=== PATIENT | male | born 1980 | race Caucasian/White ===

== ENCOUNTER 2017-04-27 20:54 | Inpatient (IN) | payer MEDICAID ==
[2017-04-27 20:54] VITALS: BMI 32.3
[2017-04-27] MEDS ORDERED: Sodium Chloride 0.9% 1,000 ML IV ONE (21:39)
--- NOTE | 2017-04-27 21:42 | C.PDOC ---
History Of Present Illness 36 year old male with a Hx of diabetes who presents to the ER with a complaint of abdominal pain since last night, associated with nausea and vomiting. Patient states he feels "bloated" and notes the pain is worse at the epigastric region; denies diarrhea or other compliant. Time Seen by Provider: 04/27/17 21:18 Chief Complaint (Nursing): Abdominal Pain History Per: Patient History/Exam Limitations: no limitations Onset/Duration Of Symptoms: Days Current Symptoms Are (Timing): Still Present Location Of Pain/Discomfort: Epigastric Radiation Of Pain To:: None Quality Of Discomfort: Unable To Describe Associated Symptoms: Nausea, Vomiting. denies: Fever, Chills, Diarrhea Exacerbating Factors: None Alleviating Factors: None Recent travel outside of the [place]: No Past Medical History Reviewed: Historical Data, Nursing Documentation, Vital Signs Vital Signs: Last Vital Signs Temp 97.6 F 04/28/17 07:35 Pulse 75 04/28/17 07:40 Resp 22 04/28/17 07:35 BP 121/55 L 04/28/17 07:35 Pulse Ox 99 04/28/17 12:22 - Medical History PMH: Asthma, Atrial Fibrillation, Cardia Arrhythmia, Diabetes, Sleep Apnea (ON CPAP) Surgical History: No Surg Hx Family History: States: Unknown Family Hx - Social History Hx Tobacco Use: No Hx Alcohol Use: No Hx Substance Use: No - Immunization History Hx Tetanus Toxoid Vaccination: No Hx Influenza Vaccination: No Hx Pneumococcal Vaccination: No Review Of Systems Constitutional: Negative for: Fever, Chills Gastrointestinal: Positive for: Nausea, Vomiting, Abdominal Pain. Negative for : Diarrhea Physical Exam - Physical Exam Appears: Non-toxic Skin: Normal Color, Warm, Dry Head: Atraumatic, Normacephalic Oral Mucosa: Moist Chest: Symmetrical, No Tenderness Cardiovascular: Rhythm Regular, No Murmur Respiratory: Normal Breath Sounds, No Rales, No Rhonchi, No Wheezing Gastrointestinal/Abdominal: Soft, Tenderness (Mild nonfocal, worse at epigastric ) Neurological/Psych: Oriented x3, Normal Speech, Normal Cognition ED Course And Treatment - Laboratory Results Result Diagrams: 04/28/17 07:26 04/28/17 07:26 O2 Sat by Pulse Oximetry: 99 (Room air) Pulse Ox Interpretation: Normal Medical Decision Making Medical Decision Making: Plan: * Blood work * Urinalysis * Zofran * Protonix * IV fluids Disposition - Disposition Disposition: HOSPITALIZED Disposition Time: 23:41 Condition: FAIR - Clinical Impression Clinical Impression: Acute renal failure, Abdominal pain, Leukocytosis, Bandemia - Scribe Statement The provider has reviewed the documentation as recorded by the Tonnyibiqra Barr All medical record entries made by the Scribe were at my direction and personally dictated by me. I have reviewed the chart and agree that the record accurately reflects my personal performance of the history, physical exam, medical decision making, and the department course for this patient. I have also personally directed, reviewed, and agree with the discharge instructions and disposition. Decision To Admit - Pt Status Changed To: Hospital Disposition Of: Inpatient - Admit Certification Admit to Inpatient:: After my assessment, the patient will require hospitalization for at least two midnights. This is because of the severity of symptoms shown, intensity of services needed, and/or the medical risk in this patient being treated as an outpatient. - InPatient: Physician Admission Certification:: pt with new acute renal failure, leukocytosis, concern for sepssi, needs ivf, renal eval. - . Bed Request Type: Telemetry Admitting Physician: Marc Thomason Jr. Patient Diagnosis: Acute renal failure, Abdominal pain, Leukocytosis, Bandemia
[2017-04-27] MEDS ORDERED: Sodium Chloride 0.9% 1,000 ML ONE (21:52)
[2017-04-27 21:54] LABS: BASO # 0.1 K/uL (0.0-0.2); BASO % 0.3 % (0.0-2.0); EOS % 0.1 % (0.0-4.0); HEMATOCRIT 35.1 % (35.0-51.0); LYMPH # 1.6 K/uL (1.0-4.3); LYMPH % 7.2 % (20.0-40.0); MEAN CELL VOLUME 78.5 fL (80.0-94.0); MEAN CORPUSCULAR HEMOGLOBIN 26.5 pg (27.0-31.0); MEAN CORPUSCULAR HGB CONC 33.7 g/dL (33.0-37.0); MEAN PLATELET VOLUME 8.5 fL (7.2-11.7); MONO # 2.3 K/uL (0.0-0.8); MONO % 10.4 % (0.0-10.0); PLATELET COUNT 218 K/uL (130-400); RED CELL DISTRIBUTION WIDTH 14.1 % (11.5-14.5); WHITE BLOOD COUNT 22.2 K/uL (4.8-10.8)
[2017-04-27 22:01] LABS: INR 1.1
[2017-04-27 22:04] LABS: ALB/GLOB RATIO 1.2 (1.0-2.1); BILIRUBIN,TOTAL 0.2 mg/dL (0.2-1.3); CALCIUM 8.2 mg/dl (8.6-10.4); POTASSIUM 3.7 mmol/L (3.6-5.2); TOTAL PROTEIN 6.6 g/dL (6.3-8.3)
[2017-04-27 22:19] LABS: NEUTROPHIL 79 % (50-75); TOTAL CELLS COUNTED 100
[2017-04-27 22:20] LABS: LARGE PLATELETS PRESENT
--- NOTE | 2017-04-27 23:27 | CT ---
EXAM: CT Abdomen and Pelvis Without Intravenous Contrast EXAM DATE/TIME: 04/27/2017 10:06 PM CLINICAL HISTORY: 36 years old, male; Pain; Abdominal pain; Generalized; Additional info: Abd pain TECHNIQUE: Axial computed tomography images of the abdomen and pelvis without intravenous contrast. All CT scans at this facility use one or more dose reduction techniques, viz.: automated exposure control; ma/kV adjustment per patient size (including targeted exams where dose is matched to indication; i.e. head); or iterative reconstruction technique. Coronal and sagittal reformatted images were created and reviewed. COMPARISON: No relevant prior studies available. FINDINGS: There is bibasilar atelectasis. Questionable trace amount of sludge layering along the inferior gallbladder. No pericholecystic inflammation identified. The liver, spleen, and pancreas appear grossly normal on this non-contrast study. No perinephric stranding. No hydronephrosis. No obstructing calculi. The bowel appears grossly normal. A normal appendix is identified axial image 116 through 126 coronal image 50-56. IMPRESSION: No acute findings.
[2017-04-27] MEDS ORDERED: Piperacill/Tazo 3.375gm in Dex 3.375 GM/50 ML BAG IVPB STA (23:28)
[2017-04-28] MEDS ORDERED: Piperacillin/Tazobact 3.375 gm 100 ML IVPB ONE (00:11)
[2017-04-28] MEDS ORDERED: Dextrose 50% SYRINGE Inj (50 ml) ONE ×2 (00:21→02:20)
[2017-04-28] MEDS ORDERED: Dextrose 50% SYRINGE Inj (50 ml) IV STA ×2 (00:25→02:54)
[2017-04-28] MEDS ORDERED: Sodium Chloride 0.9% 250 ML IV SCH (00:30)
--- NOTE | 2017-04-28 01:19 | CP.PCM.HP ---
History of Present Illness - History of Present Illness History of Present Illness: HPI: Patient is a 36M with PMH DM, Sleep apnea, Asthma, AFib, HTN who presents to the ED for abdominal pain and vomiting. Patient says this started yesterday and gradually worsened. Patient says his abdominal pain is diffuse and 10/10 in intensity. Patient said he vomited all day yesterday but does not know how many times stating it was a lot. Patient says he checked his blood suger and the readings were repeatedly very low, in the 20s. Patient says at one point they dropped so low that he passed out and awakened when his family member called him on the phone. Patient says he tried drinking juices but kept vomiting so his blood sugar remained low. Patient says he did not take anything for his pain at home but says he feels better when he is resting and worse when moving around. Patient admits to associated feeling of fever with chills, weakness, 10 pound weight loss in 1 week, MONIQUE, dizziness, sore throat, body aches, joint pain , CP/SOB when he starts vomiting, Watery diarrhea, flank pain, pain in his scrotum, and cramping in his hands. Patient denies Cough, wheezing, dysuria, frequency, incontinence, hematuria, rash, or numbness/tingling in hands or feet. PMH: DM, Sleep apnea, Asthma, AFib, HTN Meds: Humalog 5U TID, Lantus 30 AM, Motrin 600 PRN for joint pain, "BP med as needed for HTN" (patient cannot recall name) PSH: cardiac cath 2 years ago (neg) Allergies: denies FamHx: Kidney dz (uncle) SocHx: denies smoking, alcohol use, drug use; unemployed on disability Present on Admission - Present on Admission Any Indicators Present on Admission: Yes History of Uncontrolled Diabetes: Yes Review of Systems - Review of Systems All systems: reviewed and no additional remarkable complaints except (as per HPI ) Past Patient History - Infectious Disease Hx of Infectious Diseases: None - Past Medical History & Family History Past Medical History?: Yes - Past Social History Smoking Status: Never Smoked - CARDIAC Hx Atrial Fibrillation: Yes Hx Cardia Arrhythmia: Yes - PULMONARY Hx Asthma: Yes Hx Sleep Apnea: Yes (ON CPAP) - ENDOCRINE/METABOLIC Hx Endocrine Disorders: Yes Hx Diabetes Mellitus Type 1: Yes - MUSCULOSKELETAL/RHEUMATOLOGICAL Hx Falls: No - PSYCHIATRIC Hx Substance Use: No - SURGICAL HISTORY Hx Surgeries: Yes Hx Cardiac Catheterization: Yes (2016) - ANESTHESIA Hx Anesthesia: Yes Hx Anesthesia Reactions: No Hx Malignant Hyperthermia: No Meds Allergies/Adverse Reactions: Allergies Allergy/AdvReac Type Severity Reaction Status Date / Time No Known Allergies Allergy Verified 04/27/17 21:17 Physical Exam - Constitutional Appears: Non-toxic, No Acute Distress - Head Exam Head Exam: ATRAUMATIC, NORMAL INSPECTION, NORMOCEPHALIC - Eye Exam Eye Exam: EOMI, Normal appearance - ENT Exam ENT Exam: Mucous Membranes Moist Additional comments: hyperemia of oropharynx without exudates - Neck Exam Neck exam: Positive for: Tenderness (paraspinal muscles ). Negative for: Lymphadenopathy - Respiratory Exam Respiratory Exam: Clear to Auscultation Bilateral, NORMAL BREATHING PATTERN. absent: Wheezes, Respiratory Distress - Cardiovascular Exam Cardiovascular Exam: REGULAR RHYTHM, +S1, +S2. absent: Bradycardia, Tachycardia - GI/Abdominal Exam GI & Abdominal Exam: Distended, Hyperactive Bowel Sounds, Soft, Tenderness. absent: Bruit, Guarding - Extremities Exam Extremities exam: Positive for: normal inspection, pedal pulses present. Negative for: pedal edema, tenderness - Back Exam Back exam: NORMAL INSPECTION, paraspinal tenderness. absent: rash noted - Neurological Exam Neurological exam: Alert, Oriented x3 - Psychiatric Exam Psychiatric exam: Normal Affect, Normal Mood - Skin Skin Exam: Dry, Intact, Normal Color, Warm Results - Vital Signs Recent Vital Signs: Last Vital Signs Temp 98.5 F 04/27/17 21:13 Pulse 82 04/28/17 00:25 Resp 22 04/28/17 00:25 BP 99/35 L 04/28/17 00:25 Pulse Ox 92 L 04/28/17 00:25 - Labs Result Diagrams: 04/27/17 21:50 04/27/17 21:50 Labs: Laboratory Results - last 24 hr 04/28/17 04/28/17 00:22 01:04 POC Glucose (mg/dL) 243 H 77 Assessment & Plan - Assessment and Plan (Free Text) Assessment: [facility] * BUN/Cr: 26/5.1 * Consult Nephrology (Dr. Limon) recs appreciated Abdominal pain/Vomiting * CT scan a/p: no abnormal findings * Liquid diet * NS 250 bolus * Zofran 4 mg PRN * leukocytosis 22.2 * currently afebrile with no antipyretics given * f/u BC * f/u UA, UC Hx DM * holding home Insulin 2/2 low BG Hx Afib * no home meds for this * controlled with ED ECG NSR Prophylaxis * Heparin 5000 Q12 * Protonix 40mg QD * SCDs
[2017-04-28] MEDS ORDERED: Sodium Chloride 0.9% 250 ML IV ONE ×2 (01:28→01:34)
[2017-04-28] MEDS ORDERED: Sodium Chloride 0.9% 1,000 ML IV SCH (07:00)
[2017-04-28 07:31] LABS: BASO % 0.1 % (0.0-2.0); HEMATOCRIT 36.9 % (35.0-51.0); LYMPH # 1.3 K/uL (1.0-4.3); LYMPH % 6.9 % (20.0-40.0); MEAN CELL VOLUME 78.9 fL (80.0-94.0); MEAN CORPUSCULAR HEMOGLOBIN 26.3 pg (27.0-31.0); MEAN CORPUSCULAR HGB CONC 33.3 g/dL (33.0-37.0); MEAN PLATELET VOLUME 8.8 fL (7.2-11.7); MONO % 10.7 % (0.0-10.0); PLATELET COUNT 213 K/uL (130-400); RED CELL DISTRIBUTION WIDTH 14.5 % (11.5-14.5); WHITE BLOOD COUNT 18.7 K/uL (4.8-10.8)
[2017-04-28 07:50] LABS: ALB/GLOB RATIO 1.1 (1.0-2.1); BILIRUBIN,TOTAL 0.2 mg/dL (0.2-1.3); CALCIUM 7.4 mg/dl (8.6-10.4); POTASSIUM 3.6 mmol/L (3.6-5.2); TOTAL PROTEIN 6.2 g/dL (6.3-8.3)
--- NOTE | 2017-04-28 07:53 | CP.PCM.PN ---
<RicardoDari morse - Last Filed: 04/28/17 18:23> Subjective - Date & Time of Evaluation Date of Evaluation: 04/28/17 Time of Evaluation: 09:00 - Subjective Subjective: PGY 2 Medicine note- Dr. Thomason's service Pt seen and examined this morning in no apparent immediate distress. Patient stated that he was coughing up blood tinged sputum. Per nurse, patient went to the bathroom and coughed up white colored sputum with some blood specks. Patient stated that he had never experienced this before. He stated that he had some trouble sleeping overnight as well. He states that he did no travel recently out of the country or within country lines on any long distance journeys. He denied sick contacts or being sick recently. Patient was able to urinate once in the morning, but had not urinated since then. Later on shortly after 15:00, remote mortgage underwriter received a page regarding patient being acutely short of breath despite being on venti mask. Patient's oxygen saturation dropped to 75 % as reported by the respiratory team. At that time, patient was noted to be clinically in respiratory distress. Patient was still bringing up blood tinged sputum at the time. Patient placed on BiPAP therapy and STAT CXR was obtained with findings of fluid congestion. EKG NSR. Other stat labs ordered as listed below in the assessment. Clinical findings were made known to the primary attending and then critical care evaluation was placed . Commissary Helper was also made aware of the present findings. Patient was asked to attempt to urinate but was unable to do so. STAT Lasix given. It was decided hat patient would be transferred to the ICU for continued critical care monitoring. Objective - Vital Signs/Intake and Output Vital Signs (last 24 hours): Temp Pulse Resp BP Pulse Ox 98.1 F 77 22 105/53 L 98 04/28/17 03:27 04/28/17 03:58 04/28/17 03:27 04/28/17 03:27 04/28/17 02:52 Intake and Output: 04/28/17 04/28/17 06:59 18:59 Intake Total 600 Balance 600 - Medications Medications: Current Medications Heparin Sodium (Porcine) (Heparin) 5,000 units SC Q12 CLAUDE Sodium Chloride (Sodium Chloride 0.9%) 1,000 mls @ 80 mls/hr IV .[id number] CLAUDE Ibuprofen (Motrin Tab) 600 mg PO TID PRN PRN Reason: Pain, moderate (4-7) Last Admin: 04/28/17 04:04 Dose: 600 mg Ondansetron HCl (Zofran Inj) 4 mg IVP Q6 PRN PRN Reason: Nausea/Vomiting Pantoprazole Sodium (Protonix Ec Tab) 40 mg PO DAILY [facility] Pneumococcal Polyvalent Vaccine (Pneumovax 23 Vaccine) 0.5 ml IM .ONCE ONE Stop: 04/30/17 14:01 - Labs Labs: 04/28/17 07:26 PT 12.8 SECONDS (9.7-12.2) H 04/27/17 21:50 INR 1.1 04/27/17 21:50 APTT 28 SECONDS (21-34) 04/27/17 21:50 - Constitutional Appears: In Acute Distress - Head Exam Head Exam: ATRAUMATIC, NORMAL INSPECTION, NORMOCEPHALIC - Eye Exam Eye Exam: EOMI, Normal appearance, PERRL Pupil Exam: NORMAL ACCOMODATION - ENT Exam ENT Exam: Mucous Membranes Moist - Neck Exam Neck Exam: Full ROM - Respiratory Exam Respiratory Exam: Rales. absent: NORMAL BREATHING PATTERN - Cardiovascular Exam Cardiovascular Exam: +S1, +S2 - GI/Abdominal Exam GI & Abdominal Exam: Soft, Normal Bowel Sounds - Extremities Exam Extremities Exam: Full ROM, Normal Capillary Refill, Pedal Edema - Back Exam Back Exam: Full ROM - Neurological Exam Neurological Exam: Alert, Awake, Normal Gait, Oriented x3 - Psychiatric Exam Psychiatric exam: Anxious - Skin Skin Exam: Dry, Warm Assessment and Plan - Assessment and Plan (Free Text) Assessment: Hypoxia secondary to fluid overload * CXR showed congestion * STAT Lasix given * Placed on BiPAP therapy with improvement * Later switched back to venti mask with improvement of saturation * EKG: NSR. * Transferred to ICU [facility] * BUN/Cr: 26/5.1- Worsening. * Nephro notified and made aware. F/U recommendations. Patient counseled on benefit of HD even if it's only a one time occurence. Patient is refusing dialysis at this time. * fluids stopped * Check UA, UC, Serologies for autoimmune etiologies of pulm-renal syndrome * This is significantly changed from August 2016 where Cr was 0.7-1.0 range. ( His actual baseline) * CT scan a/p: no findings of hydronephrosis, * Bladder scans as needed- patient may need suazo placed Hemoptyis * Unclear etiology * Will follow up CBC and monitor Hgb * Will investigate once patient is more stable. * D-Dimer elevated. Can pursue further imaging once patient is stable Abdominal pain * CT scan a/p: no findings of hydronephrosis, trace questionable sludge noted of inferior gallbladder * Liquid diet as tolerated * NS 250 bolus given- maintenance fluids stopped * Zofran 4 mg PRN * Leukocytosis 22.2, currently afebrile with no antipyretics given * f/u BC, f/u UA, UC Transaminitis * May be due to medication administration. Trending down. Meds to be reviewed. Hx DM * holding home Insulin 2/2 low BG * F/U A1c * Will add on coverage pending accuchecks Hx Afib * No known home meds for this- Will need to confirm with patient's pharmacy * EKG NSR Hx of HTN * No known home meds * Hypotensive at the moment so will not initiate antihypertensive agent therapy Hx of Asthma * Duonebs as needed * On venti mask. Will benefit with BiPAP therapy as needed Prophylaxis * Heparin 5000 Q12- Hold due to hemoptysis * Protonix 40mg IV Q12 due to hemoptysis * SCDs Discussed with primary attending, nephrology attending and critical care attending. Management per aforementioned individuals. <Marc Thomason Jr. - Last Filed: 04/30/17 11:10> Objective - Vital Signs/Intake and Output Vital Signs (last 24 hours): Temp Pulse Resp BP Pulse Ox 98.7 F 104 H 24 135/69 100 04/30/17 04:00 04/30/17 07:00 04/30/17 07:00 04/30/17 10:11 04/30/17 07:00 Intake and Output: 04/30/17 04/30/17 06:59 18:59 Intake Total 1968.2 465.4 Output Total 265 Balance 1703.2 465.4 - Medications Medications: Current Medications Albuterol/Ipratropium (Duoneb 3 Mg/0.5 Mg (3 Ml) Ud) 3 ml INH RQ6 PRN PRN Reason: Wheezing Last Admin: 04/30/17 08:04 Dose: 3 ml Calcium Acetate (Phoslo) 667 mg GT TIDCC [facility] Last Admin: 04/30/17 08:19 Dose: 667 mg Heparin Sodium (Porcine) (Heparin) 5,000 units SC Q12 [facility] Last Admin: 04/30/17 10:11 Dose: 5,000 units Ceftriaxone Sodium 1 gm/ (Sodium Chloride) 100 mls @ 100 mls/hr IVPB DAILY [facility] Last Admin: 04/30/17 10:12 Dose: 100 mls/hr Sodium Chloride (Sodium Chloride 0.9%) 1,000 mls @ 15 mls/hr IV .Q24H [facility] Last Admin: 04/29/17 19:35 Dose: Not Given Propofol (Diprivan) 1,000 mg in 100 mls @ 2.85 mls/hr IV .Q24H PRN; Protocol; 5 MCG/KG/MIN PRN Reason: TITRATE PER MD ORDER Last Admin: 04/30/17 10:21 Dose: 70 mcg/kg/min, 39.9 mls/hr Cisatracurium Besylate 100 mg/ (Dextrose) 250 mls @ 42.75 mls/hr IV .Q5H51M CLAUDE ; 3 MCG/KG/MIN PRN Reason: Protocol Last Admin: 04/30/17 08:15 Dose: 2 mcg/kg/min, 28.5 mls/hr Insulin Human Regular 100 unit (/ Sodium Chloride) 100 mls @ 2 mls/hr IV .Q24H CLAUDE PRN Reason: Protocol Last Titration: 04/30/17 10:00 Dose: 0 units/kg/min, 4 mls/hr Metoprolol Tartrate (Lopressor) 25 mg PO BID [facility] Last Admin: 04/30/17 10:11 Dose: 25 mg Pantoprazole Sodium (Protonix Inj) 40 mg IVP DAILY [facility] Last Admin: 04/30/17 10:12 Dose: 40 mg Sitagliptin Phosphate (Januvia) 25 mg PO DAILY [facility] Last Admin: 04/30/17 10:11 Dose: 25 mg - Labs Labs: 04/30/17 06:14 04/30/17 06:14 PT 13.0 SECONDS (9.7-12.2) H 04/28/17 15:20 INR 1.1 04/28/17 15:20 APTT 28 SECONDS (21-34) 04/28/17 15:20 Attending/Attestation - Attestation I have personally seen and examined this patient.: Yes I have fully participated in the care of the patient.: Yes I have reviewed all pertinent clinical information, including history, physical exam and plan: Yes Notes (Text): 04/30/17 11:10 Agree with resident note and findings
[2017-04-28 09:04] LABS: NEUTROPHIL 74 % (50-75); TOTAL CELLS COUNTED 100
[2017-04-28 09:06] LABS: LARGE PLATELETS PRESENT
[2017-04-28] MEDS ORDERED: Pantoprazole 40 mg EC Tab PO SCH (10:00)
[2017-04-28 10:26] LABS: MAGNESIUM 1.5 mg/dL (1.6-2.3)
--- NOTE | 2017-04-28 12:39 | RAD ---
HISTORY: abd pain COMPARISON: 09/06/2016 FINDINGS: LUNGS: No active pulmonary disease. PLEURA: No significant pleural effusion identified, no pneumothorax apparent. CARDIOVASCULAR: Normal. OSSEOUS STRUCTURES: No significant abnormalities. VISUALIZED UPPER ABDOMEN: Normal. OTHER FINDINGS: None. IMPRESSION: No active disease.
[2017-04-28] MEDS: Albuterol-Ipratrop 3 mg / 0.5 (3 ml) UD INH PRN (14:36)
[2017-04-28 15:23] LABS: BASO % 0.2 % (0.0-2.0); EOS % 0.1 % (0.0-4.0); HEMATOCRIT 34.9 % (35.0-51.0); LYMPH # 0.5 K/uL (1.0-4.3); LYMPH % 2.4 % (20.0-40.0); MEAN CELL VOLUME 78.8 fL (80.0-94.0); MEAN CORPUSCULAR HEMOGLOBIN 26.5 pg (27.0-31.0); MEAN CORPUSCULAR HGB CONC 33.6 g/dL (33.0-37.0); MEAN PLATELET VOLUME 8.5 fL (7.2-11.7); MONO # 1.5 K/uL (0.0-0.8); MONO % 6.6 % (0.0-10.0); PLATELET COUNT 200 K/uL (130-400); RED CELL DISTRIBUTION WIDTH 14.1 % (11.5-14.5); WHITE BLOOD COUNT 22.1 K/uL (4.8-10.8)
[2017-04-28 15:41] LABS: INR 1.1
--- NOTE | 2017-04-28 16:03 | CP.PCM.CON ---
History of Present Illness - History of Present Illness History of Present Illness: HPI: Patient is a 36M with PMH DM type 1,Sleep apnea, Asthma, AFib, HTN who presents to the ED for abdominal pain and vomiting. Patient says this started yesterday and gradually worsened. Patient says his abdominal pain is diffuse and 10/10 in intensity. Patient said he vomited all day yesterday but does not know how many times stating it was a lot. Patient says he checked his blood suger and the readings were repeatedly very low, in the 20s. Patient says at one point they dropped so low that he passed out and awakened when his family member called him on the phone. Patient says he tried drinking juices but kept vomiting so his blood sugar remained low. Patient says he did not take anything for his pain at home but says he feels better when he is resting and worse when moving around. Patient admits to associated feeling of fever with chills, weakness, 10 pound weight loss in 1 week, MONIQUE, dizziness, sore throat, body aches , joint pain, CP/SOB when he starts vomiting, Watery diarrhea, flank pain, pain in his scrotum, and cramping in his hands. Patient denies Cough, wheezing, dysuria, frequency, incontinence, hematuria, rash, or numbness/tingling in hands or feet Course notable for fluid challenge. CT scan of abdomen unremarkable. Renal consult for calli. Normal creatinine and no proteinuria in 09/04. Pt given ivf with worsening creatinine. Pt also desaturated on floor with blood tinged phlegm. Presently on nonrebreather, going to ICU. Has been taking Motrin. No BP meds. No contrast procedures. No family history of renal disease. Review of Systems - Review of Systems Systems not reviewed;Unavailable: Respiratory Distress Past Patient History - Infectious Disease Hx of Infectious Diseases: None - Past Medical History & Family History Past Medical History?: Yes - Past Social History Smoking Status: Never Smoked - CARDIAC Hx Atrial Fibrillation: Yes Hx Cardia Arrhythmia: Yes - PULMONARY Hx Asthma: Yes Hx Sleep Apnea: Yes (ON CPAP) - NEUROLOGICAL Hx Neurological Disorder: No - HEENT Hx HEENT Problems: No - RENAL Hx Chronic Kidney Disease: No - ENDOCRINE/METABOLIC Hx Endocrine Disorders: Yes Hx Diabetes Mellitus Type 1: Yes - HEMATOLOGICAL/ONCOLOGICAL Hx Blood Disorders: No - INTEGUMENTARY Hx Dermatological Problems: No - MUSCULOSKELETAL/RHEUMATOLOGICAL Hx Musculoskeletal Disorders: No Hx Falls: No - GASTROINTESTINAL Hx Gastrointestinal Disorders: No - GENITOURINARY/GYNECOLOGICAL Hx Genitourinary Disorders: No - PSYCHIATRIC Hx Substance Use: No - SURGICAL HISTORY Hx Surgeries: Yes Hx Cardiac Catheterization: Yes (2016) - ANESTHESIA Hx Anesthesia: Yes Hx Anesthesia Reactions: No Hx Malignant Hyperthermia: No Meds Allergies/Adverse Reactions: Allergies Allergy/AdvReac Type Severity Reaction Status Date / Time No Known Allergies Allergy Verified 04/27/17 21:17 - Medications Medications: Current Medications Albuterol/Ipratropium (Duoneb 3 Mg/0.5 Mg (3 Ml) Ud) 3 ml INH RQ6 PRN PRN Reason: Wheezing Last Admin: 04/28/17 14:36 Dose: 3 ml Heparin Sodium (Porcine) (Heparin) 5,000 units SC Q12 CLAUDE Ondansetron HCl (Zofran Inj) 4 mg IVP Q6 PRN PRN Reason: Nausea/Vomiting Pantoprazole Sodium (Protonix Inj) 40 mg IVP Q12H CLAUDE Pneumococcal Polyvalent Vaccine (Pneumovax 23 Vaccine) 0.5 ml IM .ONCE ONE Stop: 04/30/17 14:01 Physical Exam - Constitutional Appears: Agitated - Head Exam Head Exam: ATRAUMATIC - Eye Exam Eye Exam: EOMI - ENT Exam ENT Exam: Mucous Membranes Moist - Neck Exam Neck exam: Positive for: Full Rom. Negative for: Lymphadenopathy - Respiratory Exam Respiratory Exam: Rales, Respiratory Distress - Cardiovascular Exam Cardiovascular Exam: REGULAR RHYTHM. absent: Rubs - GI/Abdominal Exam GI & Abdominal Exam: Distended, Soft. absent: Guarding - Extremities Exam Extremities exam: Positive for: pedal edema - Neurological Exam Neurological exam: Alert - Psychiatric Exam Psychiatric exam: Agitated, Anxious Results - Vital Signs Recent Vital Signs: Last Vital Signs Temp 97.6 F 04/28/17 07:35 Pulse 83 04/28/17 15:31 Resp 22 04/28/17 07:35 BP 119/64 04/28/17 15:51 Pulse Ox 99 04/28/17 12:23 - Labs Result Diagrams: 04/28/17 15:20 04/28/17 07:26 Labs: Laboratory Results - last 24 hr 04/28/17 04/28/17 04/28/17 00:22 01:04 02:10 WBC RBC Hgb Hct MCV MCH MCHC RDW Plt Count MPV Neut % (Auto) Lymph % (Auto) Dale % (Auto) Eos % (Auto) Baso % (Auto) Neut # Lymph # Dale # Eos # Baso # Neutrophils % (Manual) Band Neutrophils % Lymphocytes % (Manual) Monocytes % (Manual) Toxic Granulation Platelet Estimate Large Platelets Poikilocytosis (manual Anisocytosis (manual) Microcytosis (manual) Philo Cells PT INR APTT D-Dimer, Quantitative Sodium Potassium Chloride Carbon Dioxide Anion Gap BUN Creatinine Est GFR ( Amer) Est GFR (Non-Af Amer) POC Glucose (mg/dL) 243 H 77 48 L Random Glucose Calcium Phosphorus Magnesium Total Bilirubin AST ALT Alkaline Phosphatase Total Creatine Kinase CK-MB (Mass) Troponin I, Quant Total Protein Albumin Globulin Albumin/Globulin Ratio 04/28/17 04/28/17 04/28/17 02:56 04:46 05:23 WBC RBC Hgb Hct MCV MCH MCHC RDW Plt Count MPV Neut % (Auto) Lymph % (Auto) Dale % (Auto) Eos % (Auto) Baso % (Auto) Neut # Lymph # Dale # Eos # Baso # Neutrophils % (Manual) Band Neutrophils % Lymphocytes % (Manual) Monocytes % (Manual) Toxic Granulation Platelet Estimate Large Platelets Poikilocytosis (manual Anisocytosis (manual) Microcytosis (manual) Bill Cells PT INR APTT D-Dimer, Quantitative Sodium Potassium Chloride Carbon Dioxide Anion Gap BUN Creatinine Est GFR ( Amer) Est GFR (Non-Af Amer) POC Glucose (mg/dL) 109 67 77 Random Glucose Calcium Phosphorus Magnesium Total Bilirubin AST ALT Alkaline Phosphatase Total Creatine Kinase CK-MB (Mass) Troponin I, Quant Total Protein Albumin Globulin Albumin/Globulin Ratio 04/28/17 04/28/17 04/28/17 07:05 07:26 07:26 WBC 18.7 H RBC 4.68 Hgb 12.3 Hct 36.9 MCV 78.9 L MCH 26.3 L MCHC 33.3 RDW 14.5 Plt Count 213 MPV 8.8 Neut % (Auto) 82.3 H Lymph % (Auto) 6.9 L Dale % (Auto) 10.7 H Eos % (Auto) 0.0 Baso % (Auto) 0.1 Neut # 15.4 H Lymph # 1.3 Dale # 2.0 H Eos # 0.0 Baso # 0.0 Neutrophils % (Manual) 74 Band Neutrophils % 5 H Lymphocytes % (Manual) 10 L Monocytes % (Manual) 11 H Toxic Granulation Present Platelet Estimate Normal Large Platelets Present Poikilocytosis (manual Slight Anisocytosis (manual) Slight Microcytosis (manual) Slight Philo Cells Slight PT INR APTT D-Dimer, Quantitative Sodium 130 L Potassium 3.6 Chloride 91 L Carbon Dioxide 17 L Anion Gap 26 H BUN 30 H Creatinine 6.3 H Est GFR ( Amer) 12 Est GFR (Non-Af Amer) 10 POC Glucose (mg/dL) 86 Random Glucose 82 Calcium 7.4 L Phosphorus 3.0 Magnesium 1.5 L Total Bilirubin 0.2 AST 101 H D ALT 109 H D Alkaline Phosphatase 82 Total Creatine Kinase CK-MB (Mass) Troponin I, Quant Total Protein 6.2 L Albumin 3.2 L Globulin 3.0 Albumin/Globulin Ratio 1.1 04/28/17 04/28/17 04/28/17 11:32 15:20 15:20 WBC RBC Hgb Hct MCV MCH MCHC RDW Plt Count MPV Neut % (Auto) Lymph % (Auto) Dale % (Auto) Eos % (Auto) Baso % (Auto) Neut # Lymph # Dale # Eos # Baso # Neutrophils % (Manual) Band Neutrophils % Lymphocytes % (Manual) Monocytes % (Manual) Toxic Granulation Platelet Estimate Large Platelets Poikilocytosis (manual Anisocytosis (manual) Microcytosis (manual) Bill Cells PT 13.0 H INR 1.1 APTT 28 D-Dimer, Quantitative 461 H Sodium Potassium Chloride Carbon Dioxide Anion Gap BUN Creatinine Est GFR ( Amer) Est GFR (Non-Af Amer) POC Glucose (mg/dL) 272 H Random Glucose Calcium Phosphorus Magnesium Total Bilirubin AST ALT Alkaline Phosphatase Total Creatine Kinase 309 H CK-MB (Mass) 4.61 H Troponin I, Quant 0.0560 Total Protein Albumin Globulin Albumin/Globulin Ratio 04/28/17 15:20 WBC 22.1 H RBC 4.43 Hgb 11.7 L Hct 34.9 L MCV 78.8 L MCH 26.5 L MCHC 33.6 RDW 14.1 Plt Count 200 MPV 8.5 Neut % (Auto) 90.7 H Lymph % (Auto) 2.4 L Dale % (Auto) 6.6 Eos % (Auto) 0.1 Baso % (Auto) 0.2 Neut # 20.1 H Lymph # 0.5 L Dale # 1.5 H Eos # 0.0 Baso # 0.0 Neutrophils % (Manual) Band Neutrophils % Lymphocytes % (Manual) Monocytes % (Manual) Toxic Granulation Platelet Estimate Large Platelets Poikilocytosis (manual Anisocytosis (manual) Microcytosis (manual) Philo Cells PT INR APTT D-Dimer, Quantitative Sodium Potassium Chloride Carbon Dioxide Anion Gap BUN Creatinine Est GFR ( Amer) Est GFR (Non-Af Amer) POC Glucose (mg/dL) Random Glucose Calcium Phosphorus Magnesium Total Bilirubin AST ALT Alkaline Phosphatase Total Creatine Kinase CK-MB (Mass) Troponin I, Quant Total Protein Albumin Globulin Albumin/Globulin Ratio Assessment & Plan - Assessment and Plan (Free Text) Assessment: calli, unclear u/o worsening respiratory status blood tinged phlegm for icu admit d/c ivf iv lasix potential HD if no improvement check protein in urine check serology for pulmonary renal syndromes close f/u
--- NOTE | 2017-04-28 16:32 | CP.CCUPN ---
CCU Subjective - Physician Review Events Since Last Encounter (Free Text): 04/28/17 16:44 Patient is a 36-year-old male with a history of diabetes, poorly controlled, and also likely has a high blood pressure. Patient was seen by PMD to 3 months ago, at the time his renal function was normal. In August 2016 he had a normal renal function. He came to the emergency room because of not feeling well for at least 3 weeks, got worse 3 days, and admitted to the medical floor with suspected acute renal failure, and the possibility hydration. But at the time patient received IV fluid, but his condition got worse this morning. Evidence suggesting that he may be having fluid overload state. Patient is currently having increasing shortness of breath, increasing tachypnea , cough with mucus which has some blood in the mucus noted. He is also having significant chest tightness with coughing. Occasional wheezing noted. He does not have any fever. He was also concerned about low blood sugar. He does not make much urine the last 24 hours but it was not documented Past medical history: Diabetes hypertension noncompliance Allergy: No known drug allergy Personal history and other history as noted in the chart On examination: Patient is somewhat distress at this time, the severe exertional dyspnea noted. He was using BiPAP, but started having some suffocating sensation. Currently on 100% FiO2. He is awake and responding. Able to move around. Concerned about dialysis, patient is currently refusing Alert awake oriented 3 pedal edema noted, rales bilaterally in the lungs noted Chest x-ray bilateral. Pulmonary edema pattern noted. Labs otherwise showing evidence of worsening renal failure. Patient is possibly oliguric Assessment and recommendation: 36-year-old male with history of diabetes, hypertension. Noncompliance. Now with acute renal failure. There is no evidence of any obstruction identified per the CAT scan. Acute renal failure, causes cannot be ruled out including nephrotic syndrome, renal failure from other causes, currently to the disease cannot be ruled out. Meanwhile we'll manage the patient in the intensive care unit. Lasix 100 milligrams. BiPAP oxygen. Will closely monitor the intensive care unit. Patient is currently not willing to have the dialysis, but if necessary patient may need to have the dialysis. Renal follow-up will follow the patient CCU Objective - Vital Signs / Intake & Output Vital Signs (Last 4 hours): Vital Signs Pulse BP 04/28/17 15:51 119/64 04/28/17 15:31 83 Intake and Output (Last 8hrs): Intake & Output 04/28/17 04/28/17 04/28/17 06:59 14:59 22:59 Intake Total 600 Balance 600 Intake: Oral 600 Other: # Voids Urine, Voided 0 # Bowel Movements 0 - Medications Active Medications: Active Medications Generic Name Dose Route Start Last Admin Trade Name Freq PRN Reason Stop Dose Admin Albuterol/Ipratropium 3 ml 04/28/17 08:00 04/28/17 14:36 Duoneb 3 Mg/0.5 Mg (3 Ml) Ud INH 3 ml RQ6 PRN Administration Wheezing Heparin Sodium (Porcine) 5,000 units 04/28/17 10:00 Heparin SC Q12 CLAUDE Ondansetron HCl 4 mg 04/28/17 00:30 Zofran Inj IVP Q6 PRN Nausea/Vomiting Pantoprazole Sodium 40 mg 04/28/17 15:15 04/28/17 16:11 Protonix Inj IVP 40 mg Q12H CLAUDE Administration Pneumococcal Polyvalent Vaccine 0.5 ml 04/30/17 14:00 Pneumovax 23 Vaccine IM 04/30/17 14:01 .ONCE ONE - Patient Studies Lab Studies: Lab Studies 04/28/17 04/28/17 04/28/17 Range/Units 16:04 15:20 15:20 WBC 22.1 H (4.8-10.8) K/uL RBC 4.43 (4.40-5.90) Mil/uL Hgb 11.7 L (12.0-18.0) g/dL Hct 34.9 L (35.0-51.0) % MCV 78.8 L (80.0-94.0) fL MCH 26.5 L (27.0-31.0) pg MCHC 33.6 (33.0-37.0) g/dL RDW 14.1 (11.5-14.5) % Plt Count 200 (130-400) K/uL MPV 8.5 (7.2-11.7) fL Neut % (Auto) 90.7 H (50.0-75.0) % Lymph % (Auto) 2.4 L (20.0-40.0) % Fannin % (Auto) 6.6 (0.0-10.0) % Eos % (Auto) 0.1 (0.0-4.0) % Baso % (Auto) 0.2 (0.0-2.0) % Neut # 20.1 H (1.8-7.0) K/uL Lymph # 0.5 L (1.0-4.3) K/uL Fannin # 1.5 H (0.0-0.8) K/uL Eos # 0.0 (0.0-0.7) K/uL Baso # 0.0 (0.0-0.2) K/uL Neutrophils % (Manual) (50-75) % Band Neutrophils % (0-2) % Lymphocytes % (Manual) (20-40) % Monocytes % (Manual) (0-10) % Toxic Granulation Platelet Estimate (NORMAL) Large Platelets Poikilocytosis (manual Anisocytosis (manual) Microcytosis (manual) Bill Cells PT 13.0 H (9.7-12.2) SECONDS INR 1.1 APTT 28 (21-34) SECONDS D-Dimer, Quantitative 461 H (0-243) ng/mlDDU Sodium (132-148) mmol/L Potassium (3.6-5.2) mmol/L Chloride (98-107) mmol/L Carbon Dioxide (22-30) mmol/L Anion Gap (10-20) BUN (9-20) mg/dL Creatinine (0.8-1.5) MG/DL Est GFR ( Amer) Est GFR (Non-Af Amer) POC Glucose (mg/dL) 349 H (65-110) mg/dL Random Glucose (75-110) mg/dL Calcium (8.6-10.4) mg/dl Phosphorus (2.5-4.5) mg/dL Magnesium (1.6-2.3) mg/dL Total Bilirubin (0.2-1.3) mg/dL AST (17-59) U/L ALT (21-72) U/L Alkaline Phosphatase (38-126) U/L Total Creatine Kinase (55-170) U/L CK-MB (Mass) (0.0-3.38) ng/mL Troponin I, Quant (0.00-0.120) ng/mL Total Protein (6.3-8.3) g/dL Albumin (3.5-5.0) g/dL Globulin (2.2-3.9) gm/dL Albumin/Globulin Ratio (1.0-2.1) 04/28/17 04/28/17 04/28/17 Range/Units 15:20 11:32 07:26 WBC (4.8-10.8) K/uL RBC (4.40-5.90) Mil/uL Hgb (12.0-18.0) g/dL Hct (35.0-51.0) % MCV (80.0-94.0) fL MCH (27.0-31.0) pg MCHC (33.0-37.0) g/dL RDW (11.5-14.5) % Plt Count (130-400) K/uL MPV (7.2-11.7) fL Neut % (Auto) (50.0-75.0) % Lymph % (Auto) (20.0-40.0) % Fannin % (Auto) (0.0-10.0) % Eos % (Auto) (0.0-4.0) % Baso % (Auto) (0.0-2.0) % Neut # (1.8-7.0) K/uL Lymph # (1.0-4.3) K/uL Fannin # (0.0-0.8) K/uL Eos # (0.0-0.7) K/uL Baso # (0.0-0.2) K/uL Neutrophils % (Manual) (50-75) % Band Neutrophils % (0-2) % Lymphocytes % (Manual) (20-40) % Monocytes % (Manual) (0-10) % Toxic Granulation Platelet Estimate (NORMAL) Large Platelets Poikilocytosis (manual Anisocytosis (manual) Microcytosis (manual) Bill Cells PT (9.7-12.2) SECONDS INR APTT (21-34) SECONDS D-Dimer, Quantitative (0-243) ng/mlDDU Sodium 130 L (132-148) mmol/L Potassium 3.6 (3.6-5.2) mmol/L Chloride 91 L (98-107) mmol/L Carbon Dioxide 17 L (22-30) mmol/L Anion Gap 26 H (10-20) BUN 30 H (9-20) mg/dL Creatinine 6.3 H (0.8-1.5) MG/DL Est GFR ( Amer) 12 Est GFR (Non-Af Amer) 10 POC Glucose (mg/dL) 272 H (65-110) mg/dL Random Glucose 82 (75-110) mg/dL Calcium 7.4 L (8.6-10.4) mg/dl Phosphorus 3.0 (2.5-4.5) mg/dL Magnesium 1.5 L (1.6-2.3) mg/dL Total Bilirubin 0.2 (0.2-1.3) mg/dL AST 101 H D (17-59) U/L ALT 109 H D (21-72) U/L Alkaline Phosphatase 82 (38-126) U/L Total Creatine Kinase 309 H (55-170) U/L CK-MB (Mass) 4.61 H (0.0-3.38) ng/mL Troponin I, Quant 0.0560 (0.00-0.120) ng/mL Total Protein 6.2 L (6.3-8.3) g/dL Albumin 3.2 L (3.5-5.0) g/dL Globulin 3.0 (2.2-3.9) gm/dL Albumin/Globulin Ratio 1.1 (1.0-2.1) 04/28/17 04/28/17 04/28/17 Range/Units 07:26 07:05 05:23 WBC 18.7 H (4.8-10.8) K/uL RBC 4.68 (4.40-5.90) Mil/uL Hgb 12.3 (12.0-18.0) g/dL Hct 36.9 (35.0-51.0) % MCV 78.9 L (80.0-94.0) fL MCH 26.3 L (27.0-31.0) pg MCHC 33.3 (33.0-37.0) g/dL RDW 14.5 (11.5-14.5) % Plt Count 213 (130-400) K/uL MPV 8.8 (7.2-11.7) fL Neut % (Auto) 82.3 H (50.0-75.0) % Lymph % (Auto) 6.9 L (20.0-40.0) % Fannin % (Auto) 10.7 H (0.0-10.0) % Eos % (Auto) 0.0 (0.0-4.0) % Baso % (Auto) 0.1 (0.0-2.0) % Neut # 15.4 H (1.8-7.0) K/uL Lymph # 1.3 (1.0-4.3) K/uL Fannin # 2.0 H (0.0-0.8) K/uL Eos # 0.0 (0.0-0.7) K/uL Baso # 0.0 (0.0-0.2) K/uL Neutrophils % (Manual) 74 (50-75) % Band Neutrophils % 5 H (0-2) % Lymphocytes % (Manual) 10 L (20-40) % Monocytes % (Manual) 11 H (0-10) % Toxic Granulation Present Platelet Estimate Normal (NORMAL) Large Platelets Present Poikilocytosis (manual Slight Anisocytosis (manual) Slight Microcytosis (manual) Slight Lysite Cells Slight PT (9.7-12.2) SECONDS INR APTT (21-34) SECONDS D-Dimer, Quantitative (0-243) ng/mlDDU Sodium (132-148) mmol/L Potassium (3.6-5.2) mmol/L Chloride (98-107) mmol/L Carbon Dioxide (22-30) mmol/L Anion Gap (10-20) BUN (9-20) mg/dL Creatinine (0.8-1.5) MG/DL Est GFR ( Amer) Est GFR (Non-Af Amer) POC Glucose (mg/dL) 86 77 (65-110) mg/dL Random Glucose (75-110) mg/dL Calcium (8.6-10.4) mg/dl Phosphorus (2.5-4.5) mg/dL Magnesium (1.6-2.3) mg/dL Total Bilirubin (0.2-1.3) mg/dL AST (17-59) U/L ALT (21-72) U/L Alkaline Phosphatase (38-126) U/L Total Creatine Kinase (55-170) U/L CK-MB (Mass) (0.0-3.38) ng/mL Troponin I, Quant (0.00-0.120) ng/mL Total Protein (6.3-8.3) g/dL Albumin (3.5-5.0) g/dL Globulin (2.2-3.9) gm/dL Albumin/Globulin Ratio (1.0-2.1) 04/28/17 04/28/17 04/28/17 Range/Units 04:46 02:56 02:10 WBC (4.8-10.8) K/uL RBC (4.40-5.90) Mil/uL Hgb (12.0-18.0) g/dL Hct (35.0-51.0) % MCV (80.0-94.0) fL MCH (27.0-31.0) pg MCHC (33.0-37.0) g/dL RDW (11.5-14.5) % Plt Count (130-400) K/uL MPV (7.2-11.7) fL Neut % (Auto) (50.0-75.0) % Lymph % (Auto) (20.0-40.0) % Fannin % (Auto) (0.0-10.0) % Eos % (Auto) (0.0-4.0) % Baso % (Auto) (0.0-2.0) % Neut # (1.8-7.0) K/uL Lymph # (1.0-4.3) K/uL Fannin # (0.0-0.8) K/uL Eos # (0.0-0.7) K/uL Baso # (0.0-0.2) K/uL Neutrophils % (Manual) (50-75) % Band Neutrophils % (0-2) % Lymphocytes % (Manual) (20-40) % Monocytes % (Manual) (0-10) % Toxic Granulation Platelet Estimate (NORMAL) Large Platelets Poikilocytosis (manual Anisocytosis (manual) Microcytosis (manual) Bill Cells PT (9.7-12.2) SECONDS INR APTT (21-34) SECONDS D-Dimer, Quantitative (0-243) ng/mlDDU Sodium (132-148) mmol/L Potassium (3.6-5.2) mmol/L Chloride (98-107) mmol/L Carbon Dioxide (22-30) mmol/L Anion Gap (10-20) BUN (9-20) mg/dL Creatinine (0.8-1.5) MG/DL Est GFR ( Amer) Est GFR (Non-Af Amer) POC Glucose (mg/dL) 67 109 48 L (65-110) mg/dL Random Glucose (75-110) mg/dL Calcium (8.6-10.4) mg/dl Phosphorus (2.5-4.5) mg/dL Magnesium (1.6-2.3) mg/dL Total Bilirubin (0.2-1.3) mg/dL AST (17-59) U/L ALT (21-72) U/L Alkaline Phosphatase (38-126) U/L Total Creatine Kinase (55-170) U/L CK-MB (Mass) (0.0-3.38) ng/mL Troponin I, Quant (0.00-0.120) ng/mL Total Protein (6.3-8.3) g/dL Albumin (3.5-5.0) g/dL Globulin (2.2-3.9) gm/dL Albumin/Globulin Ratio (1.0-2.1) 04/28/17 04/28/17 Range/Units 01:04 00:22 WBC (4.8-10.8) K/uL RBC (4.40-5.90) Mil/uL Hgb (12.0-18.0) g/dL Hct (35.0-51.0) % MCV (80.0-94.0) fL MCH (27.0-31.0) pg MCHC (33.0-37.0) g/dL RDW (11.5-14.5) % Plt Count (130-400) K/uL MPV (7.2-11.7) fL Neut % (Auto) (50.0-75.0) % Lymph % (Auto) (20.0-40.0) % Fannin % (Auto) (0.0-10.0) % Eos % (Auto) (0.0-4.0) % Baso % (Auto) (0.0-2.0) % Neut # (1.8-7.0) K/uL Lymph # (1.0-4.3) K/uL Fannin # (0.0-0.8) K/uL Eos # (0.0-0.7) K/uL Baso # (0.0-0.2) K/uL Neutrophils % (Manual) (50-75) % Band Neutrophils % (0-2) % Lymphocytes % (Manual) (20-40) % Monocytes % (Manual) (0-10) % Toxic Granulation Platelet Estimate (NORMAL) Large Platelets Poikilocytosis (manual Anisocytosis (manual) Microcytosis (manual) Lysite Cells PT (9.7-12.2) SECONDS INR APTT (21-34) SECONDS D-Dimer, Quantitative (0-243) ng/mlDDU Sodium (132-148) mmol/L Potassium (3.6-5.2) mmol/L Chloride (98-107) mmol/L Carbon Dioxide (22-30) mmol/L Anion Gap (10-20) BUN (9-20) mg/dL Creatinine (0.8-1.5) MG/DL Est GFR ( Amer) Est GFR (Non-Af Amer) POC Glucose (mg/dL) 77 243 H (65-110) mg/dL Random Glucose (75-110) mg/dL Calcium (8.6-10.4) mg/dl Phosphorus (2.5-4.5) mg/dL Magnesium (1.6-2.3) mg/dL Total Bilirubin (0.2-1.3) mg/dL AST (17-59) U/L ALT (21-72) U/L Alkaline Phosphatase (38-126) U/L Total Creatine Kinase (55-170) U/L CK-MB (Mass) (0.0-3.38) ng/mL Troponin I, Quant (0.00-0.120) ng/mL Total Protein (6.3-8.3) g/dL Albumin (3.5-5.0) g/dL Globulin (2.2-3.9) gm/dL Albumin/Globulin Ratio (1.0-2.1) Laboratory Results - last 24 hr 04/28/17 04/28/17 04/28/17 00:22 01:04 02:10 WBC RBC Hgb Hct MCV MCH MCHC RDW Plt Count MPV Neut % (Auto) Lymph % (Auto) Fannin % (Auto) Eos % (Auto) Baso % (Auto) Neut # Lymph # Fannin # Eos # Baso # Neutrophils % (Manual) Band Neutrophils % Lymphocytes % (Manual) Monocytes % (Manual) Toxic Granulation Platelet Estimate Large Platelets Poikilocytosis (manual Anisocytosis (manual) Microcytosis (manual) Lysite Cells PT INR APTT D-Dimer, Quantitative Sodium Potassium Chloride Carbon Dioxide Anion Gap BUN Creatinine Est GFR ( Amer) Est GFR (Non-Af Amer) POC Glucose (mg/dL) 243 H 77 48 L Random Glucose Calcium Phosphorus Magnesium Total Bilirubin AST ALT Alkaline Phosphatase Total Creatine Kinase CK-MB (Mass) Troponin I, Quant Total Protein Albumin Globulin Albumin/Globulin Ratio 04/28/17 04/28/17 04/28/17 02:56 04:46 05:23 WBC RBC Hgb Hct MCV MCH MCHC RDW Plt Count MPV Neut % (Auto) Lymph % (Auto) Fannin % (Auto) Eos % (Auto) Baso % (Auto) Neut # Lymph # Fannin # Eos # Baso # Neutrophils % (Manual) Band Neutrophils % Lymphocytes % (Manual) Monocytes % (Manual) Toxic Granulation Platelet Estimate Large Platelets Poikilocytosis (manual Anisocytosis (manual) Microcytosis (manual) Lysite Cells PT INR APTT D-Dimer, Quantitative Sodium Potassium Chloride Carbon Dioxide Anion Gap BUN Creatinine Est GFR ( Amer) Est GFR (Non-Af Amer) POC Glucose (mg/dL) 109 67 77 Random Glucose Calcium Phosphorus Magnesium Total Bilirubin AST ALT Alkaline Phosphatase Total Creatine Kinase CK-MB (Mass) Troponin I, Quant Total Protein Albumin Globulin Albumin/Globulin Ratio 04/28/17 04/28/17 04/28/17 07:05 07:26 07:26 WBC 18.7 H RBC 4.68 Hgb 12.3 Hct 36.9 MCV 78.9 L MCH 26.3 L MCHC 33.3 RDW 14.5 Plt Count 213 MPV 8.8 Neut % (Auto) 82.3 H Lymph % (Auto) 6.9 L Fannin % (Auto) 10.7 H Eos % (Auto) 0.0 Baso % (Auto) 0.1 Neut # 15.4 H Lymph # 1.3 Fannin # 2.0 H Eos # 0.0 Baso # 0.0 Neutrophils % (Manual) 74 Band Neutrophils % 5 H Lymphocytes % (Manual) 10 L Monocytes % (Manual) 11 H Toxic Granulation Present Platelet Estimate Normal Large Platelets Present Poikilocytosis (manual Slight Anisocytosis (manual) Slight Microcytosis (manual) Slight Lysite Cells Slight PT INR APTT D-Dimer, Quantitative Sodium 130 L Potassium 3.6 Chloride 91 L Carbon Dioxide 17 L Anion Gap 26 H BUN 30 H Creatinine 6.3 H Est GFR ( Amer) 12 Est GFR (Non-Af Amer) 10 POC Glucose (mg/dL) 86 Random Glucose 82 Calcium 7.4 L Phosphorus 3.0 Magnesium 1.5 L Total Bilirubin 0.2 AST 101 H D ALT 109 H D Alkaline Phosphatase 82 Total Creatine Kinase CK-MB (Mass) Troponin I, Quant Total Protein 6.2 L Albumin 3.2 L Globulin 3.0 Albumin/Globulin Ratio 1.1 04/28/17 04/28/17 04/28/17 11:32 15:20 15:20 WBC RBC Hgb Hct MCV MCH MCHC RDW Plt Count MPV Neut % (Auto) Lymph % (Auto) Fannin % (Auto) Eos % (Auto) Baso % (Auto) Neut # Lymph # Fannin # Eos # Baso # Neutrophils % (Manual) Band Neutrophils % Lymphocytes % (Manual) Monocytes % (Manual) Toxic Granulation Platelet Estimate Large Platelets Poikilocytosis (manual Anisocytosis (manual) Microcytosis (manual) Lysite Cells PT 13.0 H INR 1.1 APTT 28 D-Dimer, Quantitative 461 H Sodium Potassium Chloride Carbon Dioxide Anion Gap BUN Creatinine Est GFR ( Amer) Est GFR (Non-Af Amer) POC Glucose (mg/dL) 272 H Random Glucose Calcium Phosphorus Magnesium Total Bilirubin AST ALT Alkaline Phosphatase Total Creatine Kinase 309 H CK-MB (Mass) 4.61 H Troponin I, Quant 0.0560 Total Protein Albumin Globulin Albumin/Globulin Ratio 04/28/17 04/28/17 15:20 16:04 WBC 22.1 H RBC 4.43 Hgb 11.7 L Hct 34.9 L MCV 78.8 L MCH 26.5 L MCHC 33.6 RDW 14.1 Plt Count 200 MPV 8.5 Neut % (Auto) 90.7 H Lymph % (Auto) 2.4 L Fannin % (Auto) 6.6 Eos % (Auto) 0.1 Baso % (Auto) 0.2 Neut # 20.1 H Lymph # 0.5 L Fannin # 1.5 H Eos # 0.0 Baso # 0.0 Neutrophils % (Manual) Band Neutrophils % Lymphocytes % (Manual) Monocytes % (Manual) Toxic Granulation Platelet Estimate Large Platelets Poikilocytosis (manual Anisocytosis (manual) Microcytosis (manual) Lysite Cells PT INR APTT D-Dimer, Quantitative Sodium Potassium Chloride Carbon Dioxide Anion Gap BUN Creatinine Est GFR ( Amer) Est GFR (Non-Af Amer) POC Glucose (mg/dL) 349 H Random Glucose Calcium Phosphorus Magnesium Total Bilirubin AST ALT Alkaline Phosphatase Total Creatine Kinase CK-MB (Mass) Troponin I, Quant Total Protein Albumin Globulin Albumin/Globulin Ratio EKG/Cardiology Studies: Cardiology / EKG Studies 04/27/17 21:30 EKG [ELECTROCARDIOGRAM] Stat Comment: Mode Of Transportation: BED Reason For Exam: sob 04/28/17 14:50 EKG [ELECTROCARDIOGRAM] Stat Comment: Mode Of Transportation: Reason For Exam: chest pain Fingerstick Blood Sugar Results: 109 Critical Care Progress Note - Nutrition Nutrition: Nutrition Category Date Time Status Liquid Diet [DIET] Diets 04/28/17 Breakfast Active
[2017-04-28 17:05] LABS: POTASSIUM 4.9 mmol/L (3.6-5.2)
[2017-04-28 17:07] LABS: BILIRUBIN,TOTAL 0.4 mg/dL (0.2-1.3)
[2017-04-28 17:08] LABS: ALB/GLOB RATIO 1.1 (1.0-2.1); CALCIUM 6.9 mg/dl (8.6-10.4); PHOSPHOROUS 2.9 mg/dL (2.5-4.5); TOTAL PROTEIN 6.2 g/dL (6.3-8.3)
[2017-04-28 17:09] LABS: MAGNESIUM 1.4 mg/dL (1.6-2.3)
--- NOTE | 2017-04-28 17:13 | RAD ---
HISTORY: shortness of breath COMPARISON: April 27, 2017. FINDINGS: LUNGS: Worsening pulmonary edema. PLEURA: No significant pleural effusion identified, no pneumothorax apparent. CARDIOVASCULAR: No radiographic findings to suggest acute or significant cardiovascular disease. OSSEOUS STRUCTURES: No significant abnormalities. VISUALIZED UPPER ABDOMEN: Normal. OTHER FINDINGS: None. IMPRESSION: Acute upper presumed noncardiogenic pulmonary edema/ ARDS. Findings not apparent on prior study 04/27/2017 at 22:00.
--- NOTE | 2017-04-28 17:14 | RAD ---
HISTORY: Congestive heart failure. COMPARISON: April 28, 2017. 15:07. FINDINGS: LUNGS: Improving pulmonary edema. PLEURA: No significant pleural effusion identified, no pneumothorax apparent. CARDIOVASCULAR: Normal. OSSEOUS STRUCTURES: No significant abnormalities. VISUALIZED UPPER ABDOMEN: Normal. OTHER FINDINGS: None. IMPRESSION: Interval improvement without resolution of acute pulmonary edema/ ARDS.
[2017-04-28 17:58] LABS: RBC URINE 2 /hpf (0-3); TRANSITIONAL EPITHIAL 1 /hpf (0-3); URINE BILIRUBIN NEGATIVE (NEGATIVE); URINE COLOR Yellow (YELLOW); URINE GLUCOSE (UA) 3+ mg/dL (Normal); URINE KETONE NEGATIVE (NEGATIVE); URINE LEUKOCYTE ESTERASE NEG Leu/uL (Negative); URINE PROTEIN 2+ mg/dL (NEGATIVE); URINE UROBILINOGEN NORMAL mg/dL (0.2-1.0); WBC CLUMPS MOD /hpf; WBC URINE 34 /hpf (0-5)
[2017-04-28 18:01] LABS: URINE BACTERIA OCC (<OCC); URINE BLOOD NEGATIVE (NEGATIVE)
[2017-04-28 18:05] LABS: NEUTROPHIL 90 % (50-75); TOTAL CELLS COUNTED 100
--- NOTE | 2017-04-28 18:48 | US ---
EXAM: US Retroperitoneal Limited, Renal EXAM DATE/TIME: 04/28/2017 3:57 PM CLINICAL HISTORY: 36 years old, male; Signs and symptoms; Other: Arf; Additional info: Acute renal failure TECHNIQUE: Real-time ultrasound of the retroperitoneum (limited) with image documentation. COMPARISON: CT - ABD PELVIS W/O PO OR IV CONT 04/27/2017 10:29:25 PM FINDINGS: Right kidney: The right kidney measures approximately 12.5 x 5.2 x 6 cm. There is increased cortical echogenicity. Corticomedullary differentiation is maintained. There is no pelvocaliectasis. There is intrarenal flow on color imaging Left kidney: The left kidney measures at least 13.3 x 6.3 x 7 cm. Renal contours are somewhat lobular. There is increased cortical echogenicity. Corticomedullary differentiation is maintained. There is no pelvocaliectasis. There is intrarenal flow on color imaging. Bladder: Bladder is almost completely empty. Estimated volume is only 33 cc. Aorta: Aorta is normal in caliber IMPRESSION: Increased echogenicity consistent with medical renal disease, no dilatation; empty bladder
[2017-04-28 19:35] LABS: ABG ALLEN TEST POS; DRAW SITE RRADIAL
[2017-04-28] MEDS ORDERED: Propofol 10 mg/ml Inj (20 ML) ONE (20:04)
[2017-04-28 20:35] LABS: ABG ALLEN TEST POS; ABG MECHANICAL RATE 26; ARTERIAL BLOOD GAS MODE A/C; ARTERIAL BLOOD HGB O2 SAT 77.6 % (95.0-98.0); ATERIAL BLOOD GAS PEEP 5; CARBOXYHEMOGLOBIN 1.8 % (0.5-1.5); DRAW SITE RRADIAL; HHB 19.4 % (0.0-5.0); METHEMOGLOBIN 1.1 % (0.0-3.0)
--- NOTE | 2017-04-28 20:59 | PCM.ANES ---
Anesthesia Emergent Intubation - Diagnosis Working Diagnosis:: respiratory distress - Consult Reason for Consult:: emergent endotracheal intubation - Pre-Intubation Vital Signs Blood Pressure: 113/50 Heart Rate: 110 Respiratory Rate: 32 O2 Sat: 90 FIO2: 1 Oxygen Delivery Method: Face Mask Level Of Consciousness: Awake/Alert/Oriented x 3 Intubation Meds Given: Etomidate (10mg IV), Propofol (120mg + nimbex 6mg IV) - Airway Management Oropharyngeal Area Suctioned: Yes PreOxygenation: 1 (ambubag) Inhalation: No Possible Aspiration: No (pink forthy fluid reflux by from the ETT once tube pass vocal cords) - Method of Intubation Intubation Method: Oral ETT ETT Size: 8 Lipline@: 22cm Easy: Yes Atramatic: Yes - Intubation Devices Panora Scope Used: Yes (4) - Placement Confirmation Breath Sounds Present & Equal Bilaterally: Yes Gurgling Sounds Not Audible at Epigastrum: Yes Positive EtCO2: Yes Portable CXR: Yes - Post-Intubation Vital Signs Blood Pressure: 120/54 Heart Rate: 130 Respiratory Rate: 26 O2 Sat: 77 FIO2: 1
[2017-04-28] MEDS: Propofol 10 mg/ml 1,000 MG/100 ML VIAL IV PRN ×2 (21:00→21:19)
[2017-04-28] MEDS: Sodium Chloride 0.9% 1,000 ML IV SCH (21:21)
[2017-04-28] MEDS: Cisatracurium Besylate 100 MG in Dextrose 5% In Water 240 ML IV SCH (21:22)
--- NOTE | 2017-04-28 22:45 | CP.CCUPN ---
CCU Subjective - Physician Review Events Since Last Encounter (Free Text): 04/28/17 22:43 patient tachypneic ,hypoxic ABG with PaO2 of 48 on 100%NRBM Critical Care Time Spent (in minutes): 60 CCU Objective - Vital Signs / Intake & Output Vital Signs (Last 4 hours): Vital Signs Temp Pulse Resp BP Pulse Ox 04/28/17 22:23 98 F 04/28/17 22:20 106 H 26 H 91 L 04/28/17 22:12 107 H 26 H 151/64 H 90 L 04/28/17 22:10 109 H 26 H 90 L 04/28/17 22:00 108 H 11 L 86 L 04/28/17 21:50 111 H 26 H 82 L 04/28/17 21:42 111 H 26 H 110/45 L 81 L 04/28/17 21:40 114 H 26 H 80 L 04/28/17 21:30 113 H 26 H 77 L 04/28/17 21:20 116 H 26 H 79 L 04/28/17 21:12 115 H 26 H 142/58 L 78 L 04/28/17 21:10 112 H 26 H 80 L 04/28/17 21:00 110 H 32 H 113/50 L 90 L 04/28/17 21:00 98 H 26 H 80 L 04/28/17 20:50 101 H 28 H 77 L 04/28/17 20:41 105 H 25 H 127/58 L 76 L 04/28/17 20:40 106 H 23 78 L 04/28/17 20:38 106 H 25 H 120/64 77 L 04/28/17 20:36 108 H 25 H 115/66 76 L 04/28/17 20:35 110 H 25 H 119/53 L 76 L 04/28/17 20:32 119 H 27 H 137/69 76 L 04/28/17 20:30 119 H 28 H 137/70 75 L 04/28/17 20:28 117 H 29 H 150/69 74 L 04/28/17 20:27 119 H 30 H 149/69 74 L 04/28/17 20:24 108 H 26 H 143/65 75 L 04/28/17 20:22 110 H 26 H 163/75 H 69 L 04/28/17 20:20 110 H 26 H 155/91 H 68 L 04/28/17 20:18 110 H 19 145/84 75 L 04/28/17 20:17 113 H 20 143/78 75 L 04/28/17 20:14 109 H 18 131/64 82 L 04/28/17 20:13 105 H 25 H 120/54 L 81 L 04/28/17 20:10 99 H 29 H 107/39 L 93 L 04/28/17 20:08 100 H 19 112/40 L 93 L 04/28/17 20:01 98 H 45 H 113/50 L 93 L 04/28/17 20:00 99 H 49 H 93 L 04/28/17 19:50 99 H 39 H 90 L 04/28/17 19:40 97 H 46 H 92 L 04/28/17 19:30 97 H 44 H 91 L 04/28/17 19:20 97 H 41 H 91 L 04/28/17 19:15 96 H 40 H 126/54 L 91 L 04/28/17 19:10 95 H 44 H 91 L 04/28/17 19:01 98 H 42 H 89/62 L 87 L 04/28/17 19:00 101 H 36 H 91 L 04/28/17 18:50 97 H 43 H 92 L Intake and Output (Last 8hrs): Intake & Output 04/28/17 04/28/17 04/28/17 06:59 14:59 22:59 Intake Total 600 372.8 Output Total 555 Balance 600 -182.2 Intake: IV 144 Intake, IV Amount 228.8 Left 156 Left Antecubital 30 Left Proximal Port 42.8 Right Hand 0 Oral 600 0 Output: Urine 555 2-way Urethral 375 Urine, Voided 180 Stool 0 Other: # Voids Urine, Voided 0 1 # Bowel Movements 0 - Physical Exam Physical Exam Limitations: Negative for: Altered Mental Status Head: Negative for: Atraumatic, Normocephalic Pupils: Positive for: PERRL Extroacular Muscles: Positive for: EOMI Conjunctiva: Positive for: Normal Mouth: Positive for: Moist Mucous Membranes Nose (Internal): Positive for: Normal Inspection Neck: Positive for: Normal Range of Motion Respiratory/Chest: Positive for: Clear to Auscultation, Decreased Breath Sounds. Negative for: Rales, Rhonchi Cardiovascular: Positive for: Regular Rate and Rhythm Abdomen: Positive for: Normal Bowel Sounds. Negative for: Tenderness, Distention, Peritoneal Signs Upper Extremity: Positive for: Normal Inspection. Negative for: Cyanosis Lower Extremity: Positive for: Normal Inspection Neurological: Positive for: GCS=15 Skin: Positive for: Warm Psychiatric: Positive for: Alert, Oriented x 3 - Medications Active Medications: Active Medications Generic Name Dose Route Start Last Admin Trade Name Freq PRN Reason Stop Dose Admin Albuterol/Ipratropium 3 ml 04/28/17 08:00 04/28/17 14:36 Duoneb 3 Mg/0.5 Mg (3 Ml) Ud INH 3 ml RQ6 PRN Administration Wheezing Heparin Sodium (Porcine) 5,000 units 04/28/17 10:00 Heparin SC Q12 CLAUDE Ceftriaxone Sodium 1 gm/ 100 mls @ 100 mls/hr 04/29/17 10:00 Sodium Chloride IVPB DAILY CLAUDE Propofol 1,000 mg in 100 mls @ 2.585 mls/hr 04/28/17 19:59 04/28/17 22:25 Diprivan IV 50 mcg/kg/min .Q24H PRN 25.855 mls/hr TITRATE PER MD ORDER Titration Protocol 5 MCG/KG/MIN Cisatracurium Besylate 100 mg/ 250 mls @ 38.78 mls/hr 04/28/17 20:30 21:22 Dextrose IV 3 mcg/kg/min .Q6H27M CLAUDE 38.78 mls/hr Protocol Administration 3 MCG/KG/MIN Sodium Chloride 1,000 mls @ 15 mls/hr 04/28/17 20:00 04/28/17 21:21 Sodium Chloride 0.9% IV 15 mls/hr .Q24H CLAUDE Administration Ondansetron HCl 4 mg 04/28/17 00:30 Zofran Inj IVP Q6 PRN Nausea/Vomiting Pantoprazole Sodium 40 mg 04/28/17 15:15 04/28/17 16:11 Protonix Inj IVP 40 mg Q12H CLAUDE Administration Pneumococcal Polyvalent Vaccine 0.5 ml 04/30/17 14:00 Pneumovax 23 Vaccine IM 04/30/17 14:01 .ONCE ONE - Patient Studies Lab Studies: Lab Studies 04/28/17 04/28/17 04/28/17 Range/Units 22:09 20:30 19:30 WBC (4.8-10.8) K/uL RBC (4.40-5.90) Mil/uL Hgb (12.0-18.0) g/dL Hct (35.0-51.0) % MCV (80.0-94.0) fL MCH (27.0-31.0) pg MCHC (33.0-37.0) g/dL RDW (11.5-14.5) % Plt Count (130-400) K/uL MPV (7.2-11.7) fL Neut % (Auto) (50.0-75.0) % Lymph % (Auto) (20.0-40.0) % [place] % (Auto) (0.0-10.0) % Eos % (Auto) (0.0-4.0) % Baso % (Auto) (0.0-2.0) % Neut # (1.8-7.0) K/uL Lymph # (1.0-4.3) K/uL [place] # (0.0-0.8) K/uL Eos # (0.0-0.7) K/uL Baso # (0.0-0.2) K/uL Neutrophils % (Manual) (50-75) % Band Neutrophils % (0-2) % Lymphocytes % (Manual) (20-40) % Monocytes % (Manual) (0-10) % Toxic Granulation Platelet Estimate (NORMAL) Large Platelets Poikilocytosis (manual Anisocytosis (manual) Microcytosis (manual) [place] Cells PT (9.7-12.2) SECONDS INR APTT (21-34) SECONDS D-Dimer, Quantitative (0-243) ng/mlDDU Puncture Site Rradial Rradial pCO2 37 22 L (35-45) mm/Hg pO2 42 L* 48 L (80-100) mm/Hg HCO3 14.5 L 16.7 L (21-28) mmol/L ABG pH 7.20 L 7.38 (7.35-7.45) ABG Total CO2 15.6 L 13.7 L (22-28) mmol/L ABG O2 Saturation 80.0 L 91.2 L (95-98) % ABG Base Excess -12.7 L -10.0 L (-2.0-3.0) mmol/L ABG Hemoglobin 12.9 (11.7-17.4) g/dL ABG Carboxyhemoglobin 1.8 H (0.5-1.5) % POC ABG HHb (Measured) 19.4 H (0.0-5.0) % ABG Methemoglobin 1.1 (0.0-3.0) % Goran Test Pos Pos ABG Potassium 5.2 (3.6-5.2) mmol/L A-a O2 Difference 625.0 638.0 mm/Hg Respiratory Index 14.9 13.3 Hgb O2 Saturation 77.6 L (95.0-98.0) % Glucose 411 H* D (75-110) mg/dl Lactate 1.5 (0.7-2.1) mmol/L Vent Mode A/c Mechanical Rate 26 FiO2 100.0 100.0 % Tidal Volume 450 PEEP 5 Crit Value Called To Dr. wild orozco Crit Value Called By [facility] Margo [facility] Crit Value Read Back Y Y Blood Gas Notified Time 2034 1934 Sodium 119.0 L* (132-148) mmol/L Potassium (3.6-5.2) mmol/L Chloride 89.0 L (98-107) mmol/L Carbon Dioxide (22-30) mmol/L Anion Gap (10-20) BUN (9-20) mg/dL Creatinine (0.8-1.5) MG/DL Est GFR ( Amer) Est GFR (Non-Af Amer) POC Glucose (mg/dL) 424 H* (65-110) mg/dL Random Glucose (75-110) mg/dL Lactic Acid (0.7-2.1) mmol/L Calcium (8.6-10.4) mg/dl Phosphorus (2.5-4.5) mg/dL Magnesium (1.6-2.3) mg/dL Total Bilirubin (0.2-1.3) mg/dL AST (17-59) U/L ALT (21-72) U/L Alkaline Phosphatase (38-126) U/L Total Creatine Kinase (55-170) U/L CK-MB (Mass) (0.0-3.38) ng/mL Troponin I, Quant (0.00-0.120) ng/mL Total Protein (6.3-8.3) g/dL Albumin (3.5-5.0) g/dL Globulin (2.2-3.9) gm/dL Albumin/Globulin Ratio (1.0-2.1) Arterial Blood Potassium 5.2 (3.6-5.2) mmol/L Urine Color (YELLOW) Urine Clarity (Clear) Urine pH (5.0-8.0) Ur Specific [place] (1.003-1.030) Urine Protein (NEGATIVE) mg/dL Urine Glucose (UA) (Normal) mg/dL Urine Ketones (NEGATIVE) mg/dL Urine Blood (NEGATIVE) Urine Nitrate (NEGATIVE) Urine Bilirubin (NEGATIVE) Urine Urobilinogen (0.2-1.0) mg/dL Ur Leukocyte Esterase (Negative) Nas/uL Urine WBC (Auto) (0-5) /hpf Urine RBC (Auto) (0-3) /hpf Urine WBC Clumps (Auto) (NONE) /hpf Ur Squamous Epith Cells (0-5) /hpf Ur Transition Epith Cell (0-3) /hpf Urine Bacteria (<OCC) Urine Opiates Screen (NEGATIVE) Urine Methadone Screen (NEGATIVE) Ur Barbiturates Screen (NEGATIVE) Ur Phencyclidine Scrn (NEGATIVE) Ur Amphetamines Screen (NEGATIVE) U Benzodiazepines Scrn (NEGATIVE) U Oth Cocaine Metabols (NEGATIVE) U Cannabinoids Screen (NEGATIVE) 04/28/17 04/28/17 04/28/17 Range/Units 17:46 17:41 17:37 WBC (4.8-10.8) K/uL RBC (4.40-5.90) Mil/uL Hgb (12.0-18.0) g/dL Hct (35.0-51.0) % MCV (80.0-94.0) fL MCH (27.0-31.0) pg MCHC (33.0-37.0) g/dL RDW (11.5-14.5) % Plt Count (130-400) K/uL MPV (7.2-11.7) fL Neut % (Auto) (50.0-75.0) % Lymph % (Auto) (20.0-40.0) % [place] % (Auto) (0.0-10.0) % Eos % (Auto) (0.0-4.0) % Baso % (Auto) (0.0-2.0) % Neut # (1.8-7.0) K/uL Lymph # (1.0-4.3) K/uL [place] # (0.0-0.8) K/uL Eos # (0.0-0.7) K/uL Baso # (0.0-0.2) K/uL Neutrophils % (Manual) (50-75) % Band Neutrophils % (0-2) % Lymphocytes % (Manual) (20-40) % Monocytes % (Manual) (0-10) % Toxic Granulation Platelet Estimate (NORMAL) Large Platelets Poikilocytosis (manual Anisocytosis (manual) Microcytosis (manual) [place] Cells PT (9.7-12.2) SECONDS INR APTT (21-34) SECONDS D-Dimer, Quantitative (0-243) ng/mlDDU Puncture Site pCO2 (35-45) mm/Hg pO2 (80-100) mm/Hg HCO3 (21-28) mmol/L ABG pH (7.35-7.45) ABG Total CO2 (22-28) mmol/L ABG O2 Saturation (95-98) % ABG Base Excess (-2.0-3.0) mmol/L ABG Hemoglobin (11.7-17.4) g/dL ABG Carboxyhemoglobin (0.5-1.5) % POC ABG HHb (Measured) (0.0-5.0) % ABG Methemoglobin (0.0-3.0) % Goran Test ABG Potassium (3.6-5.2) mmol/L A-a O2 Difference mm/Hg Respiratory Index Hgb O2 Saturation (95.0-98.0) % Glucose (75-110) mg/dl Lactate (0.7-2.1) mmol/L Vent Mode Mechanical Rate FiO2 % Tidal Volume PEEP Crit Value Called To Crit Value Called By Crit Value Read Back Blood Gas Notified Time Sodium (132-148) mmol/L Potassium (3.6-5.2) mmol/L Chloride (98-107) mmol/L Carbon Dioxide (22-30) mmol/L Anion Gap (10-20) BUN (9-20) mg/dL Creatinine (0.8-1.5) MG/DL Est GFR ( Amer) Est GFR (Non-Af Amer) POC Glucose (mg/dL) 339 H (65-110) mg/dL Random Glucose (75-110) mg/dL Lactic Acid (0.7-2.1) mmol/L Calcium (8.6-10.4) mg/dl Phosphorus (2.5-4.5) mg/dL Magnesium (1.6-2.3) mg/dL Total Bilirubin (0.2-1.3) mg/dL AST (17-59) U/L ALT (21-72) U/L Alkaline Phosphatase (38-126) U/L Total Creatine Kinase (55-170) U/L CK-MB (Mass) (0.0-3.38) ng/mL Troponin I, Quant (0.00-0.120) ng/mL Total Protein (6.3-8.3) g/dL Albumin (3.5-5.0) g/dL Globulin (2.2-3.9) gm/dL Albumin/Globulin Ratio (1.0-2.1) Arterial Blood Potassium (3.6-5.2) mmol/L Urine Color Yellow (YELLOW) Urine Clarity Hazy (Clear) Urine pH 5.0 (5.0-8.0) Ur Specific [place] 1.011 (1.003-1.030) Urine Protein 2+ H (NEGATIVE) mg/dL Urine Glucose (UA) 3+ H (Normal) mg/dL Urine Ketones Negative (NEGATIVE) mg/dL Urine Blood Negative (NEGATIVE) Urine Nitrate Negative (NEGATIVE) Urine Bilirubin Negative (NEGATIVE) Urine Urobilinogen Normal (0.2-1.0) mg/dL Ur Leukocyte Esterase Neg (Negative) Nas/uL Urine WBC (Auto) 34 H (0-5) /hpf Urine RBC (Auto) 2 (0-3) /hpf Urine WBC Clumps (Auto) Mod H (NONE) /hpf Ur Squamous Epith Cells 1 (0-5) /hpf Ur Transition Epith Cell 1 (0-3) /hpf Urine Bacteria Occ H (<OCC) Urine Opiates Screen Negative (NEGATIVE) Urine Methadone Screen Negative (NEGATIVE) Ur Barbiturates Screen Negative (NEGATIVE) Ur Phencyclidine Scrn Negative (NEGATIVE) Ur Amphetamines Screen Negative (NEGATIVE) U Benzodiazepines Scrn Negative (NEGATIVE) U Oth Cocaine Metabols Negative (NEGATIVE) U Cannabinoids Screen Negative (NEGATIVE) 04/28/17 04/28/17 04/28/17 Range/Units 17:23 17:19 16:54 WBC (4.8-10.8) K/uL RBC (4.40-5.90) Mil/uL Hgb (12.0-18.0) g/dL Hct (35.0-51.0) % MCV (80.0-94.0) fL MCH (27.0-31.0) pg MCHC (33.0-37.0) g/dL RDW (11.5-14.5) % Plt Count (130-400) K/uL MPV (7.2-11.7) fL Neut % (Auto) (50.0-75.0) % Lymph % (Auto) (20.0-40.0) % [place] % (Auto) (0.0-10.0) % Eos % (Auto) (0.0-4.0) % Baso % (Auto) (0.0-2.0) % Neut # (1.8-7.0) K/uL Lymph # (1.0-4.3) K/uL [place] # (0.0-0.8) K/uL Eos # (0.0-0.7) K/uL Baso # (0.0-0.2) K/uL Neutrophils % (Manual) (50-75) % Band Neutrophils % (0-2) % Lymphocytes % (Manual) (20-40) % Monocytes % (Manual) (0-10) % Toxic Granulation Platelet Estimate (NORMAL) Large Platelets Poikilocytosis (manual Anisocytosis (manual) Microcytosis (manual) [place] Cells PT (9.7-12.2) SECONDS INR APTT (21-34) SECONDS D-Dimer, Quantitative (0-243) ng/mlDDU Puncture Site pCO2 (35-45) mm/Hg pO2 (80-100) mm/Hg HCO3 (21-28) mmol/L ABG pH (7.35-7.45) ABG Total CO2 (22-28) mmol/L ABG O2 Saturation (95-98) % ABG Base Excess (-2.0-3.0) mmol/L ABG Hemoglobin (11.7-17.4) g/dL ABG Carboxyhemoglobin (0.5-1.5) % POC ABG HHb (Measured) (0.0-5.0) % ABG Methemoglobin (0.0-3.0) % Goran Test ABG Potassium (3.6-5.2) mmol/L A-a O2 Difference mm/Hg Respiratory Index Hgb O2 Saturation (95.0-98.0) % Glucose (75-110) mg/dl Lactate (0.7-2.1) mmol/L Vent Mode Mechanical Rate FiO2 % Tidal Volume PEEP Crit Value Called To Crit Value Called By Crit Value Read Back Blood Gas Notified Time Sodium 122 L (132-148) mmol/L Potassium 4.9 (3.6-5.2) mmol/L Chloride 89 L (98-107) mmol/L Carbon Dioxide 15 L (22-30) mmol/L Anion Gap 23 H (10-20) BUN 41 H (9-20) mg/dL Creatinine 7.2 H (0.8-1.5) MG/DL Est GFR ( Amer) 10 Est GFR (Non-Af Amer) 9 POC Glucose (mg/dL) (65-110) mg/dL Random Glucose 297 H (75-110) mg/dL Lactic Acid 2.7 H (0.7-2.1) mmol/L Calcium 6.9 L (8.6-10.4) mg/dl Phosphorus 2.9 (2.5-4.5) mg/dL Magnesium 1.4 L (1.6-2.3) mg/dL Total Bilirubin 0.4 (0.2-1.3) mg/dL AST 58 (17-59) U/L ALT 92 H (21-72) U/L Alkaline Phosphatase 76 (38-126) U/L Total Creatine Kinase 322 H (55-170) U/L CK-MB (Mass) (0.0-3.38) ng/mL Troponin I, Quant (0.00-0.120) ng/mL Total Protein 6.2 L (6.3-8.3) g/dL Albumin 3.3 L (3.5-5.0) g/dL Globulin 2.9 (2.2-3.9) gm/dL Albumin/Globulin Ratio 1.1 (1.0-2.1) Arterial Blood Potassium (3.6-5.2) mmol/L Urine Color (YELLOW) Urine Clarity (Clear) Urine pH (5.0-8.0) Ur Specific [place] (1.003-1.030) Urine Protein (NEGATIVE) mg/dL Urine Glucose (UA) (Normal) mg/dL Urine Ketones (NEGATIVE) mg/dL Urine Blood (NEGATIVE) Urine Nitrate (NEGATIVE) Urine Bilirubin (NEGATIVE) Urine Urobilinogen (0.2-1.0) mg/dL Ur Leukocyte Esterase (Negative) Nas/uL Urine WBC (Auto) (0-5) /hpf Urine RBC (Auto) (0-3) /hpf Urine WBC Clumps (Auto) (NONE) /hpf Ur Squamous Epith Cells (0-5) /hpf Ur Transition Epith Cell (0-3) /hpf Urine Bacteria (<OCC) Urine Opiates Screen (NEGATIVE) Urine Methadone Screen (NEGATIVE) Ur Barbiturates Screen (NEGATIVE) Ur Phencyclidine Scrn (NEGATIVE) Ur Amphetamines Screen (NEGATIVE) U Benzodiazepines Scrn (NEGATIVE) U Oth Cocaine Metabols (NEGATIVE) U Cannabinoids Screen (NEGATIVE) 04/28/17 04/28/17 04/28/17 Range/Units 16:04 15:20 15:20 WBC 22.1 H (4.8-10.8) K/uL RBC 4.43 (4.40-5.90) Mil/uL Hgb 11.7 L (12.0-18.0) g/dL Hct 34.9 L (35.0-51.0) % MCV 78.8 L (80.0-94.0) fL MCH 26.5 L (27.0-31.0) pg MCHC 33.6 (33.0-37.0) g/dL RDW 14.1 (11.5-14.5) % Plt Count 200 (130-400) K/uL MPV 8.5 (7.2-11.7) fL Neut % (Auto) 90.7 H (50.0-75.0) % Lymph % (Auto) 2.4 L (20.0-40.0) % [place] % (Auto) 6.6 (0.0-10.0) % Eos % (Auto) 0.1 (0.0-4.0) % Baso % (Auto) 0.2 (0.0-2.0) % Neut # 20.1 H (1.8-7.0) K/uL Lymph # 0.5 L (1.0-4.3) K/uL [place] # 1.5 H (0.0-0.8) K/uL Eos # 0.0 (0.0-0.7) K/uL Baso # 0.0 (0.0-0.2) K/uL Neutrophils % (Manual) 90 H (50-75) % Band Neutrophils % 3 H (0-2) % Lymphocytes % (Manual) 3 L (20-40) % Monocytes % (Manual) 4 (0-10) % Toxic Granulation Platelet Estimate Normal (NORMAL) Large Platelets Poikilocytosis (manual Anisocytosis (manual) Microcytosis (manual) Slight [place] Cells PT 13.0 H (9.7-12.2) SECONDS INR 1.1 APTT 28 (21-34) SECONDS D-Dimer, Quantitative 461 H (0-243) ng/mlDDU Puncture Site pCO2 (35-45) mm/Hg pO2 (80-100) mm/Hg HCO3 (21-28) mmol/L ABG pH (7.35-7.45) ABG Total CO2 (22-28) mmol/L ABG O2 Saturation (95-98) % ABG Base Excess (-2.0-3.0) mmol/L ABG Hemoglobin (11.7-17.4) g/dL ABG Carboxyhemoglobin (0.5-1.5) % POC ABG HHb (Measured) (0.0-5.0) % ABG Methemoglobin (0.0-3.0) % Goran Test ABG Potassium (3.6-5.2) mmol/L A-a O2 Difference mm/Hg Respiratory Index Hgb O2 Saturation (95.0-98.0) % Glucose (75-110) mg/dl Lactate (0.7-2.1) mmol/L Vent Mode Mechanical Rate FiO2 % Tidal Volume PEEP Crit Value Called To Crit Value Called By Crit Value Read Back Blood Gas Notified Time Sodium (132-148) mmol/L Potassium (3.6-5.2) mmol/L Chloride (98-107) mmol/L Carbon Dioxide (22-30) mmol/L Anion Gap (10-20) BUN (9-20) mg/dL Creatinine (0.8-1.5) MG/DL Est GFR ( Amer) Est GFR (Non-Af Amer) POC Glucose (mg/dL) 349 H (65-110) mg/dL Random Glucose (75-110) mg/dL Lactic Acid (0.7-2.1) mmol/L Calcium (8.6-10.4) mg/dl Phosphorus (2.5-4.5) mg/dL Magnesium (1.6-2.3) mg/dL Total Bilirubin (0.2-1.3) mg/dL AST (17-59) U/L ALT (21-72) U/L Alkaline Phosphatase (38-126) U/L Total Creatine Kinase (55-170) U/L CK-MB (Mass) (0.0-3.38) ng/mL Troponin I, Quant (0.00-0.120) ng/mL Total Protein (6.3-8.3) g/dL Albumin (3.5-5.0) g/dL Globulin (2.2-3.9) gm/dL Albumin/Globulin Ratio (1.0-2.1) Arterial Blood Potassium (3.6-5.2) mmol/L Urine Color (YELLOW) Urine Clarity (Clear) Urine pH (5.0-8.0) Ur Specific [place] (1.003-1.030) Urine Protein (NEGATIVE) mg/dL Urine Glucose (UA) (Normal) mg/dL Urine Ketones (NEGATIVE) mg/dL Urine Blood (NEGATIVE) Urine Nitrate (NEGATIVE) Urine Bilirubin (NEGATIVE) Urine Urobilinogen (0.2-1.0) mg/dL Ur Leukocyte Esterase (Negative) Nas/uL Urine WBC (Auto) (0-5) /hpf Urine RBC (Auto) (0-3) /hpf Urine WBC Clumps (Auto) (NONE) /hpf Ur Squamous Epith Cells (0-5) /hpf Ur Transition Epith Cell (0-3) /hpf Urine Bacteria (<OCC) Urine Opiates Screen (NEGATIVE) Urine Methadone Screen (NEGATIVE) Ur Barbiturates Screen (NEGATIVE) Ur Phencyclidine Scrn (NEGATIVE) Ur Amphetamines Screen (NEGATIVE) U Benzodiazepines Scrn (NEGATIVE) U Oth Cocaine Metabols (NEGATIVE) U Cannabinoids Screen (NEGATIVE) 04/28/17 04/28/17 04/28/17 Range/Units 15:20 11:32 07:26 WBC (4.8-10.8) K/uL RBC (4.40-5.90) Mil/uL Hgb (12.0-18.0) g/dL Hct (35.0-51.0) % MCV (80.0-94.0) fL MCH (27.0-31.0) pg MCHC (33.0-37.0) g/dL RDW (11.5-14.5) % Plt Count (130-400) K/uL MPV (7.2-11.7) fL Neut % (Auto) (50.0-75.0) % Lymph % (Auto) (20.0-40.0) % [place] % (Auto) (0.0-10.0) % Eos % (Auto) (0.0-4.0) % Baso % (Auto) (0.0-2.0) % Neut # (1.8-7.0) K/uL Lymph # (1.0-4.3) K/uL [place] # (0.0-0.8) K/uL Eos # (0.0-0.7) K/uL Baso # (0.0-0.2) K/uL Neutrophils % (Manual) (50-75) % Band Neutrophils % (0-2) % Lymphocytes % (Manual) (20-40) % Monocytes % (Manual) (0-10) % Toxic Granulation Platelet Estimate (NORMAL) Large Platelets Poikilocytosis (manual Anisocytosis (manual) Microcytosis (manual) [place] Cells PT (9.7-12.2) SECONDS INR APTT (21-34) SECONDS D-Dimer, Quantitative (0-243) ng/mlDDU Puncture Site pCO2 (35-45) mm/Hg pO2 (80-100) mm/Hg HCO3 (21-28) mmol/L ABG pH (7.35-7.45) ABG Total CO2 (22-28) mmol/L ABG O2 Saturation (95-98) % ABG Base Excess (-2.0-3.0) mmol/L ABG Hemoglobin (11.7-17.4) g/dL ABG Carboxyhemoglobin (0.5-1.5) % POC ABG HHb (Measured) (0.0-5.0) % ABG Methemoglobin (0.0-3.0) % Goran Test ABG Potassium (3.6-5.2) mmol/L A-a O2 Difference mm/Hg Respiratory Index Hgb O2 Saturation (95.0-98.0) % Glucose (75-110) mg/dl Lactate (0.7-2.1) mmol/L Vent Mode Mechanical Rate FiO2 % Tidal Volume PEEP Crit Value Called To Crit Value Called By Crit Value Read Back Blood Gas Notified Time Sodium 130 L (132-148) mmol/L Potassium 3.6 (3.6-5.2) mmol/L Chloride 91 L (98-107) mmol/L Carbon Dioxide 17 L (22-30) mmol/L Anion Gap 26 H (10-20) BUN 30 H (9-20) mg/dL Creatinine 6.3 H (0.8-1.5) MG/DL Est GFR ( Amer) 12 Est GFR (Non-Af Amer) 10 POC Glucose (mg/dL) 272 H (65-110) mg/dL Random Glucose 82 (75-110) mg/dL Lactic Acid (0.7-2.1) mmol/L Calcium 7.4 L (8.6-10.4) mg/dl Phosphorus 3.0 (2.5-4.5) mg/dL Magnesium 1.5 L (1.6-2.3) mg/dL Total Bilirubin 0.2 (0.2-1.3) mg/dL AST 101 H D (17-59) U/L ALT 109 H D (21-72) U/L Alkaline Phosphatase 82 (38-126) U/L Total Creatine Kinase 309 H (55-170) U/L CK-MB (Mass) 4.61 H (0.0-3.38) ng/mL Troponin I, Quant 0.0560 (0.00-0.120) ng/mL Total Protein 6.2 L (6.3-8.3) g/dL Albumin 3.2 L (3.5-5.0) g/dL Globulin 3.0 (2.2-3.9) gm/dL Albumin/Globulin Ratio 1.1 (1.0-2.1) Arterial Blood Potassium (3.6-5.2) mmol/L Urine Color (YELLOW) Urine Clarity (Clear) Urine pH (5.0-8.0) Ur Specific [place] (1.003-1.030) Urine Protein (NEGATIVE) mg/dL Urine Glucose (UA) (Normal) mg/dL Urine Ketones (NEGATIVE) mg/dL Urine Blood (NEGATIVE) Urine Nitrate (NEGATIVE) Urine Bilirubin (NEGATIVE) Urine Urobilinogen (0.2-1.0) mg/dL Ur Leukocyte Esterase (Negative) Nas/uL Urine WBC (Auto) (0-5) /hpf Urine RBC (Auto) (0-3) /hpf Urine WBC Clumps (Auto) (NONE) /hpf Ur Squamous Epith Cells (0-5) /hpf Ur Transition Epith Cell (0-3) /hpf Urine Bacteria (<OCC) Urine Opiates Screen (NEGATIVE) Urine Methadone Screen (NEGATIVE) Ur Barbiturates Screen (NEGATIVE) Ur Phencyclidine Scrn (NEGATIVE) Ur Amphetamines Screen (NEGATIVE) U Benzodiazepines Scrn (NEGATIVE) U Oth Cocaine Metabols (NEGATIVE) U Cannabinoids Screen (NEGATIVE) 04/28/17 04/28/17 04/28/17 Range/Units 07:26 07:05 05:23 WBC 18.7 H (4.8-10.8) K/uL RBC 4.68 (4.40-5.90) Mil/uL Hgb 12.3 (12.0-18.0) g/dL Hct 36.9 (35.0-51.0) % MCV 78.9 L (80.0-94.0) fL MCH 26.3 L (27.0-31.0) pg MCHC 33.3 (33.0-37.0) g/dL RDW 14.5 (11.5-14.5) % Plt Count 213 (130-400) K/uL MPV 8.8 (7.2-11.7) fL Neut % (Auto) 82.3 H (50.0-75.0) % Lymph % (Auto) 6.9 L (20.0-40.0) % [place] % (Auto) 10.7 H (0.0-10.0) % Eos % (Auto) 0.0 (0.0-4.0) % Baso % (Auto) 0.1 (0.0-2.0) % Neut # 15.4 H (1.8-7.0) K/uL Lymph # 1.3 (1.0-4.3) K/uL [place] # 2.0 H (0.0-0.8) K/uL Eos # 0.0 (0.0-0.7) K/uL Baso # 0.0 (0.0-0.2) K/uL Neutrophils % (Manual) 74 (50-75) % Band Neutrophils % 5 H (0-2) % Lymphocytes % (Manual) 10 L (20-40) % Monocytes % (Manual) 11 H (0-10) % Toxic Granulation Present Platelet Estimate Normal (NORMAL) Large Platelets Present Poikilocytosis (manual Slight Anisocytosis (manual) Slight Microcytosis (manual) Slight [place] Cells Slight PT (9.7-12.2) SECONDS INR APTT (21-34) SECONDS D-Dimer, Quantitative (0-243) ng/mlDDU Puncture Site pCO2 (35-45) mm/Hg pO2 (80-100) mm/Hg HCO3 (21-28) mmol/L ABG pH (7.35-7.45) ABG Total CO2 (22-28) mmol/L ABG O2 Saturation (95-98) % ABG Base Excess (-2.0-3.0) mmol/L ABG Hemoglobin (11.7-17.4) g/dL ABG Carboxyhemoglobin (0.5-1.5) % POC ABG HHb (Measured) (0.0-5.0) % ABG Methemoglobin (0.0-3.0) % Goran Test ABG Potassium (3.6-5.2) mmol/L A-a O2 Difference mm/Hg Respiratory Index Hgb O2 Saturation (95.0-98.0) % Glucose (75-110) mg/dl Lactate (0.7-2.1) mmol/L Vent Mode Mechanical Rate FiO2 % Tidal Volume PEEP Crit Value Called To Crit Value Called By Crit Value Read Back Blood Gas Notified Time Sodium (132-148) mmol/L Potassium (3.6-5.2) mmol/L Chloride (98-107) mmol/L Carbon Dioxide (22-30) mmol/L Anion Gap (10-20) BUN (9-20) mg/dL Creatinine (0.8-1.5) MG/DL Est GFR ( Amer) Est GFR (Non-Af Amer) POC Glucose (mg/dL) 86 77 (65-110) mg/dL Random Glucose (75-110) mg/dL Lactic Acid (0.7-2.1) mmol/L Calcium (8.6-10.4) mg/dl Phosphorus (2.5-4.5) mg/dL Magnesium (1.6-2.3) mg/dL Total Bilirubin (0.2-1.3) mg/dL AST (17-59) U/L ALT (21-72) U/L Alkaline Phosphatase (38-126) U/L Total Creatine Kinase (55-170) U/L CK-MB (Mass) (0.0-3.38) ng/mL Troponin I, Quant (0.00-0.120) ng/mL Total Protein (6.3-8.3) g/dL Albumin (3.5-5.0) g/dL Globulin (2.2-3.9) gm/dL Albumin/Globulin Ratio (1.0-2.1) Arterial Blood Potassium (3.6-5.2) mmol/L Urine Color (YELLOW) Urine Clarity (Clear) Urine pH (5.0-8.0) Ur Specific [place] (1.003-1.030) Urine Protein (NEGATIVE) mg/dL Urine Glucose (UA) (Normal) mg/dL Urine Ketones (NEGATIVE) mg/dL Urine Blood (NEGATIVE) Urine Nitrate (NEGATIVE) Urine Bilirubin (NEGATIVE) Urine Urobilinogen (0.2-1.0) mg/dL Ur Leukocyte Esterase (Negative) Nas/uL Urine WBC (Auto) (0-5) /hpf Urine RBC (Auto) (0-3) /hpf Urine WBC Clumps (Auto) (NONE) /hpf Ur Squamous Epith Cells (0-5) /hpf Ur Transition Epith Cell (0-3) /hpf Urine Bacteria (<OCC) Urine Opiates Screen (NEGATIVE) Urine Methadone Screen (NEGATIVE) Ur Barbiturates Screen (NEGATIVE) Ur Phencyclidine Scrn (NEGATIVE) Ur Amphetamines Screen (NEGATIVE) U Benzodiazepines Scrn (NEGATIVE) U Oth Cocaine Metabols (NEGATIVE) U Cannabinoids Screen (NEGATIVE) 04/28/17 04/28/17 04/28/17 Range/Units 04:46 02:56 02:10 WBC (4.8-10.8) K/uL RBC (4.40-5.90) Mil/uL Hgb (12.0-18.0) g/dL Hct (35.0-51.0) % MCV (80.0-94.0) fL MCH (27.0-31.0) pg MCHC (33.0-37.0) g/dL RDW (11.5-14.5) % Plt Count (130-400) K/uL MPV (7.2-11.7) fL Neut % (Auto) (50.0-75.0) % Lymph % (Auto) (20.0-40.0) % [place] % (Auto) (0.0-10.0) % Eos % (Auto) (0.0-4.0) % Baso % (Auto) (0.0-2.0) % Neut # (1.8-7.0) K/uL Lymph # (1.0-4.3) K/uL [place] # (0.0-0.8) K/uL Eos # (0.0-0.7) K/uL Baso # (0.0-0.2) K/uL Neutrophils % (Manual) (50-75) % Band Neutrophils % (0-2) % Lymphocytes % (Manual) (20-40) % Monocytes % (Manual) (0-10) % Toxic Granulation Platelet Estimate (NORMAL) Large Platelets Poikilocytosis (manual Anisocytosis (manual) Microcytosis (manual) [place] Cells PT (9.7-12.2) SECONDS INR APTT (21-34) SECONDS D-Dimer, Quantitative (0-243) ng/mlDDU Puncture Site pCO2 (35-45) mm/Hg pO2 (80-100) mm/Hg HCO3 (21-28) mmol/L ABG pH (7.35-7.45) ABG Total CO2 (22-28) mmol/L ABG O2 Saturation (95-98) % ABG Base Excess (-2.0-3.0) mmol/L ABG Hemoglobin (11.7-17.4) g/dL ABG Carboxyhemoglobin (0.5-1.5) % POC ABG HHb (Measured) (0.0-5.0) % ABG Methemoglobin (0.0-3.0) % Goran Test ABG Potassium (3.6-5.2) mmol/L A-a O2 Difference mm/Hg Respiratory Index Hgb O2 Saturation (95.0-98.0) % Glucose (75-110) mg/dl Lactate (0.7-2.1) mmol/L Vent Mode Mechanical Rate FiO2 % Tidal Volume PEEP Crit Value Called To Crit Value Called By Crit Value Read Back Blood Gas Notified Time Sodium (132-148) mmol/L Potassium (3.6-5.2) mmol/L Chloride (98-107) mmol/L Carbon Dioxide (22-30) mmol/L Anion Gap (10-20) BUN (9-20) mg/dL Creatinine (0.8-1.5) MG/DL Est GFR ( Amer) Est GFR (Non-Af Amer) POC Glucose (mg/dL) 67 109 48 L (65-110) mg/dL Random Glucose (75-110) mg/dL Lactic Acid (0.7-2.1) mmol/L Calcium (8.6-10.4) mg/dl Phosphorus (2.5-4.5) mg/dL Magnesium (1.6-2.3) mg/dL Total Bilirubin (0.2-1.3) mg/dL AST (17-59) U/L ALT (21-72) U/L Alkaline Phosphatase (38-126) U/L Total Creatine Kinase (55-170) U/L CK-MB (Mass) (0.0-3.38) ng/mL Troponin I, Quant (0.00-0.120) ng/mL Total Protein (6.3-8.3) g/dL Albumin (3.5-5.0) g/dL Globulin (2.2-3.9) gm/dL Albumin/Globulin Ratio (1.0-2.1) Arterial Blood Potassium (3.6-5.2) mmol/L Urine Color (YELLOW) Urine Clarity (Clear) Urine pH (5.0-8.0) Ur Specific [place] (1.003-1.030) Urine Protein (NEGATIVE) mg/dL Urine Glucose (UA) (Normal) mg/dL Urine Ketones (NEGATIVE) mg/dL Urine Blood (NEGATIVE) Urine Nitrate (NEGATIVE) Urine Bilirubin (NEGATIVE) Urine Urobilinogen (0.2-1.0) mg/dL Ur Leukocyte Esterase (Negative) Nas/uL Urine WBC (Auto) (0-5) /hpf Urine RBC (Auto) (0-3) /hpf Urine WBC Clumps (Auto) (NONE) /hpf Ur Squamous Epith Cells (0-5) /hpf Ur Transition Epith Cell (0-3) /hpf Urine Bacteria (<OCC) Urine Opiates Screen (NEGATIVE) Urine Methadone Screen (NEGATIVE) Ur Barbiturates Screen (NEGATIVE) Ur Phencyclidine Scrn (NEGATIVE) Ur Amphetamines Screen (NEGATIVE) U Benzodiazepines Scrn (NEGATIVE) U Oth Cocaine Metabols (NEGATIVE) U Cannabinoids Screen (NEGATIVE) 04/28/17 04/28/17 Range/Units 01:04 00:22 WBC (4.8-10.8) K/uL RBC (4.40-5.90) Mil/uL Hgb (12.0-18.0) g/dL Hct (35.0-51.0) % MCV (80.0-94.0) fL MCH (27.0-31.0) pg MCHC (33.0-37.0) g/dL RDW (11.5-14.5) % Plt Count (130-400) K/uL MPV (7.2-11.7) fL Neut % (Auto) (50.0-75.0) % Lymph % (Auto) (20.0-40.0) % [place] % (Auto) (0.0-10.0) % Eos % (Auto) (0.0-4.0) % Baso % (Auto) (0.0-2.0) % Neut # (1.8-7.0) K/uL Lymph # (1.0-4.3) K/uL [place] # (0.0-0.8) K/uL Eos # (0.0-0.7) K/uL Baso # (0.0-0.2) K/uL Neutrophils % (Manual) (50-75) % Band Neutrophils % (0-2) % Lymphocytes % (Manual) (20-40) % Monocytes % (Manual) (0-10) % Toxic Granulation Platelet Estimate (NORMAL) Large Platelets Poikilocytosis (manual Anisocytosis (manual) Microcytosis (manual) [place] Cells PT (9.7-12.2) SECONDS INR APTT (21-34) SECONDS D-Dimer, Quantitative (0-243) ng/mlDDU Puncture Site pCO2 (35-45) mm/Hg pO2 (80-100) mm/Hg HCO3 (21-28) mmol/L ABG pH (7.35-7.45) ABG Total CO2 (22-28) mmol/L ABG O2 Saturation (95-98) % ABG Base Excess (-2.0-3.0) mmol/L ABG Hemoglobin (11.7-17.4) g/dL ABG Carboxyhemoglobin (0.5-1.5) % POC ABG HHb (Measured) (0.0-5.0) % ABG Methemoglobin (0.0-3.0) % Goran Test ABG Potassium (3.6-5.2) mmol/L A-a O2 Difference mm/Hg Respiratory Index Hgb O2 Saturation (95.0-98.0) % Glucose (75-110) mg/dl Lactate (0.7-2.1) mmol/L Vent Mode Mechanical Rate FiO2 % Tidal Volume PEEP Crit Value Called To Crit Value Called By Crit Value Read Back Blood Gas Notified Time Sodium (132-148) mmol/L Potassium (3.6-5.2) mmol/L Chloride (98-107) mmol/L Carbon Dioxide (22-30) mmol/L Anion Gap (10-20) BUN (9-20) mg/dL Creatinine (0.8-1.5) MG/DL Est GFR ( Amer) Est GFR (Non-Af Amer) POC Glucose (mg/dL) 77 243 H (65-110) mg/dL Random Glucose (75-110) mg/dL Lactic Acid (0.7-2.1) mmol/L Calcium (8.6-10.4) mg/dl Phosphorus (2.5-4.5) mg/dL Magnesium (1.6-2.3) mg/dL Total Bilirubin (0.2-1.3) mg/dL AST (17-59) U/L ALT (21-72) U/L Alkaline Phosphatase (38-126) U/L Total Creatine Kinase (55-170) U/L CK-MB (Mass) (0.0-3.38) ng/mL Troponin I, Quant (0.00-0.120) ng/mL Total Protein (6.3-8.3) g/dL Albumin (3.5-5.0) g/dL Globulin (2.2-3.9) gm/dL Albumin/Globulin Ratio (1.0-2.1) Arterial Blood Potassium (3.6-5.2) mmol/L Urine Color (YELLOW) Urine Clarity (Clear) Urine pH (5.0-8.0) Ur Specific [place] (1.003-1.030) Urine Protein (NEGATIVE) mg/dL Urine Glucose (UA) (Normal) mg/dL Urine Ketones (NEGATIVE) mg/dL Urine Blood (NEGATIVE) Urine Nitrate (NEGATIVE) Urine Bilirubin (NEGATIVE) Urine Urobilinogen (0.2-1.0) mg/dL Ur Leukocyte Esterase (Negative) Nas/uL Urine WBC (Auto) (0-5) /hpf Urine RBC (Auto) (0-3) /hpf Urine WBC Clumps (Auto) (NONE) /hpf Ur Squamous Epith Cells (0-5) /hpf Ur Transition Epith Cell (0-3) /hpf Urine Bacteria (<OCC) Urine Opiates Screen (NEGATIVE) Urine Methadone Screen (NEGATIVE) Ur Barbiturates Screen (NEGATIVE) Ur Phencyclidine Scrn (NEGATIVE) Ur Amphetamines Screen (NEGATIVE) U Benzodiazepines Scrn (NEGATIVE) U Oth Cocaine Metabols (NEGATIVE) U Cannabinoids Screen (NEGATIVE) Laboratory Results - last 24 hr 04/28/17 04/28/17 04/28/17 00:22 01:04 02:10 WBC RBC Hgb Hct MCV MCH MCHC RDW Plt Count MPV Neut % (Auto) Lymph % (Auto) [place] % (Auto) Eos % (Auto) Baso % (Auto) Neut # Lymph # [place] # Eos # Baso # Neutrophils % (Manual) Band Neutrophils % Lymphocytes % (Manual) Monocytes % (Manual) Toxic Granulation Platelet Estimate Large Platelets Poikilocytosis (manual Anisocytosis (manual) Microcytosis (manual) [place] Cells PT INR APTT D-Dimer, Quantitative Puncture Site pCO2 pO2 HCO3 ABG pH ABG Total CO2 ABG O2 Saturation ABG Base Excess ABG Hemoglobin ABG Carboxyhemoglobin POC ABG HHb (Measured) ABG Methemoglobin Goran Test ABG Potassium A-a O2 Difference Respiratory Index Hgb O2 Saturation Glucose Lactate Vent Mode Mechanical Rate FiO2 Tidal Volume PEEP Crit Value Called To Crit Value Called By Crit Value Read Back Blood Gas Notified Time Sodium Potassium Chloride Carbon Dioxide Anion Gap BUN Creatinine Est GFR ( Amer) Est GFR (Non-Af Amer) POC Glucose (mg/dL) 243 H 77 48 L Random Glucose Lactic Acid Calcium Phosphorus Magnesium Total Bilirubin AST ALT Alkaline Phosphatase Total Creatine Kinase CK-MB (Mass) Troponin I, Quant Total Protein Albumin Globulin Albumin/Globulin Ratio Arterial Blood Potassium Urine Color Urine Clarity Urine pH Ur Specific [place] Urine Protein Urine Glucose (UA) Urine Ketones Urine Blood Urine Nitrate Urine Bilirubin Urine Urobilinogen Ur Leukocyte Esterase Urine WBC (Auto) Urine RBC (Auto) Urine WBC Clumps (Auto) Ur Squamous Epith Cells Ur Transition Epith Cell Urine Bacteria Urine Opiates Screen Urine Methadone Screen Ur Barbiturates Screen Ur Phencyclidine Scrn Ur Amphetamines Screen U Benzodiazepines Scrn U Oth Cocaine Metabols U Cannabinoids Screen 04/28/17 04/28/17 04/28/17 02:56 04:46 05:23 WBC RBC Hgb Hct MCV MCH MCHC RDW Plt Count MPV Neut % (Auto) Lymph % (Auto) [place] % (Auto) Eos % (Auto) Baso % (Auto) Neut # Lymph # [place] # Eos # Baso # Neutrophils % (Manual) Band Neutrophils % Lymphocytes % (Manual) Monocytes % (Manual) Toxic Granulation Platelet Estimate Large Platelets Poikilocytosis (manual Anisocytosis (manual) Microcytosis (manual) [place] Cells PT INR APTT D-Dimer, Quantitative Puncture Site pCO2 pO2 HCO3 ABG pH ABG Total CO2 ABG O2 Saturation ABG Base Excess ABG Hemoglobin ABG Carboxyhemoglobin POC ABG HHb (Measured) ABG Methemoglobin Goran Test ABG Potassium A-a O2 Difference Respiratory Index Hgb O2 Saturation Glucose Lactate Vent Mode Mechanical Rate FiO2 Tidal Volume PEEP Crit Value Called To Crit Value Called By Crit Value Read Back Blood Gas Notified Time Sodium Potassium Chloride Carbon Dioxide Anion Gap BUN Creatinine Est GFR ( Amer) Est GFR (Non-Af Amer) POC Glucose (mg/dL) 109 67 77 Random Glucose Lactic Acid Calcium Phosphorus Magnesium Total Bilirubin AST ALT Alkaline Phosphatase Total Creatine Kinase CK-MB (Mass) Troponin I, Quant Total Protein Albumin Globulin Albumin/Globulin Ratio Arterial Blood Potassium Urine Color Urine Clarity Urine pH Ur Specific [place] Urine Protein Urine Glucose (UA) Urine Ketones Urine Blood Urine Nitrate Urine Bilirubin Urine Urobilinogen Ur Leukocyte Esterase Urine WBC (Auto) Urine RBC (Auto) Urine WBC Clumps (Auto) Ur Squamous Epith Cells Ur Transition Epith Cell Urine Bacteria Urine Opiates Screen Urine Methadone Screen Ur Barbiturates Screen Ur Phencyclidine Scrn Ur Amphetamines Screen U Benzodiazepines Scrn U Oth Cocaine Metabols U Cannabinoids Screen 04/28/17 04/28/17 04/28/17 07:05 07:26 07:26 WBC 18.7 H RBC 4.68 Hgb 12.3 Hct 36.9 MCV 78.9 L MCH 26.3 L MCHC 33.3 RDW 14.5 Plt Count 213 MPV 8.8 Neut % (Auto) 82.3 H Lymph % (Auto) 6.9 L [place] % (Auto) 10.7 H Eos % (Auto) 0.0 Baso % (Auto) 0.1 Neut # 15.4 H Lymph # 1.3 [place] # 2.0 H Eos # 0.0 Baso # 0.0 Neutrophils % (Manual) 74 Band Neutrophils % 5 H Lymphocytes % (Manual) 10 L Monocytes % (Manual) 11 H Toxic Granulation Present Platelet Estimate Normal Large Platelets Present Poikilocytosis (manual Slight Anisocytosis (manual) Slight Microcytosis (manual) Slight [place] Cells Slight PT INR APTT D-Dimer, Quantitative Puncture Site pCO2 pO2 HCO3 ABG pH ABG Total CO2 ABG O2 Saturation ABG Base Excess ABG Hemoglobin ABG Carboxyhemoglobin POC ABG HHb (Measured) ABG Methemoglobin Goran Test ABG Potassium A-a O2 Difference Respiratory Index Hgb O2 Saturation Glucose Lactate Vent Mode Mechanical Rate FiO2 Tidal Volume PEEP Crit Value Called To Crit Value Called By Crit Value Read Back Blood Gas Notified Time Sodium 130 L Potassium 3.6 Chloride 91 L Carbon Dioxide 17 L Anion Gap 26 H BUN 30 H Creatinine 6.3 H Est GFR ( Amer) 12 Est GFR (Non-Af Amer) 10 POC Glucose (mg/dL) 86 Random Glucose 82 Lactic Acid Calcium 7.4 L Phosphorus 3.0 Magnesium 1.5 L Total Bilirubin 0.2 AST 101 H D ALT 109 H D Alkaline Phosphatase 82 Total Creatine Kinase CK-MB (Mass) Troponin I, Quant Total Protein 6.2 L Albumin 3.2 L Globulin 3.0 Albumin/Globulin Ratio 1.1 Arterial Blood Potassium Urine Color Urine Clarity Urine pH Ur Specific [place] Urine Protein Urine Glucose (UA) Urine Ketones Urine Blood Urine Nitrate Urine Bilirubin Urine Urobilinogen Ur Leukocyte Esterase Urine WBC (Auto) Urine RBC (Auto) Urine WBC Clumps (Auto) Ur Squamous Epith Cells Ur Transition Epith Cell Urine Bacteria Urine Opiates Screen Urine Methadone Screen Ur Barbiturates Screen Ur Phencyclidine Scrn Ur Amphetamines Screen U Benzodiazepines Scrn U Oth Cocaine Metabols U Cannabinoids Screen 04/28/17 04/28/17 04/28/17 11:32 15:20 15:20 WBC RBC Hgb Hct MCV MCH MCHC RDW Plt Count MPV Neut % (Auto) Lymph % (Auto) [place] % (Auto) Eos % (Auto) Baso % (Auto) Neut # Lymph # [place] # Eos # Baso # Neutrophils % (Manual) Band Neutrophils % Lymphocytes % (Manual) Monocytes % (Manual) Toxic Granulation Platelet Estimate Large Platelets Poikilocytosis (manual Anisocytosis (manual) Microcytosis (manual) [place] Cells PT 13.0 H INR 1.1 APTT 28 D-Dimer, Quantitative 461 H Puncture Site pCO2 pO2 HCO3 ABG pH ABG Total CO2 ABG O2 Saturation ABG Base Excess ABG Hemoglobin ABG Carboxyhemoglobin POC ABG HHb (Measured) ABG Methemoglobin Goran Test ABG Potassium A-a O2 Difference Respiratory Index Hgb O2 Saturation Glucose Lactate Vent Mode Mechanical Rate FiO2 Tidal Volume PEEP Crit Value Called To Crit Value Called By Crit Value Read Back Blood Gas Notified Time Sodium Potassium Chloride Carbon Dioxide Anion Gap BUN Creatinine Est GFR ( Amer) Est GFR (Non-Af Amer) POC Glucose (mg/dL) 272 H Random Glucose Lactic Acid Calcium Phosphorus Magnesium Total Bilirubin AST ALT Alkaline Phosphatase Total Creatine Kinase 309 H CK-MB (Mass) 4.61 H Troponin I, Quant 0.0560 Total Protein Albumin Globulin Albumin/Globulin Ratio Arterial Blood Potassium Urine Color Urine Clarity Urine pH Ur Specific [place] Urine Protein Urine Glucose (UA) Urine Ketones Urine Blood Urine Nitrate Urine Bilirubin Urine Urobilinogen Ur Leukocyte Esterase Urine WBC (Auto) Urine RBC (Auto) Urine WBC Clumps (Auto) Ur Squamous Epith Cells Ur Transition Epith Cell Urine Bacteria Urine Opiates Screen Urine Methadone Screen Ur Barbiturates Screen Ur Phencyclidine Scrn Ur Amphetamines Screen U Benzodiazepines Scrn U Oth Cocaine Metabols U Cannabinoids Screen 04/28/17 04/28/17 04/28/17 15:20 16:04 16:54 WBC 22.1 H RBC 4.43 Hgb 11.7 L Hct 34.9 L MCV 78.8 L MCH 26.5 L MCHC 33.6 RDW 14.1 Plt Count 200 MPV 8.5 Neut % (Auto) 90.7 H Lymph % (Auto) 2.4 L [place] % (Auto) 6.6 Eos % (Auto) 0.1 Baso % (Auto) 0.2 Neut # 20.1 H Lymph # 0.5 L [place] # 1.5 H Eos # 0.0 Baso # 0.0 Neutrophils % (Manual) 90 H Band Neutrophils % 3 H Lymphocytes % (Manual) 3 L Monocytes % (Manual) 4 Toxic Granulation Platelet Estimate Normal Large Platelets Poikilocytosis (manual Anisocytosis (manual) Microcytosis (manual) Slight [place] Cells PT INR APTT D-Dimer, Quantitative Puncture Site pCO2 pO2 HCO3 ABG pH ABG Total CO2 ABG O2 Saturation ABG Base Excess ABG Hemoglobin ABG Carboxyhemoglobin POC ABG HHb (Measured) ABG Methemoglobin Goran Test ABG Potassium A-a O2 Difference Respiratory Index Hgb O2 Saturation Glucose Lactate Vent Mode Mechanical Rate FiO2 Tidal Volume PEEP Crit Value Called To Crit Value Called By Crit Value Read Back Blood Gas Notified Time Sodium 122 L Potassium 4.9 Chloride 89 L Carbon Dioxide 15 L Anion Gap 23 H BUN 41 H Creatinine 7.2 H Est GFR ( Amer) 10 Est GFR (Non-Af Amer) 9 POC Glucose (mg/dL) 349 H Random Glucose 297 H Lactic Acid Calcium 6.9 L Phosphorus 2.9 Magnesium 1.4 L Total Bilirubin 0.4 AST 58 ALT 92 H Alkaline Phosphatase 76 Total Creatine Kinase CK-MB (Mass) Troponin I, Quant Total Protein 6.2 L Albumin 3.3 L Globulin 2.9 Albumin/Globulin Ratio 1.1 Arterial Blood Potassium Urine Color Urine Clarity Urine pH Ur Specific [place] Urine Protein Urine Glucose (UA) Urine Ketones Urine Blood Urine Nitrate Urine Bilirubin Urine Urobilinogen Ur Leukocyte Esterase Urine WBC (Auto) Urine RBC (Auto) Urine WBC Clumps (Auto) Ur Squamous Epith Cells Ur Transition Epith Cell Urine Bacteria Urine Opiates Screen Urine Methadone Screen Ur Barbiturates Screen Ur Phencyclidine Scrn Ur Amphetamines Screen U Benzodiazepines Scrn U Oth Cocaine Metabols U Cannabinoids Screen 04/28/17 04/28/17 04/28/17 17:19 17:23 17:37 WBC RBC Hgb Hct MCV MCH MCHC RDW Plt Count MPV Neut % (Auto) Lymph % (Auto) [place] % (Auto) Eos % (Auto) Baso % (Auto) Neut # Lymph # [place] # Eos # Baso # Neutrophils % (Manual) Band Neutrophils % Lymphocytes % (Manual) Monocytes % (Manual) Toxic Granulation Platelet Estimate Large Platelets Poikilocytosis (manual Anisocytosis (manual) Microcytosis (manual) Bill Cells PT INR APTT D-Dimer, Quantitative Puncture Site pCO2 pO2 HCO3 ABG pH ABG Total CO2 ABG O2 Saturation ABG Base Excess ABG Hemoglobin ABG Carboxyhemoglobin POC ABG HHb (Measured) ABG Methemoglobin Goran Test ABG Potassium A-a O2 Difference Respiratory Index Hgb O2 Saturation Glucose Lactate Vent Mode Mechanical Rate FiO2 Tidal Volume PEEP Crit Value Called To Crit Value Called By Crit Value Read Back Blood Gas Notified Time Sodium Potassium Chloride Carbon Dioxide Anion Gap BUN Creatinine Est GFR ( Amer) Est GFR (Non-Af Amer) POC Glucose (mg/dL) Random Glucose Lactic Acid 2.7 H Calcium Phosphorus Magnesium Total Bilirubin AST ALT Alkaline Phosphatase Total Creatine Kinase 322 H CK-MB (Mass) Troponin I, Quant Total Protein Albumin Globulin Albumin/Globulin Ratio Arterial Blood Potassium Urine Color Yellow Urine Clarity Hazy Urine pH 5.0 Ur Specific [place] 1.011 Urine Protein 2+ H Urine Glucose (UA) 3+ H Urine Ketones Negative Urine Blood Negative Urine Nitrate Negative Urine Bilirubin Negative Urine Urobilinogen Normal Ur Leukocyte Esterase Neg Urine WBC (Auto) 34 H Urine RBC (Auto) 2 Urine WBC Clumps (Auto) Mod H Ur Squamous Epith Cells 1 Ur Transition Epith Cell 1 Urine Bacteria Occ H Urine Opiates Screen Urine Methadone Screen Ur Barbiturates Screen Ur Phencyclidine Scrn Ur Amphetamines Screen U Benzodiazepines Scrn U Oth Cocaine Metabols U Cannabinoids Screen 04/28/17 04/28/17 04/28/17 17:41 17:46 19:30 WBC RBC Hgb Hct MCV MCH MCHC RDW Plt Count MPV Neut % (Auto) Lymph % (Auto) [place] % (Auto) Eos % (Auto) Baso % (Auto) Neut # Lymph # [place] # Eos # Baso # Neutrophils % (Manual) Band Neutrophils % Lymphocytes % (Manual) Monocytes % (Manual) Toxic Granulation Platelet Estimate Large Platelets Poikilocytosis (manual Anisocytosis (manual) Microcytosis (manual) [place] Cells PT INR APTT D-Dimer, Quantitative Puncture Site Rradial pCO2 22 L pO2 48 L HCO3 16.7 L ABG pH 7.38 ABG Total CO2 13.7 L ABG O2 Saturation 91.2 L ABG Base Excess -10.0 L ABG Hemoglobin ABG Carboxyhemoglobin POC ABG HHb (Measured) ABG Methemoglobin Goran Test Pos ABG Potassium 5.2 A-a O2 Difference 638.0 Respiratory Index 13.3 Hgb O2 Saturation Glucose 411 H* D Lactate 1.5 Vent Mode Mechanical Rate FiO2 100.0 Tidal Volume PEEP Crit Value Called To Dr orozco Crit Value Called By Margo del valle Crit Value Read Back Y Blood Gas Notified Time 1934 Sodium 119.0 L* Potassium Chloride 89.0 L Carbon Dioxide Anion Gap BUN Creatinine Est GFR ( Amer) Est GFR (Non-Af Amer) POC Glucose (mg/dL) 339 H Random Glucose Lactic Acid Calcium Phosphorus Magnesium Total Bilirubin AST ALT Alkaline Phosphatase Total Creatine Kinase CK-MB (Mass) Troponin I, Quant Total Protein Albumin Globulin Albumin/Globulin Ratio Arterial Blood Potassium 5.2 Urine Color Urine Clarity Urine pH Ur Specific [place] Urine Protein Urine Glucose (UA) Urine Ketones Urine Blood Urine Nitrate Urine Bilirubin Urine Urobilinogen Ur Leukocyte Esterase Urine WBC (Auto) Urine RBC (Auto) Urine WBC Clumps (Auto) Ur Squamous Epith Cells Ur Transition Epith Cell Urine Bacteria Urine Opiates Screen Negative Urine Methadone Screen Negative Ur Barbiturates Screen Negative Ur Phencyclidine Scrn Negative Ur Amphetamines Screen Negative U Benzodiazepines Scrn Negative U Oth Cocaine Metabols Negative U Cannabinoids Screen Negative 04/28/17 04/28/17 20:30 22:09 WBC RBC Hgb Hct MCV MCH MCHC RDW Plt Count MPV Neut % (Auto) Lymph % (Auto) [place] % (Auto) Eos % (Auto) Baso % (Auto) Neut # Lymph # [place] # Eos # Baso # Neutrophils % (Manual) Band Neutrophils % Lymphocytes % (Manual) Monocytes % (Manual) Toxic Granulation Platelet Estimate Large Platelets Poikilocytosis (manual Anisocytosis (manual) Microcytosis (manual) [place] Cells PT INR APTT D-Dimer, Quantitative Puncture Site Rradial pCO2 37 pO2 42 L* HCO3 14.5 L ABG pH 7.20 L ABG Total CO2 15.6 L ABG O2 Saturation 80.0 L ABG Base Excess -12.7 L ABG Hemoglobin 12.9 ABG Carboxyhemoglobin 1.8 H POC ABG HHb (Measured) 19.4 H ABG Methemoglobin 1.1 Goran Test Pos ABG Potassium A-a O2 Difference 625.0 Respiratory Index 14.9 Hgb O2 Saturation 77.6 L Glucose Lactate Vent Mode A/c Mechanical Rate 26 FiO2 100.0 Tidal Volume 450 PEEP 5 Crit Value Called To Dr. [place] Crit Value Called By Margo michel rcp Crit Value Read Back Y Blood Gas Notified Time 2034 Sodium Potassium Chloride Carbon Dioxide Anion Gap BUN Creatinine Est GFR ( Amer) Est GFR (Non-Af Amer) POC Glucose (mg/dL) 424 H* Random Glucose Lactic Acid Calcium Phosphorus Magnesium Total Bilirubin AST ALT Alkaline Phosphatase Total Creatine Kinase CK-MB (Mass) Troponin I, Quant Total Protein Albumin Globulin Albumin/Globulin Ratio Arterial Blood Potassium Urine Color Urine Clarity Urine pH Ur Specific [place] Urine Protein Urine Glucose (UA) Urine Ketones Urine Blood Urine Nitrate Urine Bilirubin Urine Urobilinogen Ur Leukocyte Esterase Urine WBC (Auto) Urine RBC (Auto) Urine WBC Clumps (Auto) Ur Squamous Epith Cells Ur Transition Epith Cell Urine Bacteria Urine Opiates Screen Urine Methadone Screen Ur Barbiturates Screen Ur Phencyclidine Scrn Ur Amphetamines Screen U Benzodiazepines Scrn U Oth Cocaine Metabols U Cannabinoids Screen EKG/Cardiology Studies: Cardiology / EKG Studies 04/28/17 14:50 EKG [ELECTROCARDIOGRAM] Stat Comment: Mode Of Transportation: Reason For Exam: chest pain Fingerstick Blood Sugar Results: 424 Review of Systems - Review of Systems Systems not reviewed;Unavailable: Respiratory Distress - Constitutional Constitutional: absent: Fever, Chills - EENT Eyes: UNREMARKABLE. absent: Blurred Vision Ears: UNREMARKABLE Nose/Mouth/Throat: UNREMARKABLE - Cardiovascular Cardiovascular: absent: Chest Pain - Respiratory Respiratory: Dyspnea Additional comments: c/o small amount of blood when he coughs - Gastrointestinal Gastrointestinal: UNREMARKABLE. absent: Abdominal Pain, Diarrhea - Genitourinary Additional comments: minimal urine output - Neurological Neurological: absent: Dizziness - Hematologic/Lymphatic Hematologic: absent: Easy Bruising Critical Care Progress Note - Nutrition Nutrition: Nutrition Category Date Time Status NPO Diet [DIET] Diets 04/28/17 Breakfast Active Assessment/Plan - Assessment and Plan (Free Text) Assessment: 36 y/o male with DM,renal insufficiency, had refused hemodialysis earlier today.Patients clinical condition worsened with with worsening tachypnea and hypoxia. labs and clinical condition discussed with patient and family.Patient agreed to hemodialysis after lengthy discussion..Signed consent for HD . Intubated by anesthesia.Soon after ETT was placed pink frothy fluid reflux by from the ETT .Discussed with Veterinary Epidemiologist After intubation and sedation Shiley catheter was placed in Right Femoral vein for HD Patients family(mother and sister )aware of patients condition
--- NOTE | 2017-04-28 22:58 | PCM.PROC ---
Procedures Attestation:: I certify that I have explained the specified Operation(s) or Procedure(s), risks, benefits and reasonable alternatives to the Patient and/or other person responsible. The opportunity was given to ask questions and all questions answered - Central Line Placement Right Femoral Hemodialysis Access Aseptic technique was employed throughout the procedure: Hand Hygiene done prior to procedure, Full sterile barriers (mask, hair cover, sterile gown, sterile gloves), Full body sterile drape, Chloraprep Antiseptic: 2 minute prep for Femoral CVP Time Out Performed: Yes Pt. Placed on Pulse Ox Monitor: Yes Ultrasound Used for Placement: No Post Procedure: Sutured in Place, Good Blood Return Secured by: Suture Post procedure dressing: Gauze Post Procedure X-Ray: No Patient Tolerated Procedure: Well Immediate Complications: None
[2017-04-28] MEDS ORDERED: (Novolin R) Insulin Human Regular 100 units/ml vial SC ONE (23:00)
[2017-04-29] MEDS: Propofol 10 mg/ml 1,000 MG/100 ML VIAL IV PRN ×7 (00:24→20:53)
[2017-04-29] MEDS: Cisatracurium Besylate 100 MG in Dextrose 5% In Water 240 ML IV SCH ×5 (03:09→22:57)
[2017-04-29 03:14] LABS: ABG ALLEN TEST POS; ABG MECHANICAL RATE 26; ARTERIAL BLOOD GAS MODE A/C; ATERIAL BLOOD GAS PEEP 10; DRAW SITE RRADIAL
[2017-04-29] MEDS ORDERED: (Novolin R) Insulin Human Regular 100 units/ml vial IV ONE ×2 (04:22→06:28)
[2017-04-29 05:47] LABS: BASO % 0.1 % (0.0-2.0); HEMATOCRIT 32.8 % (35.0-51.0); LYMPH # 0.6 K/uL (1.0-4.3); MEAN CORPUSCULAR HEMOGLOBIN 26.5 pg (27.0-31.0); MEAN PLATELET VOLUME 8.8 fL (7.2-11.7); MONO # 1.5 K/uL (0.0-0.8); MONO % 7.8 % (0.0-10.0); PLATELET COUNT 172 K/uL (130-400); WHITE BLOOD COUNT 18.8 K/uL (4.8-10.8)
[2017-04-29 05:59] LABS: BILIRUBIN,TOTAL 0.2 mg/dL (0.2-1.3); MAGNESIUM 1.8 mg/dL (1.6-2.3); PHOSPHOROUS 6.2 mg/dL (2.5-4.5); POTASSIUM 4.2 mmol/L (3.6-5.2); TOTAL PROTEIN 5.9 g/dL (6.3-8.3)
[2017-04-29 06:22] LABS: NEUTROPHIL 88 % (50-75); TOTAL CELLS COUNTED 100
[2017-04-29] MEDS: Albuterol-Ipratrop 3 mg / 0.5 (3 ml) UD INH PRN ×2 (07:11→11:29)
[2017-04-29] MEDS ORDERED: Cisatracurium Besylate 100 MG in Dextrose 5% In Water 240 ML IV SCH (08:05)
[2017-04-29 08:36] LABS: ABG MECHANICAL RATE 26; ARTERIAL BLOOD HGB O2 SAT 96.6 % (95.0-98.0); ATERIAL BLOOD GAS PEEP 10; CARBOXYHEMOGLOBIN 1.3 % (0.5-1.5); DRAW SITE LB; HHB 0.6 % (0.0-5.0); METHEMOGLOBIN 1.6 % (0.0-3.0)
--- NOTE | 2017-04-29 10:20 | RAD ---
Chest x-ray single frontal view History: Intubated. Comparison: None available. Findings: Endotracheal tube extending to the rosemary. Retraction approximately 2 centimeters recommended. Diffuse confluent airspace opacifications throughout both lungs. Heart size within normal limits. Impression: Endotracheal tube extending to the rosemary. Retraction approximately 2 centimeters recommended. Diffuse confluent airspace opacifications throughout both lungs.
--- NOTE | 2017-04-29 10:36 | RAD ---
PROCEDURE: CHEST RADIOGRAPH, 1 VIEW HISTORY: on ventilator COMPARISON: 04/28/2017 FINDINGS: LUNGS: Endotracheal tube extending into the mid thoracic trachea. Diffuse confluent consolidative markings throughout both lungs. PLEURA: As above. CARDIOVASCULAR: Normal. OSSEOUS STRUCTURES: No significant abnormalities. VISUALIZED UPPER ABDOMEN: Normal. OTHER FINDINGS: None. IMPRESSION: Endotracheal tube extending into the mid thoracic trachea. Diffuse confluent consolidative markings throughout both lungs.
--- NOTE | 2017-04-29 11:03 | CP.PCM.PN ---
Subjective - Date & Time of Evaluation Date of Evaluation: 04/29/17 Time of Evaluation: 11:00 - Subjective Subjective: s/p first HD- tolerated ok Remains on vent; sedated Now with UO CXR with CHF Serologies sent; WILEY etiology likely DM though Objective - Vital Signs/Intake and Output Vital Signs (last 24 hours): Temp Pulse Resp BP Pulse Ox 98.4 F 96 H 24 98/37 L 100 04/29/17 08:00 04/29/17 09:10 04/29/17 09:10 04/29/17 09:02 04/29/17 09:10 Intake and Output: 04/29/17 04/29/17 06:59 18:59 Intake Total 1532.9 390.5 Output Total 1000 310 Balance 532.9 80.5 - Medications Medications: Current Medications Albuterol/Ipratropium (Duoneb 3 Mg/0.5 Mg (3 Ml) Ud) 3 ml INH RQ6 PRN PRN Reason: Wheezing Last Admin: 04/29/17 07:11 Dose: 3 ml Heparin Sodium (Porcine) (Heparin) 5,000 units SC Q12 CLAUDE Last Admin: 04/29/17 10:09 Dose: 5,000 units Ceftriaxone Sodium 1 gm/ (Sodium Chloride) 100 mls @ 100 mls/hr IVPB DAILY CLAUDE Last Admin: 04/29/17 10:09 Dose: 100 mls/hr Propofol (Diprivan) 1,000 mg in 100 mls @ 2.585 mls/hr IV .Q24H PRN; Protocol; 5 MCG/KG/MIN PRN Reason: TITRATE PER MD ORDER Last Titration: 04/29/17 09:30 Dose: 65 mcg/kg/min, 33.611 mls/hr Sodium Chloride (Sodium Chloride 0.9%) 1,000 mls @ 15 mls/hr IV .Q24H CLAUDE Last Admin: 04/28/17 21:21 Dose: 15 mls/hr Cisatracurium Besylate 100 mg/ (Dextrose) 250 mls @ 38.78 mls/hr IV .Q6H27M CLAUDE ; 3 MCG/KG/MIN PRN Reason: Protocol Insulin Human Regular (Novolin R) 0 unit SC Q6 CLAUDE PRN Reason: Protocol Pantoprazole Sodium (Protonix Inj) 40 mg IVP DAILY CLAUDE Last Admin: 04/29/17 10:09 Dose: 40 mg Pneumococcal Polyvalent Vaccine (Pneumovax 23 Vaccine) 0.5 ml IM .ONCE ONE Stop: 04/30/17 14:01 - Labs Labs: 04/29/17 05:43 04/29/17 05:43 PT 13.0 SECONDS (9.7-12.2) H 04/28/17 15:20 INR 1.1 04/28/17 15:20 APTT 28 SECONDS (21-34) 04/28/17 15:20 - Constitutional Appears: In Acute Distress, Chronically Ill - Head Exam Head Exam: ATRAUMATIC, NORMAL INSPECTION - Eye Exam Eye Exam: EOMI, Normal appearance - Neck Exam Neck Exam: Normal Inspection. absent: Tenderness - Respiratory Exam Respiratory Exam: Rales, Respiratory Distress - Cardiovascular Exam Cardiovascular Exam: REGULAR RHYTHM, +S1 - GI/Abdominal Exam GI & Abdominal Exam: Soft. absent: Tenderness - Extremities Exam Extremities Exam: Normal Inspection. absent: Tenderness - Neurological Exam Neurological Exam: Altered, CN II-XII Intact - Skin Skin Exam: Dry, Warm Assessment and Plan (1) Type 1 diabetes mellitus with diabetic nephropathy Status: Acute (2) WILEY (acute kidney injury) Status: Acute (3) CHF (congestive heart failure) Status: Acute (4) Acute renal failure Status: Acute - Assessment and Plan (Free Text) Plan: Repeat HD renal US Add phoslo serial chemistries
[2017-04-29] MEDS: (Novolin R) Insulin Human Regular 100 units/ml vial SC SCH ×2 (11:54→18:14)
[2017-04-29] MEDS ORDERED: Cisatracurium Besylate 100 MG in Dextrose 5% In Water 250 ML IV SCH (12:15)
--- NOTE | 2017-04-29 14:31 | CP.CCUPN ---
<Rahat Christian R - Last Filed: 04/29/17 14:29> CCU Subjective - Physician Review Subjective (Free Text): Patient seen and examined at bedside. Patient is intubated and sedated. Per nursing staff, patient completed hemodialysis overnight. Early this morning, patient became agitated and tachycardic when nimbex and propofol were titrated down. ROS not obtained due to current status. Case discussed with house-staff, medical records and chart reviewed and labs discussed. 04/29/17 14:31 CCU Objective - Vital Signs / Intake & Output Vital Signs (Last 4 hours): Vital Signs Temp Pulse Pulse Resp BP BP Pulse Ox 04/29/17 14:25 119/52 L 04/29/17 14:10 132/57 L 04/29/17 13:55 98.3 F 108 H 108 H 24 147/67 146/64 99 Intake and Output (Last 8hrs): Intake & Output 04/28/17 04/29/17 04/29/17 22:59 06:59 14:59 Intake Total 397.6 1135.3 464.0 Output Total 555 625 420 Balance -157.4 510.3 44.0 Weight 209 lb 7.026 oz 209 lb 7.026 oz Intake: IV 144 504.0 68 Intake, IV Amount 253.6 631.3 396.0 Left 138 250.8 151.2 Left Antecubital 30 135 145 Left Proximal Port 85.6 245.5 99.8 Right Hand 0 Oral 0 Output: Urine 555 625 420 2-way Urethral 375 625 420 Urine, Voided 180 Stool 0 Other: # Voids Urine, Voided 1 - Physical Exam Head: Negative for: Atraumatic, Normocephalic Pupils: Positive for: PERRL Extroacular Muscles: Positive for: EOMI Conjunctiva: Positive for: Normal Mouth: Positive for: Moist Mucous Membranes Nose (Internal): Positive for: Normal Inspection Neck: Positive for: Normal Range of Motion Respiratory/Chest: Positive for: Clear to Auscultation, Decreased Breath Sounds. Negative for: Rales, Rhonchi Cardiovascular: Positive for: Regular Rate and Rhythm Abdomen: Positive for: Normal Bowel Sounds. Negative for: Tenderness, Distention, Peritoneal Signs Upper Extremity: Positive for: Normal Inspection. Negative for: Cyanosis Lower Extremity: Positive for: Normal Inspection Neurological: Positive for: GCS=15 Skin: Positive for: Warm Psychiatric: Positive for: Alert, Oriented x 3 - Medications Active Medications: Active Medications Generic Name Dose Route Start Last Admin Trade Name Freq PRN Reason Stop Dose Admin Albuterol/Ipratropium 3 ml 04/28/17 08:00 04/29/17 11:29 Duoneb 3 Mg/0.5 Mg (3 Ml) Ud INH 3 ml RQ6 PRN Administration Wheezing Calcium Acetate 667 mg 04/29/17 14:00 04/29/17 14:19 Phoslo GT 667 mg TIDCC CLAUDE Administration Heparin Sodium (Porcine) 5,000 units 04/28/17 10:00 04/29/17 10:09 Heparin SC 5,000 units Q12 CLAUDE Administration Ceftriaxone Sodium 1 gm/ 100 mls @ 100 mls/hr 04/29/17 10:00 04/29/17 10:09 Sodium Chloride IVPB 100 mls/hr DAILY CLAUDE Administration Sodium Chloride 1,000 mls @ 15 mls/hr 04/28/17 20:00 04/28/17 21:21 Sodium Chloride 0.9% IV 15 mls/hr .Q24H CLAUDE Administration Propofol 1,000 mg in 100 mls @ 2.85 mls/hr 04/29/17 11:59 04/29/17 14:00 Diprivan IV 5 mcg/kg/min .Q24H PRN 2.85 mls/hr TITRATE PER MD ORDER Administration Protocol 5 MCG/KG/MIN Cisatracurium Besylate 100 mg/ 250 mls @ 42.75 mls/hr 04/29/17 13:15 14:00 Dextrose IV 3 mcg/kg/min .Q5H51M CLAUDE 42.75 mls/hr Protocol Administration 3 MCG/KG/MIN Insulin Human Regular 0 unit 04/29/17 12:00 04/29/17 11:54 Novolin R SC 4 unit Q6 CLAUDE Administration Protocol Pantoprazole Sodium 40 mg 04/29/17 10:00 04/29/17 10:09 Protonix Inj IVP 40 mg DAILY CLAUDE Administration Pneumococcal Polyvalent Vaccine 0.5 ml 04/30/17 14:00 Pneumovax 23 Vaccine IM 04/30/17 14:01 .ONCE ONE - Patient Studies Lab Studies: Microbiology Studies 04/28/17 14:00 Urine Culture - Final Urine No Growth (<1,000 CFU/ML) 04/27/17 23:51 Blood Culture - Preliminary Blood-Venous NO GROWTH AFTER 24 HOURS Lab Studies 04/29/17 04/29/17 04/29/17 Range/Units 11:38 08:25 07:14 WBC (4.8-10.8) K/uL RBC (4.40-5.90) Mil/uL Hgb (12.0-18.0) g/dL Hct (35.0-51.0) % MCV (80.0-94.0) fL MCH (27.0-31.0) pg MCHC (33.0-37.0) g/dL RDW (11.5-14.5) % Plt Count (130-400) K/uL MPV (7.2-11.7) fL Neut % (Auto) (50.0-75.0) % Lymph % (Auto) (20.0-40.0) % [place] % (Auto) (0.0-10.0) % Eos % (Auto) (0.0-4.0) % Baso % (Auto) (0.0-2.0) % Neut # (1.8-7.0) K/uL Lymph # (1.0-4.3) K/uL [place] # (0.0-0.8) K/uL Eos # (0.0-0.7) K/uL Baso # (0.0-0.2) K/uL Neutrophils % (Manual) (50-75) % Band Neutrophils % (0-2) % Lymphocytes % (Manual) (20-40) % Monocytes % (Manual) (0-10) % Platelet Estimate (NORMAL) Microcytosis (manual) PT (9.7-12.2) SECONDS INR APTT (21-34) SECONDS D-Dimer, Quantitative (0-243) ng/mlDDU Puncture Site Lb pCO2 41 (35-45) mm/Hg pO2 148 H (80-100) mm/Hg HCO3 22.6 (21-28) mmol/L ABG pH 7.35 (7.35-7.45) ABG Total CO2 23.9 (22-28) mmol/L ABG O2 Saturation 99.4 H (95-98) % ABG Base Excess -2.9 L (-2.0-3.0) mmol/L ABG Hemoglobin 13.3 (11.7-17.4) g/dL ABG Carboxyhemoglobin 1.3 (0.5-1.5) % POC ABG HHb (Measured) 0.6 (0.0-5.0) % ABG Methemoglobin 1.6 (0.0-3.0) % Goran Test Na ABG Potassium (3.6-5.2) mmol/L A-a O2 Difference 514.0 mm/Hg Respiratory Index 3.5 Hgb O2 Saturation 96.6 (95.0-98.0) % Glucose (75-110) mg/dl Lactate (0.7-2.1) mmol/L Vent Mode Mechanical Rate 26 FiO2 100.0 % Tidal Volume 450 PEEP 10 Crit Value Called To Dr curiel Crit Value Called By Polo pettit paperhanger and painter Crit Value Read Back Y Blood Gas Notified Time 835 Sodium (132-148) mmol/L Potassium (3.6-5.2) mmol/L Chloride (98-107) mmol/L Carbon Dioxide (22-30) mmol/L Anion Gap (10-20) BUN (9-20) mg/dL Creatinine (0.8-1.5) MG/DL Est GFR ( Amer) Est GFR (Non-Af Amer) POC Glucose (mg/dL) 329 H 316 H (65-110) mg/dL Random Glucose (75-110) mg/dL Hemoglobin A1c (4.2-6.5) % Lactic Acid (0.7-2.1) mmol/L Calcium (8.6-10.4) mg/dl Phosphorus (2.5-4.5) mg/dL Magnesium (1.6-2.3) mg/dL Total Bilirubin (0.2-1.3) mg/dL AST (17-59) U/L ALT (21-72) U/L Alkaline Phosphatase (38-126) U/L Total Creatine Kinase (55-170) U/L CK-MB (Mass) (0.0-3.38) ng/mL Troponin I, Quant (0.00-0.120) ng/mL Total Protein (6.3-8.3) g/dL Albumin (3.5-5.0) g/dL Globulin (2.2-3.9) gm/dL Albumin/Globulin Ratio (1.0-2.1) Arterial Blood Potassium (3.6-5.2) mmol/L Urine Color (YELLOW) Urine Clarity (Clear) Urine pH (5.0-8.0) Ur Specific [place] (1.003-1.030) Urine Protein (NEGATIVE) mg/dL Urine Glucose (UA) (Normal) mg/dL Urine Ketones (NEGATIVE) mg/dL Urine Blood (NEGATIVE) Urine Nitrate (NEGATIVE) Urine Bilirubin (NEGATIVE) Urine Urobilinogen (0.2-1.0) mg/dL Ur Leukocyte Esterase (Negative) Nas/uL Urine WBC (Auto) (0-5) /hpf Urine RBC (Auto) (0-3) /hpf Urine WBC Clumps (Auto) (NONE) /hpf Ur Squamous Epith Cells (0-5) /hpf Ur Transition Epith Cell (0-3) /hpf Urine Bacteria (<OCC) Urine Opiates Screen (NEGATIVE) Urine Methadone Screen (NEGATIVE) Ur Barbiturates Screen (NEGATIVE) Ur Phencyclidine Scrn (NEGATIVE) Ur Amphetamines Screen (NEGATIVE) U Benzodiazepines Scrn (NEGATIVE) U Oth Cocaine Metabols (NEGATIVE) U Cannabinoids Screen (NEGATIVE) Hep Bs Antigen (NEGATIVE) Hep B Core IgM Ab (NEGATIVE) Hepatitis C Antibody (NEGATIVE) 04/29/17 04/29/17 04/29/17 Range/Units 06:21 05:43 05:43 WBC 18.8 H (4.8-10.8) K/uL RBC 4.20 L (4.40-5.90) Mil/uL Hgb 11.2 L (12.0-18.0) g/dL Hct 32.8 L (35.0-51.0) % MCV 78.0 L (80.0-94.0) fL MCH 26.5 L (27.0-31.0) pg MCHC 34.0 (33.0-37.0) g/dL RDW 14.0 (11.5-14.5) % Plt Count 172 (130-400) K/uL MPV 8.8 (7.2-11.7) fL Neut % (Auto) 89.1 H (50.0-75.0) % Lymph % (Auto) 3.0 L (20.0-40.0) % [place] % (Auto) 7.8 (0.0-10.0) % Eos % (Auto) 0.0 (0.0-4.0) % Baso % (Auto) 0.1 (0.0-2.0) % Neut # 16.8 H (1.8-7.0) K/uL Lymph # 0.6 L (1.0-4.3) K/uL [place] # 1.5 H (0.0-0.8) K/uL Eos # 0.0 (0.0-0.7) K/uL Baso # 0.0 (0.0-0.2) K/uL Neutrophils % (Manual) 88 H (50-75) % Band Neutrophils % 1 (0-2) % Lymphocytes % (Manual) 3 L (20-40) % Monocytes % (Manual) 8 (0-10) % Platelet Estimate Normal (NORMAL) Microcytosis (manual) PT (9.7-12.2) SECONDS INR APTT (21-34) SECONDS D-Dimer, Quantitative (0-243) ng/mlDDU Puncture Site pCO2 (35-45) mm/Hg pO2 (80-100) mm/Hg HCO3 (21-28) mmol/L ABG pH (7.35-7.45) ABG Total CO2 (22-28) mmol/L ABG O2 Saturation (95-98) % ABG Base Excess (-2.0-3.0) mmol/L ABG Hemoglobin (11.7-17.4) g/dL ABG Carboxyhemoglobin (0.5-1.5) % POC ABG HHb (Measured) (0.0-5.0) % ABG Methemoglobin (0.0-3.0) % Goran Test ABG Potassium (3.6-5.2) mmol/L A-a O2 Difference mm/Hg Respiratory Index Hgb O2 Saturation (95.0-98.0) % Glucose (75-110) mg/dl Lactate (0.7-2.1) mmol/L Vent Mode Mechanical Rate FiO2 % Tidal Volume PEEP Crit Value Called To Crit Value Called By Crit Value Read Back Blood Gas Notified Time Sodium 128 L (132-148) mmol/L Potassium 4.2 (3.6-5.2) mmol/L Chloride 90 L (98-107) mmol/L Carbon Dioxide 21 L (22-30) mmol/L Anion Gap 21 H (10-20) BUN 33 H (9-20) mg/dL Creatinine 6.3 H (0.8-1.5) MG/DL Est GFR ( Amer) 12 Est GFR (Non-Af Amer) 10 POC Glucose (mg/dL) 314 H (65-110) mg/dL Random Glucose 299 H (75-110) mg/dL Hemoglobin A1c (4.2-6.5) % Lactic Acid (0.7-2.1) mmol/L Calcium 7.0 L (8.6-10.4) mg/dl Phosphorus 6.2 H (2.5-4.5) mg/dL Magnesium 1.8 (1.6-2.3) mg/dL Total Bilirubin 0.2 (0.2-1.3) mg/dL AST 36 (17-59) U/L ALT 73 H D (21-72) U/L Alkaline Phosphatase 82 (38-126) U/L Total Creatine Kinase (55-170) U/L CK-MB (Mass) (0.0-3.38) ng/mL Troponin I, Quant (0.00-0.120) ng/mL Total Protein 5.9 L (6.3-8.3) g/dL Albumin 3.0 L (3.5-5.0) g/dL Globulin 2.9 (2.2-3.9) gm/dL Albumin/Globulin Ratio 1.0 (1.0-2.1) Arterial Blood Potassium (3.6-5.2) mmol/L Urine Color (YELLOW) Urine Clarity (Clear) Urine pH (5.0-8.0) Ur Specific [place] (1.003-1.030) Urine Protein (NEGATIVE) mg/dL Urine Glucose (UA) (Normal) mg/dL Urine Ketones (NEGATIVE) mg/dL Urine Blood (NEGATIVE) Urine Nitrate (NEGATIVE) Urine Bilirubin (NEGATIVE) Urine Urobilinogen (0.2-1.0) mg/dL Ur Leukocyte Esterase (Negative) Nas/uL Urine WBC (Auto) (0-5) /hpf Urine RBC (Auto) (0-3) /hpf Urine WBC Clumps (Auto) (NONE) /hpf Ur Squamous Epith Cells (0-5) /hpf Ur Transition Epith Cell (0-3) /hpf Urine Bacteria (<OCC) Urine Opiates Screen (NEGATIVE) Urine Methadone Screen (NEGATIVE) Ur Barbiturates Screen (NEGATIVE) Ur Phencyclidine Scrn (NEGATIVE) Ur Amphetamines Screen (NEGATIVE) U Benzodiazepines Scrn (NEGATIVE) U Oth Cocaine Metabols (NEGATIVE) U Cannabinoids Screen (NEGATIVE) Hep Bs Antigen (NEGATIVE) Hep B Core IgM Ab (NEGATIVE) Hepatitis C Antibody (NEGATIVE) 04/29/17 04/29/17 04/29/17 Range/Units 04:11 03:05 01:33 WBC (4.8-10.8) K/uL RBC (4.40-5.90) Mil/uL Hgb (12.0-18.0) g/dL Hct (35.0-51.0) % MCV (80.0-94.0) fL MCH (27.0-31.0) pg MCHC (33.0-37.0) g/dL RDW (11.5-14.5) % Plt Count (130-400) K/uL MPV (7.2-11.7) fL Neut % (Auto) (50.0-75.0) % Lymph % (Auto) (20.0-40.0) % [place] % (Auto) (0.0-10.0) % Eos % (Auto) (0.0-4.0) % Baso % (Auto) (0.0-2.0) % Neut # (1.8-7.0) K/uL Lymph # (1.0-4.3) K/uL [place] # (0.0-0.8) K/uL Eos # (0.0-0.7) K/uL Baso # (0.0-0.2) K/uL Neutrophils % (Manual) (50-75) % Band Neutrophils % (0-2) % Lymphocytes % (Manual) (20-40) % Monocytes % (Manual) (0-10) % Platelet Estimate (NORMAL) Microcytosis (manual) PT (9.7-12.2) SECONDS INR APTT (21-34) SECONDS D-Dimer, Quantitative (0-243) ng/mlDDU Puncture Site Rradial pCO2 46 H (35-45) mm/Hg pO2 84 (80-100) mm/Hg HCO3 20.8 L (21-28) mmol/L ABG pH 7.28 L (7.35-7.45) ABG Total CO2 23.0 (22-28) mmol/L ABG O2 Saturation 98.1 H (95-98) % ABG Base Excess -5.2 L (-2.0-3.0) mmol/L ABG Hemoglobin (11.7-17.4) g/dL ABG Carboxyhemoglobin (0.5-1.5) % POC ABG HHb (Measured) (0.0-5.0) % ABG Methemoglobin (0.0-3.0) % Goran Test Pos ABG Potassium (3.6-5.2) mmol/L A-a O2 Difference 572.0 mm/Hg Respiratory Index 6.8 Hgb O2 Saturation (95.0-98.0) % Glucose (75-110) mg/dl Lactate (0.7-2.1) mmol/L Vent Mode A/c Mechanical Rate 26 FiO2 100.0 % Tidal Volume 450 PEEP 10 Crit Value Called To Crit Value Called By Crit Value Read Back Blood Gas Notified Time Sodium (132-148) mmol/L Potassium (3.6-5.2) mmol/L Chloride (98-107) mmol/L Carbon Dioxide (22-30) mmol/L Anion Gap (10-20) BUN (9-20) mg/dL Creatinine (0.8-1.5) MG/DL Est GFR ( Amer) Est GFR (Non-Af Amer) POC Glucose (mg/dL) 319 H 343 H (65-110) mg/dL Random Glucose (75-110) mg/dL Hemoglobin A1c (4.2-6.5) % Lactic Acid (0.7-2.1) mmol/L Calcium (8.6-10.4) mg/dl Phosphorus (2.5-4.5) mg/dL Magnesium (1.6-2.3) mg/dL Total Bilirubin (0.2-1.3) mg/dL AST (17-59) U/L ALT (21-72) U/L Alkaline Phosphatase (38-126) U/L Total Creatine Kinase (55-170) U/L CK-MB (Mass) (0.0-3.38) ng/mL Troponin I, Quant (0.00-0.120) ng/mL Total Protein (6.3-8.3) g/dL Albumin (3.5-5.0) g/dL Globulin (2.2-3.9) gm/dL Albumin/Globulin Ratio (1.0-2.1) Arterial Blood Potassium (3.6-5.2) mmol/L Urine Color (YELLOW) Urine Clarity (Clear) Urine pH (5.0-8.0) Ur Specific [place] (1.003-1.030) Urine Protein (NEGATIVE) mg/dL Urine Glucose (UA) (Normal) mg/dL Urine Ketones (NEGATIVE) mg/dL Urine Blood (NEGATIVE) Urine Nitrate (NEGATIVE) Urine Bilirubin (NEGATIVE) Urine Urobilinogen (0.2-1.0) mg/dL Ur Leukocyte Esterase (Negative) Nas/uL Urine WBC (Auto) (0-5) /hpf Urine RBC (Auto) (0-3) /hpf Urine WBC Clumps (Auto) (NONE) /hpf Ur Squamous Epith Cells (0-5) /hpf Ur Transition Epith Cell (0-3) /hpf Urine Bacteria (<OCC) Urine Opiates Screen (NEGATIVE) Urine Methadone Screen (NEGATIVE) Ur Barbiturates Screen (NEGATIVE) Ur Phencyclidine Scrn (NEGATIVE) Ur Amphetamines Screen (NEGATIVE) U Benzodiazepines Scrn (NEGATIVE) U Oth Cocaine Metabols (NEGATIVE) U Cannabinoids Screen (NEGATIVE) Hep Bs Antigen (NEGATIVE) Hep B Core IgM Ab (NEGATIVE) Hepatitis C Antibody (NEGATIVE) 04/29/17 04/28/17 04/28/17 Range/Units 00:28 22:09 20:30 WBC (4.8-10.8) K/uL RBC (4.40-5.90) Mil/uL Hgb (12.0-18.0) g/dL Hct (35.0-51.0) % MCV (80.0-94.0) fL MCH (27.0-31.0) pg MCHC (33.0-37.0) g/dL RDW (11.5-14.5) % Plt Count (130-400) K/uL MPV (7.2-11.7) fL Neut % (Auto) (50.0-75.0) % Lymph % (Auto) (20.0-40.0) % [place] % (Auto) (0.0-10.0) % Eos % (Auto) (0.0-4.0) % Baso % (Auto) (0.0-2.0) % Neut # (1.8-7.0) K/uL Lymph # (1.0-4.3) K/uL [place] # (0.0-0.8) K/uL Eos # (0.0-0.7) K/uL Baso # (0.0-0.2) K/uL Neutrophils % (Manual) (50-75) % Band Neutrophils % (0-2) % Lymphocytes % (Manual) (20-40) % Monocytes % (Manual) (0-10) % Platelet Estimate (NORMAL) Microcytosis (manual) PT (9.7-12.2) SECONDS INR APTT (21-34) SECONDS D-Dimer, Quantitative (0-243) ng/mlDDU Puncture Site Rradial pCO2 37 (35-45) mm/Hg pO2 42 L* (80-100) mm/Hg HCO3 14.5 L (21-28) mmol/L ABG pH 7.20 L (7.35-7.45) ABG Total CO2 15.6 L (22-28) mmol/L ABG O2 Saturation 80.0 L (95-98) % ABG Base Excess -12.7 L (-2.0-3.0) mmol/L ABG Hemoglobin 12.9 (11.7-17.4) g/dL ABG Carboxyhemoglobin 1.8 H (0.5-1.5) % POC ABG HHb (Measured) 19.4 H (0.0-5.0) % ABG Methemoglobin 1.1 (0.0-3.0) % Goran Test Pos ABG Potassium (3.6-5.2) mmol/L A-a O2 Difference 625.0 mm/Hg Respiratory Index 14.9 Hgb O2 Saturation 77.6 L (95.0-98.0) % Glucose (75-110) mg/dl Lactate (0.7-2.1) mmol/L Vent Mode A/c Mechanical Rate 26 FiO2 100.0 % Tidal Volume 450 PEEP 5 Crit Value Called To Dr. rome Crit Value Called By Margo michel rcp Crit Value Read Back Y Blood Gas Notified Time 2034 Sodium (132-148) mmol/L Potassium (3.6-5.2) mmol/L Chloride (98-107) mmol/L Carbon Dioxide (22-30) mmol/L Anion Gap (10-20) BUN (9-20) mg/dL Creatinine (0.8-1.5) MG/DL Est GFR ( Amer) Est GFR (Non-Af Amer) POC Glucose (mg/dL) 424 H* (65-110) mg/dL Random Glucose (75-110) mg/dL Hemoglobin A1c (4.2-6.5) % Lactic Acid (0.7-2.1) mmol/L Calcium (8.6-10.4) mg/dl Phosphorus (2.5-4.5) mg/dL Magnesium (1.6-2.3) mg/dL Total Bilirubin (0.2-1.3) mg/dL AST (17-59) U/L ALT (21-72) U/L Alkaline Phosphatase (38-126) U/L Total Creatine Kinase (55-170) U/L CK-MB (Mass) (0.0-3.38) ng/mL Troponin I, Quant (0.00-0.120) ng/mL Total Protein (6.3-8.3) g/dL Albumin (3.5-5.0) g/dL Globulin (2.2-3.9) gm/dL Albumin/Globulin Ratio (1.0-2.1) Arterial Blood Potassium (3.6-5.2) mmol/L Urine Color (YELLOW) Urine Clarity (Clear) Urine pH (5.0-8.0) Ur Specific [place] (1.003-1.030) Urine Protein (NEGATIVE) mg/dL Urine Glucose (UA) (Normal) mg/dL Urine Ketones (NEGATIVE) mg/dL Urine Blood (NEGATIVE) Urine Nitrate (NEGATIVE) Urine Bilirubin (NEGATIVE) Urine Urobilinogen (0.2-1.0) mg/dL Ur Leukocyte Esterase (Negative) Nas/uL Urine WBC (Auto) (0-5) /hpf Urine RBC (Auto) (0-3) /hpf Urine WBC Clumps (Auto) (NONE) /hpf Ur Squamous Epith Cells (0-5) /hpf Ur Transition Epith Cell (0-3) /hpf Urine Bacteria (<OCC) Urine Opiates Screen (NEGATIVE) Urine Methadone Screen (NEGATIVE) Ur Barbiturates Screen (NEGATIVE) Ur Phencyclidine Scrn (NEGATIVE) Ur Amphetamines Screen (NEGATIVE) U Benzodiazepines Scrn (NEGATIVE) U Oth Cocaine Metabols (NEGATIVE) U Cannabinoids Screen (NEGATIVE) Hep Bs Antigen Negative (NEGATIVE) Hep B Core IgM Ab Negative (NEGATIVE) Hepatitis C Antibody Negative (NEGATIVE) 04/28/17 04/28/17 04/28/17 Range/Units 19:30 17:46 17:41 WBC (4.8-10.8) K/uL RBC (4.40-5.90) Mil/uL Hgb (12.0-18.0) g/dL Hct (35.0-51.0) % MCV (80.0-94.0) fL MCH (27.0-31.0) pg MCHC (33.0-37.0) g/dL RDW (11.5-14.5) % Plt Count (130-400) K/uL MPV (7.2-11.7) fL Neut % (Auto) (50.0-75.0) % Lymph % (Auto) (20.0-40.0) % [place] % (Auto) (0.0-10.0) % Eos % (Auto) (0.0-4.0) % Baso % (Auto) (0.0-2.0) % Neut # (1.8-7.0) K/uL Lymph # (1.0-4.3) K/uL [place] # (0.0-0.8) K/uL Eos # (0.0-0.7) K/uL Baso # (0.0-0.2) K/uL Neutrophils % (Manual) (50-75) % Band Neutrophils % (0-2) % Lymphocytes % (Manual) (20-40) % Monocytes % (Manual) (0-10) % Platelet Estimate (NORMAL) Microcytosis (manual) PT (9.7-12.2) SECONDS INR APTT (21-34) SECONDS D-Dimer, Quantitative (0-243) ng/mlDDU Puncture Site Rradial pCO2 22 L (35-45) mm/Hg pO2 48 L (80-100) mm/Hg HCO3 16.7 L (21-28) mmol/L ABG pH 7.38 (7.35-7.45) ABG Total CO2 13.7 L (22-28) mmol/L ABG O2 Saturation 91.2 L (95-98) % ABG Base Excess -10.0 L (-2.0-3.0) mmol/L ABG Hemoglobin (11.7-17.4) g/dL ABG Carboxyhemoglobin (0.5-1.5) % POC ABG HHb (Measured) (0.0-5.0) % ABG Methemoglobin (0.0-3.0) % Goran Test Pos ABG Potassium 5.2 (3.6-5.2) mmol/L A-a O2 Difference 638.0 mm/Hg Respiratory Index 13.3 Hgb O2 Saturation (95.0-98.0) % Glucose 411 H* D (75-110) mg/dl Lactate 1.5 (0.7-2.1) mmol/L Vent Mode Mechanical Rate FiO2 100.0 % Tidal Volume PEEP Crit Value Called To Dr orozco Crit Value Called By Margo del valle Crit Value Read Back Y Blood Gas Notified Time 1934 Sodium 119.0 L* (132-148) mmol/L Potassium (3.6-5.2) mmol/L Chloride 89.0 L (98-107) mmol/L Carbon Dioxide (22-30) mmol/L Anion Gap (10-20) BUN (9-20) mg/dL Creatinine (0.8-1.5) MG/DL Est GFR ( Amer) Est GFR (Non-Af Amer) POC Glucose (mg/dL) 339 H (65-110) mg/dL Random Glucose (75-110) mg/dL Hemoglobin A1c (4.2-6.5) % Lactic Acid (0.7-2.1) mmol/L Calcium (8.6-10.4) mg/dl Phosphorus (2.5-4.5) mg/dL Magnesium (1.6-2.3) mg/dL Total Bilirubin (0.2-1.3) mg/dL AST (17-59) U/L ALT (21-72) U/L Alkaline Phosphatase (38-126) U/L Total Creatine Kinase (55-170) U/L CK-MB (Mass) (0.0-3.38) ng/mL Troponin I, Quant (0.00-0.120) ng/mL Total Protein (6.3-8.3) g/dL Albumin (3.5-5.0) g/dL Globulin (2.2-3.9) gm/dL Albumin/Globulin Ratio (1.0-2.1) Arterial Blood Potassium 5.2 (3.6-5.2) mmol/L Urine Color (YELLOW) Urine Clarity (Clear) Urine pH (5.0-8.0) Ur Specific [place] (1.003-1.030) Urine Protein (NEGATIVE) mg/dL Urine Glucose (UA) (Normal) mg/dL Urine Ketones (NEGATIVE) mg/dL Urine Blood (NEGATIVE) Urine Nitrate (NEGATIVE) Urine Bilirubin (NEGATIVE) Urine Urobilinogen (0.2-1.0) mg/dL Ur Leukocyte Esterase (Negative) Nas/uL Urine WBC (Auto) (0-5) /hpf Urine RBC (Auto) (0-3) /hpf Urine WBC Clumps (Auto) (NONE) /hpf Ur Squamous Epith Cells (0-5) /hpf Ur Transition Epith Cell (0-3) /hpf Urine Bacteria (<OCC) Urine Opiates Screen Negative (NEGATIVE) Urine Methadone Screen Negative (NEGATIVE) Ur Barbiturates Screen Negative (NEGATIVE) Ur Phencyclidine Scrn Negative (NEGATIVE) Ur Amphetamines Screen Negative (NEGATIVE) U Benzodiazepines Scrn Negative (NEGATIVE) U Oth Cocaine Metabols Negative (NEGATIVE) U Cannabinoids Screen Negative (NEGATIVE) Hep Bs Antigen (NEGATIVE) Hep B Core IgM Ab (NEGATIVE) Hepatitis C Antibody (NEGATIVE) 04/28/17 04/28/17 04/28/17 Range/Units 17:37 17:23 17:19 WBC (4.8-10.8) K/uL RBC (4.40-5.90) Mil/uL Hgb (12.0-18.0) g/dL Hct (35.0-51.0) % MCV (80.0-94.0) fL MCH (27.0-31.0) pg MCHC (33.0-37.0) g/dL RDW (11.5-14.5) % Plt Count (130-400) K/uL MPV (7.2-11.7) fL Neut % (Auto) (50.0-75.0) % Lymph % (Auto) (20.0-40.0) % [place] % (Auto) (0.0-10.0) % Eos % (Auto) (0.0-4.0) % Baso % (Auto) (0.0-2.0) % Neut # (1.8-7.0) K/uL Lymph # (1.0-4.3) K/uL [place] # (0.0-0.8) K/uL Eos # (0.0-0.7) K/uL Baso # (0.0-0.2) K/uL Neutrophils % (Manual) (50-75) % Band Neutrophils % (0-2) % Lymphocytes % (Manual) (20-40) % Monocytes % (Manual) (0-10) % Platelet Estimate (NORMAL) Microcytosis (manual) PT (9.7-12.2) SECONDS INR APTT (21-34) SECONDS D-Dimer, Quantitative (0-243) ng/mlDDU Puncture Site pCO2 (35-45) mm/Hg pO2 (80-100) mm/Hg HCO3 (21-28) mmol/L ABG pH (7.35-7.45) ABG Total CO2 (22-28) mmol/L ABG O2 Saturation (95-98) % ABG Base Excess (-2.0-3.0) mmol/L ABG Hemoglobin (11.7-17.4) g/dL ABG Carboxyhemoglobin (0.5-1.5) % POC ABG HHb (Measured) (0.0-5.0) % ABG Methemoglobin (0.0-3.0) % Goran Test ABG Potassium (3.6-5.2) mmol/L A-a O2 Difference mm/Hg Respiratory Index Hgb O2 Saturation (95.0-98.0) % Glucose (75-110) mg/dl Lactate (0.7-2.1) mmol/L Vent Mode Mechanical Rate FiO2 % Tidal Volume PEEP Crit Value Called To Crit Value Called By Crit Value Read Back Blood Gas Notified Time Sodium (132-148) mmol/L Potassium (3.6-5.2) mmol/L Chloride (98-107) mmol/L Carbon Dioxide (22-30) mmol/L Anion Gap (10-20) BUN (9-20) mg/dL Creatinine (0.8-1.5) MG/DL Est GFR ( Amer) Est GFR (Non-Af Amer) POC Glucose (mg/dL) (65-110) mg/dL Random Glucose (75-110) mg/dL Hemoglobin A1c (4.2-6.5) % Lactic Acid 2.7 H (0.7-2.1) mmol/L Calcium (8.6-10.4) mg/dl Phosphorus (2.5-4.5) mg/dL Magnesium (1.6-2.3) mg/dL Total Bilirubin (0.2-1.3) mg/dL AST (17-59) U/L ALT (21-72) U/L Alkaline Phosphatase (38-126) U/L Total Creatine Kinase 322 H (55-170) U/L CK-MB (Mass) (0.0-3.38) ng/mL Troponin I, Quant (0.00-0.120) ng/mL Total Protein (6.3-8.3) g/dL Albumin (3.5-5.0) g/dL Globulin (2.2-3.9) gm/dL Albumin/Globulin Ratio (1.0-2.1) Arterial Blood Potassium (3.6-5.2) mmol/L Urine Color Yellow (YELLOW) Urine Clarity Hazy (Clear) Urine pH 5.0 (5.0-8.0) Ur Specific [place] 1.011 (1.003-1.030) Urine Protein 2+ H (NEGATIVE) mg/dL Urine Glucose (UA) 3+ H (Normal) mg/dL Urine Ketones Negative (NEGATIVE) mg/dL Urine Blood Negative (NEGATIVE) Urine Nitrate Negative (NEGATIVE) Urine Bilirubin Negative (NEGATIVE) Urine Urobilinogen Normal (0.2-1.0) mg/dL Ur Leukocyte Esterase Neg (Negative) Nas/uL Urine WBC (Auto) 34 H (0-5) /hpf Urine RBC (Auto) 2 (0-3) /hpf Urine WBC Clumps (Auto) Mod H (NONE) /hpf Ur Squamous Epith Cells 1 (0-5) /hpf Ur Transition Epith Cell 1 (0-3) /hpf Urine Bacteria Occ H (<OCC) Urine Opiates Screen (NEGATIVE) Urine Methadone Screen (NEGATIVE) Ur Barbiturates Screen (NEGATIVE) Ur Phencyclidine Scrn (NEGATIVE) Ur Amphetamines Screen (NEGATIVE) U Benzodiazepines Scrn (NEGATIVE) U Oth Cocaine Metabols (NEGATIVE) U Cannabinoids Screen (NEGATIVE) Hep Bs Antigen (NEGATIVE) Hep B Core IgM Ab (NEGATIVE) Hepatitis C Antibody (NEGATIVE) 04/28/17 04/28/17 04/28/17 Range/Units 16:54 16:04 15:20 WBC 22.1 H (4.8-10.8) K/uL RBC 4.43 (4.40-5.90) Mil/uL Hgb 11.7 L (12.0-18.0) g/dL Hct 34.9 L (35.0-51.0) % MCV 78.8 L (80.0-94.0) fL MCH 26.5 L (27.0-31.0) pg MCHC 33.6 (33.0-37.0) g/dL RDW 14.1 (11.5-14.5) % Plt Count 200 (130-400) K/uL MPV 8.5 (7.2-11.7) fL Neut % (Auto) 90.7 H (50.0-75.0) % Lymph % (Auto) 2.4 L (20.0-40.0) % [place] % (Auto) 6.6 (0.0-10.0) % Eos % (Auto) 0.1 (0.0-4.0) % Baso % (Auto) 0.2 (0.0-2.0) % Neut # 20.1 H (1.8-7.0) K/uL Lymph # 0.5 L (1.0-4.3) K/uL [place] # 1.5 H (0.0-0.8) K/uL Eos # 0.0 (0.0-0.7) K/uL Baso # 0.0 (0.0-0.2) K/uL Neutrophils % (Manual) 90 H (50-75) % Band Neutrophils % 3 H (0-2) % Lymphocytes % (Manual) 3 L (20-40) % Monocytes % (Manual) 4 (0-10) % Platelet Estimate Normal (NORMAL) Microcytosis (manual) Slight PT (9.7-12.2) SECONDS INR APTT (21-34) SECONDS D-Dimer, Quantitative (0-243) ng/mlDDU Puncture Site pCO2 (35-45) mm/Hg pO2 (80-100) mm/Hg HCO3 (21-28) mmol/L ABG pH (7.35-7.45) ABG Total CO2 (22-28) mmol/L ABG O2 Saturation (95-98) % ABG Base Excess (-2.0-3.0) mmol/L ABG Hemoglobin (11.7-17.4) g/dL ABG Carboxyhemoglobin (0.5-1.5) % POC ABG HHb (Measured) (0.0-5.0) % ABG Methemoglobin (0.0-3.0) % Goran Test ABG Potassium (3.6-5.2) mmol/L A-a O2 Difference mm/Hg Respiratory Index Hgb O2 Saturation (95.0-98.0) % Glucose (75-110) mg/dl Lactate (0.7-2.1) mmol/L Vent Mode Mechanical Rate FiO2 % Tidal Volume PEEP Crit Value Called To Crit Value Called By Crit Value Read Back Blood Gas Notified Time Sodium 122 L (132-148) mmol/L Potassium 4.9 (3.6-5.2) mmol/L Chloride 89 L (98-107) mmol/L Carbon Dioxide 15 L (22-30) mmol/L Anion Gap 23 H (10-20) BUN 41 H (9-20) mg/dL Creatinine 7.2 H (0.8-1.5) MG/DL Est GFR ( Amer) 10 Est GFR (Non-Af Amer) 9 POC Glucose (mg/dL) 349 H (65-110) mg/dL Random Glucose 297 H (75-110) mg/dL Hemoglobin A1c (4.2-6.5) % Lactic Acid (0.7-2.1) mmol/L Calcium 6.9 L (8.6-10.4) mg/dl Phosphorus 2.9 (2.5-4.5) mg/dL Magnesium 1.4 L (1.6-2.3) mg/dL Total Bilirubin 0.4 (0.2-1.3) mg/dL AST 58 (17-59) U/L ALT 92 H (21-72) U/L Alkaline Phosphatase 76 (38-126) U/L Total Creatine Kinase (55-170) U/L CK-MB (Mass) (0.0-3.38) ng/mL Troponin I, Quant (0.00-0.120) ng/mL Total Protein 6.2 L (6.3-8.3) g/dL Albumin 3.3 L (3.5-5.0) g/dL Globulin 2.9 (2.2-3.9) gm/dL Albumin/Globulin Ratio 1.1 (1.0-2.1) Arterial Blood Potassium (3.6-5.2) mmol/L Urine Color (YELLOW) Urine Clarity (Clear) Urine pH (5.0-8.0) Ur Specific [place] (1.003-1.030) Urine Protein (NEGATIVE) mg/dL Urine Glucose (UA) (Normal) mg/dL Urine Ketones (NEGATIVE) mg/dL Urine Blood (NEGATIVE) Urine Nitrate (NEGATIVE) Urine Bilirubin (NEGATIVE) Urine Urobilinogen (0.2-1.0) mg/dL Ur Leukocyte Esterase (Negative) Nas/uL Urine WBC (Auto) (0-5) /hpf Urine RBC (Auto) (0-3) /hpf Urine WBC Clumps (Auto) (NONE) /hpf Ur Squamous Epith Cells (0-5) /hpf Ur Transition Epith Cell (0-3) /hpf Urine Bacteria (<OCC) Urine Opiates Screen (NEGATIVE) Urine Methadone Screen (NEGATIVE) Ur Barbiturates Screen (NEGATIVE) Ur Phencyclidine Scrn (NEGATIVE) Ur Amphetamines Screen (NEGATIVE) U Benzodiazepines Scrn (NEGATIVE) U Oth Cocaine Metabols (NEGATIVE) U Cannabinoids Screen (NEGATIVE) Hep Bs Antigen (NEGATIVE) Hep B Core IgM Ab (NEGATIVE) Hepatitis C Antibody (NEGATIVE) 04/28/17 04/28/17 04/28/17 Range/Units 15:20 15:20 10:06 WBC (4.8-10.8) K/uL RBC (4.40-5.90) Mil/uL Hgb (12.0-18.0) g/dL Hct (35.0-51.0) % MCV (80.0-94.0) fL MCH (27.0-31.0) pg MCHC (33.0-37.0) g/dL RDW (11.5-14.5) % Plt Count (130-400) K/uL MPV (7.2-11.7) fL Neut % (Auto) (50.0-75.0) % Lymph % (Auto) (20.0-40.0) % [place] % (Auto) (0.0-10.0) % Eos % (Auto) (0.0-4.0) % Baso % (Auto) (0.0-2.0) % Neut # (1.8-7.0) K/uL Lymph # (1.0-4.3) K/uL [place] # (0.0-0.8) K/uL Eos # (0.0-0.7) K/uL Baso # (0.0-0.2) K/uL Neutrophils % (Manual) (50-75) % Band Neutrophils % (0-2) % Lymphocytes % (Manual) (20-40) % Monocytes % (Manual) (0-10) % Platelet Estimate (NORMAL) Microcytosis (manual) PT 13.0 H (9.7-12.2) SECONDS INR 1.1 APTT 28 (21-34) SECONDS D-Dimer, Quantitative 461 H (0-243) ng/mlDDU Puncture Site pCO2 (35-45) mm/Hg pO2 (80-100) mm/Hg HCO3 (21-28) mmol/L ABG pH (7.35-7.45) ABG Total CO2 (22-28) mmol/L ABG O2 Saturation (95-98) % ABG Base Excess (-2.0-3.0) mmol/L ABG Hemoglobin (11.7-17.4) g/dL ABG Carboxyhemoglobin (0.5-1.5) % POC ABG HHb (Measured) (0.0-5.0) % ABG Methemoglobin (0.0-3.0) % Goran Test ABG Potassium (3.6-5.2) mmol/L A-a O2 Difference mm/Hg Respiratory Index Hgb O2 Saturation (95.0-98.0) % Glucose (75-110) mg/dl Lactate (0.7-2.1) mmol/L Vent Mode Mechanical Rate FiO2 % Tidal Volume PEEP Crit Value Called To Crit Value Called By Crit Value Read Back Blood Gas Notified Time Sodium (132-148) mmol/L Potassium (3.6-5.2) mmol/L Chloride (98-107) mmol/L Carbon Dioxide (22-30) mmol/L Anion Gap (10-20) BUN (9-20) mg/dL Creatinine (0.8-1.5) MG/DL Est GFR ( Amer) Est GFR (Non-Af Amer) POC Glucose (mg/dL) (65-110) mg/dL Random Glucose (75-110) mg/dL Hemoglobin A1c 7.4 H (4.2-6.5) % Lactic Acid (0.7-2.1) mmol/L Calcium (8.6-10.4) mg/dl Phosphorus (2.5-4.5) mg/dL Magnesium (1.6-2.3) mg/dL Total Bilirubin (0.2-1.3) mg/dL AST (17-59) U/L ALT (21-72) U/L Alkaline Phosphatase (38-126) U/L Total Creatine Kinase 309 H (55-170) U/L CK-MB (Mass) 4.61 H (0.0-3.38) ng/mL Troponin I, Quant 0.0560 (0.00-0.120) ng/mL Total Protein (6.3-8.3) g/dL Albumin (3.5-5.0) g/dL Globulin (2.2-3.9) gm/dL Albumin/Globulin Ratio (1.0-2.1) Arterial Blood Potassium (3.6-5.2) mmol/L Urine Color (YELLOW) Urine Clarity (Clear) Urine pH (5.0-8.0) Ur Specific [place] (1.003-1.030) Urine Protein (NEGATIVE) mg/dL Urine Glucose (UA) (Normal) mg/dL Urine Ketones (NEGATIVE) mg/dL Urine Blood (NEGATIVE) Urine Nitrate (NEGATIVE) Urine Bilirubin (NEGATIVE) Urine Urobilinogen (0.2-1.0) mg/dL Ur Leukocyte Esterase (Negative) Nas/uL Urine WBC (Auto) (0-5) /hpf Urine RBC (Auto) (0-3) /hpf Urine WBC Clumps (Auto) (NONE) /hpf Ur Squamous Epith Cells (0-5) /hpf Ur Transition Epith Cell (0-3) /hpf Urine Bacteria (<OCC) Urine Opiates Screen (NEGATIVE) Urine Methadone Screen (NEGATIVE) Ur Barbiturates Screen (NEGATIVE) Ur Phencyclidine Scrn (NEGATIVE) Ur Amphetamines Screen (NEGATIVE) U Benzodiazepines Scrn (NEGATIVE) U Oth Cocaine Metabols (NEGATIVE) U Cannabinoids Screen (NEGATIVE) Hep Bs Antigen (NEGATIVE) Hep B Core IgM Ab (NEGATIVE) Hepatitis C Antibody (NEGATIVE) Laboratory Results - last 24 hr 04/28/17 04/28/17 04/28/17 10:06 15:20 15:20 WBC RBC Hgb Hct MCV MCH MCHC RDW Plt Count MPV Neut % (Auto) Lymph % (Auto) [place] % (Auto) Eos % (Auto) Baso % (Auto) Neut # Lymph # [place] # Eos # Baso # Neutrophils % (Manual) Band Neutrophils % Lymphocytes % (Manual) Monocytes % (Manual) Platelet Estimate Microcytosis (manual) PT 13.0 H INR 1.1 APTT 28 D-Dimer, Quantitative 461 H Puncture Site pCO2 pO2 HCO3 ABG pH ABG Total CO2 ABG O2 Saturation ABG Base Excess ABG Hemoglobin ABG Carboxyhemoglobin POC ABG HHb (Measured) ABG Methemoglobin Goran Test ABG Potassium A-a O2 Difference Respiratory Index Hgb O2 Saturation Glucose Lactate Vent Mode Mechanical Rate FiO2 Tidal Volume PEEP Crit Value Called To Crit Value Called By Crit Value Read Back Blood Gas Notified Time Sodium Potassium Chloride Carbon Dioxide Anion Gap BUN Creatinine Est GFR ( Amer) Est GFR (Non-Af Amer) POC Glucose (mg/dL) Random Glucose Hemoglobin A1c 7.4 H Lactic Acid Calcium Phosphorus Magnesium Total Bilirubin AST ALT Alkaline Phosphatase Total Creatine Kinase 309 H CK-MB (Mass) 4.61 H Troponin I, Quant 0.0560 Total Protein Albumin Globulin Albumin/Globulin Ratio Arterial Blood Potassium Urine Color Urine Clarity Urine pH Ur Specific [place] Urine Protein Urine Glucose (UA) Urine Ketones Urine Blood Urine Nitrate Urine Bilirubin Urine Urobilinogen Ur Leukocyte Esterase Urine WBC (Auto) Urine RBC (Auto) Urine WBC Clumps (Auto) Ur Squamous Epith Cells Ur Transition Epith Cell Urine Bacteria Urine Opiates Screen Urine Methadone Screen Ur Barbiturates Screen Ur Phencyclidine Scrn Ur Amphetamines Screen U Benzodiazepines Scrn U Oth Cocaine Metabols U Cannabinoids Screen Hep Bs Antigen Hep B Core IgM Ab Hepatitis C Antibody 04/28/17 04/28/17 04/28/17 15:20 16:04 16:54 WBC 22.1 H RBC 4.43 Hgb 11.7 L Hct 34.9 L MCV 78.8 L MCH 26.5 L MCHC 33.6 RDW 14.1 Plt Count 200 MPV 8.5 Neut % (Auto) 90.7 H Lymph % (Auto) 2.4 L [place] % (Auto) 6.6 Eos % (Auto) 0.1 Baso % (Auto) 0.2 Neut # 20.1 H Lymph # 0.5 L [place] # 1.5 H Eos # 0.0 Baso # 0.0 Neutrophils % (Manual) 90 H Band Neutrophils % 3 H Lymphocytes % (Manual) 3 L Monocytes % (Manual) 4 Platelet Estimate Normal Microcytosis (manual) Slight PT INR APTT D-Dimer, Quantitative Puncture Site pCO2 pO2 HCO3 ABG pH ABG Total CO2 ABG O2 Saturation ABG Base Excess ABG Hemoglobin ABG Carboxyhemoglobin POC ABG HHb (Measured) ABG Methemoglobin Goran Test ABG Potassium A-a O2 Difference Respiratory Index Hgb O2 Saturation Glucose Lactate Vent Mode Mechanical Rate FiO2 Tidal Volume PEEP Crit Value Called To Crit Value Called By Crit Value Read Back Blood Gas Notified Time Sodium 122 L Potassium 4.9 Chloride 89 L Carbon Dioxide 15 L Anion Gap 23 H BUN 41 H Creatinine 7.2 H Est GFR ( Amer) 10 Est GFR (Non-Af Amer) 9 POC Glucose (mg/dL) 349 H Random Glucose 297 H Hemoglobin A1c Lactic Acid Calcium 6.9 L Phosphorus 2.9 Magnesium 1.4 L Total Bilirubin 0.4 AST 58 ALT 92 H Alkaline Phosphatase 76 Total Creatine Kinase CK-MB (Mass) Troponin I, Quant Total Protein 6.2 L Albumin 3.3 L Globulin 2.9 Albumin/Globulin Ratio 1.1 Arterial Blood Potassium Urine Color Urine Clarity Urine pH Ur Specific [place] Urine Protein Urine Glucose (UA) Urine Ketones Urine Blood Urine Nitrate Urine Bilirubin Urine Urobilinogen Ur Leukocyte Esterase Urine WBC (Auto) Urine RBC (Auto) Urine WBC Clumps (Auto) Ur Squamous Epith Cells Ur Transition Epith Cell Urine Bacteria Urine Opiates Screen Urine Methadone Screen Ur Barbiturates Screen Ur Phencyclidine Scrn Ur Amphetamines Screen U Benzodiazepines Scrn U Oth Cocaine Metabols U Cannabinoids Screen Hep Bs Antigen Hep B Core IgM Ab Hepatitis C Antibody 04/28/17 04/28/17 04/28/17 17:19 17:23 17:37 WBC RBC Hgb Hct MCV MCH MCHC RDW Plt Count MPV Neut % (Auto) Lymph % (Auto) [place] % (Auto) Eos % (Auto) Baso % (Auto) Neut # Lymph # [place] # Eos # Baso # Neutrophils % (Manual) Band Neutrophils % Lymphocytes % (Manual) Monocytes % (Manual) Platelet Estimate Microcytosis (manual) PT INR APTT D-Dimer, Quantitative Puncture Site pCO2 pO2 HCO3 ABG pH ABG Total CO2 ABG O2 Saturation ABG Base Excess ABG Hemoglobin ABG Carboxyhemoglobin POC ABG HHb (Measured) ABG Methemoglobin Goran Test ABG Potassium A-a O2 Difference Respiratory Index Hgb O2 Saturation Glucose Lactate Vent Mode Mechanical Rate FiO2 Tidal Volume PEEP Crit Value Called To Crit Value Called By Crit Value Read Back Blood Gas Notified Time Sodium Potassium Chloride Carbon Dioxide Anion Gap BUN Creatinine Est GFR ( Amer) Est GFR (Non-Af Amer) POC Glucose (mg/dL) Random Glucose Hemoglobin A1c Lactic Acid 2.7 H Calcium Phosphorus Magnesium Total Bilirubin AST ALT Alkaline Phosphatase Total Creatine Kinase 322 H CK-MB (Mass) Troponin I, Quant Total Protein Albumin Globulin Albumin/Globulin Ratio Arterial Blood Potassium Urine Color Yellow Urine Clarity Hazy Urine pH 5.0 Ur Specific [place] 1.011 Urine Protein 2+ H Urine Glucose (UA) 3+ H Urine Ketones Negative Urine Blood Negative Urine Nitrate Negative Urine Bilirubin Negative Urine Urobilinogen Normal Ur Leukocyte Esterase Neg Urine WBC (Auto) 34 H Urine RBC (Auto) 2 Urine WBC Clumps (Auto) Mod H Ur Squamous Epith Cells 1 Ur Transition Epith Cell 1 Urine Bacteria Occ H Urine Opiates Screen Urine Methadone Screen Ur Barbiturates Screen Ur Phencyclidine Scrn Ur Amphetamines Screen U Benzodiazepines Scrn U Oth Cocaine Metabols U Cannabinoids Screen Hep Bs Antigen Hep B Core IgM Ab Hepatitis C Antibody 04/28/17 04/28/17 04/28/17 17:41 17:46 19:30 WBC RBC Hgb Hct MCV MCH MCHC RDW Plt Count MPV Neut % (Auto) Lymph % (Auto) [place] % (Auto) Eos % (Auto) Baso % (Auto) Neut # Lymph # [place] # Eos # Baso # Neutrophils % (Manual) Band Neutrophils % Lymphocytes % (Manual) Monocytes % (Manual) Platelet Estimate Microcytosis (manual) PT INR APTT D-Dimer, Quantitative Puncture Site Rradial pCO2 22 L pO2 48 L HCO3 16.7 L ABG pH 7.38 ABG Total CO2 13.7 L ABG O2 Saturation 91.2 L ABG Base Excess -10.0 L ABG Hemoglobin ABG Carboxyhemoglobin POC ABG HHb (Measured) ABG Methemoglobin Goran Test Pos ABG Potassium 5.2 A-a O2 Difference 638.0 Respiratory Index 13.3 Hgb O2 Saturation Glucose 411 H* D Lactate 1.5 Vent Mode Mechanical Rate FiO2 100.0 Tidal Volume PEEP Crit Value Called To Dr orozco Crit Value Called By Margo del valle Crit Value Read Back Y Blood Gas Notified Time 1934 Sodium 119.0 L* Potassium Chloride 89.0 L Carbon Dioxide Anion Gap BUN Creatinine Est GFR ( Amer) Est GFR (Non-Af Amer) POC Glucose (mg/dL) 339 H Random Glucose Hemoglobin A1c Lactic Acid Calcium Phosphorus Magnesium Total Bilirubin AST ALT Alkaline Phosphatase Total Creatine Kinase CK-MB (Mass) Troponin I, Quant Total Protein Albumin Globulin Albumin/Globulin Ratio Arterial Blood Potassium 5.2 Urine Color Urine Clarity Urine pH Ur Specific [place] Urine Protein Urine Glucose (UA) Urine Ketones Urine Blood Urine Nitrate Urine Bilirubin Urine Urobilinogen Ur Leukocyte Esterase Urine WBC (Auto) Urine RBC (Auto) Urine WBC Clumps (Auto) Ur Squamous Epith Cells Ur Transition Epith Cell Urine Bacteria Urine Opiates Screen Negative Urine Methadone Screen Negative Ur Barbiturates Screen Negative Ur Phencyclidine Scrn Negative Ur Amphetamines Screen Negative U Benzodiazepines Scrn Negative U Oth Cocaine Metabols Negative U Cannabinoids Screen Negative Hep Bs Antigen Hep B Core IgM Ab Hepatitis C Antibody 04/28/17 04/28/17 04/29/17 20:30 22:09 00:28 WBC RBC Hgb Hct MCV MCH MCHC RDW Plt Count MPV Neut % (Auto) Lymph % (Auto) [place] % (Auto) Eos % (Auto) Baso % (Auto) Neut # Lymph # [place] # Eos # Baso # Neutrophils % (Manual) Band Neutrophils % Lymphocytes % (Manual) Monocytes % (Manual) Platelet Estimate Microcytosis (manual) PT INR APTT D-Dimer, Quantitative Puncture Site Rradial pCO2 37 pO2 42 L* HCO3 14.5 L ABG pH 7.20 L ABG Total CO2 15.6 L ABG O2 Saturation 80.0 L ABG Base Excess -12.7 L ABG Hemoglobin 12.9 ABG Carboxyhemoglobin 1.8 H POC ABG HHb (Measured) 19.4 H ABG Methemoglobin 1.1 Goran Test Pos ABG Potassium A-a O2 Difference 625.0 Respiratory Index 14.9 Hgb O2 Saturation 77.6 L Glucose Lactate Vent Mode A/c Mechanical Rate 26 FiO2 100.0 Tidal Volume 450 PEEP 5 Crit Value Called To Dr. rome Crit Value Called By Margo michel rcp Crit Value Read Back Y Blood Gas Notified Time 2034 Sodium Potassium Chloride Carbon Dioxide Anion Gap BUN Creatinine Est GFR ( Amer) Est GFR (Non-Af Amer) POC Glucose (mg/dL) 424 H* Random Glucose Hemoglobin A1c Lactic Acid Calcium Phosphorus Magnesium Total Bilirubin AST ALT Alkaline Phosphatase Total Creatine Kinase CK-MB (Mass) Troponin I, Quant Total Protein Albumin Globulin Albumin/Globulin Ratio Arterial Blood Potassium Urine Color Urine Clarity Urine pH Ur Specific [place] Urine Protein Urine Glucose (UA) Urine Ketones Urine Blood Urine Nitrate Urine Bilirubin Urine Urobilinogen Ur Leukocyte Esterase Urine WBC (Auto) Urine RBC (Auto) Urine WBC Clumps (Auto) Ur Squamous Epith Cells Ur Transition Epith Cell Urine Bacteria Urine Opiates Screen Urine Methadone Screen Ur Barbiturates Screen Ur Phencyclidine Scrn Ur Amphetamines Screen U Benzodiazepines Scrn U Oth Cocaine Metabols U Cannabinoids Screen Hep Bs Antigen Negative Hep B Core IgM Ab Negative Hepatitis C Antibody Negative 04/29/17 04/29/17 04/29/17 01:33 03:05 04:11 WBC RBC Hgb Hct MCV MCH MCHC RDW Plt Count MPV Neut % (Auto) Lymph % (Auto) [place] % (Auto) Eos % (Auto) Baso % (Auto) Neut # Lymph # [place] # Eos # Baso # Neutrophils % (Manual) Band Neutrophils % Lymphocytes % (Manual) Monocytes % (Manual) Platelet Estimate Microcytosis (manual) PT INR APTT D-Dimer, Quantitative Puncture Site Rradial pCO2 46 H pO2 84 HCO3 20.8 L ABG pH 7.28 L ABG Total CO2 23.0 ABG O2 Saturation 98.1 H ABG Base Excess -5.2 L ABG Hemoglobin ABG Carboxyhemoglobin POC ABG HHb (Measured) ABG Methemoglobin Goran Test Pos ABG Potassium A-a O2 Difference 572.0 Respiratory Index 6.8 Hgb O2 Saturation Glucose Lactate Vent Mode A/c Mechanical Rate 26 FiO2 100.0 Tidal Volume 450 PEEP 10 Crit Value Called To Crit Value Called By Crit Value Read Back Blood Gas Notified Time Sodium Potassium Chloride Carbon Dioxide Anion Gap BUN Creatinine Est GFR ( Amer) Est GFR (Non-Af Amer) POC Glucose (mg/dL) 343 H 319 H Random Glucose Hemoglobin A1c Lactic Acid Calcium Phosphorus Magnesium Total Bilirubin AST ALT Alkaline Phosphatase Total Creatine Kinase CK-MB (Mass) Troponin I, Quant Total Protein Albumin Globulin Albumin/Globulin Ratio Arterial Blood Potassium Urine Color Urine Clarity Urine pH Ur Specific [place] Urine Protein Urine Glucose (UA) Urine Ketones Urine Blood Urine Nitrate Urine Bilirubin Urine Urobilinogen Ur Leukocyte Esterase Urine WBC (Auto) Urine RBC (Auto) Urine WBC Clumps (Auto) Ur Squamous Epith Cells Ur Transition Epith Cell Urine Bacteria Urine Opiates Screen Urine Methadone Screen Ur Barbiturates Screen Ur Phencyclidine Scrn Ur Amphetamines Screen U Benzodiazepines Scrn U Oth Cocaine Metabols U Cannabinoids Screen Hep Bs Antigen Hep B Core IgM Ab Hepatitis C Antibody 04/29/17 04/29/17 04/29/17 05:43 05:43 06:21 WBC 18.8 H RBC 4.20 L Hgb 11.2 L Hct 32.8 L MCV 78.0 L MCH 26.5 L MCHC 34.0 RDW 14.0 Plt Count 172 MPV 8.8 Neut % (Auto) 89.1 H Lymph % (Auto) 3.0 L [place] % (Auto) 7.8 Eos % (Auto) 0.0 Baso % (Auto) 0.1 Neut # 16.8 H Lymph # 0.6 L [place] # 1.5 H Eos # 0.0 Baso # 0.0 Neutrophils % (Manual) 88 H Band Neutrophils % 1 Lymphocytes % (Manual) 3 L Monocytes % (Manual) 8 Platelet Estimate Normal Microcytosis (manual) PT INR APTT D-Dimer, Quantitative Puncture Site pCO2 pO2 HCO3 ABG pH ABG Total CO2 ABG O2 Saturation ABG Base Excess ABG Hemoglobin ABG Carboxyhemoglobin POC ABG HHb (Measured) ABG Methemoglobin Goran Test ABG Potassium A-a O2 Difference Respiratory Index Hgb O2 Saturation Glucose Lactate Vent Mode Mechanical Rate FiO2 Tidal Volume PEEP Crit Value Called To Crit Value Called By Crit Value Read Back Blood Gas Notified Time Sodium 128 L Potassium 4.2 Chloride 90 L Carbon Dioxide 21 L Anion Gap 21 H BUN 33 H Creatinine 6.3 H Est GFR ( Amer) 12 Est GFR (Non-Af Amer) 10 POC Glucose (mg/dL) 314 H Random Glucose 299 H Hemoglobin A1c Lactic Acid Calcium 7.0 L Phosphorus 6.2 H Magnesium 1.8 Total Bilirubin 0.2 AST 36 ALT 73 H D Alkaline Phosphatase 82 Total Creatine Kinase CK-MB (Mass) Troponin I, Quant Total Protein 5.9 L Albumin 3.0 L Globulin 2.9 Albumin/Globulin Ratio 1.0 Arterial Blood Potassium Urine Color Urine Clarity Urine pH Ur Specific [place] Urine Protein Urine Glucose (UA) Urine Ketones Urine Blood Urine Nitrate Urine Bilirubin Urine Urobilinogen Ur Leukocyte Esterase Urine WBC (Auto) Urine RBC (Auto) Urine WBC Clumps (Auto) Ur Squamous Epith Cells Ur Transition Epith Cell Urine Bacteria Urine Opiates Screen Urine Methadone Screen Ur Barbiturates Screen Ur Phencyclidine Scrn Ur Amphetamines Screen U Benzodiazepines Scrn U Oth Cocaine Metabols U Cannabinoids Screen Hep Bs Antigen Hep B Core IgM Ab Hepatitis C Antibody 04/29/17 04/29/17 04/29/17 07:14 08:25 11:38 WBC RBC Hgb Hct MCV MCH MCHC RDW Plt Count MPV Neut % (Auto) Lymph % (Auto) [place] % (Auto) Eos % (Auto) Baso % (Auto) Neut # Lymph # [place] # Eos # Baso # Neutrophils % (Manual) Band Neutrophils % Lymphocytes % (Manual) Monocytes % (Manual) Platelet Estimate Microcytosis (manual) PT INR APTT D-Dimer, Quantitative Puncture Site Lb pCO2 41 pO2 148 H HCO3 22.6 ABG pH 7.35 ABG Total CO2 23.9 ABG O2 Saturation 99.4 H ABG Base Excess -2.9 L ABG Hemoglobin 13.3 ABG Carboxyhemoglobin 1.3 POC ABG HHb (Measured) 0.6 ABG Methemoglobin 1.6 Goran Test Na ABG Potassium A-a O2 Difference 514.0 Respiratory Index 3.5 Hgb O2 Saturation 96.6 Glucose Lactate Vent Mode Mechanical Rate 26 FiO2 100.0 Tidal Volume 450 PEEP 10 Crit Value Called To Dr curiel Crit Value Called By Polo pettit paperhanger and painter Crit Value Read Back Y Blood Gas Notified Time 835 Sodium Potassium Chloride Carbon Dioxide Anion Gap BUN Creatinine Est GFR ( Amer) Est GFR (Non-Af Amer) POC Glucose (mg/dL) 316 H 329 H Random Glucose Hemoglobin A1c Lactic Acid Calcium Phosphorus Magnesium Total Bilirubin AST ALT Alkaline Phosphatase Total Creatine Kinase CK-MB (Mass) Troponin I, Quant Total Protein Albumin Globulin Albumin/Globulin Ratio Arterial Blood Potassium Urine Color Urine Clarity Urine pH Ur Specific [place] Urine Protein Urine Glucose (UA) Urine Ketones Urine Blood Urine Nitrate Urine Bilirubin Urine Urobilinogen Ur Leukocyte Esterase Urine WBC (Auto) Urine RBC (Auto) Urine WBC Clumps (Auto) Ur Squamous Epith Cells Ur Transition Epith Cell Urine Bacteria Urine Opiates Screen Urine Methadone Screen Ur Barbiturates Screen Ur Phencyclidine Scrn Ur Amphetamines Screen U Benzodiazepines Scrn U Oth Cocaine Metabols U Cannabinoids Screen Hep Bs Antigen Hep B Core IgM Ab Hepatitis C Antibody EKG/Cardiology Studies: Cardiology / EKG Studies 04/28/17 14:50 EKG [ELECTROCARDIOGRAM] Stat Comment: Mode Of Transportation: Reason For Exam: chest pain Fingerstick Blood Sugar Results: 329 Review of Systems - Review of Systems Systems not reviewed;Unavailable: Intubated Critical Care Progress Note - Vent Settings TIDAL VOLUME:: 450 RESP RATE:: 26 FIO2:: 100 PEEP:: 10 - Nutrition Nutrition: Nutrition Category Date Time Status NPO Diet [DIET] Diets 04/28/17 Breakfast Active Assessment/Plan - Assessment and Plan (Free Text) Assessment: 36 year old male with PMHx DM, Sleep Apnea, AFib, HTN presenting with SOB, hemoptysis and WILEY Pulm: Pulmonary edema, SOB - Intubated (since 04/28). Sedated on Propofol 1,000mg and paralyzed on Cistracurium 100 mg - Duoneb 3 ml INH RQ6 - CXR 04/28: pulmonary edema - Will continue to monitor BP and titrate Propofol and Cistracurium as tolerated Nephro: WILEY - Dr. Limon on board, help appreciated - completed 1x HD 04/26 1:00 am - BUN/Cr today (04/29) 33/6.3, improved from yesterday (preHD) - Presence of WILEY with worsening respiratory status, will f/u serology studies - Strict I/O control Cardio: AFib, HTN - Consult Cardiology, f/u reccs - F/u Echo ID: elevated WBCs - Ceftriaxone 1 gm IV daily Endo: h/o DM - Elevated blood sugar: 299 today - Patient has a history of hypoglycemic episodes with home insulin - Will start on low dose insulin protocol - Continue accuchecks Prophylaxis: DVT: Heparin 5,000 U SC daily GI: Protonix 40 mg IV Q12 Fluids: NS 15 cc/hr daily <Angel Galvan - Last Filed: 04/29/17 19:16> CCU Subjective - Physician Review Events Since Last Encounter (Free Text): 04/29/17 19:15 36-year-old male admitted yesterday. Acute respiratory failure. Renal insufficiency. Intubated. Received a second dialysis today. Oxygen is improving. Intubated. Sedated. On Nimbex. Spoke to the family. On antibiotic. Proteinuria noted. Most likely fluid overload. Continue the current treatment. Weaning as needed. Reduce the FiO2 as tolerated CCU Objective - Vital Signs / Intake & Output Vital Signs (Last 4 hours): Vital Signs Temp Pulse Pulse Resp BP BP Pulse Ox 04/29/17 18:54 125 H 24 158/74 H 98 04/29/17 18:50 126 H 24 99 04/29/17 18:40 120 H 24 147/62 99 04/29/17 18:30 123 H 24 100 04/29/17 18:25 118 H 21 136/66 100 04/29/17 18:20 113 H 23 100 04/29/17 18:10 103 H 24 100 04/29/17 18:09 109 H 24 120/49 L 100 04/29/17 18:00 101 H 24 100 04/29/17 17:54 97 H 24 115/42 L 04/29/17 17:50 94 H 24 100 04/29/17 17:40 95 H 24 100 04/29/17 17:39 97 H 24 116/50 L 04/29/17 17:30 95 H 24 100 04/29/17 17:24 125/57 L 04/29/17 17:23 97 H 100 04/29/17 17:20 107 H 100 04/29/17 17:10 93 H 24 100 04/29/17 17:09 94 H 24 122/65 100 04/29/17 17:00 93 H 24 04/29/17 16:55 98.1 F 91 H 24 119/56 L 100 04/29/17 16:54 88 24 119/56 L 100 04/29/17 16:50 91 H 24 04/29/17 16:40 89 24 100 04/29/17 16:39 89 24 117/54 L 100 04/29/17 16:30 89 24 100 04/29/17 16:25 108/54 L 04/29/17 16:24 93 H 24 108/54 L 100 04/29/17 16:20 91 H 24 04/29/17 16:10 93 H 24 100 04/29/17 16:09 93 H 24 107/49 L 04/29/17 16:00 98.5 F 92 H 24 04/29/17 15:55 121/57 L 04/29/17 15:54 95 H 24 121/57 L 04/29/17 15:50 94 H 24 04/29/17 15:40 92 H 24 04/29/17 15:39 91 H 24 116/53 L 04/29/17 15:30 92 H 24 04/29/17 15:25 122/52 L 04/29/17 15:24 93 H 24 122/52 L 04/29/17 15:20 94 H 24 100 Intake and Output (Last 8hrs): Intake & Output 04/29/17 04/29/17 04/29/17 06:59 14:59 22:59 Intake Total 1135.3 734.4 727.0 Output Total 625 575 130 Balance 510.3 159.4 597.0 Weight 209 lb 7.026 oz 209 lb 7.026 oz Intake: IV 504.0 68 200 Intake, IV Amount 631.3 626.4 417.0 Left 250.8 265.3 199.5 Left Antecubital 135 190 75 Left Proximal Port 245.5 171.1 142.5 Tube Feeding 60 Other 40 50 Output: Urine 625 575 130 2-way Urethral 625 575 130 - Medications Active Medications: Active Medications Generic Name Dose Route Start Last Admin Trade Name Freq PRN Reason Stop Dose Admin Albuterol/Ipratropium 3 ml 04/28/17 08:00 04/29/17 11:29 Duoneb 3 Mg/0.5 Mg (3 Ml) Ud INH 3 ml RQ6 PRN Administration Wheezing Calcium Acetate 667 mg 04/29/17 14:00 04/29/17 18:15 Phoslo GT Not Given TIDCC CLAUDE Heparin Sodium (Porcine) 5,000 units 04/28/17 10:00 04/29/17 10:09 Heparin SC 5,000 units Q12 CLAUDE Administration Ceftriaxone Sodium 1 gm/ 100 mls @ 100 mls/hr 04/29/17 10:00 04/29/17 10:09 Sodium Chloride IVPB 100 mls/hr DAILY CLAUDE Administration Sodium Chloride 1,000 mls @ 15 mls/hr 04/28/17 20:00 04/28/17 21:21 Sodium Chloride 0.9% IV 15 mls/hr .Q24H CLAUDE Administration Propofol 1,000 mg in 100 mls @ 2.85 mls/hr 04/29/17 11:59 04/29/17 19:10 Diprivan IV 70 mcg/kg/min .Q24H PRN 39.9 mls/hr TITRATE PER MD ORDER Administration Protocol 5 MCG/KG/MIN Cisatracurium Besylate 100 mg/ 250 mls @ 42.75 mls/hr 04/29/17 13:15 14:00 Dextrose IV 2 mcg/kg/min .Q5H51M CLAUDE 28.5 mls/hr Protocol Administration 3 MCG/KG/MIN Insulin Human Regular 0 unit 04/29/17 12:00 04/29/17 18:14 Novolin R SC 2 unit Q6 CLAUDE Administration Protocol Pantoprazole Sodium 40 mg 04/29/17 10:00 04/29/17 10:09 Protonix Inj IVP 40 mg DAILY CLAUDE Administration Pneumococcal Polyvalent Vaccine 0.5 ml 04/30/17 14:00 Pneumovax 23 Vaccine IM 04/30/17 14:01 .ONCE ONE - Patient Studies Lab Studies: Microbiology Studies 04/28/17 14:00 Urine Culture - Final Urine No Growth (<1,000 CFU/ML) 04/27/17 23:51 Blood Culture - Preliminary Blood-Venous NO GROWTH AFTER 24 HOURS Lab Studies 04/29/17 04/29/17 04/29/17 Range/Units 17:44 11:38 08:25 WBC (4.8-10.8) K/uL RBC (4.40-5.90) Mil/uL Hgb (12.0-18.0) g/dL Hct (35.0-51.0) % MCV (80.0-94.0) fL MCH (27.0-31.0) pg MCHC (33.0-37.0) g/dL RDW (11.5-14.5) % Plt Count (130-400) K/uL MPV (7.2-11.7) fL Neut % (Auto) (50.0-75.0) % Lymph % (Auto) (20.0-40.0) % [place] % (Auto) (0.0-10.0) % Eos % (Auto) (0.0-4.0) % Baso % (Auto) (0.0-2.0) % Neut # (1.8-7.0) K/uL Lymph # (1.0-4.3) K/uL [place] # (0.0-0.8) K/uL Eos # (0.0-0.7) K/uL Baso # (0.0-0.2) K/uL Neutrophils % (Manual) (50-75) % Band Neutrophils % (0-2) % Lymphocytes % (Manual) (20-40) % Monocytes % (Manual) (0-10) % Platelet Estimate (NORMAL) Puncture Site Lb pCO2 41 (35-45) mm/Hg pO2 148 H (80-100) mm/Hg HCO3 22.6 (21-28) mmol/L ABG pH 7.35 (7.35-7.45) ABG Total CO2 23.9 (22-28) mmol/L ABG O2 Saturation 99.4 H (95-98) % ABG Base Excess -2.9 L (-2.0-3.0) mmol/L ABG Hemoglobin 13.3 (11.7-17.4) g/dL ABG Carboxyhemoglobin 1.3 (0.5-1.5) % POC ABG HHb (Measured) 0.6 (0.0-5.0) % ABG Methemoglobin 1.6 (0.0-3.0) % Goran Test Na ABG Potassium (3.6-5.2) mmol/L A-a O2 Difference 514.0 mm/Hg Respiratory Index 3.5 Hgb O2 Saturation 96.6 (95.0-98.0) % Sodium (132-148) mmol/l Chloride (98-107) mmol/L Glucose (75-110) mg/dl Lactate (0.7-2.1) mmol/L Vent Mode Mechanical Rate 26 FiO2 100.0 % Tidal Volume 450 PEEP 10 Crit Value Called To Dr curiel Crit Value Called By Polo pettit paperhanger and painter Crit Value Read Back Y Blood Gas Notified Time 835 Potassium (3.6-5.2) mmol/L Carbon Dioxide (22-30) mmol/L Anion Gap (10-20) BUN (9-20) mg/dL Creatinine (0.8-1.5) MG/DL Est GFR ( Amer) Est GFR (Non-Af Amer) POC Glucose (mg/dL) 226 H 329 H (65-110) mg/dL Random Glucose (75-110) mg/dL Hemoglobin A1c (4.2-6.5) % Calcium (8.6-10.4) mg/dl Phosphorus (2.5-4.5) mg/dL Magnesium (1.6-2.3) mg/dL Total Bilirubin (0.2-1.3) mg/dL AST (17-59) U/L ALT (21-72) U/L Alkaline Phosphatase (38-126) U/L Total Protein (6.3-8.3) g/dL Albumin (3.5-5.0) g/dL Globulin (2.2-3.9) gm/dL Albumin/Globulin Ratio (1.0-2.1) Arterial Blood Potassium (3.6-5.2) mmol/L Hep Bs Antigen (NEGATIVE) Hep B Core IgM Ab (NEGATIVE) Hepatitis C Antibody (NEGATIVE) 04/29/17 04/29/17 04/29/17 Range/Units 07:14 06:21 05:43 WBC (4.8-10.8) K/uL RBC (4.40-5.90) Mil/uL Hgb (12.0-18.0) g/dL Hct (35.0-51.0) % MCV (80.0-94.0) fL MCH (27.0-31.0) pg MCHC (33.0-37.0) g/dL RDW (11.5-14.5) % Plt Count (130-400) K/uL MPV (7.2-11.7) fL Neut % (Auto) (50.0-75.0) % Lymph % (Auto) (20.0-40.0) % [place] % (Auto) (0.0-10.0) % Eos % (Auto) (0.0-4.0) % Baso % (Auto) (0.0-2.0) % Neut # (1.8-7.0) K/uL Lymph # (1.0-4.3) K/uL [place] # (0.0-0.8) K/uL Eos # (0.0-0.7) K/uL Baso # (0.0-0.2) K/uL Neutrophils % (Manual) (50-75) % Band Neutrophils % (0-2) % Lymphocytes % (Manual) (20-40) % Monocytes % (Manual) (0-10) % Platelet Estimate (NORMAL) Puncture Site pCO2 (35-45) mm/Hg pO2 (80-100) mm/Hg HCO3 (21-28) mmol/L ABG pH (7.35-7.45) ABG Total CO2 (22-28) mmol/L ABG O2 Saturation (95-98) % ABG Base Excess (-2.0-3.0) mmol/L ABG Hemoglobin (11.7-17.4) g/dL ABG Carboxyhemoglobin (0.5-1.5) % POC ABG HHb (Measured) (0.0-5.0) % ABG Methemoglobin (0.0-3.0) % Goran Test ABG Potassium (3.6-5.2) mmol/L A-a O2 Difference mm/Hg Respiratory Index Hgb O2 Saturation (95.0-98.0) % Sodium 128 L (132-148) mmol/l Chloride 90 L (98-107) mmol/L Glucose (75-110) mg/dl Lactate (0.7-2.1) mmol/L Vent Mode Mechanical Rate FiO2 % Tidal Volume PEEP Crit Value Called To Crit Value Called By Crit Value Read Back Blood Gas Notified Time Potassium 4.2 (3.6-5.2) mmol/L Carbon Dioxide 21 L (22-30) mmol/L Anion Gap 21 H (10-20) BUN 33 H (9-20) mg/dL Creatinine 6.3 H (0.8-1.5) MG/DL Est GFR ( Amer) 12 Est GFR (Non-Af Amer) 10 POC Glucose (mg/dL) 316 H 314 H (65-110) mg/dL Random Glucose 299 H (75-110) mg/dL Hemoglobin A1c (4.2-6.5) % Calcium 7.0 L (8.6-10.4) mg/dl Phosphorus 6.2 H (2.5-4.5) mg/dL Magnesium 1.8 (1.6-2.3) mg/dL Total Bilirubin 0.2 (0.2-1.3) mg/dL AST 36 (17-59) U/L ALT 73 H D (21-72) U/L Alkaline Phosphatase 82 (38-126) U/L Total Protein 5.9 L (6.3-8.3) g/dL Albumin 3.0 L (3.5-5.0) g/dL Globulin 2.9 (2.2-3.9) gm/dL Albumin/Globulin Ratio 1.0 (1.0-2.1) Arterial Blood Potassium (3.6-5.2) mmol/L Hep Bs Antigen (NEGATIVE) Hep B Core IgM Ab (NEGATIVE) Hepatitis C Antibody (NEGATIVE) 04/29/17 04/29/17 04/29/17 Range/Units 05:43 04:11 03:05 WBC 18.8 H (4.8-10.8) K/uL RBC 4.20 L (4.40-5.90) Mil/uL Hgb 11.2 L (12.0-18.0) g/dL Hct 32.8 L (35.0-51.0) % MCV 78.0 L (80.0-94.0) fL MCH 26.5 L (27.0-31.0) pg MCHC 34.0 (33.0-37.0) g/dL RDW 14.0 (11.5-14.5) % Plt Count 172 (130-400) K/uL MPV 8.8 (7.2-11.7) fL Neut % (Auto) 89.1 H (50.0-75.0) % Lymph % (Auto) 3.0 L (20.0-40.0) % [place] % (Auto) 7.8 (0.0-10.0) % Eos % (Auto) 0.0 (0.0-4.0) % Baso % (Auto) 0.1 (0.0-2.0) % Neut # 16.8 H (1.8-7.0) K/uL Lymph # 0.6 L (1.0-4.3) K/uL [place] # 1.5 H (0.0-0.8) K/uL Eos # 0.0 (0.0-0.7) K/uL Baso # 0.0 (0.0-0.2) K/uL Neutrophils % (Manual) 88 H (50-75) % Band Neutrophils % 1 (0-2) % Lymphocytes % (Manual) 3 L (20-40) % Monocytes % (Manual) 8 (0-10) % Platelet Estimate Normal (NORMAL) Puncture Site Rradial pCO2 46 H (35-45) mm/Hg pO2 84 (80-100) mm/Hg HCO3 20.8 L (21-28) mmol/L ABG pH 7.28 L (7.35-7.45) ABG Total CO2 23.0 (22-28) mmol/L ABG O2 Saturation 98.1 H (95-98) % ABG Base Excess -5.2 L (-2.0-3.0) mmol/L ABG Hemoglobin (11.7-17.4) g/dL ABG Carboxyhemoglobin (0.5-1.5) % POC ABG HHb (Measured) (0.0-5.0) % ABG Methemoglobin (0.0-3.0) % Goran Test Pos ABG Potassium (3.6-5.2) mmol/L A-a O2 Difference 572.0 mm/Hg Respiratory Index 6.8 Hgb O2 Saturation (95.0-98.0) % Sodium (132-148) mmol/l Chloride (98-107) mmol/L Glucose (75-110) mg/dl Lactate (0.7-2.1) mmol/L Vent Mode A/c Mechanical Rate 26 FiO2 100.0 % Tidal Volume 450 PEEP 10 Crit Value Called To Crit Value Called By Crit Value Read Back Blood Gas Notified Time Potassium (3.6-5.2) mmol/L Carbon Dioxide (22-30) mmol/L Anion Gap (10-20) BUN (9-20) mg/dL Creatinine (0.8-1.5) MG/DL Est GFR ( Amer) Est GFR (Non-Af Amer) POC Glucose (mg/dL) 319 H (65-110) mg/dL Random Glucose (75-110) mg/dL Hemoglobin A1c (4.2-6.5) % Calcium (8.6-10.4) mg/dl Phosphorus (2.5-4.5) mg/dL Magnesium (1.6-2.3) mg/dL Total Bilirubin (0.2-1.3) mg/dL AST (17-59) U/L ALT (21-72) U/L Alkaline Phosphatase (38-126) U/L Total Protein (6.3-8.3) g/dL Albumin (3.5-5.0) g/dL Globulin (2.2-3.9) gm/dL Albumin/Globulin Ratio (1.0-2.1) Arterial Blood Potassium (3.6-5.2) mmol/L Hep Bs Antigen (NEGATIVE) Hep B Core IgM Ab (NEGATIVE) Hepatitis C Antibody (NEGATIVE) 04/29/17 04/29/17 04/28/17 Range/Units 01:33 00:28 22:09 WBC (4.8-10.8) K/uL RBC (4.40-5.90) Mil/uL Hgb (12.0-18.0) g/dL Hct (35.0-51.0) % MCV (80.0-94.0) fL MCH (27.0-31.0) pg MCHC (33.0-37.0) g/dL RDW (11.5-14.5) % Plt Count (130-400) K/uL MPV (7.2-11.7) fL Neut % (Auto) (50.0-75.0) % Lymph % (Auto) (20.0-40.0) % [place] % (Auto) (0.0-10.0) % Eos % (Auto) (0.0-4.0) % Baso % (Auto) (0.0-2.0) % Neut # (1.8-7.0) K/uL Lymph # (1.0-4.3) K/uL [place] # (0.0-0.8) K/uL Eos # (0.0-0.7) K/uL Baso # (0.0-0.2) K/uL Neutrophils % (Manual) (50-75) % Band Neutrophils % (0-2) % Lymphocytes % (Manual) (20-40) % Monocytes % (Manual) (0-10) % Platelet Estimate (NORMAL) Puncture Site pCO2 (35-45) mm/Hg pO2 (80-100) mm/Hg HCO3 (21-28) mmol/L ABG pH (7.35-7.45) ABG Total CO2 (22-28) mmol/L ABG O2 Saturation (95-98) % ABG Base Excess (-2.0-3.0) mmol/L ABG Hemoglobin (11.7-17.4) g/dL ABG Carboxyhemoglobin (0.5-1.5) % POC ABG HHb (Measured) (0.0-5.0) % ABG Methemoglobin (0.0-3.0) % Goran Test ABG Potassium (3.6-5.2) mmol/L A-a O2 Difference mm/Hg Respiratory Index Hgb O2 Saturation (95.0-98.0) % Sodium (132-148) mmol/l Chloride (98-107) mmol/L Glucose (75-110) mg/dl Lactate (0.7-2.1) mmol/L Vent Mode Mechanical Rate FiO2 % Tidal Volume PEEP Crit Value Called To Crit Value Called By Crit Value Read Back Blood Gas Notified Time Potassium (3.6-5.2) mmol/L Carbon Dioxide (22-30) mmol/L Anion Gap (10-20) BUN (9-20) mg/dL Creatinine (0.8-1.5) MG/DL Est GFR ( Amer) Est GFR (Non-Af Amer) POC Glucose (mg/dL) 343 H 424 H* (65-110) mg/dL Random Glucose (75-110) mg/dL Hemoglobin A1c (4.2-6.5) % Calcium (8.6-10.4) mg/dl Phosphorus (2.5-4.5) mg/dL Magnesium (1.6-2.3) mg/dL Total Bilirubin (0.2-1.3) mg/dL AST (17-59) U/L ALT (21-72) U/L Alkaline Phosphatase (38-126) U/L Total Protein (6.3-8.3) g/dL Albumin (3.5-5.0) g/dL Globulin (2.2-3.9) gm/dL Albumin/Globulin Ratio (1.0-2.1) Arterial Blood Potassium (3.6-5.2) mmol/L Hep Bs Antigen Negative (NEGATIVE) Hep B Core IgM Ab Negative (NEGATIVE) Hepatitis C Antibody Negative (NEGATIVE) 04/28/17 04/28/17 04/28/17 Range/Units 20:30 19:30 10:06 WBC (4.8-10.8) K/uL RBC (4.40-5.90) Mil/uL Hgb (12.0-18.0) g/dL Hct (35.0-51.0) % MCV (80.0-94.0) fL MCH (27.0-31.0) pg MCHC (33.0-37.0) g/dL RDW (11.5-14.5) % Plt Count (130-400) K/uL MPV (7.2-11.7) fL Neut % (Auto) (50.0-75.0) % Lymph % (Auto) (20.0-40.0) % [place] % (Auto) (0.0-10.0) % Eos % (Auto) (0.0-4.0) % Baso % (Auto) (0.0-2.0) % Neut # (1.8-7.0) K/uL Lymph # (1.0-4.3) K/uL [place] # (0.0-0.8) K/uL Eos # (0.0-0.7) K/uL Baso # (0.0-0.2) K/uL Neutrophils % (Manual) (50-75) % Band Neutrophils % (0-2) % Lymphocytes % (Manual) (20-40) % Monocytes % (Manual) (0-10) % Platelet Estimate (NORMAL) Puncture Site Rradial Rradial pCO2 37 22 L (35-45) mm/Hg pO2 42 L* 48 L (80-100) mm/Hg HCO3 14.5 L 16.7 L (21-28) mmol/L ABG pH 7.20 L 7.38 (7.35-7.45) ABG Total CO2 15.6 L 13.7 L (22-28) mmol/L ABG O2 Saturation 80.0 L 91.2 L (95-98) % ABG Base Excess -12.7 L -10.0 L (-2.0-3.0) mmol/L ABG Hemoglobin 12.9 (11.7-17.4) g/dL ABG Carboxyhemoglobin 1.8 H (0.5-1.5) % POC ABG HHb (Measured) 19.4 H (0.0-5.0) % ABG Methemoglobin 1.1 (0.0-3.0) % Goran Test Pos Pos ABG Potassium 5.2 (3.6-5.2) mmol/L A-a O2 Difference 625.0 638.0 mm/Hg Respiratory Index 14.9 13.3 Hgb O2 Saturation 77.6 L (95.0-98.0) % Sodium 119.0 L* (132-148) mmol/l Chloride 89.0 L (98-107) mmol/L Glucose 411 H* D (75-110) mg/dl Lactate 1.5 (0.7-2.1) mmol/L Vent Mode A/c Mechanical Rate 26 FiO2 100.0 100.0 % Tidal Volume 450 PEEP 5 Crit Value Called To Dr. wild orozco Crit Value Called By afshin Gabriel Crit Value Read Back Y Y Blood Gas Notified Time 2034 1934 Potassium (3.6-5.2) mmol/L Carbon Dioxide (22-30) mmol/L Anion Gap (10-20) BUN (9-20) mg/dL Creatinine (0.8-1.5) MG/DL Est GFR ( Amer) Est GFR (Non-Af Amer) POC Glucose (mg/dL) (65-110) mg/dL Random Glucose (75-110) mg/dL Hemoglobin A1c 7.4 H (4.2-6.5) % Calcium (8.6-10.4) mg/dl Phosphorus (2.5-4.5) mg/dL Magnesium (1.6-2.3) mg/dL Total Bilirubin (0.2-1.3) mg/dL AST (17-59) U/L ALT (21-72) U/L Alkaline Phosphatase (38-126) U/L Total Protein (6.3-8.3) g/dL Albumin (3.5-5.0) g/dL Globulin (2.2-3.9) gm/dL Albumin/Globulin Ratio (1.0-2.1) Arterial Blood Potassium 5.2 (3.6-5.2) mmol/L Hep Bs Antigen (NEGATIVE) Hep B Core IgM Ab (NEGATIVE) Hepatitis C Antibody (NEGATIVE) Laboratory Results - last 24 hr 04/28/17 04/28/17 04/28/17 10:06 19:30 20:30 WBC RBC Hgb Hct MCV MCH MCHC RDW Plt Count MPV Neut % (Auto) Lymph % (Auto) [place] % (Auto) Eos % (Auto) Baso % (Auto) Neut # Lymph # [place] # Eos # Baso # Neutrophils % (Manual) Band Neutrophils % Lymphocytes % (Manual) Monocytes % (Manual) Platelet Estimate Puncture Site Rradial Rradial pCO2 22 L 37 pO2 48 L 42 L* HCO3 16.7 L 14.5 L ABG pH 7.38 7.20 L ABG Total CO2 13.7 L 15.6 L ABG O2 Saturation 91.2 L 80.0 L ABG Base Excess -10.0 L -12.7 L ABG Hemoglobin 12.9 ABG Carboxyhemoglobin 1.8 H POC ABG HHb (Measured) 19.4 H ABG Methemoglobin 1.1 Goran Test Pos Pos ABG Potassium 5.2 A-a O2 Difference 638.0 625.0 Respiratory Index 13.3 14.9 Hgb O2 Saturation 77.6 L Sodium 119.0 L* Chloride 89.0 L Glucose 411 H* D Lactate 1.5 Vent Mode A/c Mechanical Rate 26 FiO2 100.0 100.0 Tidal Volume 450 PEEP 5 Crit Value Called To Dr pam rome Crit Value Called By Margo michel rcp Crit Value Read Back Y Y Blood Gas Notified Time 1934 2034 Potassium Carbon Dioxide Anion Gap BUN Creatinine Est GFR ( Amer) Est GFR (Non-Af Amer) POC Glucose (mg/dL) Random Glucose Hemoglobin A1c 7.4 H Calcium Phosphorus Magnesium Total Bilirubin AST ALT Alkaline Phosphatase Total Protein Albumin Globulin Albumin/Globulin Ratio Arterial Blood Potassium 5.2 Hep Bs Antigen Hep B Core IgM Ab Hepatitis C Antibody 04/28/17 04/29/17 04/29/17 22:09 00:28 01:33 WBC RBC Hgb Hct MCV MCH MCHC RDW Plt Count MPV Neut % (Auto) Lymph % (Auto) [place] % (Auto) Eos % (Auto) Baso % (Auto) Neut # Lymph # [place] # Eos # Baso # Neutrophils % (Manual) Band Neutrophils % Lymphocytes % (Manual) Monocytes % (Manual) Platelet Estimate Puncture Site pCO2 pO2 HCO3 ABG pH ABG Total CO2 ABG O2 Saturation ABG Base Excess ABG Hemoglobin ABG Carboxyhemoglobin POC ABG HHb (Measured) ABG Methemoglobin Goran Test ABG Potassium A-a O2 Difference Respiratory Index Hgb O2 Saturation Sodium Chloride Glucose Lactate Vent Mode Mechanical Rate FiO2 Tidal Volume PEEP Crit Value Called To Crit Value Called By Crit Value Read Back Blood Gas Notified Time Potassium Carbon Dioxide Anion Gap BUN Creatinine Est GFR ( Amer) Est GFR (Non-Af Amer) POC Glucose (mg/dL) 424 H* 343 H Random Glucose Hemoglobin A1c Calcium Phosphorus Magnesium Total Bilirubin AST ALT Alkaline Phosphatase Total Protein Albumin Globulin Albumin/Globulin Ratio Arterial Blood Potassium Hep Bs Antigen Negative Hep B Core IgM Ab Negative Hepatitis C Antibody Negative 04/29/17 04/29/17 04/29/17 03:05 04:11 05:43 WBC 18.8 H RBC 4.20 L Hgb 11.2 L Hct 32.8 L MCV 78.0 L MCH 26.5 L MCHC 34.0 RDW 14.0 Plt Count 172 MPV 8.8 Neut % (Auto) 89.1 H Lymph % (Auto) 3.0 L [place] % (Auto) 7.8 Eos % (Auto) 0.0 Baso % (Auto) 0.1 Neut # 16.8 H Lymph # 0.6 L [place] # 1.5 H Eos # 0.0 Baso # 0.0 Neutrophils % (Manual) 88 H Band Neutrophils % 1 Lymphocytes % (Manual) 3 L Monocytes % (Manual) 8 Platelet Estimate Normal Puncture Site Rradial pCO2 46 H pO2 84 HCO3 20.8 L ABG pH 7.28 L ABG Total CO2 23.0 ABG O2 Saturation 98.1 H ABG Base Excess -5.2 L ABG Hemoglobin ABG Carboxyhemoglobin POC ABG HHb (Measured) ABG Methemoglobin Goran Test Pos ABG Potassium A-a O2 Difference 572.0 Respiratory Index 6.8 Hgb O2 Saturation Sodium Chloride Glucose Lactate Vent Mode A/c Mechanical Rate 26 FiO2 100.0 Tidal Volume 450 PEEP 10 Crit Value Called To Crit Value Called By Crit Value Read Back Blood Gas Notified Time Potassium Carbon Dioxide Anion Gap BUN Creatinine Est GFR ( Amer) Est GFR (Non-Af Amer) POC Glucose (mg/dL) 319 H Random Glucose Hemoglobin A1c Calcium Phosphorus Magnesium Total Bilirubin AST ALT Alkaline Phosphatase Total Protein Albumin Globulin Albumin/Globulin Ratio Arterial Blood Potassium Hep Bs Antigen Hep B Core IgM Ab Hepatitis C Antibody 04/29/17 04/29/17 04/29/17 05:43 06:21 07:14 WBC RBC Hgb Hct MCV MCH MCHC RDW Plt Count MPV Neut % (Auto) Lymph % (Auto) [place] % (Auto) Eos % (Auto) Baso % (Auto) Neut # Lymph # [place] # Eos # Baso # Neutrophils % (Manual) Band Neutrophils % Lymphocytes % (Manual) Monocytes % (Manual) Platelet Estimate Puncture Site pCO2 pO2 HCO3 ABG pH ABG Total CO2 ABG O2 Saturation ABG Base Excess ABG Hemoglobin ABG Carboxyhemoglobin POC ABG HHb (Measured) ABG Methemoglobin Goran Test ABG Potassium A-a O2 Difference Respiratory Index Hgb O2 Saturation Sodium 128 L Chloride 90 L Glucose Lactate Vent Mode Mechanical Rate FiO2 Tidal Volume PEEP Crit Value Called To Crit Value Called By Crit Value Read Back Blood Gas Notified Time Potassium 4.2 Carbon Dioxide 21 L Anion Gap 21 H BUN 33 H Creatinine 6.3 H Est GFR ( Amer) 12 Est GFR (Non-Af Amer) 10 POC Glucose (mg/dL) 314 H 316 H Random Glucose 299 H Hemoglobin A1c Calcium 7.0 L Phosphorus 6.2 H Magnesium 1.8 Total Bilirubin 0.2 AST 36 ALT 73 H D Alkaline Phosphatase 82 Total Protein 5.9 L Albumin 3.0 L Globulin 2.9 Albumin/Globulin Ratio 1.0 Arterial Blood Potassium Hep Bs Antigen Hep B Core IgM Ab Hepatitis C Antibody 04/29/17 04/29/17 04/29/17 08:25 11:38 17:44 WBC RBC Hgb Hct MCV MCH MCHC RDW Plt Count MPV Neut % (Auto) Lymph % (Auto) [place] % (Auto) Eos % (Auto) Baso % (Auto) Neut # Lymph # [place] # Eos # Baso # Neutrophils % (Manual) Band Neutrophils % Lymphocytes % (Manual) Monocytes % (Manual) Platelet Estimate Puncture Site Lb pCO2 41 pO2 148 H HCO3 22.6 ABG pH 7.35 ABG Total CO2 23.9 ABG O2 Saturation 99.4 H ABG Base Excess -2.9 L ABG Hemoglobin 13.3 ABG Carboxyhemoglobin 1.3 POC ABG HHb (Measured) 0.6 ABG Methemoglobin 1.6 Goran Test Na ABG Potassium A-a O2 Difference 514.0 Respiratory Index 3.5 Hgb O2 Saturation 96.6 Sodium Chloride Glucose Lactate Vent Mode Mechanical Rate 26 FiO2 100.0 Tidal Volume 450 PEEP 10 Crit Value Called To Dr curiel Crit Value Called By Polo pettit paperhanger and painter Crit Value Read Back Y Blood Gas Notified Time 835 Potassium Carbon Dioxide Anion Gap BUN Creatinine Est GFR ( Amer) Est GFR (Non-Af Amer) POC Glucose (mg/dL) 329 H 226 H Random Glucose Hemoglobin A1c Calcium Phosphorus Magnesium Total Bilirubin AST ALT Alkaline Phosphatase Total Protein Albumin Globulin Albumin/Globulin Ratio Arterial Blood Potassium Hep Bs Antigen Hep B Core IgM Ab Hepatitis C Antibody Critical Care Progress Note - Nutrition Nutrition: Nutrition Category Date Time Status NPO Diet [DIET] Diets 04/28/17 Breakfast Active
[2017-04-29] MEDS: Sodium Chloride 0.9% 1,000 ML IV SCH (19:35)
--- NOTE | 2017-04-29 19:45 | CARD ---
APPROVED REPORT EXAM: Two-dimensional and M-mode echocardiogram with Doppler and color Doppler. Other Information Quality : GoodRhythm : Atrial Fibrillation INDICATION SLEEP APNEA; SEPSIS; FEVER RISK FACTORS Hypertension Diabetes 2D DIMENSIONS IVSd0.6 (0.7-1.1cm)LVDd5.1 (3.9-5.9cm) PWd0.9 (0.7-1.1cm)LVDs3.2 (2.5-4.0cm) FS (%) 36.0 %LVEF (%)65.3 (>50%) M-Mode DIMENSIONS RVDd1.49 (2.1-3.2cm)Left Atrium (MM)3.52 (2.5-4.0cm) IVSd1.07 (0.7-1.1cm)Aortic Root2.40 (2.2-3.7cm) LVDd5.05 (4.0-5.6cm)Aortic Cusp Exc.1.75 (1.5-2.0cm) PWd0.99 (0.7-1.1cm)FS (%) 43 % LVDs2.88 (2.0-3.8cm)LVEF (%)74 (>50%) Mitral Valve MV E Yawgxife15.8cm/sMV A Hyhrgdgx36.8cm/sE/A ratio1.2 TDI E/Lateral E'0.0E/Medial E'0.0 Tricuspid Valve TR Peak Vldnmvdt640yn/sTR Peak Gr.[id number] LEFT VENTRICLE The left ventricle is normal size. There is normal left ventricular wall thickness. Left ventricle systolic function is normal. The Ejection Fraction is 65-70%. There is normal LV segmental wall motion. The left ventricular diastolic function is normal. There is no ventricular septal defect visualized. RIGHT VENTRICLE The right ventricle is normal size. The right ventricular systolic function is normal. ATRIA The left atrium size is normal. The right atrium size is normal. AORTIC VALVE The aortic valve is tri-cuspid. The aortic valve is normal in structure. No aortic regurgitation is present. There is no aortic valvular stenosis. MITRAL VALVE The mitral valve is normal in structure. There is no evidence of mitral valve prolapse. Mitral regurgitation is trace. TRICUSPID VALVE The tricuspid valve is normal in structure. There is trace tricuspid regurgitation. Right ventricular systolic pressure is estimated at 30-40 mmHg. There is mild pulmonary hypertension. PULMONIC VALVE The pulmonic valve is not well visualized. There is no pulmonic valvular regurgitation. GREAT VESSELS The aortic root is normal in size. The IVC is normal in size and collapses >50% with inspiration. PERICARDIAL EFFUSION There is no pericardial effusion. <Conclusion> Left ventricle systolic function is normal. The Ejection Fraction is 65-70%. The left ventricular diastolic function is normal. Mitral regurgitation is trace. There is mild pulmonary hypertension.
--- NOTE | 2017-04-29 23:57 | CP.PCM.CON ---
Past Patient History - Infectious Disease Hx of Infectious Diseases: None - Past Medical History & Family History Past Medical History?: Yes - Past Social History Smoking Status: Never Smoked - CARDIAC Hx Atrial Fibrillation: Yes Hx Cardia Arrhythmia: Yes - PULMONARY Hx Asthma: Yes Hx Sleep Apnea: Yes (ON CPAP) - NEUROLOGICAL Hx Neurological Disorder: No - HEENT Hx HEENT Problems: No - RENAL Hx Chronic Kidney Disease: No - ENDOCRINE/METABOLIC Hx Endocrine Disorders: Yes Hx Diabetes Mellitus Type 1: Yes - HEMATOLOGICAL/ONCOLOGICAL Hx Blood Disorders: No - INTEGUMENTARY Hx Dermatological Problems: No - MUSCULOSKELETAL/RHEUMATOLOGICAL Hx Musculoskeletal Disorders: No Hx Falls: No - GASTROINTESTINAL Hx Gastrointestinal Disorders: No - GENITOURINARY/GYNECOLOGICAL Hx Genitourinary Disorders: No - PSYCHIATRIC Hx Substance Use: No - SURGICAL HISTORY Hx Surgeries: Yes Hx Cardiac Catheterization: Yes (2015) - ANESTHESIA Hx Anesthesia: Yes Hx Anesthesia Reactions: No Hx Malignant Hyperthermia: No Meds Allergies/Adverse Reactions: Allergies Allergy/AdvReac Type Severity Reaction Status Date / Time No Known Allergies Allergy Verified 04/27/17 21:17 - Medications Medications: Current Medications Albuterol/Ipratropium (Duoneb 3 Mg/0.5 Mg (3 Ml) Ud) 3 ml INH RQ6 PRN PRN Reason: Wheezing Last Admin: 04/29/17 11:29 Dose: 3 ml Calcium Acetate (Phoslo) 667 mg GT TIDCC [facility] Last Admin: 04/29/17 18:15 Dose: Not Given Heparin Sodium (Porcine) (Heparin) 5,000 units SC Q12 [facility] Last Admin: 04/29/17 21:35 Dose: 5,000 units Ceftriaxone Sodium 1 gm/ (Sodium Chloride) 100 mls @ 100 mls/hr IVPB DAILY [facility] Last Admin: 04/29/17 10:09 Dose: 100 mls/hr Sodium Chloride (Sodium Chloride 0.9%) 1,000 mls @ 15 mls/hr IV .Q24H [facility] Last Admin: 04/29/17 19:35 Dose: Not Given Propofol (Diprivan) 1,000 mg in 100 mls @ 2.85 mls/hr IV .Q24H PRN; Protocol; 5 MCG/KG/MIN PRN Reason: TITRATE PER MD ORDER Last Titration: 04/29/17 21:16 Dose: 50 mcg/kg/min, 28.5 mls/hr Cisatracurium Besylate 100 mg/ (Dextrose) 250 mls @ 42.75 mls/hr IV .Q5H51M [facility] ; 3 MCG/KG/MIN PRN Reason: Protocol Last Admin: 04/29/17 22:57 Dose: 2 mcg/kg/min, 28.5 mls/hr Insulin Human Regular (Novolin R) 0 unit SC Q6 [facility] PRN Reason: Protocol Last Admin: 04/29/17 18:14 Dose: 2 unit Metoprolol Tartrate (Lopressor) 25 mg PO BID [facility] Last Admin: 04/29/17 19:38 Dose: 25 mg Pantoprazole Sodium (Protonix Inj) 40 mg IVP DAILY [facility] Last Admin: 04/29/17 10:09 Dose: 40 mg Pneumococcal Polyvalent Vaccine (Pneumovax 23 Vaccine) 0.5 ml IM .ONCE ONE Stop: 04/30/17 14:01 Results - Vital Signs Recent Vital Signs: Last Vital Signs Temp 99.5 F 04/29/17 23:48 Pulse 111 H 04/29/17 23:30 Resp 24 04/29/17 23:30 BP 85/40 L 04/29/17 23:12 Pulse Ox 100 04/29/17 23:30 - Labs Result Diagrams: 04/29/17 05:43 04/29/17 05:43 Labs: Laboratory Results - last 24 hr 04/28/17 04/29/17 04/29/17 10:06 00:28 01:33 WBC RBC Hgb Hct MCV MCH MCHC RDW Plt Count MPV Neut % (Auto) Lymph % (Auto) Trigg % (Auto) Eos % (Auto) Baso % (Auto) Neut # Lymph # Trigg # Eos # Baso # Neutrophils % (Manual) Band Neutrophils % Lymphocytes % (Manual) Monocytes % (Manual) Platelet Estimate Puncture Site pCO2 pO2 HCO3 ABG pH ABG Total CO2 ABG O2 Saturation ABG Base Excess ABG Hemoglobin ABG Carboxyhemoglobin POC ABG HHb (Measured) ABG Methemoglobin Goran Test A-a O2 Difference Respiratory Index Hgb O2 Saturation Vent Mode Mechanical Rate FiO2 Tidal Volume PEEP Crit Value Called To Crit Value Called By Crit Value Read Back Blood Gas Notified Time Sodium Potassium Chloride Carbon Dioxide Anion Gap BUN Creatinine Est GFR ( Amer) Est GFR (Non-Af Amer) POC Glucose (mg/dL) 343 H Random Glucose Hemoglobin A1c 7.4 H Calcium Phosphorus Magnesium Total Bilirubin AST ALT Alkaline Phosphatase Total Protein Albumin Globulin Albumin/Globulin Ratio Hep Bs Antigen Negative Hep B Core IgM Ab Negative Hepatitis C Antibody Negative 04/29/17 04/29/17 04/29/17 03:05 04:11 05:43 WBC 18.8 H RBC 4.20 L Hgb 11.2 L Hct 32.8 L MCV 78.0 L MCH 26.5 L MCHC 34.0 RDW 14.0 Plt Count 172 MPV 8.8 Neut % (Auto) 89.1 H Lymph % (Auto) 3.0 L Trigg % (Auto) 7.8 Eos % (Auto) 0.0 Baso % (Auto) 0.1 Neut # 16.8 H Lymph # 0.6 L Trigg # 1.5 H Eos # 0.0 Baso # 0.0 Neutrophils % (Manual) 88 H Band Neutrophils % 1 Lymphocytes % (Manual) 3 L Monocytes % (Manual) 8 Platelet Estimate Normal Puncture Site Rradial pCO2 46 H pO2 84 HCO3 20.8 L ABG pH 7.28 L ABG Total CO2 23.0 ABG O2 Saturation 98.1 H ABG Base Excess -5.2 L ABG Hemoglobin ABG Carboxyhemoglobin POC ABG HHb (Measured) ABG Methemoglobin Goran Test Pos A-a O2 Difference 572.0 Respiratory Index 6.8 Hgb O2 Saturation Vent Mode A/c Mechanical Rate 26 FiO2 100.0 Tidal Volume 450 PEEP 10 Crit Value Called To Crit Value Called By Crit Value Read Back Blood Gas Notified Time Sodium Potassium Chloride Carbon Dioxide Anion Gap BUN Creatinine Est GFR ( Amer) Est GFR (Non-Af Amer) POC Glucose (mg/dL) 319 H Random Glucose Hemoglobin A1c Calcium Phosphorus Magnesium Total Bilirubin AST ALT Alkaline Phosphatase Total Protein Albumin Globulin Albumin/Globulin Ratio Hep Bs Antigen Hep B Core IgM Ab Hepatitis C Antibody 04/29/17 04/29/17 04/29/17 05:43 06:21 07:14 WBC RBC Hgb Hct MCV MCH MCHC RDW Plt Count MPV Neut % (Auto) Lymph % (Auto) Trigg % (Auto) Eos % (Auto) Baso % (Auto) Neut # Lymph # Trigg # Eos # Baso # Neutrophils % (Manual) Band Neutrophils % Lymphocytes % (Manual) Monocytes % (Manual) Platelet Estimate Puncture Site pCO2 pO2 HCO3 ABG pH ABG Total CO2 ABG O2 Saturation ABG Base Excess ABG Hemoglobin ABG Carboxyhemoglobin POC ABG HHb (Measured) ABG Methemoglobin Goran Test A-a O2 Difference Respiratory Index Hgb O2 Saturation Vent Mode Mechanical Rate FiO2 Tidal Volume PEEP Crit Value Called To Crit Value Called By Crit Value Read Back Blood Gas Notified Time Sodium 128 L Potassium 4.2 Chloride 90 L Carbon Dioxide 21 L Anion Gap 21 H BUN 33 H Creatinine 6.3 H Est GFR ( Amer) 12 Est GFR (Non-Af Amer) 10 POC Glucose (mg/dL) 314 H 316 H Random Glucose 299 H Hemoglobin A1c Calcium 7.0 L Phosphorus 6.2 H Magnesium 1.8 Total Bilirubin 0.2 AST 36 ALT 73 H D Alkaline Phosphatase 82 Total Protein 5.9 L Albumin 3.0 L Globulin 2.9 Albumin/Globulin Ratio 1.0 Hep Bs Antigen Hep B Core IgM Ab Hepatitis C Antibody 04/29/17 04/29/17 04/29/17 08:25 11:38 17:44 WBC RBC Hgb Hct MCV MCH MCHC RDW Plt Count MPV Neut % (Auto) Lymph % (Auto) Trigg % (Auto) Eos % (Auto) Baso % (Auto) Neut # Lymph # Trigg # Eos # Baso # Neutrophils % (Manual) Band Neutrophils % Lymphocytes % (Manual) Monocytes % (Manual) Platelet Estimate Puncture Site Lb pCO2 41 pO2 148 H HCO3 22.6 ABG pH 7.35 ABG Total CO2 23.9 ABG O2 Saturation 99.4 H ABG Base Excess -2.9 L ABG Hemoglobin 13.3 ABG Carboxyhemoglobin 1.3 POC ABG HHb (Measured) 0.6 ABG Methemoglobin 1.6 Goran Test Na A-a O2 Difference 514.0 Respiratory Index 3.5 Hgb O2 Saturation 96.6 Vent Mode Mechanical Rate 26 FiO2 100.0 Tidal Volume 450 PEEP 10 Crit Value Called To Dr curiel Crit Value Called By Polo pett[employer] systems operator Crit Value Read Back Y Blood Gas Notified Time 835 Sodium Potassium Chloride Carbon Dioxide Anion Gap BUN Creatinine Est GFR ( Amer) Est GFR (Non-Af Amer) POC Glucose (mg/dL) 329 H 226 H Random Glucose Hemoglobin A1c Calcium Phosphorus Magnesium Total Bilirubin AST ALT Alkaline Phosphatase Total Protein Albumin Globulin Albumin/Globulin Ratio Hep Bs Antigen Hep B Core IgM Ab Hepatitis C Antibody
[2017-04-30] MEDS: Propofol 10 mg/ml 1,000 MG/100 ML VIAL IV PRN ×10 (00:25→23:53)
[2017-04-30] MEDS ORDERED: Insulin Human Regular 100 UNIT in Sodium Chloride 0.9% 99 ML IV SCH ×2 (00:30→08:25)
[2017-04-30] MEDS: Cisatracurium Besylate 100 MG in Dextrose 5% In Water 240 ML IV SCH ×5 (01:51→18:44)
[2017-04-30] MEDS: Insulin Human Regular 100 UNIT in Sodium Chloride 0.9% 99 ML IV SCH ×2 (04:30→06:50)
[2017-04-30 04:45] LABS: ABG ALLEN TEST POS; ABG MECHANICAL RATE 24; ARTERIAL BLOOD GAS MODE PRVC; ARTERIAL BLOOD HGB O2 SAT 97.6 % (95.0-98.0); ATERIAL BLOOD GAS PEEP 10; CARBOXYHEMOGLOBIN 1.4 % (0.5-1.5); DRAW SITE RR; HHB -0.1 % (0.0-5.0); METHEMOGLOBIN 1.1 % (0.0-3.0)
[2017-04-30 06:26] LABS: BASO % 0.3 % (0.0-2.0); EOS % 0.1 % (0.0-4.0); LYMPH # 0.8 K/uL (1.0-4.3); LYMPH % 7.1 % (20.0-40.0); MEAN CORPUSCULAR HEMOGLOBIN 26.8 pg (27.0-31.0); MEAN CORPUSCULAR HGB CONC 33.4 g/dL (33.0-37.0); MEAN PLATELET VOLUME 9.8 fL (7.2-11.7); MONO # 0.8 K/uL (0.0-0.8); MONO % 6.7 % (0.0-10.0); PLATELET COUNT 185 K/uL (130-400); RED CELL DISTRIBUTION WIDTH 14.2 % (11.5-14.5); WHITE BLOOD COUNT 11.3 K/uL (4.8-10.8)
[2017-04-30 06:36] LABS: POTASSIUM 3.5 mmol/L (3.6-5.2)
[2017-04-30 06:38] LABS: BILIRUBIN,TOTAL 0.4 mg/dL (0.2-1.3); TOTAL PROTEIN 5.7 g/dL (6.3-8.3)
[2017-04-30 06:39] LABS: CALCIUM 7.6 mg/dl (8.6-10.4); MAGNESIUM 2.5 mg/dL (1.6-2.3)
--- NOTE | 2017-04-30 06:48 | CP.PCM.PN ---
Subjective - Date & Time of Evaluation Date of Evaluation: 04/30/17 Time of Evaluation: 06:46 - Subjective Subjective: Patient is highly resistant to insulin currently needing 12 units/hr drip, still with no significant improvement in the blood glucose, will start Januvia and temporary hold on the feeding till the control is obtained. Objective - Vital Signs/Intake and Output Vital Signs (last 24 hours): Temp Pulse Resp BP Pulse Ox 98.7 F 108 H 24 98/54 L 100 04/30/17 04:00 04/30/17 06:10 04/30/17 06:10 04/30/17 05:43 04/30/17 06:10 Intake and Output: 04/29/17 04/30/17 18:59 06:59 Intake Total 1358.0 1968.2 Output Total 685 265 Balance 673.0 1703.2 - Medications Medications: Current Medications Albuterol/Ipratropium (Duoneb 3 Mg/0.5 Mg (3 Ml) Ud) 3 ml INH RQ6 PRN PRN Reason: Wheezing Last Admin: 04/29/17 11:29 Dose: 3 ml Calcium Acetate (Phoslo) 667 mg GT TIDCC [facility] Last Admin: 04/29/17 18:15 Dose: Not Given Heparin Sodium (Porcine) (Heparin) 5,000 units SC Q12 [facility] Last Admin: 04/29/17 21:35 Dose: 5,000 units Ceftriaxone Sodium 1 gm/ (Sodium Chloride) 100 mls @ 100 mls/hr IVPB DAILY [facility] Last Admin: 04/29/17 10:09 Dose: 100 mls/hr Sodium Chloride (Sodium Chloride 0.9%) 1,000 mls @ 15 mls/hr IV .Q24H [facility] Last Admin: 04/29/17 19:35 Dose: Not Given Propofol (Diprivan) 1,000 mg in 100 mls @ 2.85 mls/hr IV .Q24H PRN; Protocol; 5 MCG/KG/MIN PRN Reason: TITRATE PER MD ORDER Last Admin: 04/30/17 05:25 Dose: 70 mcg/kg/min, 39.9 mls/hr Cisatracurium Besylate 100 mg/ (Dextrose) 250 mls @ 42.75 mls/hr IV .Q5H51M [facility] ; 3 MCG/KG/MIN PRN Reason: Protocol Last Admin: 04/30/17 01:51 Dose: Not Given Insulin Human Regular 100 unit (/ Sodium Chloride) 100 mls @ 2 mls/hr IV .Q24H [facility] PRN Reason: Protocol Last Admin: 04/30/17 04:30 Dose: 2 mls/hr Metoprolol Tartrate (Lopressor) 25 mg PO BID [facility] Last Admin: 04/29/17 19:38 Dose: 25 mg Pantoprazole Sodium (Protonix Inj) 40 mg IVP DAILY [facility] Last Admin: 04/29/17 10:09 Dose: 40 mg Pneumococcal Polyvalent Vaccine (Pneumovax 23 Vaccine) 0.5 ml IM .ONCE ONE Stop: 04/30/17 14:01 - Labs Labs: 04/30/17 06:14 04/30/17 06:14 PT 13.0 SECONDS (9.7-12.2) H 04/28/17 15:20 INR 1.1 04/28/17 15:20 APTT 28 SECONDS (21-34) 04/28/17 15:20
[2017-04-30] MEDS: Albuterol-Ipratrop 3 mg / 0.5 (3 ml) UD INH PRN ×3 (08:04→19:48)
--- NOTE | 2017-04-30 08:17 | CP.CCUPN ---
<Rahat Christian - Last Filed: 04/30/17 13:09> CCU Subjective - Physician Review Subjective (Free Text): Patient seen and examined at bedside. Patient is intubated and sedated. Glucose in 400s this morning, nepro OGT feeding held until glucose more controlled. ROS not obtained due to current status. Case discussed with house-staff, medical records and chart reviewed and labs discussed. 04/30/17 08:11 CCU Objective - Vital Signs / Intake & Output Vital Signs (Last 4 hours): Vital Signs Pulse Resp BP Pulse Ox 04/30/17 07:00 104 H 24 100 04/30/17 06:50 103 H 24 100 04/30/17 06:42 106 H 24 108/46 L 100 04/30/17 06:40 107 H 24 100 04/30/17 06:30 107 H 24 100 04/30/17 06:20 106 H 24 100 04/30/17 06:12 106 H 24 98/47 L 100 04/30/17 06:10 108 H 24 100 04/30/17 06:00 103 H 24 100 04/30/17 05:50 105 H 24 94 L 04/30/17 05:43 98 H 22 98/54 L 99 04/30/17 05:40 99 H 25 H 100 04/30/17 05:30 104 H 24 100 04/30/17 05:20 100 H 24 100 04/30/17 05:12 101 H 18 98/41 L 100 04/30/17 05:10 102 H 24 100 04/30/17 05:00 102 H 24 100 04/30/17 04:50 102 H 24 99 04/30/17 04:43 100 H 24 104/43 L 98 04/30/17 04:40 100 H 24 99 04/30/17 04:30 99 H 24 99 04/30/17 04:20 102 H 24 100 04/30/17 04:12 115 H 20 125/59 L 100 Intake and Output (Last 8hrs): Intake & Output 04/29/17 04/30/17 04/30/17 22:59 06:59 14:59 Intake Total 1387.3 1204.5 115.4 Output Total 195 180 Balance 1192.3 1024.5 115.4 Weight 202 lb 13.204 oz Intake: IV 561.5 306.5 Intake, IV Amount 655.8 648.0 80.4 Left 307.8 285.0 39.9 Left Antecubital 120 90 Left Proximal Port 228.0 228.0 28.5 Right Wrist 45 12 Tube Feeding 120 250 35 Other 50 Output: Urine 195 180 2-way Urethral 195 180 - Physical Exam Head: Negative for: Atraumatic, Normocephalic Pupils: Positive for: PERRL Extroacular Muscles: Positive for: EOMI Conjunctiva: Positive for: Normal Mouth: Positive for: Moist Mucous Membranes Nose (Internal): Positive for: Normal Inspection Neck: Positive for: Normal Range of Motion Respiratory/Chest: Positive for: Clear to Auscultation, Decreased Breath Sounds. Negative for: Rales, Rhonchi Cardiovascular: Positive for: Regular Rate and Rhythm Abdomen: Positive for: Normal Bowel Sounds. Negative for: Tenderness, Distention, Peritoneal Signs Upper Extremity: Positive for: Normal Inspection. Negative for: Cyanosis Lower Extremity: Positive for: Normal Inspection Neurological: Positive for: GCS=15 Skin: Positive for: Warm Psychiatric: Positive for: Alert, Oriented x 3 - Medications Active Medications: Active Medications Generic Name Dose Route Start Last Admin Trade Name Freq PRN Reason Stop Dose Admin Albuterol/Ipratropium 3 ml 04/28/17 08:00 04/30/17 08:04 Duoneb 3 Mg/0.5 Mg (3 Ml) Ud INH 3 ml RQ6 PRN Administration Wheezing Calcium Acetate 667 mg 04/29/17 14:00 04/29/17 18:15 Phoslo GT Not Given TIDCC CLAUDE Heparin Sodium (Porcine) 5,000 units 04/28/17 10:00 04/29/17 21:35 Heparin SC 5,000 units Q12 CLAUDE Administration Ceftriaxone Sodium 1 gm/ 100 mls @ 100 mls/hr 04/29/17 10:00 04/29/17 10:09 Sodium Chloride IVPB 100 mls/hr DAILY CLAUDE Administration Sodium Chloride 1,000 mls @ 15 mls/hr 04/28/17 20:00 04/29/17 19:35 Sodium Chloride 0.9% IV Not Given .Q24H CLAUDE Propofol 1,000 mg in 100 mls @ 2.85 mls/hr 04/29/17 11:59 04/30/17 05:25 Diprivan IV 70 mcg/kg/min .Q24H PRN 39.9 mls/hr TITRATE PER MD ORDER Administration Protocol 5 MCG/KG/MIN Cisatracurium Besylate 100 mg/ 250 mls @ 42.75 mls/hr 04/29/17 13:15 06:50 Dextrose IV Not Given .[id number] CLAUDE Protocol 3 MCG/KG/MIN Insulin Human Regular 100 unit 100 mls @ 2 mls/hr 04/30/17 04:15 04/30/17 06: 50 / Sodium Chloride IV 2 mls/hr .Q24H CLAUDE Administration Protocol Metoprolol Tartrate 25 mg 04/29/17 19:30 04/29/17 19:38 Lopressor PO 25 mg BID CLAUDE Administration Pantoprazole Sodium 40 mg 04/29/17 10:00 04/29/17 10:09 Protonix Inj IVP 40 mg DAILY CLAUDE Administration Pneumococcal Polyvalent Vaccine 0.5 ml 04/30/17 14:00 Pneumovax 23 Vaccine IM 04/30/17 14:01 .ONCE ONE Sitagliptin Phosphate 25 mg 04/30/17 10:00 Januvia PO DAILY CLAUDE - Patient Studies Lab Studies: Microbiology Studies 04/27/17 23:51 Blood Culture - Preliminary Blood-Venous NO GROWTH AFTER 48 HOURS 04/28/17 14:00 Urine Culture - Final Urine No Growth (<1,000 CFU/ML) Lab Studies 04/30/17 04/30/17 04/30/17 Range/Units 07:54 06:54 06:14 WBC 11.3 H (4.8-10.8) K/uL RBC 4.00 L (4.40-5.90) Mil/uL Hgb 10.7 L (12.0-18.0) g/dL Hct 32.0 L (35.0-51.0) % MCV 80.0 D (80.0-94.0) fL MCH 26.8 L (27.0-31.0) pg MCHC 33.4 (33.0-37.0) g/dL RDW 14.2 (11.5-14.5) % Plt Count 185 (130-400) K/uL MPV 9.8 (7.2-11.7) fL Neut % (Auto) 85.8 H (50.0-75.0) % Lymph % (Auto) 7.1 L (20.0-40.0) % [place] % (Auto) 6.7 (0.0-10.0) % Eos % (Auto) 0.1 (0.0-4.0) % Baso % (Auto) 0.3 (0.0-2.0) % Neut # 9.7 H (1.8-7.0) K/uL Lymph # 0.8 L (1.0-4.3) K/uL [place] # 0.8 (0.0-0.8) K/uL Eos # 0.0 (0.0-0.7) K/uL Baso # 0.0 (0.0-0.2) K/uL Puncture Site pCO2 (35-45) mm/Hg pO2 (80-100) mm/Hg HCO3 (21-28) mmol/L ABG pH (7.35-7.45) ABG Total CO2 (22-28) mmol/L ABG O2 Saturation (95-98) % ABG Base Excess (-2.0-3.0) mmol/L ABG Hemoglobin (11.7-17.4) g/dL ABG Carboxyhemoglobin (0.5-1.5) % POC ABG HHb (Measured) (0.0-5.0) % ABG Methemoglobin (0.0-3.0) % Goran Test A-a O2 Difference mm/Hg Respiratory Index Hgb O2 Saturation (95.0-98.0) % Vent Mode Mechanical Rate FiO2 % Tidal Volume PEEP Crit Value Called To Crit Value Called By Crit Value Read Back Blood Gas Notified Time Sodium (132-148) mmol/L Potassium (3.6-5.2) mmol/L Chloride (98-107) mmol/L Carbon Dioxide (22-30) mmol/L Anion Gap (10-20) BUN (9-20) mg/dL Creatinine (0.8-1.5) MG/DL Est GFR ( Amer) Est GFR (Non-Af Amer) POC Glucose (mg/dL) 296 H 371 H (65-110) mg/dL Random Glucose (75-110) mg/dL Hemoglobin A1c (4.2-6.5) % Calcium (8.6-10.4) mg/dl Phosphorus (2.5-4.5) mg/dL Magnesium (1.6-2.3) mg/dL % Saturation (20-55) Ferritin ng/mL Total Bilirubin (0.2-1.3) mg/dL AST (17-59) U/L ALT (21-72) U/L Alkaline Phosphatase (38-126) U/L Total Protein (6.3-8.3) g/dL Albumin (3.5-5.0) g/dL Globulin (2.2-3.9) gm/dL Albumin/Globulin Ratio (1.0-2.1) Hep Bs Antigen (NEGATIVE) Hep B Core IgM Ab (NEGATIVE) Hepatitis C Antibody (NEGATIVE) 04/30/17 04/30/17 04/30/17 Range/Units 06:14 06:14 05:53 WBC (4.8-10.8) K/uL RBC (4.40-5.90) Mil/uL Hgb (12.0-18.0) g/dL Hct (35.0-51.0) % MCV (80.0-94.0) fL MCH (27.0-31.0) pg MCHC (33.0-37.0) g/dL RDW (11.5-14.5) % Plt Count (130-400) K/uL MPV (7.2-11.7) fL Neut % (Auto) (50.0-75.0) % Lymph % (Auto) (20.0-40.0) % [place] % (Auto) (0.0-10.0) % Eos % (Auto) (0.0-4.0) % Baso % (Auto) (0.0-2.0) % Neut # (1.8-7.0) K/uL Lymph # (1.0-4.3) K/uL [place] # (0.0-0.8) K/uL Eos # (0.0-0.7) K/uL Baso # (0.0-0.2) K/uL Puncture Site pCO2 (35-45) mm/Hg pO2 (80-100) mm/Hg HCO3 (21-28) mmol/L ABG pH (7.35-7.45) ABG Total CO2 (22-28) mmol/L ABG O2 Saturation (95-98) % ABG Base Excess (-2.0-3.0) mmol/L ABG Hemoglobin (11.7-17.4) g/dL ABG Carboxyhemoglobin (0.5-1.5) % POC ABG HHb (Measured) (0.0-5.0) % ABG Methemoglobin (0.0-3.0) % Goran Test A-a O2 Difference mm/Hg Respiratory Index Hgb O2 Saturation (95.0-98.0) % Vent Mode Mechanical Rate FiO2 % Tidal Volume PEEP Crit Value Called To Crit Value Called By Crit Value Read Back Blood Gas Notified Time Sodium 130 L (132-148) mmol/L Potassium 3.5 L (3.6-5.2) mmol/L Chloride 94 L (98-107) mmol/L Carbon Dioxide 20 L (22-30) mmol/L Anion Gap 20 (10-20) BUN 38 H (9-20) mg/dL Creatinine 5.7 H (0.8-1.5) MG/DL Est GFR ( Amer) 14 Est GFR (Non-Af Amer) 11 POC Glucose (mg/dL) 463 H* (65-110) mg/dL Random Glucose 433 H* D (75-110) mg/dL Hemoglobin A1c (4.2-6.5) % Calcium 7.6 L (8.6-10.4) mg/dl Phosphorus 5.0 H (2.5-4.5) mg/dL Magnesium 2.5 H (1.6-2.3) mg/dL % Saturation 9 L (20-55) Ferritin 140.0 ng/mL Total Bilirubin 0.4 (0.2-1.3) mg/dL AST 28 (17-59) U/L ALT 57 (21-72) U/L Alkaline Phosphatase 102 (38-126) U/L Total Protein 5.7 L (6.3-8.3) g/dL Albumin 2.9 L (3.5-5.0) g/dL Globulin 2.8 (2.2-3.9) gm/dL Albumin/Globulin Ratio 1.0 (1.0-2.1) Hep Bs Antigen (NEGATIVE) Hep B Core IgM Ab (NEGATIVE) Hepatitis C Antibody (NEGATIVE) 04/30/17 04/30/17 04/30/17 Range/Units 04:59 04:35 03:56 WBC (4.8-10.8) K/uL RBC (4.40-5.90) Mil/uL Hgb (12.0-18.0) g/dL Hct (35.0-51.0) % MCV (80.0-94.0) fL MCH (27.0-31.0) pg MCHC (33.0-37.0) g/dL RDW (11.5-14.5) % Plt Count (130-400) K/uL MPV (7.2-11.7) fL Neut % (Auto) (50.0-75.0) % Lymph % (Auto) (20.0-40.0) % [place] % (Auto) (0.0-10.0) % Eos % (Auto) (0.0-4.0) % Baso % (Auto) (0.0-2.0) % Neut # (1.8-7.0) K/uL Lymph # (1.0-4.3) K/uL [place] # (0.0-0.8) K/uL Eos # (0.0-0.7) K/uL Baso # (0.0-0.2) K/uL Puncture Site Rr pCO2 45 (35-45) mm/Hg pO2 214 H (80-100) mm/Hg HCO3 20.6 L (21-28) mmol/L ABG pH 7.28 L (7.35-7.45) ABG Total CO2 22.5 (22-28) mmol/L ABG O2 Saturation 100.1 H (95-98) % ABG Base Excess -5.6 L (-2.0-3.0) mmol/L ABG Hemoglobin 12.8 (11.7-17.4) g/dL ABG Carboxyhemoglobin 1.4 (0.5-1.5) % POC ABG HHb (Measured) -0.1 L (0.0-5.0) % ABG Methemoglobin 1.1 (0.0-3.0) % Goran Test Pos A-a O2 Difference 300.0 mm/Hg Respiratory Index 1.4 Hgb O2 Saturation 97.6 (95.0-98.0) % Vent Mode Prvc Mechanical Rate 24 FiO2 80.0 % Tidal Volume 500 PEEP 10 Crit Value Called To Crit Value Called By Crit Value Read Back Blood Gas Notified Time Sodium (132-148) mmol/L Potassium (3.6-5.2) mmol/L Chloride (98-107) mmol/L Carbon Dioxide (22-30) mmol/L Anion Gap (10-20) BUN (9-20) mg/dL Creatinine (0.8-1.5) MG/DL Est GFR ( Amer) Est GFR (Non-Af Amer) POC Glucose (mg/dL) 472 H* 464 H* (65-110) mg/dL Random Glucose (75-110) mg/dL Hemoglobin A1c (4.2-6.5) % Calcium (8.6-10.4) mg/dl Phosphorus (2.5-4.5) mg/dL Magnesium (1.6-2.3) mg/dL % Saturation (20-55) Ferritin ng/mL Total Bilirubin (0.2-1.3) mg/dL AST (17-59) U/L ALT (21-72) U/L Alkaline Phosphatase (38-126) U/L Total Protein (6.3-8.3) g/dL Albumin (3.5-5.0) g/dL Globulin (2.2-3.9) gm/dL Albumin/Globulin Ratio (1.0-2.1) Hep Bs Antigen (NEGATIVE) Hep B Core IgM Ab (NEGATIVE) Hepatitis C Antibody (NEGATIVE) 04/30/17 04/30/17 04/30/17 Range/Units 02:48 01:53 00:14 WBC (4.8-10.8) K/uL RBC (4.40-5.90) Mil/uL Hgb (12.0-18.0) g/dL Hct (35.0-51.0) % MCV (80.0-94.0) fL MCH (27.0-31.0) pg MCHC (33.0-37.0) g/dL RDW (11.5-14.5) % Plt Count (130-400) K/uL MPV (7.2-11.7) fL Neut % (Auto) (50.0-75.0) % Lymph % (Auto) (20.0-40.0) % [place] % (Auto) (0.0-10.0) % Eos % (Auto) (0.0-4.0) % Baso % (Auto) (0.0-2.0) % Neut # (1.8-7.0) K/uL Lymph # (1.0-4.3) K/uL [place] # (0.0-0.8) K/uL Eos # (0.0-0.7) K/uL Baso # (0.0-0.2) K/uL Puncture Site pCO2 (35-45) mm/Hg pO2 (80-100) mm/Hg HCO3 (21-28) mmol/L ABG pH (7.35-7.45) ABG Total CO2 (22-28) mmol/L ABG O2 Saturation (95-98) % ABG Base Excess (-2.0-3.0) mmol/L ABG Hemoglobin (11.7-17.4) g/dL ABG Carboxyhemoglobin (0.5-1.5) % POC ABG HHb (Measured) (0.0-5.0) % ABG Methemoglobin (0.0-3.0) % Goran Test A-a O2 Difference mm/Hg Respiratory Index Hgb O2 Saturation (95.0-98.0) % Vent Mode Mechanical Rate FiO2 % Tidal Volume PEEP Crit Value Called To Crit Value Called By Crit Value Read Back Blood Gas Notified Time Sodium (132-148) mmol/L Potassium (3.6-5.2) mmol/L Chloride (98-107) mmol/L Carbon Dioxide (22-30) mmol/L Anion Gap (10-20) BUN (9-20) mg/dL Creatinine (0.8-1.5) MG/DL Est GFR ( Amer) Est GFR (Non-Af Amer) POC Glucose (mg/dL) 447 H* 421 H* 416 H* (65-110) mg/dL Random Glucose (75-110) mg/dL Hemoglobin A1c (4.2-6.5) % Calcium (8.6-10.4) mg/dl Phosphorus (2.5-4.5) mg/dL Magnesium (1.6-2.3) mg/dL % Saturation (20-55) Ferritin ng/mL Total Bilirubin (0.2-1.3) mg/dL AST (17-59) U/L ALT (21-72) U/L Alkaline Phosphatase (38-126) U/L Total Protein (6.3-8.3) g/dL Albumin (3.5-5.0) g/dL Globulin (2.2-3.9) gm/dL Albumin/Globulin Ratio (1.0-2.1) Hep Bs Antigen (NEGATIVE) Hep B Core IgM Ab (NEGATIVE) Hepatitis C Antibody (NEGATIVE) 04/29/17 04/29/17 04/29/17 Range/Units 17:44 11:38 08:25 WBC (4.8-10.8) K/uL RBC (4.40-5.90) Mil/uL Hgb (12.0-18.0) g/dL Hct (35.0-51.0) % MCV (80.0-94.0) fL MCH (27.0-31.0) pg MCHC (33.0-37.0) g/dL RDW (11.5-14.5) % Plt Count (130-400) K/uL MPV (7.2-11.7) fL Neut % (Auto) (50.0-75.0) % Lymph % (Auto) (20.0-40.0) % [place] % (Auto) (0.0-10.0) % Eos % (Auto) (0.0-4.0) % Baso % (Auto) (0.0-2.0) % Neut # (1.8-7.0) K/uL Lymph # (1.0-4.3) K/uL [place] # (0.0-0.8) K/uL Eos # (0.0-0.7) K/uL Baso # (0.0-0.2) K/uL Puncture Site Lb pCO2 41 (35-45) mm/Hg pO2 148 H (80-100) mm/Hg HCO3 22.6 (21-28) mmol/L ABG pH 7.35 (7.35-7.45) ABG Total CO2 23.9 (22-28) mmol/L ABG O2 Saturation 99.4 H (95-98) % ABG Base Excess -2.9 L (-2.0-3.0) mmol/L ABG Hemoglobin 13.3 (11.7-17.4) g/dL ABG Carboxyhemoglobin 1.3 (0.5-1.5) % POC ABG HHb (Measured) 0.6 (0.0-5.0) % ABG Methemoglobin 1.6 (0.0-3.0) % Goran Test Na A-a O2 Difference 514.0 mm/Hg Respiratory Index 3.5 Hgb O2 Saturation 96.6 (95.0-98.0) % Vent Mode Mechanical Rate 26 FiO2 100.0 % Tidal Volume 450 PEEP 10 Crit Value Called To Dr curiel Crit Value Called By Polo pettit date night caregiver Crit Value Read Back Y Blood Gas Notified Time 835 Sodium (132-148) mmol/L Potassium (3.6-5.2) mmol/L Chloride (98-107) mmol/L Carbon Dioxide (22-30) mmol/L Anion Gap (10-20) BUN (9-20) mg/dL Creatinine (0.8-1.5) MG/DL Est GFR ( Amer) Est GFR (Non-Af Amer) POC Glucose (mg/dL) 226 H 329 H (65-110) mg/dL Random Glucose (75-110) mg/dL Hemoglobin A1c (4.2-6.5) % Calcium (8.6-10.4) mg/dl Phosphorus (2.5-4.5) mg/dL Magnesium (1.6-2.3) mg/dL % Saturation (20-55) Ferritin ng/mL Total Bilirubin (0.2-1.3) mg/dL AST (17-59) U/L ALT (21-72) U/L Alkaline Phosphatase (38-126) U/L Total Protein (6.3-8.3) g/dL Albumin (3.5-5.0) g/dL Globulin (2.2-3.9) gm/dL Albumin/Globulin Ratio (1.0-2.1) Hep Bs Antigen (NEGATIVE) Hep B Core IgM Ab (NEGATIVE) Hepatitis C Antibody (NEGATIVE) 04/29/17 04/28/17 Range/Units 00:28 10:06 WBC (4.8-10.8) K/uL RBC (4.40-5.90) Mil/uL Hgb (12.0-18.0) g/dL Hct (35.0-51.0) % MCV (80.0-94.0) fL MCH (27.0-31.0) pg MCHC (33.0-37.0) g/dL RDW (11.5-14.5) % Plt Count (130-400) K/uL MPV (7.2-11.7) fL Neut % (Auto) (50.0-75.0) % Lymph % (Auto) (20.0-40.0) % [place] % (Auto) (0.0-10.0) % Eos % (Auto) (0.0-4.0) % Baso % (Auto) (0.0-2.0) % Neut # (1.8-7.0) K/uL Lymph # (1.0-4.3) K/uL [place] # (0.0-0.8) K/uL Eos # (0.0-0.7) K/uL Baso # (0.0-0.2) K/uL Puncture Site pCO2 (35-45) mm/Hg pO2 (80-100) mm/Hg HCO3 (21-28) mmol/L ABG pH (7.35-7.45) ABG Total CO2 (22-28) mmol/L ABG O2 Saturation (95-98) % ABG Base Excess (-2.0-3.0) mmol/L ABG Hemoglobin (11.7-17.4) g/dL ABG Carboxyhemoglobin (0.5-1.5) % POC ABG HHb (Measured) (0.0-5.0) % ABG Methemoglobin (0.0-3.0) % Goran Test A-a O2 Difference mm/Hg Respiratory Index Hgb O2 Saturation (95.0-98.0) % Vent Mode Mechanical Rate FiO2 % Tidal Volume PEEP Crit Value Called To Crit Value Called By Crit Value Read Back Blood Gas Notified Time Sodium (132-148) mmol/L Potassium (3.6-5.2) mmol/L Chloride (98-107) mmol/L Carbon Dioxide (22-30) mmol/L Anion Gap (10-20) BUN (9-20) mg/dL Creatinine (0.8-1.5) MG/DL Est GFR ( Amer) Est GFR (Non-Af Amer) POC Glucose (mg/dL) (65-110) mg/dL Random Glucose (75-110) mg/dL Hemoglobin A1c 7.4 H (4.2-6.5) % Calcium (8.6-10.4) mg/dl Phosphorus (2.5-4.5) mg/dL Magnesium (1.6-2.3) mg/dL % Saturation (20-55) Ferritin ng/mL Total Bilirubin (0.2-1.3) mg/dL AST (17-59) U/L ALT (21-72) U/L Alkaline Phosphatase (38-126) U/L Total Protein (6.3-8.3) g/dL Albumin (3.5-5.0) g/dL Globulin (2.2-3.9) gm/dL Albumin/Globulin Ratio (1.0-2.1) Hep Bs Antigen Negative (NEGATIVE) Hep B Core IgM Ab Negative (NEGATIVE) Hepatitis C Antibody Negative (NEGATIVE) Laboratory Results - last 24 hr 04/28/17 04/29/17 04/29/17 10:06 00:28 08:25 WBC RBC Hgb Hct MCV MCH MCHC RDW Plt Count MPV Neut % (Auto) Lymph % (Auto) [place] % (Auto) Eos % (Auto) Baso % (Auto) Neut # Lymph # [place] # Eos # Baso # Puncture Site Lb pCO2 41 pO2 148 H HCO3 22.6 ABG pH 7.35 ABG Total CO2 23.9 ABG O2 Saturation 99.4 H ABG Base Excess -2.9 L ABG Hemoglobin 13.3 ABG Carboxyhemoglobin 1.3 POC ABG HHb (Measured) 0.6 ABG Methemoglobin 1.6 Goran Test Na A-a O2 Difference 514.0 Respiratory Index 3.5 Hgb O2 Saturation 96.6 Vent Mode Mechanical Rate 26 FiO2 100.0 Tidal Volume 450 PEEP 10 Crit Value Called To Dr curiel Crit Value Called By Polo pettit date night caregiver Crit Value Read Back Y Blood Gas Notified Time 835 Sodium Potassium Chloride Carbon Dioxide Anion Gap BUN Creatinine Est GFR ( Amer) Est GFR (Non-Af Amer) POC Glucose (mg/dL) Random Glucose Hemoglobin A1c 7.4 H Calcium Phosphorus Magnesium % Saturation Ferritin Total Bilirubin AST ALT Alkaline Phosphatase Total Protein Albumin Globulin Albumin/Globulin Ratio Hep Bs Antigen Negative Hep B Core IgM Ab Negative Hepatitis C Antibody Negative 04/29/17 04/29/17 04/30/17 11:38 17:44 00:14 WBC RBC Hgb Hct MCV MCH MCHC RDW Plt Count MPV Neut % (Auto) Lymph % (Auto) [place] % (Auto) Eos % (Auto) Baso % (Auto) Neut # Lymph # [place] # Eos # Baso # Puncture Site pCO2 pO2 HCO3 ABG pH ABG Total CO2 ABG O2 Saturation ABG Base Excess ABG Hemoglobin ABG Carboxyhemoglobin POC ABG HHb (Measured) ABG Methemoglobin Goran Test A-a O2 Difference Respiratory Index Hgb O2 Saturation Vent Mode Mechanical Rate FiO2 Tidal Volume PEEP Crit Value Called To Crit Value Called By Crit Value Read Back Blood Gas Notified Time Sodium Potassium Chloride Carbon Dioxide Anion Gap BUN Creatinine Est GFR ( Amer) Est GFR (Non-Af Amer) POC Glucose (mg/dL) 329 H 226 H 416 H* Random Glucose Hemoglobin A1c Calcium Phosphorus Magnesium % Saturation Ferritin Total Bilirubin AST ALT Alkaline Phosphatase Total Protein Albumin Globulin Albumin/Globulin Ratio Hep Bs Antigen Hep B Core IgM Ab Hepatitis C Antibody 04/30/17 04/30/17 04/30/17 01:53 02:48 03:56 WBC RBC Hgb Hct MCV MCH MCHC RDW Plt Count MPV Neut % (Auto) Lymph % (Auto) [place] % (Auto) Eos % (Auto) Baso % (Auto) Neut # Lymph # [place] # Eos # Baso # Puncture Site pCO2 pO2 HCO3 ABG pH ABG Total CO2 ABG O2 Saturation ABG Base Excess ABG Hemoglobin ABG Carboxyhemoglobin POC ABG HHb (Measured) ABG Methemoglobin Goran Test A-a O2 Difference Respiratory Index Hgb O2 Saturation Vent Mode Mechanical Rate FiO2 Tidal Volume PEEP Crit Value Called To Crit Value Called By Crit Value Read Back Blood Gas Notified Time Sodium Potassium Chloride Carbon Dioxide Anion Gap BUN Creatinine Est GFR ( Amer) Est GFR (Non-Af Amer) POC Glucose (mg/dL) 421 H* 447 H* 464 H* Random Glucose Hemoglobin A1c Calcium Phosphorus Magnesium % Saturation Ferritin Total Bilirubin AST ALT Alkaline Phosphatase Total Protein Albumin Globulin Albumin/Globulin Ratio Hep Bs Antigen Hep B Core IgM Ab Hepatitis C Antibody 04/30/17 04/30/17 04/30/17 04:35 04:59 05:53 WBC RBC Hgb Hct MCV MCH MCHC RDW Plt Count MPV Neut % (Auto) Lymph % (Auto) [place] % (Auto) Eos % (Auto) Baso % (Auto) Neut # Lymph # [place] # Eos # Baso # Puncture Site Rr pCO2 45 pO2 214 H HCO3 20.6 L ABG pH 7.28 L ABG Total CO2 22.5 ABG O2 Saturation 100.1 H ABG Base Excess -5.6 L ABG Hemoglobin 12.8 ABG Carboxyhemoglobin 1.4 POC ABG HHb (Measured) -0.1 L ABG Methemoglobin 1.1 Goran Test Pos A-a O2 Difference 300.0 Respiratory Index 1.4 Hgb O2 Saturation 97.6 Vent Mode Prvc Mechanical Rate 24 FiO2 80.0 Tidal Volume 500 PEEP 10 Crit Value Called To Crit Value Called By Crit Value Read Back Blood Gas Notified Time Sodium Potassium Chloride Carbon Dioxide Anion Gap BUN Creatinine Est GFR ( Amer) Est GFR (Non-Af Amer) POC Glucose (mg/dL) 472 H* 463 H* Random Glucose Hemoglobin A1c Calcium Phosphorus Magnesium % Saturation Ferritin Total Bilirubin AST ALT Alkaline Phosphatase Total Protein Albumin Globulin Albumin/Globulin Ratio Hep Bs Antigen Hep B Core IgM Ab Hepatitis C Antibody 04/30/17 04/30/17 04/30/17 06:14 06:14 06:14 WBC 11.3 H RBC 4.00 L Hgb 10.7 L Hct 32.0 L MCV 80.0 D MCH 26.8 L MCHC 33.4 RDW 14.2 Plt Count 185 MPV 9.8 Neut % (Auto) 85.8 H Lymph % (Auto) 7.1 L [place] % (Auto) 6.7 Eos % (Auto) 0.1 Baso % (Auto) 0.3 Neut # 9.7 H Lymph # 0.8 L [place] # 0.8 Eos # 0.0 Baso # 0.0 Puncture Site pCO2 pO2 HCO3 ABG pH ABG Total CO2 ABG O2 Saturation ABG Base Excess ABG Hemoglobin ABG Carboxyhemoglobin POC ABG HHb (Measured) ABG Methemoglobin Goran Test A-a O2 Difference Respiratory Index Hgb O2 Saturation Vent Mode Mechanical Rate FiO2 Tidal Volume PEEP Crit Value Called To Crit Value Called By Crit Value Read Back Blood Gas Notified Time Sodium 130 L Potassium 3.5 L Chloride 94 L Carbon Dioxide 20 L Anion Gap 20 BUN 38 H Creatinine 5.7 H Est GFR ( Amer) 14 Est GFR (Non-Af Amer) 11 POC Glucose (mg/dL) Random Glucose 433 H* D Hemoglobin A1c Calcium 7.6 L Phosphorus 5.0 H Magnesium 2.5 H % Saturation 9 L Ferritin 140.0 Total Bilirubin 0.4 AST 28 ALT 57 Alkaline Phosphatase 102 Total Protein 5.7 L Albumin 2.9 L Globulin 2.8 Albumin/Globulin Ratio 1.0 Hep Bs Antigen Hep B Core IgM Ab Hepatitis C Antibody 04/30/17 04/30/17 06:54 07:54 WBC RBC Hgb Hct MCV MCH MCHC RDW Plt Count MPV Neut % (Auto) Lymph % (Auto) [place] % (Auto) Eos % (Auto) Baso % (Auto) Neut # Lymph # [place] # Eos # Baso # Puncture Site pCO2 pO2 HCO3 ABG pH ABG Total CO2 ABG O2 Saturation ABG Base Excess ABG Hemoglobin ABG Carboxyhemoglobin POC ABG HHb (Measured) ABG Methemoglobin [place]an Test A-a O2 Difference Respiratory Index Hgb O2 Saturation Vent Mode Mechanical Rate FiO2 Tidal Volume PEEP Crit Value Called To Crit Value Called By Crit Value Read Back Blood Gas Notified Time Sodium Potassium Chloride Carbon Dioxide Anion Gap BUN Creatinine Est GFR ( Amer) Est GFR (Non-Af Amer) POC Glucose (mg/dL) 371 H 296 H Random Glucose Hemoglobin A1c Calcium Phosphorus Magnesium % Saturation Ferritin Total Bilirubin AST ALT Alkaline Phosphatase Total Protein Albumin Globulin Albumin/Globulin Ratio Hep Bs Antigen Hep B Core IgM Ab Hepatitis C Antibody Fingerstick Blood Sugar Results: 371 Review of Systems - Review of Systems Systems not reviewed;Unavailable: Intubated Critical Care Progress Note - Vent Settings TIDAL VOLUME:: 500 RESP RATE:: 24 FIO2:: 80 PEEP:: 5 - Nutrition Nutrition: Nutrition Category Date Time Status NPO Diet [DIET] Diets 04/28/17 Breakfast Active Assessment/Plan - Assessment and Plan (Free Text) Assessment: 36 year old male with PMHx DM, Sleep Apnea, AFib, HTN presenting with SOB, hemoptysis and WILEY Pulm: Pulmonary edema, SOB - Intubated (since 04/28) on prvc. Sedated on Propofol 1,000mg and paralyzed on Cistracurium 100 mg - CXR 04/28: pulmonary edema - Will continue to monitor BP and titrate Propofol and Cistracurium as tolerated - Duoneb 3 ml INH RQ6 Nephro: renal insufficiency - Dr. Limon on board, help appreciated - completed hemodialysis 2x - BUN/Cr elevated, downtrending - Presence of WILEY with worsening respiratory status, will f/u serology studies - U/S renal 04/28/17 w/ echogenic kidneys - consider renal biopsy when stable - Strict I/O control Cardio: AFib, HTN - Consult Cardiology, f/u reccs - Echo 04/29/17 EF 65-70%, LVSF normal, LVDF normal, trace mitral regurgitation, mild pulmonary hypertension - Lopressor 25 mg PO BID ID: elevated WBCs, elevated procalcitonin - Procalcitonin 17.95 - Ur Cx negative, Blood Cx negative - Hepatitis Bs Ag, Hep B Core IgM, Hep C ab : Negative - Ceftriaxone 1 gm IV daily Endo: h/o DM - Elevated blood sugar: 433 today - Patient has a history of hypoglycemic episodes with home insulin - Continue low dose insulin protocol - Sitagliptin 25mg po daily - Continue accuchecks Neuro: - Propofol and Cistracurium - UDS negative Prophylaxis: DVT: Heparin 5,000 U SC daily GI: Protonix 40 mg IV Q12 Fluids: NS 15 cc/hr daily <Randy Valero - Last Filed: 04/30/17 18:04> CCU Objective - Vital Signs / Intake & Output Vital Signs (Last 4 hours): Vital Signs Pulse Resp BP Pulse Ox 04/30/17 17:00 99 H 24 99 04/30/17 16:50 99 H 24 99 04/30/17 16:42 101 H 24 107/55 L 99 04/30/17 16:40 101 H 24 99 04/30/17 16:30 101 H 24 100 04/30/17 16:20 101 H 24 100 04/30/17 16:12 101 H 24 110/54 L 100 04/30/17 16:10 102 H 24 100 04/30/17 16:00 101 H 24 99 04/30/17 15:50 100 H 24 100 /12/17 15:42 99 H 24 107/47 L 100 04/30/17 15:40 99 H 24 04/30/17 15:30 100 H 24 04/30/17 15:20 99 H 24 04/30/17 15:12 98 H 24 100/43 L 04/30/17 15:10 97 H 24 04/30/17 15:00 96 H 24 04/30/17 14:50 96 H 24 04/30/17 14:43 97 H 24 96/39 L 04/30/17 14:40 96 H 24 04/30/17 14:30 96 H 24 04/30/17 14:20 98 H 24 04/30/17 14:13 105 H 24 105/43 L 04/30/17 14:10 104 H 24 100 Intake and Output (Last 8hrs): Intake & Output 04/30/17 04/30/17 04/30/17 06:59 14:59 22:59 Intake Total 1204.5 1082.6 159.2 Output Total 180 275 85 Balance 1024.5 807.6 74.2 Weight 202 lb 13.204 oz Intake: IV 306.5 454 Intake, IV Amount 648.0 593.6 159.2 Left 285.0 329.6 90.2 Left Antecubital 90 Left Proximal Port 228.0 228.0 57.0 Right Wrist 45 36 12 Tube Feeding 250 35 Output: Urine 180 275 85 2-way Urethral 180 275 85 Other: # Bowel Movements 0 0 - Medications Active Medications: Active Medications Generic Name Dose Route Start Last Admin Trade Name Freq PRN Reason Stop Dose Admin Albuterol/Ipratropium 3 ml 04/28/17 08:00 04/30/17 13:45 Duoneb 3 Mg/0.5 Mg (3 Ml) Ud INH 3 ml RQ6 PRN Administration Wheezing Calcium Acetate 667 mg 04/29/17 14:00 04/30/17 13:59 Phoslo GT 667 mg TIDCC CLAUDE Administration Heparin Sodium (Porcine) 5,000 units 04/28/17 10:00 04/30/17 10:11 Heparin SC 5,000 units Q12 CLAUDE Administration Ceftriaxone Sodium 1 gm/ 100 mls @ 100 mls/hr 04/29/17 10:00 04/30/17 10:12 Sodium Chloride IVPB 100 mls/hr DAILY CLAUDE Administration Sodium Chloride 1,000 mls @ 15 mls/hr 04/28/17 20:00 04/29/17 19:35 Sodium Chloride 0.9% IV Not Given .Q24H CLAUDE Propofol 1,000 mg in 100 mls @ 2.85 mls/hr 04/29/17 11:59 04/30/17 11:52 Diprivan IV 80 mcg/kg/min .Q24H PRN 45.6 mls/hr TITRATE PER MD ORDER Administration Protocol 5 MCG/KG/MIN Cisatracurium Besylate 100 mg/ 250 mls @ 42.75 mls/hr 04/29/17 13:15 08:15 Dextrose IV 2 mcg/kg/min .Q5H51M CLAUDE 28.5 mls/hr Protocol Administration 3 MCG/KG/MIN Insulin Human Regular 100 unit 100 mls @ 2 mls/hr 04/30/17 08:25 04/30/17 13: 00 / Sodium Chloride IV 0 units/kg/min .Q24H CLAUDE 4 mls/hr Protocol Titration Metoprolol Tartrate 25 mg 04/29/17 19:30 04/30/17 10:11 Lopressor PO 25 mg BID CLAUDE Administration Pantoprazole Sodium 40 mg 04/29/17 10:00 04/30/17 10:12 Protonix Inj IVP 40 mg DAILY CLAUDE Administration Sitagliptin Phosphate 25 mg 04/30/17 10:00 04/30/17 10:11 Januvia PO 25 mg DAILY CLAUDE Administration - Patient Studies Lab Studies: Microbiology Studies 04/27/17 23:51 Blood Culture - Preliminary Blood-Venous NO GROWTH AFTER 48 HOURS Lab Studies 04/30/17 04/30/17 04/30/17 Range/Units 17:07 16:03 15:30 WBC (4.8-10.8) K/uL RBC (4.40-5.90) Mil/uL Hgb (12.0-18.0) g/dL Hct (35.0-51.0) % MCV (80.0-94.0) fL MCH (27.0-31.0) pg MCHC (33.0-37.0) g/dL RDW (11.5-14.5) % Plt Count (130-400) K/uL MPV (7.2-11.7) fL Neut % (Auto) (50.0-75.0) % Lymph % (Auto) (20.0-40.0) % [place] % (Auto) (0.0-10.0) % Eos % (Auto) (0.0-4.0) % Baso % (Auto) (0.0-2.0) % Neut # (1.8-7.0) K/uL Lymph # (1.0-4.3) K/uL [place] # (0.0-0.8) K/uL Eos # (0.0-0.7) K/uL Baso # (0.0-0.2) K/uL Neutrophils % (Manual) (50-75) % Lymphocytes % (Manual) (20-40) % Monocytes % (Manual) (0-10) % Platelet Estimate (NORMAL) Hypochromasia (manual) Puncture Site Rra pCO2 34 L (35-45) mm/Hg pO2 143 H (80-100) mm/Hg HCO3 23.5 (21-28) mmol/L ABG pH 7.42 (7.35-7.45) ABG Total CO2 23.1 (22-28) mmol/L ABG O2 Saturation 99.9 H (95-98) % ABG Base Excess -1.9 (-2.0-3.0) mmol/L ABG Hemoglobin 10.0 L (11.7-17.4) g/dL ABG Carboxyhemoglobin 1.4 (0.5-1.5) % POC ABG HHb (Measured) 0.1 (0.0-5.0) % ABG Methemoglobin 1.3 (0.0-3.0) % Goran Test Pos A-a O2 Difference 242.0 mm/Hg Respiratory Index 1.7 Hgb O2 Saturation 97.1 (95.0-98.0) % Vent Mode Prvc Mechanical Rate 24 FiO2 60.0 % Tidal Volume 500 PEEP 5 Sodium (132-148) mmol/L Potassium (3.6-5.2) mmol/L Chloride (98-107) mmol/L Carbon Dioxide (22-30) mmol/L Anion Gap (10-20) BUN (9-20) mg/dL Creatinine (0.8-1.5) MG/DL Est GFR ( Amer) Est GFR (Non-Af Amer) POC Glucose (mg/dL) 261 H 273 H (65-110) mg/dL Random Glucose (75-110) mg/dL Calcium (8.6-10.4) mg/dl Phosphorus (2.5-4.5) mg/dL Magnesium (1.6-2.3) mg/dL % Saturation (20-55) Ferritin ng/mL Total Bilirubin (0.2-1.3) mg/dL AST (17-59) U/L ALT (21-72) U/L Alkaline Phosphatase (38-126) U/L Total Protein (6.3-8.3) g/dL Albumin (3.5-5.0) g/dL Globulin (2.2-3.9) gm/dL Albumin/Globulin Ratio (1.0-2.1) Procalcitonin (0.19-0.49) NG/ML Urine Eosinophils (NEGATIVE) Ur Random Creatinine mg/dL U Random Total Protein 04/30/17 04/30/17 04/30/17 Range/Units 15:15 14:04 13:45 WBC (4.8-10.8) K/uL RBC (4.40-5.90) Mil/uL Hgb (12.0-18.0) g/dL Hct (35.0-51.0) % MCV (80.0-94.0) fL MCH (27.0-31.0) pg MCHC (33.0-37.0) g/dL RDW (11.5-14.5) % Plt Count (130-400) K/uL MPV (7.2-11.7) fL Neut % (Auto) (50.0-75.0) % Lymph % (Auto) (20.0-40.0) % [place] % (Auto) (0.0-10.0) % Eos % (Auto) (0.0-4.0) % Baso % (Auto) (0.0-2.0) % Neut # (1.8-7.0) K/uL Lymph # (1.0-4.3) K/uL [place] # (0.0-0.8) K/uL Eos # (0.0-0.7) K/uL Baso # (0.0-0.2) K/uL Neutrophils % (Manual) (50-75) % Lymphocytes % (Manual) (20-40) % Monocytes % (Manual) (0-10) % Platelet Estimate (NORMAL) Hypochromasia (manual) Puncture Site pCO2 (35-45) mm/Hg pO2 (80-100) mm/Hg HCO3 (21-28) mmol/L ABG pH (7.35-7.45) ABG Total CO2 (22-28) mmol/L ABG O2 Saturation (95-98) % ABG Base Excess (-2.0-3.0) mmol/L ABG Hemoglobin (11.7-17.4) g/dL ABG Carboxyhemoglobin (0.5-1.5) % POC ABG HHb (Measured) (0.0-5.0) % ABG Methemoglobin (0.0-3.0) % Goran Test A-a O2 Difference mm/Hg Respiratory Index Hgb O2 Saturation (95.0-98.0) % Vent Mode Mechanical Rate FiO2 % Tidal Volume PEEP Sodium (132-148) mmol/L Potassium (3.6-5.2) mmol/L Chloride (98-107) mmol/L Carbon Dioxide (22-30) mmol/L Anion Gap (10-20) BUN (9-20) mg/dL Creatinine (0.8-1.5) MG/DL Est GFR ( Amer) Est GFR (Non-Af Amer) POC Glucose (mg/dL) 266 H 243 H 231 H (65-110) mg/dL Random Glucose (75-110) mg/dL Calcium (8.6-10.4) mg/dl Phosphorus (2.5-4.5) mg/dL Magnesium (1.6-2.3) mg/dL % Saturation (20-55) Ferritin ng/mL Total Bilirubin (0.2-1.3) mg/dL AST (17-59) U/L ALT (21-72) U/L Alkaline Phosphatase (38-126) U/L Total Protein (6.3-8.3) g/dL Albumin (3.5-5.0) g/dL Globulin (2.2-3.9) gm/dL Albumin/Globulin Ratio (1.0-2.1) Procalcitonin (0.19-0.49) NG/ML Urine Eosinophils (NEGATIVE) Ur Random Creatinine mg/dL U Random Total Protein 04/30/17 04/30/17 04/30/17 Range/Units 13:07 13:07 13:07 WBC (4.8-10.8) K/uL RBC (4.40-5.90) Mil/uL Hgb (12.0-18.0) g/dL Hct (35.0-51.0) % MCV (80.0-94.0) fL MCH (27.0-31.0) pg MCHC (33.0-37.0) g/dL RDW (11.5-14.5) % Plt Count (130-400) K/uL MPV (7.2-11.7) fL Neut % (Auto) (50.0-75.0) % Lymph % (Auto) (20.0-40.0) % [place] % (Auto) (0.0-10.0) % Eos % (Auto) (0.0-4.0) % Baso % (Auto) (0.0-2.0) % Neut # (1.8-7.0) K/uL Lymph # (1.0-4.3) K/uL [place] # (0.0-0.8) K/uL Eos # (0.0-0.7) K/uL Baso # (0.0-0.2) K/uL Neutrophils % (Manual) (50-75) % Lymphocytes % (Manual) (20-40) % Monocytes % (Manual) (0-10) % Platelet Estimate (NORMAL) Hypochromasia (manual) Puncture Site pCO2 (35-45) mm/Hg pO2 (80-100) mm/Hg HCO3 (21-28) mmol/L ABG pH (7.35-7.45) ABG Total CO2 (22-28) mmol/L ABG O2 Saturation (95-98) % ABG Base Excess (-2.0-3.0) mmol/L ABG Hemoglobin (11.7-17.4) g/dL ABG Carboxyhemoglobin (0.5-1.5) % POC ABG HHb (Measured) (0.0-5.0) % ABG Methemoglobin (0.0-3.0) % Goran Test A-a O2 Difference mm/Hg Respiratory Index Hgb O2 Saturation (95.0-98.0) % Vent Mode Mechanical Rate FiO2 % Tidal Volume PEEP Sodium (132-148) mmol/L Potassium (3.6-5.2) mmol/L Chloride (98-107) mmol/L Carbon Dioxide (22-30) mmol/L Anion Gap (10-20) BUN (9-20) mg/dL Creatinine (0.8-1.5) MG/DL Est GFR ( Amer) Est GFR (Non-Af Amer) POC Glucose (mg/dL) (65-110) mg/dL Random Glucose (75-110) mg/dL Calcium (8.6-10.4) mg/dl Phosphorus (2.5-4.5) mg/dL Magnesium (1.6-2.3) mg/dL % Saturation (20-55) Ferritin ng/mL Total Bilirubin (0.2-1.3) mg/dL AST (17-59) U/L ALT (21-72) U/L Alkaline Phosphatase (38-126) U/L Total Protein (6.3-8.3) g/dL Albumin (3.5-5.0) g/dL Globulin (2.2-3.9) gm/dL Albumin/Globulin Ratio (1.0-2.1) Procalcitonin (0.19-0.49) NG/ML Urine Eosinophils Positive H (NEGATIVE) Ur Random Creatinine 118.7 mg/dL U Random Total Protein 100.0 H Cancelled 04/30/17 04/30/17 04/30/17 Range/Units 12:17 10:49 10:01 WBC (4.8-10.8) K/uL RBC (4.40-5.90) Mil/uL Hgb (12.0-18.0) g/dL Hct (35.0-51.0) % MCV (80.0-94.0) fL MCH (27.0-31.0) pg MCHC (33.0-37.0) g/dL RDW (11.5-14.5) % Plt Count (130-400) K/uL MPV (7.2-11.7) fL Neut % (Auto) (50.0-75.0) % Lymph % (Auto) (20.0-40.0) % [place] % (Auto) (0.0-10.0) % Eos % (Auto) (0.0-4.0) % Baso % (Auto) (0.0-2.0) % Neut # (1.8-7.0) K/uL Lymph # (1.0-4.3) K/uL [place] # (0.0-0.8) K/uL Eos # (0.0-0.7) K/uL Baso # (0.0-0.2) K/uL Neutrophils % (Manual) (50-75) % Lymphocytes % (Manual) (20-40) % Monocytes % (Manual) (0-10) % Platelet Estimate (NORMAL) Hypochromasia (manual) Puncture Site pCO2 (35-45) mm/Hg pO2 (80-100) mm/Hg HCO3 (21-28) mmol/L ABG pH (7.35-7.45) ABG Total CO2 (22-28) mmol/L ABG O2 Saturation (95-98) % ABG Base Excess (-2.0-3.0) mmol/L ABG Hemoglobin (11.7-17.4) g/dL ABG Carboxyhemoglobin (0.5-1.5) % POC ABG HHb (Measured) (0.0-5.0) % ABG Methemoglobin (0.0-3.0) % Goran Test A-a O2 Difference mm/Hg Respiratory Index Hgb O2 Saturation (95.0-98.0) % Vent Mode Mechanical Rate FiO2 % Tidal Volume PEEP Sodium (132-148) mmol/L Potassium (3.6-5.2) mmol/L Chloride (98-107) mmol/L Carbon Dioxide (22-30) mmol/L Anion Gap (10-20) BUN (9-20) mg/dL Creatinine (0.8-1.5) MG/DL Est GFR ( Amer) Est GFR (Non-Af Amer) POC Glucose (mg/dL) 143 H 134 H (65-110) mg/dL Random Glucose (75-110) mg/dL Calcium (8.6-10.4) mg/dl Phosphorus (2.5-4.5) mg/dL Magnesium (1.6-2.3) mg/dL % Saturation (20-55) Ferritin ng/mL Total Bilirubin (0.2-1.3) mg/dL AST (17-59) U/L ALT (21-72) U/L Alkaline Phosphatase (38-126) U/L Total Protein (6.3-8.3) g/dL Albumin (3.5-5.0) g/dL Globulin (2.2-3.9) gm/dL Albumin/Globulin Ratio (1.0-2.1) Procalcitonin 17.95 H (0.19-0.49) NG/ML Urine Eosinophils (NEGATIVE) Ur Random Creatinine mg/dL U Random Total Protein 04/30/17 04/30/17 04/30/17 Range/Units 09:47 07:54 06:54 WBC (4.8-10.8) K/uL RBC (4.40-5.90) Mil/uL Hgb (12.0-18.0) g/dL Hct (35.0-51.0) % MCV (80.0-94.0) fL MCH (27.0-31.0) pg MCHC (33.0-37.0) g/dL RDW (11.5-14.5) % Plt Count (130-400) K/uL MPV (7.2-11.7) fL Neut % (Auto) (50.0-75.0) % Lymph % (Auto) (20.0-40.0) % [place] % (Auto) (0.0-10.0) % Eos % (Auto) (0.0-4.0) % Baso % (Auto) (0.0-2.0) % Neut # (1.8-7.0) K/uL Lymph # (1.0-4.3) K/uL [place] # (0.0-0.8) K/uL Eos # (0.0-0.7) K/uL Baso # (0.0-0.2) K/uL Neutrophils % (Manual) (50-75) % Lymphocytes % (Manual) (20-40) % Monocytes % (Manual) (0-10) % Platelet Estimate (NORMAL) Hypochromasia (manual) Puncture Site pCO2 (35-45) mm/Hg pO2 (80-100) mm/Hg HCO3 (21-28) mmol/L ABG pH (7.35-7.45) ABG Total CO2 (22-28) mmol/L ABG O2 Saturation (95-98) % ABG Base Excess (-2.0-3.0) mmol/L ABG Hemoglobin (11.7-17.4) g/dL ABG Carboxyhemoglobin (0.5-1.5) % POC ABG HHb (Measured) (0.0-5.0) % ABG Methemoglobin (0.0-3.0) % Goran Test A-a O2 Difference mm/Hg Respiratory Index Hgb O2 Saturation (95.0-98.0) % Vent Mode Mechanical Rate FiO2 % Tidal Volume PEEP Sodium (132-148) mmol/L Potassium (3.6-5.2) mmol/L Chloride (98-107) mmol/L Carbon Dioxide (22-30) mmol/L Anion Gap (10-20) BUN (9-20) mg/dL Creatinine (0.8-1.5) MG/DL Est GFR ( Amer) Est GFR (Non-Af Amer) POC Glucose (mg/dL) 222 H 296 H 371 H (65-110) mg/dL Random Glucose (75-110) mg/dL Calcium (8.6-10.4) mg/dl Phosphorus (2.5-4.5) mg/dL Magnesium (1.6-2.3) mg/dL % Saturation (20-55) Ferritin ng/mL Total Bilirubin (0.2-1.3) mg/dL AST (17-59) U/L ALT (21-72) U/L Alkaline Phosphatase (38-126) U/L Total Protein (6.3-8.3) g/dL Albumin (3.5-5.0) g/dL Globulin (2.2-3.9) gm/dL Albumin/Globulin Ratio (1.0-2.1) Procalcitonin (0.19-0.49) NG/ML Urine Eosinophils (NEGATIVE) Ur Random Creatinine mg/dL U Random Total Protein 04/30/17 04/30/17 04/30/17 Range/Units 06:14 06:14 06:14 WBC 11.3 H (4.8-10.8) K/uL RBC 4.00 L (4.40-5.90) Mil/uL Hgb 10.7 L (12.0-18.0) g/dL Hct 32.0 L (35.0-51.0) % MCV 80.0 D (80.0-94.0) fL MCH 26.8 L (27.0-31.0) pg MCHC 33.4 (33.0-37.0) g/dL RDW 14.2 (11.5-14.5) % Plt Count 185 (130-400) K/uL MPV 9.8 (7.2-11.7) fL Neut % (Auto) 85.8 H (50.0-75.0) % Lymph % (Auto) 7.1 L (20.0-40.0) % [place] % (Auto) 6.7 (0.0-10.0) % Eos % (Auto) 0.1 (0.0-4.0) % Baso % (Auto) 0.3 (0.0-2.0) % Neut # 9.7 H (1.8-7.0) K/uL Lymph # 0.8 L (1.0-4.3) K/uL [place] # 0.8 (0.0-0.8) K/uL Eos # 0.0 (0.0-0.7) K/uL Baso # 0.0 (0.0-0.2) K/uL Neutrophils % (Manual) 88 H (50-75) % Lymphocytes % (Manual) 6 L (20-40) % Monocytes % (Manual) 6 (0-10) % Platelet Estimate Normal (NORMAL) Hypochromasia (manual) Slight Puncture Site pCO2 (35-45) mm/Hg pO2 (80-100) mm/Hg HCO3 (21-28) mmol/L ABG pH (7.35-7.45) ABG Total CO2 (22-28) mmol/L ABG O2 Saturation (95-98) % ABG Base Excess (-2.0-3.0) mmol/L ABG Hemoglobin (11.7-17.4) g/dL ABG Carboxyhemoglobin (0.5-1.5) % POC ABG HHb (Measured) (0.0-5.0) % ABG Methemoglobin (0.0-3.0) % Goran Test A-a O2 Difference mm/Hg Respiratory Index Hgb O2 Saturation (95.0-98.0) % Vent Mode Mechanical Rate FiO2 % Tidal Volume PEEP Sodium 130 L (132-148) mmol/L Potassium 3.5 L (3.6-5.2) mmol/L Chloride 94 L (98-107) mmol/L Carbon Dioxide 20 L (22-30) mmol/L Anion Gap 20 (10-20) BUN 38 H (9-20) mg/dL Creatinine 5.7 H (0.8-1.5) MG/DL Est GFR ( Amer) 14 Est GFR (Non-Af Amer) 11 POC Glucose (mg/dL) (65-110) mg/dL Random Glucose 433 H* D (75-110) mg/dL Calcium 7.6 L (8.6-10.4) mg/dl Phosphorus 5.0 H (2.5-4.5) mg/dL Magnesium 2.5 H (1.6-2.3) mg/dL % Saturation 9 L (20-55) Ferritin 140.0 ng/mL Total Bilirubin 0.4 (0.2-1.3) mg/dL AST 28 (17-59) U/L ALT 57 (21-72) U/L Alkaline Phosphatase 102 (38-126) U/L Total Protein 5.7 L (6.3-8.3) g/dL Albumin 2.9 L (3.5-5.0) g/dL Globulin 2.8 (2.2-3.9) gm/dL Albumin/Globulin Ratio 1.0 (1.0-2.1) Procalcitonin (0.19-0.49) NG/ML Urine Eosinophils (NEGATIVE) Ur Random Creatinine mg/dL U Random Total Protein 04/30/17 04/30/17 04/30/17 Range/Units 05:53 04:59 04:35 WBC (4.8-10.8) K/uL RBC (4.40-5.90) Mil/uL Hgb (12.0-18.0) g/dL Hct (35.0-51.0) % MCV (80.0-94.0) fL MCH (27.0-31.0) pg MCHC (33.0-37.0) g/dL RDW (11.5-14.5) % Plt Count (130-400) K/uL MPV (7.2-11.7) fL Neut % (Auto) (50.0-75.0) % Lymph % (Auto) (20.0-40.0) % [place] % (Auto) (0.0-10.0) % Eos % (Auto) (0.0-4.0) % Baso % (Auto) (0.0-2.0) % Neut # (1.8-7.0) K/uL Lymph # (1.0-4.3) K/uL [place] # (0.0-0.8) K/uL Eos # (0.0-0.7) K/uL Baso # (0.0-0.2) K/uL Neutrophils % (Manual) (50-75) % Lymphocytes % (Manual) (20-40) % Monocytes % (Manual) (0-10) % Platelet Estimate (NORMAL) Hypochromasia (manual) Puncture Site Rr pCO2 45 (35-45) mm/Hg pO2 214 H (80-100) mm/Hg HCO3 20.6 L (21-28) mmol/L ABG pH 7.28 L (7.35-7.45) ABG Total CO2 22.5 (22-28) mmol/L ABG O2 Saturation 100.1 H (95-98) % ABG Base Excess -5.6 L (-2.0-3.0) mmol/L ABG Hemoglobin 12.8 (11.7-17.4) g/dL ABG Carboxyhemoglobin 1.4 (0.5-1.5) % POC ABG HHb (Measured) -0.1 L (0.0-5.0) % ABG Methemoglobin 1.1 (0.0-3.0) % Goran Test Pos A-a O2 Difference 300.0 mm/Hg Respiratory Index 1.4 Hgb O2 Saturation 97.6 (95.0-98.0) % Vent Mode Prvc Mechanical Rate 24 FiO2 80.0 % Tidal Volume 500 PEEP 10 Sodium (132-148) mmol/L Potassium (3.6-5.2) mmol/L Chloride (98-107) mmol/L Carbon Dioxide (22-30) mmol/L Anion Gap (10-20) BUN (9-20) mg/dL Creatinine (0.8-1.5) MG/DL Est GFR ( Amer) Est GFR (Non-Af Amer) POC Glucose (mg/dL) 463 H* 472 H* (65-110) mg/dL Random Glucose (75-110) mg/dL Calcium (8.6-10.4) mg/dl Phosphorus (2.5-4.5) mg/dL Magnesium (1.6-2.3) mg/dL % Saturation (20-55) Ferritin ng/mL Total Bilirubin (0.2-1.3) mg/dL AST (17-59) U/L ALT (21-72) U/L Alkaline Phosphatase (38-126) U/L Total Protein (6.3-8.3) g/dL Albumin (3.5-5.0) g/dL Globulin (2.2-3.9) gm/dL Albumin/Globulin Ratio (1.0-2.1) Procalcitonin (0.19-0.49) NG/ML Urine Eosinophils (NEGATIVE) Ur Random Creatinine mg/dL U Random Total Protein 04/30/17 04/30/17 04/30/17 Range/Units 03:56 02:48 01:53 WBC (4.8-10.8) K/uL RBC (4.40-5.90) Mil/uL Hgb (12.0-18.0) g/dL Hct (35.0-51.0) % MCV (80.0-94.0) fL MCH (27.0-31.0) pg MCHC (33.0-37.0) g/dL RDW (11.5-14.5) % Plt Count (130-400) K/uL MPV (7.2-11.7) fL Neut % (Auto) (50.0-75.0) % Lymph % (Auto) (20.0-40.0) % [place] % (Auto) (0.0-10.0) % Eos % (Auto) (0.0-4.0) % Baso % (Auto) (0.0-2.0) % Neut # (1.8-7.0) K/uL Lymph # (1.0-4.3) K/uL [place] # (0.0-0.8) K/uL Eos # (0.0-0.7) K/uL Baso # (0.0-0.2) K/uL Neutrophils % (Manual) (50-75) % Lymphocytes % (Manual) (20-40) % Monocytes % (Manual) (0-10) % Platelet Estimate (NORMAL) Hypochromasia (manual) Puncture Site pCO2 (35-45) mm/Hg pO2 (80-100) mm/Hg HCO3 (21-28) mmol/L ABG pH (7.35-7.45) ABG Total CO2 (22-28) mmol/L ABG O2 Saturation (95-98) % ABG Base Excess (-2.0-3.0) mmol/L ABG Hemoglobin (11.7-17.4) g/dL ABG Carboxyhemoglobin (0.5-1.5) % POC ABG HHb (Measured) (0.0-5.0) % ABG Methemoglobin (0.0-3.0) % Goran Test A-a O2 Difference mm/Hg Respiratory Index Hgb O2 Saturation (95.0-98.0) % Vent Mode Mechanical Rate FiO2 % Tidal Volume PEEP Sodium (132-148) mmol/L Potassium (3.6-5.2) mmol/L Chloride (98-107) mmol/L Carbon Dioxide (22-30) mmol/L Anion Gap (10-20) BUN (9-20) mg/dL Creatinine (0.8-1.5) MG/DL Est GFR ( Amer) Est GFR (Non-Af Amer) POC Glucose (mg/dL) 464 H* 447 H* 421 H* (65-110) mg/dL Random Glucose (75-110) mg/dL Calcium (8.6-10.4) mg/dl Phosphorus (2.5-4.5) mg/dL Magnesium (1.6-2.3) mg/dL % Saturation (20-55) Ferritin ng/mL Total Bilirubin (0.2-1.3) mg/dL AST (17-59) U/L ALT (21-72) U/L Alkaline Phosphatase (38-126) U/L Total Protein (6.3-8.3) g/dL Albumin (3.5-5.0) g/dL Globulin (2.2-3.9) gm/dL Albumin/Globulin Ratio (1.0-2.1) Procalcitonin (0.19-0.49) NG/ML Urine Eosinophils (NEGATIVE) Ur Random Creatinine mg/dL U Random Total Protein 04/30/17 Range/Units 00:14 WBC (4.8-10.8) K/uL RBC (4.40-5.90) Mil/uL Hgb (12.0-18.0) g/dL Hct (35.0-51.0) % MCV (80.0-94.0) fL MCH (27.0-31.0) pg MCHC (33.0-37.0) g/dL RDW (11.5-14.5) % Plt Count (130-400) K/uL MPV (7.2-11.7) fL Neut % (Auto) (50.0-75.0) % Lymph % (Auto) (20.0-40.0) % [place] % (Auto) (0.0-10.0) % Eos % (Auto) (0.0-4.0) % Baso % (Auto) (0.0-2.0) % Neut # (1.8-7.0) K/uL Lymph # (1.0-4.3) K/uL [place] # (0.0-0.8) K/uL Eos # (0.0-0.7) K/uL Baso # (0.0-0.2) K/uL Neutrophils % (Manual) (50-75) % Lymphocytes % (Manual) (20-40) % Monocytes % (Manual) (0-10) % Platelet Estimate (NORMAL) Hypochromasia (manual) Puncture Site pCO2 (35-45) mm/Hg pO2 (80-100) mm/Hg HCO3 (21-28) mmol/L ABG pH (7.35-7.45) ABG Total CO2 (22-28) mmol/L ABG O2 Saturation (95-98) % ABG Base Excess (-2.0-3.0) mmol/L ABG Hemoglobin (11.7-17.4) g/dL ABG Carboxyhemoglobin (0.5-1.5) % POC ABG HHb (Measured) (0.0-5.0) % ABG Methemoglobin (0.0-3.0) % Goran Test A-a O2 Difference mm/Hg Respiratory Index Hgb O2 Saturation (95.0-98.0) % Vent Mode Mechanical Rate FiO2 % Tidal Volume PEEP Sodium (132-148) mmol/L Potassium (3.6-5.2) mmol/L Chloride (98-107) mmol/L Carbon Dioxide (22-30) mmol/L Anion Gap (10-20) BUN (9-20) mg/dL Creatinine (0.8-1.5) MG/DL Est GFR ( Amer) Est GFR (Non-Af Amer) POC Glucose (mg/dL) 416 H* (65-110) mg/dL Random Glucose (75-110) mg/dL Calcium (8.6-10.4) mg/dl Phosphorus (2.5-4.5) mg/dL Magnesium (1.6-2.3) mg/dL % Saturation (20-55) Ferritin ng/mL Total Bilirubin (0.2-1.3) mg/dL AST (17-59) U/L ALT (21-72) U/L Alkaline Phosphatase (38-126) U/L Total Protein (6.3-8.3) g/dL Albumin (3.5-5.0) g/dL Globulin (2.2-3.9) gm/dL Albumin/Globulin Ratio (1.0-2.1) Procalcitonin (0.19-0.49) NG/ML Urine Eosinophils (NEGATIVE) Ur Random Creatinine mg/dL U Random Total Protein Laboratory Results - last 24 hr 04/30/17 04/30/17 04/30/17 00:14 01:53 02:48 WBC RBC Hgb Hct MCV MCH MCHC RDW Plt Count MPV Neut % (Auto) Lymph % (Auto) [place] % (Auto) Eos % (Auto) Baso % (Auto) Neut # Lymph # [place] # Eos # Baso # Neutrophils % (Manual) Lymphocytes % (Manual) Monocytes % (Manual) Platelet Estimate Hypochromasia (manual) Puncture Site pCO2 pO2 HCO3 ABG pH ABG Total CO2 ABG O2 Saturation ABG Base Excess ABG Hemoglobin ABG Carboxyhemoglobin POC ABG HHb (Measured) ABG Methemoglobin Goran Test A-a O2 Difference Respiratory Index Hgb O2 Saturation Vent Mode Mechanical Rate FiO2 Tidal Volume PEEP Sodium Potassium Chloride Carbon Dioxide Anion Gap BUN Creatinine Est GFR ( Amer) Est GFR (Non-Af Amer) POC Glucose (mg/dL) 416 H* 421 H* 447 H* Random Glucose Calcium Phosphorus Magnesium % Saturation Ferritin Total Bilirubin AST ALT Alkaline Phosphatase Total Protein Albumin Globulin Albumin/Globulin Ratio Procalcitonin Urine Eosinophils Ur Random Creatinine U Random Total Protein 04/30/17 04/30/17 04/30/17 03:56 04:35 04:59 WBC RBC Hgb Hct MCV MCH MCHC RDW Plt Count MPV Neut % (Auto) Lymph % (Auto) [place] % (Auto) Eos % (Auto) Baso % (Auto) Neut # Lymph # [place] # Eos # Baso # Neutrophils % (Manual) Lymphocytes % (Manual) Monocytes % (Manual) Platelet Estimate Hypochromasia (manual) Puncture Site Rr pCO2 45 pO2 214 H HCO3 20.6 L ABG pH 7.28 L ABG Total CO2 22.5 ABG O2 Saturation 100.1 H ABG Base Excess -5.6 L ABG Hemoglobin 12.8 ABG Carboxyhemoglobin 1.4 POC ABG HHb (Measured) -0.1 L ABG Methemoglobin 1.1 Goran Test Pos A-a O2 Difference 300.0 Respiratory Index 1.4 Hgb O2 Saturation 97.6 Vent Mode Prvc Mechanical Rate 24 FiO2 80.0 Tidal Volume 500 PEEP 10 Sodium Potassium Chloride Carbon Dioxide Anion Gap BUN Creatinine Est GFR ( Amer) Est GFR (Non-Af Amer) POC Glucose (mg/dL) 464 H* 472 H* Random Glucose Calcium Phosphorus Magnesium % Saturation Ferritin Total Bilirubin AST ALT Alkaline Phosphatase Total Protein Albumin Globulin Albumin/Globulin Ratio Procalcitonin Urine Eosinophils Ur Random Creatinine U Random Total Protein 04/30/17 04/30/17 04/30/17 05:53 06:14 06:14 WBC RBC Hgb Hct MCV MCH MCHC RDW Plt Count MPV Neut % (Auto) Lymph % (Auto) [place] % (Auto) Eos % (Auto) Baso % (Auto) Neut # Lymph # [place] # Eos # Baso # Neutrophils % (Manual) Lymphocytes % (Manual) Monocytes % (Manual) Platelet Estimate Hypochromasia (manual) Puncture Site pCO2 pO2 HCO3 ABG pH ABG Total CO2 ABG O2 Saturation ABG Base Excess ABG Hemoglobin ABG Carboxyhemoglobin POC ABG HHb (Measured) ABG Methemoglobin Goran Test A-a O2 Difference Respiratory Index Hgb O2 Saturation Vent Mode Mechanical Rate FiO2 Tidal Volume PEEP Sodium 130 L Potassium 3.5 L Chloride 94 L Carbon Dioxide 20 L Anion Gap 20 BUN 38 H Creatinine 5.7 H Est GFR ( Amer) 14 Est GFR (Non-Af Amer) 11 POC Glucose (mg/dL) 463 H* Random Glucose 433 H* D Calcium 7.6 L Phosphorus 5.0 H Magnesium 2.5 H % Saturation 9 L Ferritin 140.0 Total Bilirubin 0.4 AST 28 ALT 57 Alkaline Phosphatase 102 Total Protein 5.7 L Albumin 2.9 L Globulin 2.8 Albumin/Globulin Ratio 1.0 Procalcitonin Urine Eosinophils Ur Random Creatinine U Random Total Protein 04/30/17 04/30/17 04/30/17 06:14 06:54 07:54 WBC 11.3 H RBC 4.00 L Hgb 10.7 L Hct 32.0 L MCV 80.0 D MCH 26.8 L MCHC 33.4 RDW 14.2 Plt Count 185 MPV 9.8 Neut % (Auto) 85.8 H Lymph % (Auto) 7.1 L [place] % (Auto) 6.7 Eos % (Auto) 0.1 Baso % (Auto) 0.3 Neut # 9.7 H Lymph # 0.8 L [place] # 0.8 Eos # 0.0 Baso # 0.0 Neutrophils % (Manual) 88 H Lymphocytes % (Manual) 6 L Monocytes % (Manual) 6 Platelet Estimate Normal Hypochromasia (manual) Slight Puncture Site pCO2 pO2 HCO3 ABG pH ABG Total CO2 ABG O2 Saturation ABG Base Excess ABG Hemoglobin ABG Carboxyhemoglobin POC ABG HHb (Measured) ABG Methemoglobin Goran Test A-a O2 Difference Respiratory Index Hgb O2 Saturation Vent Mode Mechanical Rate FiO2 Tidal Volume PEEP Sodium Potassium Chloride Carbon Dioxide Anion Gap BUN Creatinine Est GFR ( Amer) Est GFR (Non-Af Amer) POC Glucose (mg/dL) 371 H 296 H Random Glucose Calcium Phosphorus Magnesium % Saturation Ferritin Total Bilirubin AST ALT Alkaline Phosphatase Total Protein Albumin Globulin Albumin/Globulin Ratio Procalcitonin Urine Eosinophils Ur Random Creatinine U Random Total Protein 04/30/17 04/30/17 04/30/17 09:47 10:01 10:49 WBC RBC Hgb Hct MCV MCH MCHC RDW Plt Count MPV Neut % (Auto) Lymph % (Auto) [place] % (Auto) Eos % (Auto) Baso % (Auto) Neut # Lymph # [place] # Eos # Baso # Neutrophils % (Manual) Lymphocytes % (Manual) Monocytes % (Manual) Platelet Estimate Hypochromasia (manual) Puncture Site pCO2 pO2 HCO3 ABG pH ABG Total CO2 ABG O2 Saturation ABG Base Excess ABG Hemoglobin ABG Carboxyhemoglobin POC ABG HHb (Measured) ABG Methemoglobin Goran Test A-a O2 Difference Respiratory Index Hgb O2 Saturation Vent Mode Mechanical Rate FiO2 Tidal Volume PEEP Sodium Potassium Chloride Carbon Dioxide Anion Gap BUN Creatinine Est GFR ( Amer) Est GFR (Non-Af Amer) POC Glucose (mg/dL) 222 H 134 H Random Glucose Calcium Phosphorus Magnesium % Saturation Ferritin Total Bilirubin AST ALT Alkaline Phosphatase Total Protein Albumin Globulin Albumin/Globulin Ratio Procalcitonin 17.95 H Urine Eosinophils Ur Random Creatinine U Random Total Protein 04/30/17 04/30/17 04/30/17 12:17 13:07 13:07 WBC RBC Hgb Hct MCV MCH MCHC RDW Plt Count MPV Neut % (Auto) Lymph % (Auto) [place] % (Auto) Eos % (Auto) Baso % (Auto) Neut # Lymph # [place] # Eos # Baso # Neutrophils % (Manual) Lymphocytes % (Manual) Monocytes % (Manual) Platelet Estimate Hypochromasia (manual) Puncture Site pCO2 pO2 HCO3 ABG pH ABG Total CO2 ABG O2 Saturation ABG Base Excess ABG Hemoglobin ABG Carboxyhemoglobin POC ABG HHb (Measured) ABG Methemoglobin Goran Test A-a O2 Difference Respiratory Index Hgb O2 Saturation Vent Mode Mechanical Rate FiO2 Tidal Volume PEEP Sodium Potassium Chloride Carbon Dioxide Anion Gap BUN Creatinine Est GFR ( Amer) Est GFR (Non-Af Amer) POC Glucose (mg/dL) 143 H Random Glucose Calcium Phosphorus Magnesium % Saturation Ferritin Total Bilirubin AST ALT Alkaline Phosphatase Total Protein Albumin Globulin Albumin/Globulin Ratio Procalcitonin Urine Eosinophils Positive H Ur Random Creatinine 118.7 U Random Total Protein Cancelled 04/30/17 04/30/17 04/30/17 13:07 13:45 14:04 WBC RBC Hgb Hct MCV MCH MCHC RDW Plt Count MPV Neut % (Auto) Lymph % (Auto) [place] % (Auto) Eos % (Auto) Baso % (Auto) Neut # Lymph # [place] # Eos # Baso # Neutrophils % (Manual) Lymphocytes % (Manual) Monocytes % (Manual) Platelet Estimate Hypochromasia (manual) Puncture Site pCO2 pO2 HCO3 ABG pH ABG Total CO2 ABG O2 Saturation ABG Base Excess ABG Hemoglobin ABG Carboxyhemoglobin POC ABG HHb (Measured) ABG Methemoglobin Goran Test A-a O2 Difference Respiratory Index Hgb O2 Saturation Vent Mode Mechanical Rate FiO2 Tidal Volume PEEP Sodium Potassium Chloride Carbon Dioxide Anion Gap BUN Creatinine Est GFR ( Amer) Est GFR (Non-Af Amer) POC Glucose (mg/dL) 231 H 243 H Random Glucose Calcium Phosphorus Magnesium % Saturation Ferritin Total Bilirubin AST ALT Alkaline Phosphatase Total Protein Albumin Globulin Albumin/Globulin Ratio Procalcitonin Urine Eosinophils Ur Random Creatinine U Random Total Protein 100.0 H 04/30/17 04/30/17 04/30/17 15:15 15:30 16:03 WBC RBC Hgb Hct MCV MCH MCHC RDW Plt Count MPV Neut % (Auto) Lymph % (Auto) [place] % (Auto) Eos % (Auto) Baso % (Auto) Neut # Lymph # [place] # Eos # Baso # Neutrophils % (Manual) Lymphocytes % (Manual) Monocytes % (Manual) Platelet Estimate Hypochromasia (manual) Puncture Site Rra pCO2 34 L pO2 143 H HCO3 23.5 ABG pH 7.42 ABG Total CO2 23.1 ABG O2 Saturation 99.9 H ABG Base Excess -1.9 ABG Hemoglobin 10.0 L ABG Carboxyhemoglobin 1.4 POC ABG HHb (Measured) 0.1 ABG Methemoglobin 1.3 Goran Test Pos A-a O2 Difference 242.0 Respiratory Index 1.7 Hgb O2 Saturation 97.1 Vent Mode Prvc Mechanical Rate 24 FiO2 60.0 Tidal Volume 500 PEEP 5 Sodium Potassium Chloride Carbon Dioxide Anion Gap BUN Creatinine Est GFR ( Amer) Est GFR (Non-Af Amer) POC Glucose (mg/dL) 266 H 273 H Random Glucose Calcium Phosphorus Magnesium % Saturation Ferritin Total Bilirubin AST ALT Alkaline Phosphatase Total Protein Albumin Globulin Albumin/Globulin Ratio Procalcitonin Urine Eosinophils Ur Random Creatinine U Random Total Protein 04/30/17 17:07 WBC RBC Hgb Hct MCV MCH MCHC RDW Plt Count MPV Neut % (Auto) Lymph % (Auto) [place] % (Auto) Eos % (Auto) Baso % (Auto) Neut # Lymph # [place] # Eos # Baso # Neutrophils % (Manual) Lymphocytes % (Manual) Monocytes % (Manual) Platelet Estimate Hypochromasia (manual) Puncture Site pCO2 pO2 HCO3 ABG pH ABG Total CO2 ABG O2 Saturation ABG Base Excess ABG Hemoglobin ABG Carboxyhemoglobin POC ABG HHb (Measured) ABG Methemoglobin Goran Test A-a O2 Difference Respiratory Index Hgb O2 Saturation Vent Mode Mechanical Rate FiO2 Tidal Volume PEEP Sodium Potassium Chloride Carbon Dioxide Anion Gap BUN Creatinine Est GFR ( Amer) Est GFR (Non-Af Amer) POC Glucose (mg/dL) 261 H Random Glucose Calcium Phosphorus Magnesium % Saturation Ferritin Total Bilirubin AST ALT Alkaline Phosphatase Total Protein Albumin Globulin Albumin/Globulin Ratio Procalcitonin Urine Eosinophils Ur Random Creatinine U Random Total Protein Critical Care Progress Note - Nutrition Nutrition: Nutrition Category Date Time Status NPO Diet [DIET] Diets 04/28/17 Breakfast Active Attending/Attestation - Attestation I have personally seen and examined this patient.: Yes I have fully participated in the care of the patient.: Yes I have reviewed all pertinent clinical information: Yes Notes (Text): 04/30/17 18:02 Patient seen and examined in the intensive care unit. Case discussed with house staff in the morning rounds. Intubated on ventilatory support Oxygenation and chest x-ray improving Continue hemodialysis On antibiotics Case discussed with family Glycemic control On insulin drip
[2017-04-30 08:25] LABS: TOTAL CELLS COUNTED 100
[2017-04-30 08:26] LABS: NEUTROPHIL 88 % (50-75)
--- NOTE | 2017-04-30 08:37 | RAD ---
Chest x-ray single frontal view History: Intubated. Comparison: 04/29/2017 Findings: NG tube with tip extending into the stomach. Endotracheal tube in place. Prominent diffuse increased interstitial lung markings suggestive for underlying edema and or infiltrate. Mild cardiomegaly. Degenerative changes in the spine and shoulders. Impression: Interval placement of an NG tube with tip extending into the stomach.
--- NOTE | 2017-04-30 10:30 | CP.PCM.PN ---
Subjective - Date & Time of Evaluation Date of Evaluation: 04/30/17 Time of Evaluation: 10:28 - Subjective Subjective: seen and examine on vent high sugars noted uop 950cc spoke with sister Objective - Vital Signs/Intake and Output Vital Signs (last 24 hours): Temp Pulse Resp BP Pulse Ox 98.7 F 104 H 24 135/69 100 04/30/17 04:00 04/30/17 07:00 04/30/17 07:00 04/30/17 10:11 04/30/17 07:00 Intake and Output: 04/30/17 04/30/17 06:59 18:59 Intake Total 1968.2 465.4 Output Total 265 Balance 1703.2 465.4 - Medications Medications: Current Medications Albuterol/Ipratropium (Duoneb 3 Mg/0.5 Mg (3 Ml) Ud) 3 ml INH RQ6 PRN PRN Reason: Wheezing Last Admin: 04/30/17 08:04 Dose: 3 ml Calcium Acetate (Phoslo) 667 mg GT TIDCC [facility] Last Admin: 04/30/17 08:19 Dose: 667 mg Heparin Sodium (Porcine) (Heparin) 5,000 units SC Q12 [facility] Last Admin: 04/30/17 10:11 Dose: 5,000 units Ceftriaxone Sodium 1 gm/ (Sodium Chloride) 100 mls @ 100 mls/hr IVPB DAILY [facility] Last Admin: 04/30/17 10:12 Dose: 100 mls/hr Sodium Chloride (Sodium Chloride 0.9%) 1,000 mls @ 15 mls/hr IV .Q24H [facility] Last Admin: 04/29/17 19:35 Dose: Not Given Propofol (Diprivan) 1,000 mg in 100 mls @ 2.85 mls/hr IV .Q24H PRN; Protocol; 5 MCG/KG/MIN PRN Reason: TITRATE PER MD ORDER Last Admin: 04/30/17 10:21 Dose: 70 mcg/kg/min, 39.9 mls/hr Cisatracurium Besylate 100 mg/ (Dextrose) 250 mls @ 42.75 mls/hr IV .Q5H51M [facility] ; 3 MCG/KG/MIN PRN Reason: Protocol Last Admin: 04/30/17 08:15 Dose: 2 mcg/kg/min, 28.5 mls/hr Insulin Human Regular 100 unit (/ Sodium Chloride) 100 mls @ 2 mls/hr IV .Q24H [facility] PRN Reason: Protocol Metoprolol Tartrate (Lopressor) 25 mg PO BID [facility] Last Admin: 04/30/17 10:11 Dose: 25 mg Pantoprazole Sodium (Protonix Inj) 40 mg IVP DAILY [facility] Last Admin: 04/30/17 10:12 Dose: 40 mg Sitagliptin Phosphate (Januvia) 25 mg PO DAILY [facility] Last Admin: 04/30/17 10:11 Dose: 25 mg - Labs Labs: 04/30/17 06:14 04/30/17 06:14 PT 13.0 SECONDS (9.7-12.2) H 04/28/17 15:20 INR 1.1 04/28/17 15:20 APTT 28 SECONDS (21-34) 04/28/17 15:20 - Constitutional Appears: No Acute Distress (intubated sedated) - Head Exam Head Exam: NORMAL INSPECTION - Eye Exam Eye Exam: Normal appearance - ENT Exam Additional comments: et tube - Neck Exam Neck Exam: Normal Inspection - Respiratory Exam Respiratory Exam: NORMAL BREATHING PATTERN (mechanical vent sounds) - Cardiovascular Exam Cardiovascular Exam: REGULAR RHYTHM, RRR - GI/Abdominal Exam GI & Abdominal Exam: Distended, Soft, Normal Bowel Sounds - Extremities Exam Extremities Exam: Normal Inspection Assessment and Plan (1) WILEY (acute kidney injury) Status: Acute (2) CHF (congestive heart failure) Status: Acute (3) Type 1 diabetes mellitus with diabetic nephropathy Status: Acute (4) Diabetes Status: Chronic - Assessment and Plan (Free Text) Assessment: unclear etiology of wiley ua w/o hematuria, + proteinuria. hepatitis status neg. Renal US w/ echogenic kidneys maintain hd mwf quantify proteinuria, check hiv, spep. consider renal biopsy when stable.
[2017-04-30] MEDS ORDERED: Pneumococcal 23-Valent Vaccine IM ONE (14:00)
[2017-04-30 15:37] LABS: ABG ALLEN TEST POS; ABG MECHANICAL RATE 24; ARTERIAL BLOOD GAS MODE PRVC; ARTERIAL BLOOD HGB O2 SAT 97.1 % (95.0-98.0); ATERIAL BLOOD GAS PEEP 5; CARBOXYHEMOGLOBIN 1.4 % (0.5-1.5); DRAW SITE RRA; HHB 0.1 % (0.0-5.0); METHEMOGLOBIN 1.3 % (0.0-3.0)
--- NOTE | 2017-04-30 17:18 | CARD ---
APPROVED REPORT EKG Measurement Heart [id number] <Conclusion> Normal sinus rhythm Minimal voltage criteria for LVH, may be normal variant Nonspecific T wave abnormality Prolonged QT Abnormal ECG
[2017-04-30] MEDS: Sodium Chloride 0.9% 1,000 ML IV SCH (20:55)
[2017-05-01] MEDS: Propofol 10 mg/ml 1,000 MG/100 ML VIAL IV PRN ×3 (01:35→06:30)
[2017-05-01] MEDS: Cisatracurium Besylate 100 MG in Dextrose 5% In Water 240 ML IV SCH ×2 (02:53→06:50)
[2017-05-01 04:57] LABS: ABG ALLEN TEST POS; ABG MECHANICAL RATE 24; ARTERIAL BLOOD GAS MODE PRVC; ARTERIAL BLOOD HGB O2 SAT 95.6 % (95.0-98.0); ATERIAL BLOOD GAS PEEP 5; CARBOXYHEMOGLOBIN 1.6 % (0.5-1.5); DRAW SITE RR; HHB 1.4 % (0.0-5.0); METHEMOGLOBIN 1.4 % (0.0-3.0)
--- NOTE | 2017-05-01 05:25 | CP.PCM.PN ---
Subjective - Date & Time of Evaluation Date of Evaluation: 05/01/17 Time of Evaluation: 17:30 - Subjective Subjective: Patient seen and evaluated Intubated and sedated Normal hemodynamics Objective - Vital Signs/Intake and Output Vital Signs (last 24 hours): Temp Pulse Resp BP Pulse Ox 98.9 F 94 H 24 111/58 L 97 05/01/17 04:00 05/01/17 04:12 05/01/17 04:12 05/01/17 04:12 05/01/17 04:12 Intake and Output: 04/30/17 05/01/17 18:59 06:59 Intake Total 1965.0 1408.5 Output Total 405 450 Balance 1560.0 958.5 - Medications Medications: Current Medications Albuterol/Ipratropium (Duoneb 3 Mg/0.5 Mg (3 Ml) Ud) 3 ml INH RQ6 PRN PRN Reason: Wheezing Last Admin: 04/30/17 19:48 Dose: 3 ml Calcium Acetate (Phoslo) 667 mg GT TIDCC [facility] Last Admin: 04/30/17 18:46 Dose: 667 mg Heparin Sodium (Porcine) (Heparin) 5,000 units SC Q12 [facility] Last Admin: 04/30/17 21:25 Dose: 5,000 units Ceftriaxone Sodium 1 gm/ (Sodium Chloride) 100 mls @ 100 mls/hr IVPB DAILY [facility] Last Admin: 04/30/17 10:12 Dose: 100 mls/hr Sodium Chloride (Sodium Chloride 0.9%) 1,000 mls @ 15 mls/hr IV .Q24H [facility] Last Admin: 04/30/17 20:55 Dose: Not Given Propofol (Diprivan) 1,000 mg in 100 mls @ 2.85 mls/hr IV .Q24H PRN; Protocol; 5 MCG/KG/MIN PRN Reason: TITRATE PER MD ORDER Last Admin: 05/01/17 04:07 Dose: 80 mcg/kg/min, 45.6 mls/hr Cisatracurium Besylate 100 mg/ (Dextrose) 250 mls @ 42.75 mls/hr IV .Q5H51M [facility] ; 3 MCG/KG/MIN PRN Reason: Protocol Last Admin: 05/01/17 02:53 Dose: 2 mcg/kg/min, 28.5 mls/hr Insulin Human Regular 100 unit (/ Sodium Chloride) 100 mls @ 2 mls/hr IV .Q24H [facility] PRN Reason: Protocol Last Titration: 04/30/17 18:42 Dose: 0 units/kg/min, 4 mls/hr Metoprolol Tartrate (Lopressor) 25 mg PO BID [facility] Last Admin: 04/30/17 18:36 Dose: Not Given Pantoprazole Sodium (Protonix Inj) 40 mg IVP DAILY [facility] Last Admin: 04/30/17 10:12 Dose: 40 mg Sitagliptin Phosphate (Januvia) 25 mg PO DAILY [facility] Last Admin: 04/30/17 10:11 Dose: 25 mg - Labs Labs: 04/30/17 06:14 04/30/17 06:14 PT 13.0 SECONDS (9.7-12.2) H 04/28/17 15:20 INR 1.1 04/28/17 15:20 APTT 28 SECONDS (21-34) 04/28/17 15:20 - Head Exam Head Exam: ATRAUMATIC, NORMAL INSPECTION, NORMOCEPHALIC - Eye Exam Eye Exam: EOMI, PERRL - ENT Exam ENT Exam: Mucous Membranes Moist, Normal Exam - Neck Exam Neck Exam: Normal Inspection - Respiratory Exam Respiratory Exam: NORMAL BREATHING PATTERN - Cardiovascular Exam Cardiovascular Exam: REGULAR RHYTHM, +S1, +S2 - GI/Abdominal Exam GI & Abdominal Exam: Soft, Normal Bowel Sounds - Neurological Exam Additional comments: Intubated - Skin Skin Exam: Warm Assessment and Plan - Assessment and Plan (Free Text) Assessment: 1. Acute Renal failure 2. Uncontrolled DM on Insulin dripn 3. Resp failure on Mechanical ventilation ECHO: Normal EF and normal valves Continue [facility]
[2017-05-01 06:58] LABS: BASO # 0.1 K/uL (0.0-0.2); BASO % 0.6 % (0.0-2.0); EOS # 0.2 K/uL (0.0-0.7); EOS % 1.6 % (0.0-4.0); HEMATOCRIT 29.8 % (35.0-51.0); LYMPH # 1.3 K/uL (1.0-4.3); LYMPH % 12.1 % (20.0-40.0); MEAN CORPUSCULAR HEMOGLOBIN 26.6 pg (27.0-31.0); MEAN CORPUSCULAR HGB CONC 34.1 g/dL (33.0-37.0); MEAN PLATELET VOLUME 8.3 fL (7.2-11.7); MONO # 1.4 K/uL (0.0-0.8); MONO % 13.1 % (0.0-10.0); WHITE BLOOD COUNT 10.4 K/uL (4.8-10.8)
[2017-05-01 07:03] LABS: POTASSIUM 3.2 mmol/L (3.6-5.2)
[2017-05-01 07:05] LABS: BILIRUBIN,TOTAL 0.3 mg/dL (0.2-1.3)
[2017-05-01 07:06] LABS: CALCIUM 8.4 mg/dl (8.6-10.4); TOTAL PROTEIN 5.8 g/dL (6.3-8.3)
[2017-05-01 07:07] LABS: MAGNESIUM 2.9 mg/dL (1.6-2.3)
--- NOTE | 2017-05-01 07:26 | CP.CCUPN ---
<Rahat Christian - Last Filed: 05/01/17 15:26> CCU Subjective - Physician Review Subjective (Free Text): Patient seen and examined at bedside. Patient was extubated this morning and now on venti-mask. Patient has no medical complaints at this time, denies headache, fevers, chest pain, palpitations, SOB, cough, N/V/D/C, or weakness. Case discussed with house-staff, medical records and chart reviewed and labs discussed. 05/01/17 07:26 CCU Objective - Vital Signs / Intake & Output Vital Signs (Last 4 hours): Vital Signs Temp Pulse Resp BP Pulse Ox 05/01/17 07:12 89 24 107/60 99 05/01/17 07:00 91 H 24 99 05/01/17 06:42 89 24 112/60 99 05/01/17 06:30 89 24 99 05/01/17 06:12 94 H 24 115/64 97 05/01/17 06:00 100 H 20 99 05/01/17 05:42 92 H 24 107/57 L 97 05/01/17 05:30 92 H 24 97 05/01/17 05:12 93 H 24 107/55 L 97 05/01/17 05:00 92 H 24 97 05/01/17 04:43 93 H 24 108/54 L 97 05/01/17 04:30 93 H 24 97 05/01/17 04:12 94 H 24 111/58 L 97 05/01/17 04:00 98.9 F 96 H 24 97 05/01/17 03:42 98 H 24 102/54 L 96 05/01/17 03:30 97 H 24 96 Intake and Output (Last 8hrs): Intake & Output 04/30/17 05/01/17 05/01/17 22:59 06:59 14:59 Intake Total 1182.3 1163.6 Output Total 315 270 Balance 867.3 893.6 Intake: IV 566 705 Intake, IV Amount 616.3 458.6 Left 362.3 273.6 Left Proximal Port 228.0 171.0 Right Wrist 26 14 Tube Feeding 0 Output: Urine 315 270 2-way Urethral 315 270 Other: # Bowel Movements 0 0 - Physical Exam Head: Negative for: Atraumatic, Normocephalic Pupils: Positive for: PERRL Extroacular Muscles: Positive for: EOMI Conjunctiva: Positive for: Normal Mouth: Positive for: Moist Mucous Membranes Nose (Internal): Positive for: Normal Inspection Neck: Positive for: Normal Range of Motion Respiratory/Chest: Positive for: Clear to Auscultation, Decreased Breath Sounds. Negative for: Rales, Rhonchi Cardiovascular: Positive for: Regular Rate and Rhythm Abdomen: Positive for: Normal Bowel Sounds. Negative for: Tenderness, Distention, Peritoneal Signs Upper Extremity: Positive for: Normal Inspection. Negative for: Cyanosis Lower Extremity: Positive for: Normal Inspection Neurological: Positive for: GCS=15 Skin: Positive for: Warm Psychiatric: Positive for: Alert, Oriented x 3 - Medications Active Medications: Active Medications Generic Name Dose Route Start Last Admin Trade Name Freq PRN Reason Stop Dose Admin Albuterol/Ipratropium 3 ml 04/28/17 08:00 04/30/17 19:48 Duoneb 3 Mg/0.5 Mg (3 Ml) Ud INH 3 ml RQ6 PRN Administration Wheezing Calcium Acetate 667 mg 04/29/17 14:00 04/30/17 18:46 Phoslo GT 667 mg TIDCC CLAUDE Administration Heparin Sodium (Porcine) 5,000 units 04/28/17 10:00 04/30/17 21:25 Heparin SC 5,000 units Q12 CLAUDE Administration Ceftriaxone Sodium 1 gm/ 100 mls @ 100 mls/hr 04/29/17 10:00 04/30/17 10:12 Sodium Chloride IVPB 100 mls/hr DAILY CLAUDE Administration Sodium Chloride 1,000 mls @ 15 mls/hr 04/28/17 20:00 04/30/17 20:55 Sodium Chloride 0.9% IV Not Given .Q24H CLAUDE Propofol 1,000 mg in 100 mls @ 2.85 mls/hr 04/29/17 11:59 05/01/17 06:30 Diprivan IV 80 mcg/kg/min .Q24H PRN 45.6 mls/hr TITRATE PER MD ORDER Administration Protocol 5 MCG/KG/MIN Cisatracurium Besylate 100 mg/ 250 mls @ 42.75 mls/hr 04/29/17 13:15 06:50 Dextrose IV Not Given .Q5H51M CLAUDE Protocol 3 MCG/KG/MIN Insulin Human Regular 100 unit 100 mls @ 2 mls/hr 04/30/17 08:25 05/01/17 04: 30 / Sodium Chloride IV 0 units/kg/min .Q24H CLAUDE 0 mls/hr Protocol Titration Metoprolol Tartrate 25 mg 04/29/17 19:30 04/30/17 18:36 Lopressor PO Not Given BID CLAUDE Pantoprazole Sodium 40 mg 04/29/17 10:00 04/30/17 10:12 Protonix Inj IVP 40 mg DAILY CLAUDE Administration Sitagliptin Phosphate 25 mg 04/30/17 10:00 04/30/17 10:11 Januvia PO 25 mg DAILY CLAUDE Administration - Patient Studies Lab Studies: Microbiology Studies 04/27/17 23:51 Blood Culture - Preliminary Blood-Venous NO GROWTH AFTER 48 HOURS Lab Studies 05/01/17 05/01/17 05/01/17 Range/Units 07:02 06:40 06:36 WBC 10.4 (4.8-10.8) K/uL RBC 3.83 L (4.40-5.90) Mil/uL Hgb 10.2 L (12.0-18.0) g/dL Hct 29.8 L (35.0-51.0) % MCV 78.0 L D (80.0-94.0) fL MCH 26.6 L (27.0-31.0) pg MCHC 34.1 (33.0-37.0) g/dL RDW 14.0 (11.5-14.5) % Plt Count 233 (130-400) K/uL MPV 8.3 (7.2-11.7) fL Neut % (Auto) 72.6 (50.0-75.0) % Lymph % (Auto) 12.1 L (20.0-40.0) % [place] % (Auto) 13.1 H (0.0-10.0) % Eos % (Auto) 1.6 (0.0-4.0) % Baso % (Auto) 0.6 (0.0-2.0) % Neut # 7.5 H (1.8-7.0) K/uL Lymph # 1.3 (1.0-4.3) K/uL [place] # 1.4 H (0.0-0.8) K/uL Eos # 0.2 (0.0-0.7) K/uL Baso # 0.1 (0.0-0.2) K/uL Neutrophils % (Manual) (50-75) % Lymphocytes % (Manual) (20-40) % Monocytes % (Manual) (0-10) % Platelet Estimate (NORMAL) Hypochromasia (manual) Puncture Site pCO2 (35-45) mm/Hg pO2 (80-100) mm/Hg HCO3 (21-28) mmol/L ABG pH (7.35-7.45) ABG Total CO2 (22-28) mmol/L ABG O2 Saturation (95-98) % ABG Base Excess (-2.0-3.0) mmol/L ABG Hemoglobin (11.7-17.4) g/dL ABG Carboxyhemoglobin (0.5-1.5) % POC ABG HHb (Measured) (0.0-5.0) % ABG Methemoglobin (0.0-3.0) % Goran Test A-a O2 Difference mm/Hg Respiratory Index Hgb O2 Saturation (95.0-98.0) % Vent Mode Mechanical Rate FiO2 % Tidal Volume PEEP Sodium (132-148) mmol/L Potassium (3.6-5.2) mmol/L Chloride (98-107) mmol/L Carbon Dioxide (22-30) mmol/L Anion Gap (10-20) BUN (9-20) mg/dL Creatinine (0.8-1.5) MG/DL Est GFR ( Amer) Est GFR (Non-Af Amer) POC Glucose (mg/dL) 145 H 124 H (65-110) mg/dL Random Glucose (75-110) mg/dL Calcium (8.6-10.4) mg/dl Phosphorus (2.5-4.5) mg/dL Magnesium (1.6-2.3) mg/dL Ferritin ng/mL Total Bilirubin (0.2-1.3) mg/dL AST (17-59) U/L ALT (21-72) U/L Alkaline Phosphatase (38-126) U/L Total Protein (6.3-8.3) g/dL Albumin (3.5-5.0) g/dL Globulin (2.2-3.9) gm/dL Albumin/Globulin Ratio (1.0-2.1) Procalcitonin (0.19-0.49) NG/ML Urine Eosinophils (NEGATIVE) Ur Random Creatinine mg/dL U Random Total Protein Proteinase 3 (PR3) (<1.0) AI Myeloperoxidase Ab (<1.0) AI 05/01/17 05/01/17 05/01/17 Range/Units 06:36 05:28 04:45 WBC (4.8-10.8) K/uL RBC (4.40-5.90) Mil/uL Hgb (12.0-18.0) g/dL Hct (35.0-51.0) % MCV (80.0-94.0) fL MCH (27.0-31.0) pg MCHC (33.0-37.0) g/dL RDW (11.5-14.5) % Plt Count (130-400) K/uL MPV (7.2-11.7) fL Neut % (Auto) (50.0-75.0) % Lymph % (Auto) (20.0-40.0) % [place] % (Auto) (0.0-10.0) % Eos % (Auto) (0.0-4.0) % Baso % (Auto) (0.0-2.0) % Neut # (1.8-7.0) K/uL Lymph # (1.0-4.3) K/uL [place] # (0.0-0.8) K/uL Eos # (0.0-0.7) K/uL Baso # (0.0-0.2) K/uL Neutrophils % (Manual) (50-75) % Lymphocytes % (Manual) (20-40) % Monocytes % (Manual) (0-10) % Platelet Estimate (NORMAL) Hypochromasia (manual) Puncture Site Rr pCO2 38 (35-45) mm/Hg pO2 81 (80-100) mm/Hg HCO3 25.7 (21-28) mmol/L ABG pH 7.43 (7.35-7.45) ABG Total CO2 26.4 (22-28) mmol/L ABG O2 Saturation 98.6 H (95-98) % ABG Base Excess 1.0 (-2.0-3.0) mmol/L ABG Hemoglobin 14.4 (11.7-17.4) g/dL ABG Carboxyhemoglobin 1.6 H (0.5-1.5) % POC ABG HHb (Measured) 1.4 (0.0-5.0) % ABG Methemoglobin 1.4 (0.0-3.0) % Goran Test Pos A-a O2 Difference 228.0 mm/Hg Respiratory Index 2.8 Hgb O2 Saturation 95.6 (95.0-98.0) % Vent Mode Prvc Mechanical Rate 24 FiO2 50.0 % Tidal Volume 500 PEEP 5 Sodium 135 (132-148) mmol/L Potassium 3.2 L (3.6-5.2) mmol/L Chloride 97 L (98-107) mmol/L Carbon Dioxide 25 (22-30) mmol/L Anion Gap 16 (10-20) BUN 53 H (9-20) mg/dL Creatinine 7.4 H* D (0.8-1.5) MG/DL Est GFR ( Amer) 10 Est GFR (Non-Af Amer) 8 POC Glucose (mg/dL) 107 (65-110) mg/dL Random Glucose 91 (75-110) mg/dL Calcium 8.4 L (8.6-10.4) mg/dl Phosphorus 6.0 H (2.5-4.5) mg/dL Magnesium 2.9 H (1.6-2.3) mg/dL Ferritin ng/mL Total Bilirubin 0.3 (0.2-1.3) mg/dL AST 39 (17-59) U/L ALT 55 (21-72) U/L Alkaline Phosphatase 150 H D (38-126) U/L Total Protein 5.8 L (6.3-8.3) g/dL Albumin 2.9 L (3.5-5.0) g/dL Globulin 2.8 (2.2-3.9) gm/dL Albumin/Globulin Ratio 1.0 (1.0-2.1) Procalcitonin (0.19-0.49) NG/ML Urine Eosinophils (NEGATIVE) Ur Random Creatinine mg/dL U Random Total Protein Proteinase 3 (PR3) (<1.0) AI Myeloperoxidase Ab (<1.0) AI 05/01/17 05/01/17 05/01/17 Range/Units 04:14 03:12 02:18 WBC (4.8-10.8) K/uL RBC (4.40-5.90) Mil/uL Hgb (12.0-18.0) g/dL Hct (35.0-51.0) % MCV (80.0-94.0) fL MCH (27.0-31.0) pg MCHC (33.0-37.0) g/dL RDW (11.5-14.5) % Plt Count (130-400) K/uL MPV (7.2-11.7) fL Neut % (Auto) (50.0-75.0) % Lymph % (Auto) (20.0-40.0) % [place] % (Auto) (0.0-10.0) % Eos % (Auto) (0.0-4.0) % Baso % (Auto) (0.0-2.0) % Neut # (1.8-7.0) K/uL Lymph # (1.0-4.3) K/uL [place] # (0.0-0.8) K/uL Eos # (0.0-0.7) K/uL Baso # (0.0-0.2) K/uL Neutrophils % (Manual) (50-75) % Lymphocytes % (Manual) (20-40) % Monocytes % (Manual) (0-10) % Platelet Estimate (NORMAL) Hypochromasia (manual) Puncture Site pCO2 (35-45) mm/Hg pO2 (80-100) mm/Hg HCO3 (21-28) mmol/L ABG pH (7.35-7.45) ABG Total CO2 (22-28) mmol/L ABG O2 Saturation (95-98) % ABG Base Excess (-2.0-3.0) mmol/L ABG Hemoglobin (11.7-17.4) g/dL ABG Carboxyhemoglobin (0.5-1.5) % POC ABG HHb (Measured) (0.0-5.0) % ABG Methemoglobin (0.0-3.0) % Goran Test A-a O2 Difference mm/Hg Respiratory Index Hgb O2 Saturation (95.0-98.0) % Vent Mode Mechanical Rate FiO2 % Tidal Volume PEEP Sodium (132-148) mmol/L Potassium (3.6-5.2) mmol/L Chloride (98-107) mmol/L Carbon Dioxide (22-30) mmol/L Anion Gap (10-20) BUN (9-20) mg/dL Creatinine (0.8-1.5) MG/DL Est GFR ( Amer) Est GFR (Non-Af Amer) POC Glucose (mg/dL) 134 H 170 H 202 H (65-110) mg/dL Random Glucose (75-110) mg/dL Calcium (8.6-10.4) mg/dl Phosphorus (2.5-4.5) mg/dL Magnesium (1.6-2.3) mg/dL Ferritin ng/mL Total Bilirubin (0.2-1.3) mg/dL AST (17-59) U/L ALT (21-72) U/L Alkaline Phosphatase (38-126) U/L Total Protein (6.3-8.3) g/dL Albumin (3.5-5.0) g/dL Globulin (2.2-3.9) gm/dL Albumin/Globulin Ratio (1.0-2.1) Procalcitonin (0.19-0.49) NG/ML Urine Eosinophils (NEGATIVE) Ur Random Creatinine mg/dL U Random Total Protein Proteinase 3 (PR3) (<1.0) AI Myeloperoxidase Ab (<1.0) AI 05/01/17 05/01/17 04/30/17 Range/Units 01:34 00:19 23:03 WBC (4.8-10.8) K/uL RBC (4.40-5.90) Mil/uL Hgb (12.0-18.0) g/dL Hct (35.0-51.0) % MCV (80.0-94.0) fL MCH (27.0-31.0) pg MCHC (33.0-37.0) g/dL RDW (11.5-14.5) % Plt Count (130-400) K/uL MPV (7.2-11.7) fL Neut % (Auto) (50.0-75.0) % Lymph % (Auto) (20.0-40.0) % [place] % (Auto) (0.0-10.0) % Eos % (Auto) (0.0-4.0) % Baso % (Auto) (0.0-2.0) % Neut # (1.8-7.0) K/uL Lymph # (1.0-4.3) K/uL [place] # (0.0-0.8) K/uL Eos # (0.0-0.7) K/uL Baso # (0.0-0.2) K/uL Neutrophils % (Manual) (50-75) % Lymphocytes % (Manual) (20-40) % Monocytes % (Manual) (0-10) % Platelet Estimate (NORMAL) Hypochromasia (manual) Puncture Site pCO2 (35-45) mm/Hg pO2 (80-100) mm/Hg HCO3 (21-28) mmol/L ABG pH (7.35-7.45) ABG Total CO2 (22-28) mmol/L ABG O2 Saturation (95-98) % ABG Base Excess (-2.0-3.0) mmol/L ABG Hemoglobin (11.7-17.4) g/dL ABG Carboxyhemoglobin (0.5-1.5) % POC ABG HHb (Measured) (0.0-5.0) % ABG Methemoglobin (0.0-3.0) % Goran Test A-a O2 Difference mm/Hg Respiratory Index Hgb O2 Saturation (95.0-98.0) % Vent Mode Mechanical Rate FiO2 % Tidal Volume PEEP Sodium (132-148) mmol/L Potassium (3.6-5.2) mmol/L Chloride (98-107) mmol/L Carbon Dioxide (22-30) mmol/L Anion Gap (10-20) BUN (9-20) mg/dL Creatinine (0.8-1.5) MG/DL Est GFR ( Amer) Est GFR (Non-Af Amer) POC Glucose (mg/dL) 214 H 222 H 149 H (65-110) mg/dL Random Glucose (75-110) mg/dL Calcium (8.6-10.4) mg/dl Phosphorus (2.5-4.5) mg/dL Magnesium (1.6-2.3) mg/dL Ferritin ng/mL Total Bilirubin (0.2-1.3) mg/dL AST (17-59) U/L ALT (21-72) U/L Alkaline Phosphatase (38-126) U/L Total Protein (6.3-8.3) g/dL Albumin (3.5-5.0) g/dL Globulin (2.2-3.9) gm/dL Albumin/Globulin Ratio (1.0-2.1) Procalcitonin (0.19-0.49) NG/ML Urine Eosinophils (NEGATIVE) Ur Random Creatinine mg/dL U Random Total Protein Proteinase 3 (PR3) (<1.0) AI Myeloperoxidase Ab (<1.0) AI 04/30/17 04/30/17 04/30/17 Range/Units 22:06 21:03 20:07 WBC (4.8-10.8) K/uL RBC (4.40-5.90) Mil/uL Hgb (12.0-18.0) g/dL Hct (35.0-51.0) % MCV (80.0-94.0) fL MCH (27.0-31.0) pg MCHC (33.0-37.0) g/dL RDW (11.5-14.5) % Plt Count (130-400) K/uL MPV (7.2-11.7) fL Neut % (Auto) (50.0-75.0) % Lymph % (Auto) (20.0-40.0) % [place] % (Auto) (0.0-10.0) % Eos % (Auto) (0.0-4.0) % Baso % (Auto) (0.0-2.0) % Neut # (1.8-7.0) K/uL Lymph # (1.0-4.3) K/uL [place] # (0.0-0.8) K/uL Eos # (0.0-0.7) K/uL Baso # (0.0-0.2) K/uL Neutrophils % (Manual) (50-75) % Lymphocytes % (Manual) (20-40) % Monocytes % (Manual) (0-10) % Platelet Estimate (NORMAL) Hypochromasia (manual) Puncture Site pCO2 (35-45) mm/Hg pO2 (80-100) mm/Hg HCO3 (21-28) mmol/L ABG pH (7.35-7.45) ABG Total CO2 (22-28) mmol/L ABG O2 Saturation (95-98) % ABG Base Excess (-2.0-3.0) mmol/L ABG Hemoglobin (11.7-17.4) g/dL ABG Carboxyhemoglobin (0.5-1.5) % POC ABG HHb (Measured) (0.0-5.0) % ABG Methemoglobin (0.0-3.0) % Goran Test A-a O2 Difference mm/Hg Respiratory Index Hgb O2 Saturation (95.0-98.0) % Vent Mode Mechanical Rate FiO2 % Tidal Volume PEEP Sodium (132-148) mmol/L Potassium (3.6-5.2) mmol/L Chloride (98-107) mmol/L Carbon Dioxide (22-30) mmol/L Anion Gap (10-20) BUN (9-20) mg/dL Creatinine (0.8-1.5) MG/DL Est GFR ( Amer) Est GFR (Non-Af Amer) POC Glucose (mg/dL) 133 H 128 H 156 H (65-110) mg/dL Random Glucose (75-110) mg/dL Calcium (8.6-10.4) mg/dl Phosphorus (2.5-4.5) mg/dL Magnesium (1.6-2.3) mg/dL Ferritin ng/mL Total Bilirubin (0.2-1.3) mg/dL AST (17-59) U/L ALT (21-72) U/L Alkaline Phosphatase (38-126) U/L Total Protein (6.3-8.3) g/dL Albumin (3.5-5.0) g/dL Globulin (2.2-3.9) gm/dL Albumin/Globulin Ratio (1.0-2.1) Procalcitonin (0.19-0.49) NG/ML Urine Eosinophils (NEGATIVE) Ur Random Creatinine mg/dL U Random Total Protein Proteinase 3 (PR3) (<1.0) AI Myeloperoxidase Ab (<1.0) AI 04/30/17 04/30/17 04/30/17 Range/Units 19:21 18:13 17:07 WBC (4.8-10.8) K/uL RBC (4.40-5.90) Mil/uL Hgb (12.0-18.0) g/dL Hct (35.0-51.0) % MCV (80.0-94.0) fL MCH (27.0-31.0) pg MCHC (33.0-37.0) g/dL RDW (11.5-14.5) % Plt Count (130-400) K/uL MPV (7.2-11.7) fL Neut % (Auto) (50.0-75.0) % Lymph % (Auto) (20.0-40.0) % [place] % (Auto) (0.0-10.0) % Eos % (Auto) (0.0-4.0) % Baso % (Auto) (0.0-2.0) % Neut # (1.8-7.0) K/uL Lymph # (1.0-4.3) K/uL [place] # (0.0-0.8) K/uL Eos # (0.0-0.7) K/uL Baso # (0.0-0.2) K/uL Neutrophils % (Manual) (50-75) % Lymphocytes % (Manual) (20-40) % Monocytes % (Manual) (0-10) % Platelet Estimate (NORMAL) Hypochromasia (manual) Puncture Site pCO2 (35-45) mm/Hg pO2 (80-100) mm/Hg HCO3 (21-28) mmol/L ABG pH (7.35-7.45) ABG Total CO2 (22-28) mmol/L ABG O2 Saturation (95-98) % ABG Base Excess (-2.0-3.0) mmol/L ABG Hemoglobin (11.7-17.4) g/dL ABG Carboxyhemoglobin (0.5-1.5) % POC ABG HHb (Measured) (0.0-5.0) % ABG Methemoglobin (0.0-3.0) % Goran Test A-a O2 Difference mm/Hg Respiratory Index Hgb O2 Saturation (95.0-98.0) % Vent Mode Mechanical Rate FiO2 % Tidal Volume PEEP Sodium (132-148) mmol/L Potassium (3.6-5.2) mmol/L Chloride (98-107) mmol/L Carbon Dioxide (22-30) mmol/L Anion Gap (10-20) BUN (9-20) mg/dL Creatinine (0.8-1.5) MG/DL Est GFR ( Amer) Est GFR (Non-Af Amer) POC Glucose (mg/dL) 180 H 241 H 261 H (65-110) mg/dL Random Glucose (75-110) mg/dL Calcium (8.6-10.4) mg/dl Phosphorus (2.5-4.5) mg/dL Magnesium (1.6-2.3) mg/dL Ferritin ng/mL Total Bilirubin (0.2-1.3) mg/dL AST (17-59) U/L ALT (21-72) U/L Alkaline Phosphatase (38-126) U/L Total Protein (6.3-8.3) g/dL Albumin (3.5-5.0) g/dL Globulin (2.2-3.9) gm/dL Albumin/Globulin Ratio (1.0-2.1) Procalcitonin (0.19-0.49) NG/ML Urine Eosinophils (NEGATIVE) Ur Random Creatinine mg/dL U Random Total Protein Proteinase 3 (PR3) (<1.0) AI Myeloperoxidase Ab (<1.0) AI 04/30/17 04/30/17 04/30/17 Range/Units 16:03 15:30 15:15 WBC (4.8-10.8) K/uL RBC (4.40-5.90) Mil/uL Hgb (12.0-18.0) g/dL Hct (35.0-51.0) % MCV (80.0-94.0) fL MCH (27.0-31.0) pg MCHC (33.0-37.0) g/dL RDW (11.5-14.5) % Plt Count (130-400) K/uL MPV (7.2-11.7) fL Neut % (Auto) (50.0-75.0) % Lymph % (Auto) (20.0-40.0) % [place] % (Auto) (0.0-10.0) % Eos % (Auto) (0.0-4.0) % Baso % (Auto) (0.0-2.0) % Neut # (1.8-7.0) K/uL Lymph # (1.0-4.3) K/uL [place] # (0.0-0.8) K/uL Eos # (0.0-0.7) K/uL Baso # (0.0-0.2) K/uL Neutrophils % (Manual) (50-75) % Lymphocytes % (Manual) (20-40) % Monocytes % (Manual) (0-10) % Platelet Estimate (NORMAL) Hypochromasia (manual) Puncture Site Rra pCO2 34 L (35-45) mm/Hg pO2 143 H (80-100) mm/Hg HCO3 23.5 (21-28) mmol/L ABG pH 7.42 (7.35-7.45) ABG Total CO2 23.1 (22-28) mmol/L ABG O2 Saturation 99.9 H (95-98) % ABG Base Excess -1.9 (-2.0-3.0) mmol/L ABG Hemoglobin 10.0 L (11.7-17.4) g/dL ABG Carboxyhemoglobin 1.4 (0.5-1.5) % POC ABG HHb (Measured) 0.1 (0.0-5.0) % ABG Methemoglobin 1.3 (0.0-3.0) % Goran Test Pos A-a O2 Difference 242.0 mm/Hg Respiratory Index 1.7 Hgb O2 Saturation 97.1 (95.0-98.0) % Vent Mode Prvc Mechanical Rate 24 FiO2 60.0 % Tidal Volume 500 PEEP 5 Sodium (132-148) mmol/L Potassium (3.6-5.2) mmol/L Chloride (98-107) mmol/L Carbon Dioxide (22-30) mmol/L Anion Gap (10-20) BUN (9-20) mg/dL Creatinine (0.8-1.5) MG/DL Est GFR ( Amer) Est GFR (Non-Af Amer) POC Glucose (mg/dL) 273 H 266 H (65-110) mg/dL Random Glucose (75-110) mg/dL Calcium (8.6-10.4) mg/dl Phosphorus (2.5-4.5) mg/dL Magnesium (1.6-2.3) mg/dL Ferritin ng/mL Total Bilirubin (0.2-1.3) mg/dL AST (17-59) U/L ALT (21-72) U/L Alkaline Phosphatase (38-126) U/L Total Protein (6.3-8.3) g/dL Albumin (3.5-5.0) g/dL Globulin (2.2-3.9) gm/dL Albumin/Globulin Ratio (1.0-2.1) Procalcitonin (0.19-0.49) NG/ML Urine Eosinophils (NEGATIVE) Ur Random Creatinine mg/dL U Random Total Protein Proteinase 3 (PR3) (<1.0) AI Myeloperoxidase Ab (<1.0) AI 04/30/17 04/30/17 04/30/17 Range/Units 14:04 13:45 13:07 WBC (4.8-10.8) K/uL RBC (4.40-5.90) Mil/uL Hgb (12.0-18.0) g/dL Hct (35.0-51.0) % MCV (80.0-94.0) fL MCH (27.0-31.0) pg MCHC (33.0-37.0) g/dL RDW (11.5-14.5) % Plt Count (130-400) K/uL MPV (7.2-11.7) fL Neut % (Auto) (50.0-75.0) % Lymph % (Auto) (20.0-40.0) % [place] % (Auto) (0.0-10.0) % Eos % (Auto) (0.0-4.0) % Baso % (Auto) (0.0-2.0) % Neut # (1.8-7.0) K/uL Lymph # (1.0-4.3) K/uL [place] # (0.0-0.8) K/uL Eos # (0.0-0.7) K/uL Baso # (0.0-0.2) K/uL Neutrophils % (Manual) (50-75) % Lymphocytes % (Manual) (20-40) % Monocytes % (Manual) (0-10) % Platelet Estimate (NORMAL) Hypochromasia (manual) Puncture Site pCO2 (35-45) mm/Hg pO2 (80-100) mm/Hg HCO3 (21-28) mmol/L ABG pH (7.35-7.45) ABG Total CO2 (22-28) mmol/L ABG O2 Saturation (95-98) % ABG Base Excess (-2.0-3.0) mmol/L ABG Hemoglobin (11.7-17.4) g/dL ABG Carboxyhemoglobin (0.5-1.5) % POC ABG HHb (Measured) (0.0-5.0) % ABG Methemoglobin (0.0-3.0) % Goran Test A-a O2 Difference mm/Hg Respiratory Index Hgb O2 Saturation (95.0-98.0) % Vent Mode Mechanical Rate FiO2 % Tidal Volume PEEP Sodium (132-148) mmol/L Potassium (3.6-5.2) mmol/L Chloride (98-107) mmol/L Carbon Dioxide (22-30) mmol/L Anion Gap (10-20) BUN (9-20) mg/dL Creatinine (0.8-1.5) MG/DL Est GFR ( Amer) Est GFR (Non-Af Amer) POC Glucose (mg/dL) 243 H 231 H (65-110) mg/dL Random Glucose (75-110) mg/dL Calcium (8.6-10.4) mg/dl Phosphorus (2.5-4.5) mg/dL Magnesium (1.6-2.3) mg/dL Ferritin ng/mL Total Bilirubin (0.2-1.3) mg/dL AST (17-59) U/L ALT (21-72) U/L Alkaline Phosphatase (38-126) U/L Total Protein (6.3-8.3) g/dL Albumin (3.5-5.0) g/dL Globulin (2.2-3.9) gm/dL Albumin/Globulin Ratio (1.0-2.1) Procalcitonin (0.19-0.49) NG/ML Urine Eosinophils (NEGATIVE) Ur Random Creatinine mg/dL U Random Total Protein 100.0 H Proteinase 3 (PR3) (<1.0) AI Myeloperoxidase Ab (<1.0) AI 04/30/17 04/30/17 04/30/17 Range/Units 13:07 13:07 12:17 WBC (4.8-10.8) K/uL RBC (4.40-5.90) Mil/uL Hgb (12.0-18.0) g/dL Hct (35.0-51.0) % MCV (80.0-94.0) fL MCH (27.0-31.0) pg MCHC (33.0-37.0) g/dL RDW (11.5-14.5) % Plt Count (130-400) K/uL MPV (7.2-11.7) fL Neut % (Auto) (50.0-75.0) % Lymph % (Auto) (20.0-40.0) % [place] % (Auto) (0.0-10.0) % Eos % (Auto) (0.0-4.0) % Baso % (Auto) (0.0-2.0) % Neut # (1.8-7.0) K/uL Lymph # (1.0-4.3) K/uL [place] # (0.0-0.8) K/uL Eos # (0.0-0.7) K/uL Baso # (0.0-0.2) K/uL Neutrophils % (Manual) (50-75) % Lymphocytes % (Manual) (20-40) % Monocytes % (Manual) (0-10) % Platelet Estimate (NORMAL) Hypochromasia (manual) Puncture Site pCO2 (35-45) mm/Hg pO2 (80-100) mm/Hg HCO3 (21-28) mmol/L ABG pH (7.35-7.45) ABG Total CO2 (22-28) mmol/L ABG O2 Saturation (95-98) % ABG Base Excess (-2.0-3.0) mmol/L ABG Hemoglobin (11.7-17.4) g/dL ABG Carboxyhemoglobin (0.5-1.5) % POC ABG HHb (Measured) (0.0-5.0) % ABG Methemoglobin (0.0-3.0) % Goran Test A-a O2 Difference mm/Hg Respiratory Index Hgb O2 Saturation (95.0-98.0) % Vent Mode Mechanical Rate FiO2 % Tidal Volume PEEP Sodium (132-148) mmol/L Potassium (3.6-5.2) mmol/L Chloride (98-107) mmol/L Carbon Dioxide (22-30) mmol/L Anion Gap (10-20) BUN (9-20) mg/dL Creatinine (0.8-1.5) MG/DL Est GFR ( Amer) Est GFR (Non-Af Amer) POC Glucose (mg/dL) 143 H (65-110) mg/dL Random Glucose (75-110) mg/dL Calcium (8.6-10.4) mg/dl Phosphorus (2.5-4.5) mg/dL Magnesium (1.6-2.3) mg/dL Ferritin ng/mL Total Bilirubin (0.2-1.3) mg/dL AST (17-59) U/L ALT (21-72) U/L Alkaline Phosphatase (38-126) U/L Total Protein (6.3-8.3) g/dL Albumin (3.5-5.0) g/dL Globulin (2.2-3.9) gm/dL Albumin/Globulin Ratio (1.0-2.1) Procalcitonin (0.19-0.49) NG/ML Urine Eosinophils Positive H (NEGATIVE) Ur Random Creatinine 118.7 mg/dL U Random Total Protein Cancelled Proteinase 3 (PR3) (<1.0) AI Myeloperoxidase Ab (<1.0) AI 04/30/17 04/30/17 04/30/17 Range/Units 10:49 10:01 09:47 WBC (4.8-10.8) K/uL RBC (4.40-5.90) Mil/uL Hgb (12.0-18.0) g/dL Hct (35.0-51.0) % MCV (80.0-94.0) fL MCH (27.0-31.0) pg MCHC (33.0-37.0) g/dL RDW (11.5-14.5) % Plt Count (130-400) K/uL MPV (7.2-11.7) fL Neut % (Auto) (50.0-75.0) % Lymph % (Auto) (20.0-40.0) % [place] % (Auto) (0.0-10.0) % Eos % (Auto) (0.0-4.0) % Baso % (Auto) (0.0-2.0) % Neut # (1.8-7.0) K/uL Lymph # (1.0-4.3) K/uL [place] # (0.0-0.8) K/uL Eos # (0.0-0.7) K/uL Baso # (0.0-0.2) K/uL Neutrophils % (Manual) (50-75) % Lymphocytes % (Manual) (20-40) % Monocytes % (Manual) (0-10) % Platelet Estimate (NORMAL) Hypochromasia (manual) Puncture Site pCO2 (35-45) mm/Hg pO2 (80-100) mm/Hg HCO3 (21-28) mmol/L ABG pH (7.35-7.45) ABG Total CO2 (22-28) mmol/L ABG O2 Saturation (95-98) % ABG Base Excess (-2.0-3.0) mmol/L ABG Hemoglobin (11.7-17.4) g/dL ABG Carboxyhemoglobin (0.5-1.5) % POC ABG HHb (Measured) (0.0-5.0) % ABG Methemoglobin (0.0-3.0) % Goran Test A-a O2 Difference mm/Hg Respiratory Index Hgb O2 Saturation (95.0-98.0) % Vent Mode Mechanical Rate FiO2 % Tidal Volume PEEP Sodium (132-148) mmol/L Potassium (3.6-5.2) mmol/L Chloride (98-107) mmol/L Carbon Dioxide (22-30) mmol/L Anion Gap (10-20) BUN (9-20) mg/dL Creatinine (0.8-1.5) MG/DL Est GFR ( Amer) Est GFR (Non-Af Amer) POC Glucose (mg/dL) 134 H 222 H (65-110) mg/dL Random Glucose (75-110) mg/dL Calcium (8.6-10.4) mg/dl Phosphorus (2.5-4.5) mg/dL Magnesium (1.6-2.3) mg/dL Ferritin ng/mL Total Bilirubin (0.2-1.3) mg/dL AST (17-59) U/L ALT (21-72) U/L Alkaline Phosphatase (38-126) U/L Total Protein (6.3-8.3) g/dL Albumin (3.5-5.0) g/dL Globulin (2.2-3.9) gm/dL Albumin/Globulin Ratio (1.0-2.1) Procalcitonin 17.95 H (0.19-0.49) NG/ML Urine Eosinophils (NEGATIVE) Ur Random Creatinine mg/dL U Random Total Protein Proteinase 3 (PR3) (<1.0) AI Myeloperoxidase Ab (<1.0) AI 04/30/17 04/30/17 04/30/17 Range/Units 07:54 06:14 06:14 WBC (4.8-10.8) K/uL RBC (4.40-5.90) Mil/uL Hgb (12.0-18.0) g/dL Hct (35.0-51.0) % MCV (80.0-94.0) fL MCH (27.0-31.0) pg MCHC (33.0-37.0) g/dL RDW (11.5-14.5) % Plt Count (130-400) K/uL MPV (7.2-11.7) fL Neut % (Auto) (50.0-75.0) % Lymph % (Auto) (20.0-40.0) % [place] % (Auto) (0.0-10.0) % Eos % (Auto) (0.0-4.0) % Baso % (Auto) (0.0-2.0) % Neut # (1.8-7.0) K/uL Lymph # (1.0-4.3) K/uL [place] # (0.0-0.8) K/uL Eos # (0.0-0.7) K/uL Baso # (0.0-0.2) K/uL Neutrophils % (Manual) 88 H (50-75) % Lymphocytes % (Manual) 6 L (20-40) % Monocytes % (Manual) 6 (0-10) % Platelet Estimate Normal (NORMAL) Hypochromasia (manual) Slight Puncture Site pCO2 (35-45) mm/Hg pO2 (80-100) mm/Hg HCO3 (21-28) mmol/L ABG pH (7.35-7.45) ABG Total CO2 (22-28) mmol/L ABG O2 Saturation (95-98) % ABG Base Excess (-2.0-3.0) mmol/L ABG Hemoglobin (11.7-17.4) g/dL ABG Carboxyhemoglobin (0.5-1.5) % POC ABG HHb (Measured) (0.0-5.0) % ABG Methemoglobin (0.0-3.0) % Goran Test A-a O2 Difference mm/Hg Respiratory Index Hgb O2 Saturation (95.0-98.0) % Vent Mode Mechanical Rate FiO2 % Tidal Volume PEEP Sodium (132-148) mmol/L Potassium (3.6-5.2) mmol/L Chloride (98-107) mmol/L Carbon Dioxide (22-30) mmol/L Anion Gap (10-20) BUN (9-20) mg/dL Creatinine (0.8-1.5) MG/DL Est GFR ( Amer) Est GFR (Non-Af Amer) POC Glucose (mg/dL) 296 H (65-110) mg/dL Random Glucose (75-110) mg/dL Calcium (8.6-10.4) mg/dl Phosphorus (2.5-4.5) mg/dL Magnesium (1.6-2.3) mg/dL Ferritin 140.0 ng/mL Total Bilirubin (0.2-1.3) mg/dL AST (17-59) U/L ALT (21-72) U/L Alkaline Phosphatase (38-126) U/L Total Protein (6.3-8.3) g/dL Albumin (3.5-5.0) g/dL Globulin (2.2-3.9) gm/dL Albumin/Globulin Ratio (1.0-2.1) Procalcitonin (0.19-0.49) NG/ML Urine Eosinophils (NEGATIVE) Ur Random Creatinine mg/dL U Random Total Protein Proteinase 3 (PR3) (<1.0) AI Myeloperoxidase Ab (<1.0) AI 04/28/17 Range/Units 17:19 WBC (4.8-10.8) K/uL RBC (4.40-5.90) Mil/uL Hgb (12.0-18.0) g/dL Hct (35.0-51.0) % MCV (80.0-94.0) fL MCH (27.0-31.0) pg MCHC (33.0-37.0) g/dL RDW (11.5-14.5) % Plt Count (130-400) K/uL MPV (7.2-11.7) fL Neut % (Auto) (50.0-75.0) % Lymph % (Auto) (20.0-40.0) % [place] % (Auto) (0.0-10.0) % Eos % (Auto) (0.0-4.0) % Baso % (Auto) (0.0-2.0) % Neut # (1.8-7.0) K/uL Lymph # (1.0-4.3) K/uL [place] # (0.0-0.8) K/uL Eos # (0.0-0.7) K/uL Baso # (0.0-0.2) K/uL Neutrophils % (Manual) (50-75) % Lymphocytes % (Manual) (20-40) % Monocytes % (Manual) (0-10) % Platelet Estimate (NORMAL) Hypochromasia (manual) Puncture Site pCO2 (35-45) mm/Hg pO2 (80-100) mm/Hg HCO3 (21-28) mmol/L ABG pH (7.35-7.45) ABG Total CO2 (22-28) mmol/L ABG O2 Saturation (95-98) % ABG Base Excess (-2.0-3.0) mmol/L ABG Hemoglobin (11.7-17.4) g/dL ABG Carboxyhemoglobin (0.5-1.5) % POC ABG HHb (Measured) (0.0-5.0) % ABG Methemoglobin (0.0-3.0) % Goran Test A-a O2 Difference mm/Hg Respiratory Index Hgb O2 Saturation (95.0-98.0) % Vent Mode Mechanical Rate FiO2 % Tidal Volume PEEP Sodium (132-148) mmol/L Potassium (3.6-5.2) mmol/L Chloride (98-107) mmol/L Carbon Dioxide (22-30) mmol/L Anion Gap (10-20) BUN (9-20) mg/dL Creatinine (0.8-1.5) MG/DL Est GFR ( Amer) Est GFR (Non-Af Amer) POC Glucose (mg/dL) (65-110) mg/dL Random Glucose (75-110) mg/dL Calcium (8.6-10.4) mg/dl Phosphorus (2.5-4.5) mg/dL Magnesium (1.6-2.3) mg/dL Ferritin ng/mL Total Bilirubin (0.2-1.3) mg/dL AST (17-59) U/L ALT (21-72) U/L Alkaline Phosphatase (38-126) U/L Total Protein (6.3-8.3) g/dL Albumin (3.5-5.0) g/dL Globulin (2.2-3.9) gm/dL Albumin/Globulin Ratio (1.0-2.1) Procalcitonin (0.19-0.49) NG/ML Urine Eosinophils (NEGATIVE) Ur Random Creatinine mg/dL U Random Total Protein Proteinase 3 (PR3) <1.0 (<1.0) AI Myeloperoxidase Ab <1.0 (<1.0) AI Laboratory Results - last 24 hr 04/28/17 04/30/17 04/30/17 17:19 06:14 06:14 WBC RBC Hgb Hct MCV MCH MCHC RDW Plt Count MPV Neut % (Auto) Lymph % (Auto) [place] % (Auto) Eos % (Auto) Baso % (Auto) Neut # Lymph # [place] # Eos # Baso # Neutrophils % (Manual) 88 H Lymphocytes % (Manual) 6 L Monocytes % (Manual) 6 Platelet Estimate Normal Hypochromasia (manual) Slight Puncture Site pCO2 pO2 HCO3 ABG pH ABG Total CO2 ABG O2 Saturation ABG Base Excess ABG Hemoglobin ABG Carboxyhemoglobin POC ABG HHb (Measured) ABG Methemoglobin Goran Test A-a O2 Difference Respiratory Index Hgb O2 Saturation Vent Mode Mechanical Rate FiO2 Tidal Volume PEEP Sodium Potassium Chloride Carbon Dioxide Anion Gap BUN Creatinine Est GFR ( Amer) Est GFR (Non-Af Amer) POC Glucose (mg/dL) Random Glucose Calcium Phosphorus Magnesium Ferritin 140.0 Total Bilirubin AST ALT Alkaline Phosphatase Total Protein Albumin Globulin Albumin/Globulin Ratio Procalcitonin Urine Eosinophils Ur Random Creatinine U Random Total Protein Proteinase 3 (PR3) <1.0 Myeloperoxidase Ab <1.0 04/30/17 04/30/17 04/30/17 07:54 09:47 10:01 WBC RBC Hgb Hct MCV MCH MCHC RDW Plt Count MPV Neut % (Auto) Lymph % (Auto) [place] % (Auto) Eos % (Auto) Baso % (Auto) Neut # Lymph # [place] # Eos # Baso # Neutrophils % (Manual) Lymphocytes % (Manual) Monocytes % (Manual) Platelet Estimate Hypochromasia (manual) Puncture Site pCO2 pO2 HCO3 ABG pH ABG Total CO2 ABG O2 Saturation ABG Base Excess ABG Hemoglobin ABG Carboxyhemoglobin POC ABG HHb (Measured) ABG Methemoglobin Goran Test A-a O2 Difference Respiratory Index Hgb O2 Saturation Vent Mode Mechanical Rate FiO2 Tidal Volume PEEP Sodium Potassium Chloride Carbon Dioxide Anion Gap BUN Creatinine Est GFR ( Amer) Est GFR (Non-Af Amer) POC Glucose (mg/dL) 296 H 222 H Random Glucose Calcium Phosphorus Magnesium Ferritin Total Bilirubin AST ALT Alkaline Phosphatase Total Protein Albumin Globulin Albumin/Globulin Ratio Procalcitonin 17.95 H Urine Eosinophils Ur Random Creatinine U Random Total Protein Proteinase 3 (PR3) Myeloperoxidase Ab 04/30/17 04/30/17 04/30/17 10:49 12:17 13:07 WBC RBC Hgb Hct MCV MCH MCHC RDW Plt Count MPV Neut % (Auto) Lymph % (Auto) [place] % (Auto) Eos % (Auto) Baso % (Auto) Neut # Lymph # [place] # Eos # Baso # Neutrophils % (Manual) Lymphocytes % (Manual) Monocytes % (Manual) Platelet Estimate Hypochromasia (manual) Puncture Site pCO2 pO2 HCO3 ABG pH ABG Total CO2 ABG O2 Saturation ABG Base Excess ABG Hemoglobin ABG Carboxyhemoglobin POC ABG HHb (Measured) ABG Methemoglobin Goran Test A-a O2 Difference Respiratory Index Hgb O2 Saturation Vent Mode Mechanical Rate FiO2 Tidal Volume PEEP Sodium Potassium Chloride Carbon Dioxide Anion Gap BUN Creatinine Est GFR ( Amer) Est GFR (Non-Af Amer) POC Glucose (mg/dL) 134 H 143 H Random Glucose Calcium Phosphorus Magnesium Ferritin Total Bilirubin AST ALT Alkaline Phosphatase Total Protein Albumin Globulin Albumin/Globulin Ratio Procalcitonin Urine Eosinophils Ur Random Creatinine 118.7 U Random Total Protein Cancelled Proteinase 3 (PR3) Myeloperoxidase Ab 04/30/17 04/30/17 04/30/17 13:07 13:07 13:45 WBC RBC Hgb Hct MCV MCH MCHC RDW Plt Count MPV Neut % (Auto) Lymph % (Auto) [place] % (Auto) Eos % (Auto) Baso % (Auto) Neut # Lymph # [place] # Eos # Baso # Neutrophils % (Manual) Lymphocytes % (Manual) Monocytes % (Manual) Platelet Estimate Hypochromasia (manual) Puncture Site pCO2 pO2 HCO3 ABG pH ABG Total CO2 ABG O2 Saturation ABG Base Excess ABG Hemoglobin ABG Carboxyhemoglobin POC ABG HHb (Measured) ABG Methemoglobin Goran Test A-a O2 Difference Respiratory Index Hgb O2 Saturation Vent Mode Mechanical Rate FiO2 Tidal Volume PEEP Sodium Potassium Chloride Carbon Dioxide Anion Gap BUN Creatinine Est GFR ( Amer) Est GFR (Non-Af Amer) POC Glucose (mg/dL) 231 H Random Glucose Calcium Phosphorus Magnesium Ferritin Total Bilirubin AST ALT Alkaline Phosphatase Total Protein Albumin Globulin Albumin/Globulin Ratio Procalcitonin Urine Eosinophils Positive H Ur Random Creatinine U Random Total Protein 100.0 H Proteinase 3 (PR3) Myeloperoxidase Ab 04/30/17 04/30/17 04/30/17 14:04 15:15 15:30 WBC RBC Hgb Hct MCV MCH MCHC RDW Plt Count MPV Neut % (Auto) Lymph % (Auto) [place] % (Auto) Eos % (Auto) Baso % (Auto) Neut # Lymph # [place] # Eos # Baso # Neutrophils % (Manual) Lymphocytes % (Manual) Monocytes % (Manual) Platelet Estimate Hypochromasia (manual) Puncture Site Rra pCO2 34 L pO2 143 H HCO3 23.5 ABG pH 7.42 ABG Total CO2 23.1 ABG O2 Saturation 99.9 H ABG Base Excess -1.9 ABG Hemoglobin 10.0 L ABG Carboxyhemoglobin 1.4 POC ABG HHb (Measured) 0.1 ABG Methemoglobin 1.3 Goran Test Pos A-a O2 Difference 242.0 Respiratory Index 1.7 Hgb O2 Saturation 97.1 Vent Mode Prvc Mechanical Rate 24 FiO2 60.0 Tidal Volume 500 PEEP 5 Sodium Potassium Chloride Carbon Dioxide Anion Gap BUN Creatinine Est GFR ( Amer) Est GFR (Non-Af Amer) POC Glucose (mg/dL) 243 H 266 H Random Glucose Calcium Phosphorus Magnesium Ferritin Total Bilirubin AST ALT Alkaline Phosphatase Total Protein Albumin Globulin Albumin/Globulin Ratio Procalcitonin Urine Eosinophils Ur Random Creatinine U Random Total Protein Proteinase 3 (PR3) Myeloperoxidase Ab 04/30/17 04/30/17 04/30/17 16:03 17:07 18:13 WBC RBC Hgb Hct MCV MCH MCHC RDW Plt Count MPV Neut % (Auto) Lymph % (Auto) [place] % (Auto) Eos % (Auto) Baso % (Auto) Neut # Lymph # [place] # Eos # Baso # Neutrophils % (Manual) Lymphocytes % (Manual) Monocytes % (Manual) Platelet Estimate Hypochromasia (manual) Puncture Site pCO2 pO2 HCO3 ABG pH ABG Total CO2 ABG O2 Saturation ABG Base Excess ABG Hemoglobin ABG Carboxyhemoglobin POC ABG HHb (Measured) ABG Methemoglobin Goran Test A-a O2 Difference Respiratory Index Hgb O2 Saturation Vent Mode Mechanical Rate FiO2 Tidal Volume PEEP Sodium Potassium Chloride Carbon Dioxide Anion Gap BUN Creatinine Est GFR ( Amer) Est GFR (Non-Af Amer) POC Glucose (mg/dL) 273 H 261 H 241 H Random Glucose Calcium Phosphorus Magnesium Ferritin Total Bilirubin AST ALT Alkaline Phosphatase Total Protein Albumin Globulin Albumin/Globulin Ratio Procalcitonin Urine Eosinophils Ur Random Creatinine U Random Total Protein Proteinase 3 (PR3) Myeloperoxidase Ab 04/30/17 04/30/17 04/30/17 19:21 20:07 21:03 WBC RBC Hgb Hct MCV MCH MCHC RDW Plt Count MPV Neut % (Auto) Lymph % (Auto) [place] % (Auto) Eos % (Auto) Baso % (Auto) Neut # Lymph # [place] # Eos # Baso # Neutrophils % (Manual) Lymphocytes % (Manual) Monocytes % (Manual) Platelet Estimate Hypochromasia (manual) Puncture Site pCO2 pO2 HCO3 ABG pH ABG Total CO2 ABG O2 Saturation ABG Base Excess ABG Hemoglobin ABG Carboxyhemoglobin POC ABG HHb (Measured) ABG Methemoglobin Goran Test A-a O2 Difference Respiratory Index Hgb O2 Saturation Vent Mode Mechanical Rate FiO2 Tidal Volume PEEP Sodium Potassium Chloride Carbon Dioxide Anion Gap BUN Creatinine Est GFR ( Amer) Est GFR (Non-Af Amer) POC Glucose (mg/dL) 180 H 156 H 128 H Random Glucose Calcium Phosphorus Magnesium Ferritin Total Bilirubin AST ALT Alkaline Phosphatase Total Protein Albumin Globulin Albumin/Globulin Ratio Procalcitonin Urine Eosinophils Ur Random Creatinine U Random Total Protein Proteinase 3 (PR3) Myeloperoxidase Ab 04/30/17 04/30/17 05/01/17 22:06 23:03 00:19 WBC RBC Hgb Hct MCV MCH MCHC RDW Plt Count MPV Neut % (Auto) Lymph % (Auto) [place] % (Auto) Eos % (Auto) Baso % (Auto) Neut # Lymph # [place] # Eos # Baso # Neutrophils % (Manual) Lymphocytes % (Manual) Monocytes % (Manual) Platelet Estimate Hypochromasia (manual) Puncture Site pCO2 pO2 HCO3 ABG pH ABG Total CO2 ABG O2 Saturation ABG Base Excess ABG Hemoglobin ABG Carboxyhemoglobin POC ABG HHb (Measured) ABG Methemoglobin Goran Test A-a O2 Difference Respiratory Index Hgb O2 Saturation Vent Mode Mechanical Rate FiO2 Tidal Volume PEEP Sodium Potassium Chloride Carbon Dioxide Anion Gap BUN Creatinine Est GFR ( Amer) Est GFR (Non-Af Amer) POC Glucose (mg/dL) 133 H 149 H 222 H Random Glucose Calcium Phosphorus Magnesium Ferritin Total Bilirubin AST ALT Alkaline Phosphatase Total Protein Albumin Globulin Albumin/Globulin Ratio Procalcitonin Urine Eosinophils Ur Random Creatinine U Random Total Protein Proteinase 3 (PR3) Myeloperoxidase Ab 05/01/17 05/01/17 05/01/17 01:34 02:18 03:12 WBC RBC Hgb Hct MCV MCH MCHC RDW Plt Count MPV Neut % (Auto) Lymph % (Auto) [place] % (Auto) Eos % (Auto) Baso % (Auto) Neut # Lymph # [place] # Eos # Baso # Neutrophils % (Manual) Lymphocytes % (Manual) Monocytes % (Manual) Platelet Estimate Hypochromasia (manual) Puncture Site pCO2 pO2 HCO3 ABG pH ABG Total CO2 ABG O2 Saturation ABG Base Excess ABG Hemoglobin ABG Carboxyhemoglobin POC ABG HHb (Measured) ABG Methemoglobin Goran Test A-a O2 Difference Respiratory Index Hgb O2 Saturation Vent Mode Mechanical Rate FiO2 Tidal Volume PEEP Sodium Potassium Chloride Carbon Dioxide Anion Gap BUN Creatinine Est GFR ( Amer) Est GFR (Non-Af Amer) POC Glucose (mg/dL) 214 H 202 H 170 H Random Glucose Calcium Phosphorus Magnesium Ferritin Total Bilirubin AST ALT Alkaline Phosphatase Total Protein Albumin Globulin Albumin/Globulin Ratio Procalcitonin Urine Eosinophils Ur Random Creatinine U Random Total Protein Proteinase 3 (PR3) Myeloperoxidase Ab 05/01/17 05/01/17 05/01/17 04:14 04:45 05:28 WBC RBC Hgb Hct MCV MCH MCHC RDW Plt Count MPV Neut % (Auto) Lymph % (Auto) [place] % (Auto) Eos % (Auto) Baso % (Auto) Neut # Lymph # [place] # Eos # Baso # Neutrophils % (Manual) Lymphocytes % (Manual) Monocytes % (Manual) Platelet Estimate Hypochromasia (manual) Puncture Site Rr pCO2 38 pO2 81 HCO3 25.7 ABG pH 7.43 ABG Total CO2 26.4 ABG O2 Saturation 98.6 H ABG Base Excess 1.0 ABG Hemoglobin 14.4 ABG Carboxyhemoglobin 1.6 H POC ABG HHb (Measured) 1.4 ABG Methemoglobin 1.4 Goran Test Pos A-a O2 Difference 228.0 Respiratory Index 2.8 Hgb O2 Saturation 95.6 Vent Mode Prvc Mechanical Rate 24 FiO2 50.0 Tidal Volume 500 PEEP 5 Sodium Potassium Chloride Carbon Dioxide Anion Gap BUN Creatinine Est GFR ( Amer) Est GFR (Non-Af Amer) POC Glucose (mg/dL) 134 H 107 Random Glucose Calcium Phosphorus Magnesium Ferritin Total Bilirubin AST ALT Alkaline Phosphatase Total Protein Albumin Globulin Albumin/Globulin Ratio Procalcitonin Urine Eosinophils Ur Random Creatinine U Random Total Protein Proteinase 3 (PR3) Myeloperoxidase Ab 05/01/17 05/01/17 05/01/17 06:36 06:36 06:40 WBC 10.4 RBC 3.83 L Hgb 10.2 L Hct 29.8 L MCV 78.0 L D MCH 26.6 L MCHC 34.1 RDW 14.0 Plt Count 233 MPV 8.3 Neut % (Auto) 72.6 Lymph % (Auto) 12.1 L [place] % (Auto) 13.1 H Eos % (Auto) 1.6 Baso % (Auto) 0.6 Neut # 7.5 H Lymph # 1.3 [place] # 1.4 H Eos # 0.2 Baso # 0.1 Neutrophils % (Manual) Lymphocytes % (Manual) Monocytes % (Manual) Platelet Estimate Hypochromasia (manual) Puncture Site pCO2 pO2 HCO3 ABG pH ABG Total CO2 ABG O2 Saturation ABG Base Excess ABG Hemoglobin ABG Carboxyhemoglobin POC ABG HHb (Measured) ABG Methemoglobin Goran Test A-a O2 Difference Respiratory Index Hgb O2 Saturation Vent Mode Mechanical Rate FiO2 Tidal Volume PEEP Sodium 135 Potassium 3.2 L Chloride 97 L Carbon Dioxide 25 Anion Gap 16 BUN 53 H Creatinine 7.4 H* D Est GFR ( Amer) 10 Est GFR (Non-Af Amer) 8 POC Glucose (mg/dL) 124 H Random Glucose 91 Calcium 8.4 L Phosphorus 6.0 H Magnesium 2.9 H Ferritin Total Bilirubin 0.3 AST 39 ALT 55 Alkaline Phosphatase 150 H D Total Protein 5.8 L Albumin 2.9 L Globulin 2.8 Albumin/Globulin Ratio 1.0 Procalcitonin Urine Eosinophils Ur Random Creatinine U Random Total Protein Proteinase 3 (PR3) Myeloperoxidase Ab 05/01/17 07:02 WBC RBC Hgb Hct MCV MCH MCHC RDW Plt Count MPV Neut % (Auto) Lymph % (Auto) [place] % (Auto) Eos % (Auto) Baso % (Auto) Neut # Lymph # [place] # Eos # Baso # Neutrophils % (Manual) Lymphocytes % (Manual) Monocytes % (Manual) Platelet Estimate Hypochromasia (manual) Puncture Site pCO2 pO2 HCO3 ABG pH ABG Total CO2 ABG O2 Saturation ABG Base Excess ABG Hemoglobin ABG Carboxyhemoglobin POC ABG HHb (Measured) ABG Methemoglobin Goran Test A-a O2 Difference Respiratory Index Hgb O2 Saturation Vent Mode Mechanical Rate FiO2 Tidal Volume PEEP Sodium Potassium Chloride Carbon Dioxide Anion Gap BUN Creatinine Est GFR ( Amer) Est GFR (Non-Af Amer) POC Glucose (mg/dL) 145 H Random Glucose Calcium Phosphorus Magnesium Ferritin Total Bilirubin AST ALT Alkaline Phosphatase Total Protein Albumin Globulin Albumin/Globulin Ratio Procalcitonin Urine Eosinophils Ur Random Creatinine U Random Total Protein Proteinase 3 (PR3) Myeloperoxidase Ab Fingerstick Blood Sugar Results: 145 Review of Systems - Review of Systems Systems not reviewed;Unavailable: Intubated Critical Care Progress Note - Vent Settings TIDAL VOLUME:: 500 RESP RATE:: 24 FIO2:: 60 PEEP:: 5 - Nutrition Nutrition: Nutrition Category Date Time Status NPO Diet [DIET] Diets 04/28/17 Breakfast Active Assessment/Plan - Assessment and Plan (Free Text) Assessment: 36 year old male with PMHx DM, Sleep Apnea, AFib, HTN presenting with SOB, hemoptysis and WILEY Today 05/01/17 Extubated today. On 50% ventimask. HD today, femoral catheter clogged, given cathflo. Discontinued propofol, nimbex. Pulm: Pulmonary edema, SOB - Intubated (since 04/28) on prvc. Sedated on Propofol 1,000mg and paralyzed on Cistracurium 100 mg - CXR 04/28: pulmonary edema - Will continue to monitor BP and titrate Propofol and Cistracurium as tolerated - Duoneb 3 ml INH RQ6 Nephro: renal insufficiency - Nephro consult, Dr Limon - completed hemodialysis 2x - BUN/Cr elevated, downtrending - Presence of WILEY with worsening respiratory status, will f/u serology studies - U/S renal 04/28/17 w/ echogenic kidneys - consider renal biopsy when stable - Strict I/O control Cardio: AFib, HTN - Cardiology consult, Dr Clarke - Echo 04/29/17 EF 65-70%, LVSF normal, LVDF normal, trace mitral regurgitation, mild pulmonary hypertension - Lopressor 25 mg PO BID ID: elevated WBCs, elevated procalcitonin - Procalcitonin 17.95 - Ur Cx negative, Blood Cx negative - Hepatitis Bs Ag, Hep B Core IgM, Hep C ab : Negative - Ceftriaxone 1 gm IV daily Endo: h/o DM - Elevated blood sugar: 433 today - Patient has a history of hypoglycemic episodes with home insulin - Continue accuchecks - Continue low dose insulin protocol - Sitagliptin 25mg po daily Neuro: - UDS negative Prophylaxis: DVT: Heparin 5,000 U SC daily GI: Protonix 40 mg IV Q12 Fluids: NS 15 cc/hr daily <Randy Valero - Last Filed: 05/01/17 15:44> CCU Objective - Vital Signs / Intake & Output Vital Signs (Last 4 hours): Vital Signs Temp Pulse Pulse Resp BP BP Pulse Ox 05/01/17 13:00 98 H 20 117/56 L 99 05/01/17 12:55 87 23 100/58 L 98 05/01/17 12:45 87 23 120/57 L 98 05/01/17 12:15 88 26 H 125/61 99 05/01/17 12:00 99.2 F 92 H 19 124/60 99 05/01/17 11:45 92 H 24 121/59 L 98 Intake and Output (Last 8hrs): Intake & Output 05/01/17 05/01/17 05/01/17 06:59 14:59 22:59 Intake Total 1311.8 244.1 Output Total 435 310 Balance 876.8 -65.9 Weight 209 lb 7.026 oz Intake: IV 705 170 Intake, IV Amount 606.8 74.1 Left 364.8 45.6 Left Proximal Port 228.0 28.5 Right Antecubital 0 Right Hand 0 Right Wrist 14 0 Oral 0 Output: Urine 435 310 2-way Urethral 435 310 Other: # Bowel Movements 0 100 - Medications Active Medications: Active Medications Generic Name Dose Route Start Last Admin Trade Name Freq PRN Reason Stop Dose Admin Albuterol/Ipratropium 3 ml 04/28/17 08:00 05/01/17 07:47 Duoneb 3 Mg/0.5 Mg (3 Ml) Ud INH 3 ml RQ6 PRN Administration Wheezing Alteplase, Recombinant 2 mg 05/03/17 10:00 Cathflo 2 Mg Inj IV 05/03/17 10:01 ONCE ONE Calcium Acetate 667 mg 04/29/17 14:00 05/01/17 13:00 Phoslo GT Not Given TIDCC CLAUDE Heparin Sodium (Porcine) 5,000 units 04/28/17 10:00 04/30/17 21:25 Heparin SC 5,000 units Q12 CLAUDE Administration Ceftriaxone Sodium 1 gm/ 100 mls @ 100 mls/hr 04/29/17 10:00 04/30/17 10:12 Sodium Chloride IVPB 100 mls/hr DAILY CLAUDE Administration Sodium Chloride 1,000 mls @ 15 mls/hr 04/28/17 20:00 04/30/17 20:55 Sodium Chloride 0.9% IV Not Given .Q24H CLAUDE Insulin Human Regular 0 unit 05/01/17 12:00 05/01/17 12:00 Novolin R SC Not Given Q6 [facility] Protocol Metoprolol Tartrate 25 mg 04/29/17 19:30 05/01/17 10:00 Lopressor PO Not Given BID CLAUDE Pantoprazole Sodium 40 mg 04/29/17 10:00 04/30/17 10:12 Protonix Inj IVP 40 mg DAILY CLAUDE Administration Sitagliptin Phosphate 25 mg 04/30/17 10:00 05/01/17 10:16 Januvia PO Not Given DAILY CLAUDE - Patient Studies Lab Studies: Microbiology Studies 04/27/17 23:51 Blood Culture - Preliminary Blood-Venous NO GROWTH AFTER 3 DAYS Lab Studies 05/01/17 05/01/17 05/01/17 Range/Units 15:25 11:42 08:21 WBC (4.8-10.8) K/uL RBC (4.40-5.90) Mil/uL Hgb (12.0-18.0) g/dL Hct (35.0-51.0) % MCV (80.0-94.0) fL MCH (27.0-31.0) pg MCHC (33.0-37.0) g/dL RDW (11.5-14.5) % Plt Count (130-400) K/uL MPV (7.2-11.7) fL Neut % (Auto) (50.0-75.0) % Lymph % (Auto) (20.0-40.0) % [place] % (Auto) (0.0-10.0) % Eos % (Auto) (0.0-4.0) % Baso % (Auto) (0.0-2.0) % Neut # (1.8-7.0) K/uL Lymph # (1.0-4.3) K/uL [place] # (0.0-0.8) K/uL Eos # (0.0-0.7) K/uL Baso # (0.0-0.2) K/uL Puncture Site pCO2 (35-45) mm/Hg pO2 (80-100) mm/Hg HCO3 (21-28) mmol/L ABG pH (7.35-7.45) ABG Total CO2 (22-28) mmol/L ABG O2 Saturation (95-98) % ABG Base Excess (-2.0-3.0) mmol/L ABG Hemoglobin (11.7-17.4) g/dL ABG Carboxyhemoglobin (0.5-1.5) % POC ABG HHb (Measured) (0.0-5.0) % ABG Methemoglobin (0.0-3.0) % Goran Test A-a O2 Difference mm/Hg Respiratory Index Hgb O2 Saturation (95.0-98.0) % Vent Mode Mechanical Rate FiO2 % Tidal Volume PEEP Sodium (132-148) mmol/L Potassium (3.6-5.2) mmol/L Chloride (98-107) mmol/L Carbon Dioxide (22-30) mmol/L Anion Gap (10-20) BUN (9-20) mg/dL Creatinine (0.8-1.5) MG/DL Est GFR ( Amer) Est GFR (Non-Af Amer) POC Glucose (mg/dL) 334 H 246 H 206 H (65-110) mg/dL Random Glucose (75-110) mg/dL Calcium (8.6-10.4) mg/dl Phosphorus (2.5-4.5) mg/dL Magnesium (1.6-2.3) mg/dL Total Bilirubin (0.2-1.3) mg/dL AST (17-59) U/L ALT (21-72) U/L Alkaline Phosphatase (38-126) U/L Total Protein (6.3-8.3) g/dL Albumin (3.5-5.0) g/dL Globulin (2.2-3.9) gm/dL Albumin/Globulin Ratio (1.0-2.1) PTH Intact Whole Molec (14-64) pg/mL Proteinase 3 (PR3) (<1.0) AI Myeloperoxidase Ab (<1.0) AI HIV 1&2 Antibody Screen (NEGATIVE) 05/01/17 05/01/17 05/01/17 Range/Units 07:02 06:40 06:36 WBC 10.4 (4.8-10.8) K/uL RBC 3.83 L (4.40-5.90) Mil/uL Hgb 10.2 L (12.0-18.0) g/dL Hct 29.8 L (35.0-51.0) % MCV 78.0 L D (80.0-94.0) fL MCH 26.6 L (27.0-31.0) pg MCHC 34.1 (33.0-37.0) g/dL RDW 14.0 (11.5-14.5) % Plt Count 233 (130-400) K/uL MPV 8.3 (7.2-11.7) fL Neut % (Auto) 72.6 (50.0-75.0) % Lymph % (Auto) 12.1 L (20.0-40.0) % [place] % (Auto) 13.1 H (0.0-10.0) % Eos % (Auto) 1.6 (0.0-4.0) % Baso % (Auto) 0.6 (0.0-2.0) % Neut # 7.5 H (1.8-7.0) K/uL Lymph # 1.3 (1.0-4.3) K/uL [place] # 1.4 H (0.0-0.8) K/uL Eos # 0.2 (0.0-0.7) K/uL Baso # 0.1 (0.0-0.2) K/uL Puncture Site pCO2 (35-45) mm/Hg pO2 (80-100) mm/Hg HCO3 (21-28) mmol/L ABG pH (7.35-7.45) ABG Total CO2 (22-28) mmol/L ABG O2 Saturation (95-98) % ABG Base Excess (-2.0-3.0) mmol/L ABG Hemoglobin (11.7-17.4) g/dL ABG Carboxyhemoglobin (0.5-1.5) % POC ABG HHb (Measured) (0.0-5.0) % ABG Methemoglobin (0.0-3.0) % Goran Test A-a O2 Difference mm/Hg Respiratory Index Hgb O2 Saturation (95.0-98.0) % Vent Mode Mechanical Rate FiO2 % Tidal Volume PEEP Sodium (132-148) mmol/L Potassium (3.6-5.2) mmol/L Chloride (98-107) mmol/L Carbon Dioxide (22-30) mmol/L Anion Gap (10-20) BUN (9-20) mg/dL Creatinine (0.8-1.5) MG/DL Est GFR ( Amer) Est GFR (Non-Af Amer) POC Glucose (mg/dL) 145 H 124 H (65-110) mg/dL Random Glucose (75-110) mg/dL Calcium (8.6-10.4) mg/dl Phosphorus (2.5-4.5) mg/dL Magnesium (1.6-2.3) mg/dL Total Bilirubin (0.2-1.3) mg/dL AST (17-59) U/L ALT (21-72) U/L Alkaline Phosphatase (38-126) U/L Total Protein (6.3-8.3) g/dL Albumin (3.5-5.0) g/dL Globulin (2.2-3.9) gm/dL Albumin/Globulin Ratio (1.0-2.1) PTH Intact Whole Molec (14-64) pg/mL Proteinase 3 (PR3) (<1.0) AI Myeloperoxidase Ab (<1.0) AI HIV 1&2 Antibody Screen (NEGATIVE) 05/01/17 05/01/17 05/01/17 Range/Units 06:36 06:36 05:28 WBC (4.8-10.8) K/uL RBC (4.40-5.90) Mil/uL Hgb (12.0-18.0) g/dL Hct (35.0-51.0) % MCV (80.0-94.0) fL MCH (27.0-31.0) pg MCHC (33.0-37.0) g/dL RDW (11.5-14.5) % Plt Count (130-400) K/uL MPV (7.2-11.7) fL Neut % (Auto) (50.0-75.0) % Lymph % (Auto) (20.0-40.0) % [place] % (Auto) (0.0-10.0) % Eos % (Auto) (0.0-4.0) % Baso % (Auto) (0.0-2.0) % Neut # (1.8-7.0) K/uL Lymph # (1.0-4.3) K/uL [place] # (0.0-0.8) K/uL Eos # (0.0-0.7) K/uL Baso # (0.0-0.2) K/uL Puncture Site pCO2 (35-45) mm/Hg pO2 (80-100) mm/Hg HCO3 (21-28) mmol/L ABG pH (7.35-7.45) ABG Total CO2 (22-28) mmol/L ABG O2 Saturation (95-98) % ABG Base Excess (-2.0-3.0) mmol/L ABG Hemoglobin (11.7-17.4) g/dL ABG Carboxyhemoglobin (0.5-1.5) % POC ABG HHb (Measured) (0.0-5.0) % ABG Methemoglobin (0.0-3.0) % Goran Test A-a O2 Difference mm/Hg Respiratory Index Hgb O2 Saturation (95.0-98.0) % Vent Mode Mechanical Rate FiO2 % Tidal Volume PEEP Sodium 135 (132-148) mmol/L Potassium 3.2 L (3.6-5.2) mmol/L Chloride 97 L (98-107) mmol/L Carbon Dioxide 25 (22-30) mmol/L Anion Gap 16 (10-20) BUN 53 H (9-20) mg/dL Creatinine 7.4 H* D (0.8-1.5) MG/DL Est GFR ( Amer) 10 Est GFR (Non-Af Amer) 8 POC Glucose (mg/dL) 107 (65-110) mg/dL Random Glucose 91 (75-110) mg/dL Calcium 8.4 L (8.6-10.4) mg/dl Phosphorus 6.0 H (2.5-4.5) mg/dL Magnesium 2.9 H (1.6-2.3) mg/dL Total Bilirubin 0.3 (0.2-1.3) mg/dL AST 39 (17-59) U/L ALT 55 (21-72) U/L Alkaline Phosphatase 150 H D (38-126) U/L Total Protein 5.8 L (6.3-8.3) g/dL Albumin 2.9 L (3.5-5.0) g/dL Globulin 2.8 (2.2-3.9) gm/dL Albumin/Globulin Ratio 1.0 (1.0-2.1) PTH Intact Whole Molec (14-64) pg/mL Proteinase 3 (PR3) (<1.0) AI Myeloperoxidase Ab (<1.0) AI HIV 1&2 Antibody Screen Negative (NEGATIVE) 05/01/17 05/01/17 05/01/17 Range/Units 04:45 04:14 03:12 WBC (4.8-10.8) K/uL RBC (4.40-5.90) Mil/uL Hgb (12.0-18.0) g/dL Hct (35.0-51.0) % MCV (80.0-94.0) fL MCH (27.0-31.0) pg MCHC (33.0-37.0) g/dL RDW (11.5-14.5) % Plt Count (130-400) K/uL MPV (7.2-11.7) fL Neut % (Auto) (50.0-75.0) % Lymph % (Auto) (20.0-40.0) % [place] % (Auto) (0.0-10.0) % Eos % (Auto) (0.0-4.0) % Baso % (Auto) (0.0-2.0) % Neut # (1.8-7.0) K/uL Lymph # (1.0-4.3) K/uL [place] # (0.0-0.8) K/uL Eos # (0.0-0.7) K/uL Baso # (0.0-0.2) K/uL Puncture Site Rr pCO2 38 (35-45) mm/Hg pO2 81 (80-100) mm/Hg HCO3 25.7 (21-28) mmol/L ABG pH 7.43 (7.35-7.45) ABG Total CO2 26.4 (22-28) mmol/L ABG O2 Saturation 98.6 H (95-98) % ABG Base Excess 1.0 (-2.0-3.0) mmol/L ABG Hemoglobin 14.4 (11.7-17.4) g/dL ABG Carboxyhemoglobin 1.6 H (0.5-1.5) % POC ABG HHb (Measured) 1.4 (0.0-5.0) % ABG Methemoglobin 1.4 (0.0-3.0) % Goran Test Pos A-a O2 Difference 228.0 mm/Hg Respiratory Index 2.8 Hgb O2 Saturation 95.6 (95.0-98.0) % Vent Mode Prvc Mechanical Rate 24 FiO2 50.0 % Tidal Volume 500 PEEP 5 Sodium (132-148) mmol/L Potassium (3.6-5.2) mmol/L Chloride (98-107) mmol/L Carbon Dioxide (22-30) mmol/L Anion Gap (10-20) BUN (9-20) mg/dL Creatinine (0.8-1.5) MG/DL Est GFR ( Amer) Est GFR (Non-Af Amer) POC Glucose (mg/dL) 134 H 170 H (65-110) mg/dL Random Glucose (75-110) mg/dL Calcium (8.6-10.4) mg/dl Phosphorus (2.5-4.5) mg/dL Magnesium (1.6-2.3) mg/dL Total Bilirubin (0.2-1.3) mg/dL AST (17-59) U/L ALT (21-72) U/L Alkaline Phosphatase (38-126) U/L Total Protein (6.3-8.3) g/dL Albumin (3.5-5.0) g/dL Globulin (2.2-3.9) gm/dL Albumin/Globulin Ratio (1.0-2.1) PTH Intact Whole Molec (14-64) pg/mL Proteinase 3 (PR3) (<1.0) AI Myeloperoxidase Ab (<1.0) AI HIV 1&2 Antibody Screen (NEGATIVE) 05/01/17 05/01/17 05/01/17 Range/Units 02:18 01:34 00:19 WBC (4.8-10.8) K/uL RBC (4.40-5.90) Mil/uL Hgb (12.0-18.0) g/dL Hct (35.0-51.0) % MCV (80.0-94.0) fL MCH (27.0-31.0) pg MCHC (33.0-37.0) g/dL RDW (11.5-14.5) % Plt Count (130-400) K/uL MPV (7.2-11.7) fL Neut % (Auto) (50.0-75.0) % Lymph % (Auto) (20.0-40.0) % [place] % (Auto) (0.0-10.0) % Eos % (Auto) (0.0-4.0) % Baso % (Auto) (0.0-2.0) % Neut # (1.8-7.0) K/uL Lymph # (1.0-4.3) K/uL [place] # (0.0-0.8) K/uL Eos # (0.0-0.7) K/uL Baso # (0.0-0.2) K/uL Puncture Site pCO2 (35-45) mm/Hg pO2 (80-100) mm/Hg HCO3 (21-28) mmol/L ABG pH (7.35-7.45) ABG Total CO2 (22-28) mmol/L ABG O2 Saturation (95-98) % ABG Base Excess (-2.0-3.0) mmol/L ABG Hemoglobin (11.7-17.4) g/dL ABG Carboxyhemoglobin (0.5-1.5) % POC ABG HHb (Measured) (0.0-5.0) % ABG Methemoglobin (0.0-3.0) % Goran Test A-a O2 Difference mm/Hg Respiratory Index Hgb O2 Saturation (95.0-98.0) % Vent Mode Mechanical Rate FiO2 % Tidal Volume PEEP Sodium (132-148) mmol/L Potassium (3.6-5.2) mmol/L Chloride (98-107) mmol/L Carbon Dioxide (22-30) mmol/L Anion Gap (10-20) BUN (9-20) mg/dL Creatinine (0.8-1.5) MG/DL Est GFR ( Amer) Est GFR (Non-Af Amer) POC Glucose (mg/dL) 202 H 214 H 222 H (65-110) mg/dL Random Glucose (75-110) mg/dL Calcium (8.6-10.4) mg/dl Phosphorus (2.5-4.5) mg/dL Magnesium (1.6-2.3) mg/dL Total Bilirubin (0.2-1.3) mg/dL AST (17-59) U/L ALT (21-72) U/L Alkaline Phosphatase (38-126) U/L Total Protein (6.3-8.3) g/dL Albumin (3.5-5.0) g/dL Globulin (2.2-3.9) gm/dL Albumin/Globulin Ratio (1.0-2.1) PTH Intact Whole Molec (14-64) pg/mL Proteinase 3 (PR3) (<1.0) AI Myeloperoxidase Ab (<1.0) AI HIV 1&2 Antibody Screen (NEGATIVE) 04/30/17 04/30/17 04/30/17 Range/Units 23:03 22:06 21:03 WBC (4.8-10.8) K/uL RBC (4.40-5.90) Mil/uL Hgb (12.0-18.0) g/dL Hct (35.0-51.0) % MCV (80.0-94.0) fL MCH (27.0-31.0) pg MCHC (33.0-37.0) g/dL RDW (11.5-14.5) % Plt Count (130-400) K/uL MPV (7.2-11.7) fL Neut % (Auto) (50.0-75.0) % Lymph % (Auto) (20.0-40.0) % [place] % (Auto) (0.0-10.0) % Eos % (Auto) (0.0-4.0) % Baso % (Auto) (0.0-2.0) % Neut # (1.8-7.0) K/uL Lymph # (1.0-4.3) K/uL [place] # (0.0-0.8) K/uL Eos # (0.0-0.7) K/uL Baso # (0.0-0.2) K/uL Puncture Site pCO2 (35-45) mm/Hg pO2 (80-100) mm/Hg HCO3 (21-28) mmol/L ABG pH (7.35-7.45) ABG Total CO2 (22-28) mmol/L ABG O2 Saturation (95-98) % ABG Base Excess (-2.0-3.0) mmol/L ABG Hemoglobin (11.7-17.4) g/dL ABG Carboxyhemoglobin (0.5-1.5) % POC ABG HHb (Measured) (0.0-5.0) % ABG Methemoglobin (0.0-3.0) % Goran Test A-a O2 Difference mm/Hg Respiratory Index Hgb O2 Saturation (95.0-98.0) % Vent Mode Mechanical Rate FiO2 % Tidal Volume PEEP Sodium (132-148) mmol/L Potassium (3.6-5.2) mmol/L Chloride (98-107) mmol/L Carbon Dioxide (22-30) mmol/L Anion Gap (10-20) BUN (9-20) mg/dL Creatinine (0.8-1.5) MG/DL Est GFR ( Amer) Est GFR (Non-Af Amer) POC Glucose (mg/dL) 149 H 133 H 128 H (65-110) mg/dL Random Glucose (75-110) mg/dL Calcium (8.6-10.4) mg/dl Phosphorus (2.5-4.5) mg/dL Magnesium (1.6-2.3) mg/dL Total Bilirubin (0.2-1.3) mg/dL AST (17-59) U/L ALT (21-72) U/L Alkaline Phosphatase (38-126) U/L Total Protein (6.3-8.3) g/dL Albumin (3.5-5.0) g/dL Globulin (2.2-3.9) gm/dL Albumin/Globulin Ratio (1.0-2.1) PTH Intact Whole Molec (14-64) pg/mL Proteinase 3 (PR3) (<1.0) AI Myeloperoxidase Ab (<1.0) AI HIV 1&2 Antibody Screen (NEGATIVE) 04/30/17 04/30/17 04/30/17 Range/Units 20:07 19:21 18:13 WBC (4.8-10.8) K/uL RBC (4.40-5.90) Mil/uL Hgb (12.0-18.0) g/dL Hct (35.0-51.0) % MCV (80.0-94.0) fL MCH (27.0-31.0) pg MCHC (33.0-37.0) g/dL RDW (11.5-14.5) % Plt Count (130-400) K/uL MPV (7.2-11.7) fL Neut % (Auto) (50.0-75.0) % Lymph % (Auto) (20.0-40.0) % [place] % (Auto) (0.0-10.0) % Eos % (Auto) (0.0-4.0) % Baso % (Auto) (0.0-2.0) % Neut # (1.8-7.0) K/uL Lymph # (1.0-4.3) K/uL [place] # (0.0-0.8) K/uL Eos # (0.0-0.7) K/uL Baso # (0.0-0.2) K/uL Puncture Site pCO2 (35-45) mm/Hg pO2 (80-100) mm/Hg HCO3 (21-28) mmol/L ABG pH (7.35-7.45) ABG Total CO2 (22-28) mmol/L ABG O2 Saturation (95-98) % ABG Base Excess (-2.0-3.0) mmol/L ABG Hemoglobin (11.7-17.4) g/dL ABG Carboxyhemoglobin (0.5-1.5) % POC ABG HHb (Measured) (0.0-5.0) % ABG Methemoglobin (0.0-3.0) % Goran Test A-a O2 Difference mm/Hg Respiratory Index Hgb O2 Saturation (95.0-98.0) % Vent Mode Mechanical Rate FiO2 % Tidal Volume PEEP Sodium (132-148) mmol/L Potassium (3.6-5.2) mmol/L Chloride (98-107) mmol/L Carbon Dioxide (22-30) mmol/L Anion Gap (10-20) BUN (9-20) mg/dL Creatinine (0.8-1.5) MG/DL Est GFR ( Amer) Est GFR (Non-Af Amer) POC Glucose (mg/dL) 156 H 180 H 241 H (65-110) mg/dL Random Glucose (75-110) mg/dL Calcium (8.6-10.4) mg/dl Phosphorus (2.5-4.5) mg/dL Magnesium (1.6-2.3) mg/dL Total Bilirubin (0.2-1.3) mg/dL AST (17-59) U/L ALT (21-72) U/L Alkaline Phosphatase (38-126) U/L Total Protein (6.3-8.3) g/dL Albumin (3.5-5.0) g/dL Globulin (2.2-3.9) gm/dL Albumin/Globulin Ratio (1.0-2.1) PTH Intact Whole Molec (14-64) pg/mL Proteinase 3 (PR3) (<1.0) AI Myeloperoxidase Ab (<1.0) AI HIV 1&2 Antibody Screen (NEGATIVE) 04/30/17 04/30/17 04/30/17 Range/Units 17:07 16:03 07:12 WBC (4.8-10.8) K/uL RBC (4.40-5.90) Mil/uL Hgb (12.0-18.0) g/dL Hct (35.0-51.0) % MCV (80.0-94.0) fL MCH (27.0-31.0) pg MCHC (33.0-37.0) g/dL RDW (11.5-14.5) % Plt Count (130-400) K/uL MPV (7.2-11.7) fL Neut % (Auto) (50.0-75.0) % Lymph % (Auto) (20.0-40.0) % [place] % (Auto) (0.0-10.0) % Eos % (Auto) (0.0-4.0) % Baso % (Auto) (0.0-2.0) % Neut # (1.8-7.0) K/uL Lymph # (1.0-4.3) K/uL [place] # (0.0-0.8) K/uL Eos # (0.0-0.7) K/uL Baso # (0.0-0.2) K/uL Puncture Site pCO2 (35-45) mm/Hg pO2 (80-100) mm/Hg HCO3 (21-28) mmol/L ABG pH (7.35-7.45) ABG Total CO2 (22-28) mmol/L ABG O2 Saturation (95-98) % ABG Base Excess (-2.0-3.0) mmol/L ABG Hemoglobin (11.7-17.4) g/dL ABG Carboxyhemoglobin (0.5-1.5) % POC ABG HHb (Measured) (0.0-5.0) % ABG Methemoglobin (0.0-3.0) % Goran Test A-a O2 Difference mm/Hg Respiratory Index Hgb O2 Saturation (95.0-98.0) % Vent Mode Mechanical Rate FiO2 % Tidal Volume PEEP Sodium (132-148) mmol/L Potassium (3.6-5.2) mmol/L Chloride (98-107) mmol/L Carbon Dioxide (22-30) mmol/L Anion Gap (10-20) BUN (9-20) mg/dL Creatinine (0.8-1.5) MG/DL Est GFR ( Amer) Est GFR (Non-Af Amer) POC Glucose (mg/dL) 261 H 273 H (65-110) mg/dL Random Glucose (75-110) mg/dL Calcium (8.6-10.4) mg/dl Phosphorus (2.5-4.5) mg/dL Magnesium (1.6-2.3) mg/dL Total Bilirubin (0.2-1.3) mg/dL AST (17-59) U/L ALT (21-72) U/L Alkaline Phosphatase (38-126) U/L Total Protein (6.3-8.3) g/dL Albumin (3.5-5.0) g/dL Globulin (2.2-3.9) gm/dL Albumin/Globulin Ratio (1.0-2.1) PTH Intact Whole Molec 252 H (14-64) pg/mL Proteinase 3 (PR3) (<1.0) AI Myeloperoxidase Ab (<1.0) AI HIV 1&2 Antibody Screen (NEGATIVE) 04/28/17 Range/Units 17:19 WBC (4.8-10.8) K/uL RBC (4.40-5.90) Mil/uL Hgb (12.0-18.0) g/dL Hct (35.0-51.0) % MCV (80.0-94.0) fL MCH (27.0-31.0) pg MCHC (33.0-37.0) g/dL RDW (11.5-14.5) % Plt Count (130-400) K/uL MPV (7.2-11.7) fL Neut % (Auto) (50.0-75.0) % Lymph % (Auto) (20.0-40.0) % [place] % (Auto) (0.0-10.0) % Eos % (Auto) (0.0-4.0) % Baso % (Auto) (0.0-2.0) % Neut # (1.8-7.0) K/uL Lymph # (1.0-4.3) K/uL [place] # (0.0-0.8) K/uL Eos # (0.0-0.7) K/uL Baso # (0.0-0.2) K/uL Puncture Site pCO2 (35-45) mm/Hg pO2 (80-100) mm/Hg HCO3 (21-28) mmol/L ABG pH (7.35-7.45) ABG Total CO2 (22-28) mmol/L ABG O2 Saturation (95-98) % ABG Base Excess (-2.0-3.0) mmol/L ABG Hemoglobin (11.7-17.4) g/dL ABG Carboxyhemoglobin (0.5-1.5) % POC ABG HHb (Measured) (0.0-5.0) % ABG Methemoglobin (0.0-3.0) % Goran Test A-a O2 Difference mm/Hg Respiratory Index Hgb O2 Saturation (95.0-98.0) % Vent Mode Mechanical Rate FiO2 % Tidal Volume PEEP Sodium (132-148) mmol/L Potassium (3.6-5.2) mmol/L Chloride (98-107) mmol/L Carbon Dioxide (22-30) mmol/L Anion Gap (10-20) BUN (9-20) mg/dL Creatinine (0.8-1.5) MG/DL Est GFR ( Amer) Est GFR (Non-Af Amer) POC Glucose (mg/dL) (65-110) mg/dL Random Glucose (75-110) mg/dL Calcium (8.6-10.4) mg/dl Phosphorus (2.5-4.5) mg/dL Magnesium (1.6-2.3) mg/dL Total Bilirubin (0.2-1.3) mg/dL AST (17-59) U/L ALT (21-72) U/L Alkaline Phosphatase (38-126) U/L Total Protein (6.3-8.3) g/dL Albumin (3.5-5.0) g/dL Globulin (2.2-3.9) gm/dL Albumin/Globulin Ratio (1.0-2.1) PTH Intact Whole Molec (14-64) pg/mL Proteinase 3 (PR3) <1.0 (<1.0) AI Myeloperoxidase Ab <1.0 (<1.0) AI HIV 1&2 Antibody Screen (NEGATIVE) Laboratory Results - last 24 hr 04/28/17 04/30/17 04/30/17 17:19 07:12 16:03 WBC RBC Hgb Hct MCV MCH MCHC RDW Plt Count MPV Neut % (Auto) Lymph % (Auto) [place] % (Auto) Eos % (Auto) Baso % (Auto) Neut # Lymph # [place] # Eos # Baso # Puncture Site pCO2 pO2 HCO3 ABG pH ABG Total CO2 ABG O2 Saturation ABG Base Excess ABG Hemoglobin ABG Carboxyhemoglobin POC ABG HHb (Measured) ABG Methemoglobin Goran Test A-a O2 Difference Respiratory Index Hgb O2 Saturation Vent Mode Mechanical Rate FiO2 Tidal Volume PEEP Sodium Potassium Chloride Carbon Dioxide Anion Gap BUN Creatinine Est GFR ( Amer) Est GFR (Non-Af Amer) POC Glucose (mg/dL) 273 H Random Glucose Calcium Phosphorus Magnesium Total Bilirubin AST ALT Alkaline Phosphatase Total Protein Albumin Globulin Albumin/Globulin Ratio PTH Intact Whole Molec 252 H Proteinase 3 (PR3) <1.0 Myeloperoxidase Ab <1.0 HIV 1&2 Antibody Screen 04/30/17 04/30/17 04/30/17 17:07 18:13 19:21 WBC RBC Hgb Hct MCV MCH MCHC RDW Plt Count MPV Neut % (Auto) Lymph % (Auto) [place] % (Auto) Eos % (Auto) Baso % (Auto) Neut # Lymph # [place] # Eos # Baso # Puncture Site pCO2 pO2 HCO3 ABG pH ABG Total CO2 ABG O2 Saturation ABG Base Excess ABG Hemoglobin ABG Carboxyhemoglobin POC ABG HHb (Measured) ABG Methemoglobin Goran Test A-a O2 Difference Respiratory Index Hgb O2 Saturation Vent Mode Mechanical Rate FiO2 Tidal Volume PEEP Sodium Potassium Chloride Carbon Dioxide Anion Gap BUN Creatinine Est GFR ( Amer) Est GFR (Non-Af Amer) POC Glucose (mg/dL) 261 H 241 H 180 H Random Glucose Calcium Phosphorus Magnesium Total Bilirubin AST ALT Alkaline Phosphatase Total Protein Albumin Globulin Albumin/Globulin Ratio PTH Intact Whole Molec Proteinase 3 (PR3) Myeloperoxidase Ab HIV 1&2 Antibody Screen 04/30/17 04/30/17 04/30/17 20:07 21:03 22:06 WBC RBC Hgb Hct MCV MCH MCHC RDW Plt Count MPV Neut % (Auto) Lymph % (Auto) [place] % (Auto) Eos % (Auto) Baso % (Auto) Neut # Lymph # [place] # Eos # Baso # Puncture Site pCO2 pO2 HCO3 ABG pH ABG Total CO2 ABG O2 Saturation ABG Base Excess ABG Hemoglobin ABG Carboxyhemoglobin POC ABG HHb (Measured) ABG Methemoglobin Goran Test A-a O2 Difference Respiratory Index Hgb O2 Saturation Vent Mode Mechanical Rate FiO2 Tidal Volume PEEP Sodium Potassium Chloride Carbon Dioxide Anion Gap BUN Creatinine Est GFR ( Amer) Est GFR (Non-Af Amer) POC Glucose (mg/dL) 156 H 128 H 133 H Random Glucose Calcium Phosphorus Magnesium Total Bilirubin AST ALT Alkaline Phosphatase Total Protein Albumin Globulin Albumin/Globulin Ratio PTH Intact Whole Molec Proteinase 3 (PR3) Myeloperoxidase Ab HIV 1&2 Antibody Screen 04/30/17 05/01/17 05/01/17 23:03 00:19 01:34 WBC RBC Hgb Hct MCV MCH MCHC RDW Plt Count MPV Neut % (Auto) Lymph % (Auto) [place] % (Auto) Eos % (Auto) Baso % (Auto) Neut # Lymph # [place] # Eos # Baso # Puncture Site pCO2 pO2 HCO3 ABG pH ABG Total CO2 ABG O2 Saturation ABG Base Excess ABG Hemoglobin ABG Carboxyhemoglobin POC ABG HHb (Measured) ABG Methemoglobin Goran Test A-a O2 Difference Respiratory Index Hgb O2 Saturation Vent Mode Mechanical Rate FiO2 Tidal Volume PEEP Sodium Potassium Chloride Carbon Dioxide Anion Gap BUN Creatinine Est GFR ( Amer) Est GFR (Non-Af Amer) POC Glucose (mg/dL) 149 H 222 H 214 H Random Glucose Calcium Phosphorus Magnesium Total Bilirubin AST ALT Alkaline Phosphatase Total Protein Albumin Globulin Albumin/Globulin Ratio PTH Intact Whole Molec Proteinase 3 (PR3) Myeloperoxidase Ab HIV 1&2 Antibody Screen 05/01/17 05/01/17 05/01/17 02:18 03:12 04:14 WBC RBC Hgb Hct MCV MCH MCHC RDW Plt Count MPV Neut % (Auto) Lymph % (Auto) [place] % (Auto) Eos % (Auto) Baso % (Auto) Neut # Lymph # [place] # Eos # Baso # Puncture Site pCO2 pO2 HCO3 ABG pH ABG Total CO2 ABG O2 Saturation ABG Base Excess ABG Hemoglobin ABG Carboxyhemoglobin POC ABG HHb (Measured) ABG Methemoglobin Goran Test A-a O2 Difference Respiratory Index Hgb O2 Saturation Vent Mode Mechanical Rate FiO2 Tidal Volume PEEP Sodium Potassium Chloride Carbon Dioxide Anion Gap BUN Creatinine Est GFR ( Amer) Est GFR (Non-Af Amer) POC Glucose (mg/dL) 202 H 170 H 134 H Random Glucose Calcium Phosphorus Magnesium Total Bilirubin AST ALT Alkaline Phosphatase Total Protein Albumin Globulin Albumin/Globulin Ratio PTH Intact Whole Molec Proteinase 3 (PR3) Myeloperoxidase Ab HIV 1&2 Antibody Screen 05/01/17 05/01/17 05/01/17 04:45 05:28 06:36 WBC RBC Hgb Hct MCV MCH MCHC RDW Plt Count MPV Neut % (Auto) Lymph % (Auto) [place] % (Auto) Eos % (Auto) Baso % (Auto) Neut # Lymph # [place] # Eos # Baso # Puncture Site Rr pCO2 38 pO2 81 HCO3 25.7 ABG pH 7.43 ABG Total CO2 26.4 ABG O2 Saturation 98.6 H ABG Base Excess 1.0 ABG Hemoglobin 14.4 ABG Carboxyhemoglobin 1.6 H POC ABG HHb (Measured) 1.4 ABG Methemoglobin 1.4 Goran Test Pos A-a O2 Difference 228.0 Respiratory Index 2.8 Hgb O2 Saturation 95.6 Vent Mode Prvc Mechanical Rate 24 FiO2 50.0 Tidal Volume 500 PEEP 5 Sodium 135 Potassium 3.2 L Chloride 97 L Carbon Dioxide 25 Anion Gap 16 BUN 53 H Creatinine 7.4 H* D Est GFR ( Amer) 10 Est GFR (Non-Af Amer) 8 POC Glucose (mg/dL) 107 Random Glucose 91 Calcium 8.4 L Phosphorus 6.0 H Magnesium 2.9 H Total Bilirubin 0.3 AST 39 ALT 55 Alkaline Phosphatase 150 H D Total Protein 5.8 L Albumin 2.9 L Globulin 2.8 Albumin/Globulin Ratio 1.0 PTH Intact Whole Molec Proteinase 3 (PR3) Myeloperoxidase Ab HIV 1&2 Antibody Screen 05/01/17 05/01/17 05/01/17 06:36 06:36 06:40 WBC 10.4 RBC 3.83 L Hgb 10.2 L Hct 29.8 L MCV 78.0 L D MCH 26.6 L MCHC 34.1 RDW 14.0 Plt Count 233 MPV 8.3 Neut % (Auto) 72.6 Lymph % (Auto) 12.1 L [place] % (Auto) 13.1 H Eos % (Auto) 1.6 Baso % (Auto) 0.6 Neut # 7.5 H Lymph # 1.3 [place] # 1.4 H Eos # 0.2 Baso # 0.1 Puncture Site pCO2 pO2 HCO3 ABG pH ABG Total CO2 ABG O2 Saturation ABG Base Excess ABG Hemoglobin ABG Carboxyhemoglobin POC ABG HHb (Measured) ABG Methemoglobin Goran Test A-a O2 Difference Respiratory Index Hgb O2 Saturation Vent Mode Mechanical Rate FiO2 Tidal Volume PEEP Sodium Potassium Chloride Carbon Dioxide Anion Gap BUN Creatinine Est GFR ( Amer) Est GFR (Non-Af Amer) POC Glucose (mg/dL) 124 H Random Glucose Calcium Phosphorus Magnesium Total Bilirubin AST ALT Alkaline Phosphatase Total Protein Albumin Globulin Albumin/Globulin Ratio PTH Intact Whole Molec Proteinase 3 (PR3) Myeloperoxidase Ab HIV 1&2 Antibody Screen Negative 05/01/17 05/01/17 05/01/17 07:02 08:21 11:42 WBC RBC Hgb Hct MCV MCH MCHC RDW Plt Count MPV Neut % (Auto) Lymph % (Auto) [place] % (Auto) Eos % (Auto) Baso % (Auto) Neut # Lymph # [place] # Eos # Baso # Puncture Site pCO2 pO2 HCO3 ABG pH ABG Total CO2 ABG O2 Saturation ABG Base Excess ABG Hemoglobin ABG Carboxyhemoglobin POC ABG HHb (Measured) ABG Methemoglobin Goran Test A-a O2 Difference Respiratory Index Hgb O2 Saturation Vent Mode Mechanical Rate FiO2 Tidal Volume PEEP Sodium Potassium Chloride Carbon Dioxide Anion Gap BUN Creatinine Est GFR ( Amer) Est GFR (Non-Af Amer) POC Glucose (mg/dL) 145 H 206 H 246 H Random Glucose Calcium Phosphorus Magnesium Total Bilirubin AST ALT Alkaline Phosphatase Total Protein Albumin Globulin Albumin/Globulin Ratio PTH Intact Whole Molec Proteinase 3 (PR3) Myeloperoxidase Ab HIV 1&2 Antibody Screen 05/01/17 15:25 WBC RBC Hgb Hct MCV MCH MCHC RDW Plt Count MPV Neut % (Auto) Lymph % (Auto) [place] % (Auto) Eos % (Auto) Baso % (Auto) Neut # Lymph # [place] # Eos # Baso # Puncture Site pCO2 pO2 HCO3 ABG pH ABG Total CO2 ABG O2 Saturation ABG Base Excess ABG Hemoglobin ABG Carboxyhemoglobin POC ABG HHb (Measured) ABG Methemoglobin Goran Test A-a O2 Difference Respiratory Index Hgb O2 Saturation Vent Mode Mechanical Rate FiO2 Tidal Volume PEEP Sodium Potassium Chloride Carbon Dioxide Anion Gap BUN Creatinine Est GFR ( Amer) Est GFR (Non-Af Amer) POC Glucose (mg/dL) 334 H Random Glucose Calcium Phosphorus Magnesium Total Bilirubin AST ALT Alkaline Phosphatase Total Protein Albumin Globulin Albumin/Globulin Ratio PTH Intact Whole Molec Proteinase 3 (PR3) Myeloperoxidase Ab HIV 1&2 Antibody Screen Critical Care Progress Note - Nutrition Nutrition: Nutrition Category Date Time Status NPO Diet [DIET] Diets 04/28/17 Breakfast Active Attending/Attestation - Attestation I have personally seen and examined this patient.: Yes I have fully participated in the care of the patient.: Yes I have reviewed all pertinent clinical information: Yes Notes (Text): 05/01/17 15:42 Patient seen and examined in the intensive care unit. Case discussed with house staff in the morning rounds. Patient extubated after weaning trial Patient is awake and responsive Consider swallowing evaluation Continue hemodialysis
[2017-05-01] MEDS: Albuterol-Ipratrop 3 mg / 0.5 (3 ml) UD INH PRN (07:47)
--- NOTE | 2017-05-01 10:59 | RAD ---
Chest x-ray single frontal view History: Intubated. Comparison: 04/30/2017 Findings: Lines and tubes stable position. Moderate to severe venous congestion. Confluent airspace consolidative changes in the right mid to lower lung zone as well as the left lung base. Dense consolidation at the right lower lung. Moderate right and small left pleural effusion. Cardiomegaly. Degenerative changes in the spine and shoulders. Impression: Lines and tubes stable position. Moderate to severe venous congestion. Confluent airspace consolidative changes in the right mid to lower lung zone as well as the left lung base. Dense consolidation at the right lower lung. Moderate right and small left pleural effusion. Cardiomegaly.
[2017-05-01] MEDS: (Novolin R) Insulin Human Regular 100 units/ml vial SC SCH ×3 (12:00→22:32)
--- NOTE | 2017-05-01 15:19 | CP.PCM.PN ---
Subjective - Date & Time of Evaluation Date of Evaluation: 05/01/17 Time of Evaluation: 13:00 - Subjective Subjective: extubated, remains lethargic on face mask unable to complete ROS due to above poor HD today due to high pressures of catheter alteplase being instilled, but will likely require permcath anca/antigbm ab negative Objective - Vital Signs/Intake and Output Vital Signs (last 24 hours): Temp Pulse Resp BP Pulse Ox 99.2 F 98 H 20 117/56 L 99 05/01/17 12:00 05/01/17 13:00 05/01/17 13:00 05/01/17 13:00 05/01/17 13:00 Intake and Output: 05/01/17 05/01/17 06:59 18:59 Intake Total 1711.7 244.1 Output Total 615 310 Balance 1096.7 -65.9 - Medications Medications: Current Medications Albuterol/Ipratropium (Duoneb 3 Mg/0.5 Mg (3 Ml) Ud) 3 ml INH RQ6 PRN PRN Reason: Wheezing Last Admin: 05/01/17 07:47 Dose: 3 ml Alteplase, Recombinant (Cathflo 2 Mg Inj) 2 mg IV ONCE ONE Stop: 05/03/17 10:01 Calcium Acetate (Phoslo) 667 mg GT TIDCC [facility] Last Admin: 05/01/17 13:00 Dose: Not Given Heparin Sodium (Porcine) (Heparin) 5,000 units SC Q12 [facility] Last Admin: 04/30/17 21:25 Dose: 5,000 units Ceftriaxone Sodium 1 gm/ (Sodium Chloride) 100 mls @ 100 mls/hr IVPB DAILY [facility] Last Admin: 04/30/17 10:12 Dose: 100 mls/hr Sodium Chloride (Sodium Chloride 0.9%) 1,000 mls @ 15 mls/hr IV .Q24H [facility] Last Admin: 04/30/17 20:55 Dose: Not Given Insulin Human Regular (Novolin R) 0 unit SC Q6 CLAUDE PRN Reason: Protocol Last Admin: 05/01/17 12:00 Dose: Not Given Metoprolol Tartrate (Lopressor) 25 mg PO BID [facility] Last Admin: 05/01/17 10:00 Dose: Not Given Pantoprazole Sodium (Protonix Inj) 40 mg IVP DAILY [facility] Last Admin: 04/30/17 10:12 Dose: 40 mg Sitagliptin Phosphate (Januvia) 25 mg PO DAILY [facility] Last Admin: 05/01/17 10:16 Dose: Not Given - Labs Labs: 05/01/17 06:40 05/01/17 06:36 PT 13.0 SECONDS (9.7-12.2) H 04/28/17 15:20 INR 1.1 04/28/17 15:20 APTT 28 SECONDS (21-34) 04/28/17 15:20 - Constitutional Appears: Confused, Chronically Ill - Head Exam Head Exam: ATRAUMATIC - ENT Exam ENT Exam: Mucous Membranes Dry - Respiratory Exam Respiratory Exam: Decreased Breath Sounds Additional comments: tachypneic - GI/Abdominal Exam GI & Abdominal Exam: Distended, Soft. absent: Tenderness - Extremities Exam Extremities Exam: absent: Pedal Edema - Neurological Exam Neurological Exam: Awake. absent: Alert, Oriented x3 Assessment and Plan - Assessment and Plan (Free Text) Assessment: calli and respiratory failure requiring HD will need permcath renal biopsy when respiratory status is stable
[2017-05-01] MEDS: Sodium Chloride 0.9% 1,000 ML IV SCH (20:18)
--- NOTE | 2017-05-01 23:42 | CP.PCM.PN ---
Subjective - Date & Time of Evaluation Date of Evaluation: 05/01/17 Time of Evaluation: 19:20 - Subjective Subjective: Patient seen and evaluated Extubated and lethargic Objective - Vital Signs/Intake and Output Vital Signs (last 24 hours): Temp Pulse Resp BP Pulse Ox 99.3 F 89 21 136/65 94 L 05/01/17 16:00 05/01/17 19:00 05/01/17 19:00 05/01/17 19:00 05/01/17 19:00 Intake and Output: 05/01/17 05/02/17 18:59 06:59 Intake Total 364.1 Output Total 885 Balance -520.9 - Medications Medications: Current Medications Albuterol/Ipratropium (Duoneb 3 Mg/0.5 Mg (3 Ml) Ud) 3 ml INH RQ6 PRN PRN Reason: Wheezing Last Admin: 05/01/17 07:47 Dose: 3 ml Alteplase, Recombinant (Cathflo 2 Mg Inj) 2 mg IV ONCE ONE Stop: 05/03/17 10:01 Calcium Acetate (Phoslo) 667 mg GT TIDCC [facility] Last Admin: 05/01/17 17:27 Dose: 667 mg Heparin Sodium (Porcine) (Heparin) 5,000 units SC Q12 [facility] Last Admin: 05/01/17 22:28 Dose: 5,000 units Ceftriaxone Sodium 1 gm/ (Sodium Chloride) 100 mls @ 100 mls/hr IVPB DAILY [facility] Last Admin: 05/01/17 14:00 Dose: 100 mls/hr Sodium Chloride (Sodium Chloride 0.9%) 1,000 mls @ 15 mls/hr IV .Q24H [facility] Last Admin: 05/01/17 20:18 Dose: Not Given Insulin Human Regular (Novolin R) 0 unit SC Q6 [facility] PRN Reason: Protocol Last Admin: 05/01/17 22:32 Dose: 6 unit Metoprolol Tartrate (Lopressor) 25 mg PO BID [facility] Last Admin: 05/01/17 17:27 Dose: 25 mg Pantoprazole Sodium (Protonix Inj) 40 mg IVP DAILY [facility] Last Admin: 05/01/17 17:26 Dose: 40 mg Sitagliptin Phosphate (Januvia) 25 mg PO DAILY [facility] Last Admin: 05/01/17 10:16 Dose: Not Given Zolpidem Tartrate (Ambien) 5 mg PO HS PRN PRN Reason: Insomnia Last Admin: 05/01/17 22:28 Dose: 5 mg - Labs Labs: 05/01/17 06:40 05/01/17 06:36 PT 13.0 SECONDS (9.7-12.2) H 04/28/17 15:20 INR 1.1 04/28/17 15:20 APTT 28 SECONDS (21-34) 04/28/17 15:20
[2017-05-02 01:54] LABS: TOTAL PROTEIN, SERUM 5.3 g/dL (6.1-8.1)
[2017-05-02 06:20] LABS: BASO # 0.1 K/uL (0.0-0.2); BASO % 0.6 % (0.0-2.0); EOS # 0.3 K/uL (0.0-0.7); EOS % 2.5 % (0.0-4.0); HEMATOCRIT 31.5 % (35.0-51.0); LYMPH # 0.9 K/uL (1.0-4.3); LYMPH % 8.2 % (20.0-40.0); MEAN CELL VOLUME 78.8 fL (80.0-94.0); MEAN CORPUSCULAR HEMOGLOBIN 26.7 pg (27.0-31.0); MEAN CORPUSCULAR HGB CONC 33.8 g/dL (33.0-37.0); MEAN PLATELET VOLUME 7.9 fL (7.2-11.7); MONO # 1.5 K/uL (0.0-0.8); MONO % 13.6 % (0.0-10.0); PLATELET COUNT 220 K/uL (130-400); RED CELL DISTRIBUTION WIDTH 13.8 % (11.5-14.5); WHITE BLOOD COUNT 11.2 K/uL (4.8-10.8)
[2017-05-02 06:33] LABS: ALB/GLOB RATIO 1.1 (1.0-2.1); BILIRUBIN,TOTAL 0.6 mg/dL (0.2-1.3); CALCIUM 8.2 mg/dl (8.6-10.4); MAGNESIUM 2.9 mg/dL (1.6-2.3); PHOSPHOROUS 8.1 mg/dL (2.5-4.5); POTASSIUM 4.1 mmol/L (3.6-5.2); TOTAL PROTEIN 5.9 g/dL (6.3-8.3)
[2017-05-02] MEDS: (Novolin R) Insulin Human Regular 100 units/ml vial SC SCH ×4 (06:57→12:13)
[2017-05-02 09:00] LABS: EOSINOPHIL 1 % (0-4); NEUTROPHIL 79 % (50-75); TOTAL CELLS COUNTED 100
[2017-05-02] MEDS ORDERED: (Novolin R) Insulin Human Regular 100 units/ml vial SC ONE (09:02)
--- NOTE | 2017-05-02 09:56 | CP.PCM.PN ---
Subjective - Date & Time of Evaluation Date of Evaluation: 05/02/17 Time of Evaluation: 09:53 - Subjective Subjective: extubated; feels much better oliguric discussed in detail about renal failure will need new dialysis cath- TPA failed at dialysis 05/01 less dyspneic Objective - Vital Signs/Intake and Output Vital Signs (last 24 hours): Temp Pulse Resp BP Pulse Ox 97.5 F L 72 18 125/65 92 L 05/02/17 08:00 05/02/17 01:30 05/02/17 01:30 05/02/17 00:54 05/02/17 01:30 Intake and Output: 05/02/17 05/02/17 06:59 18:59 Intake Total 960 Output Total 1600 Balance -640 - Medications Medications: Current Medications Albuterol/Ipratropium (Duoneb 3 Mg/0.5 Mg (3 Ml) Ud) 3 ml INH RQ6 PRN PRN Reason: Wheezing Last Admin: 05/01/17 07:47 Dose: 3 ml Alteplase, Recombinant (Cathflo 2 Mg Inj) 2 mg IV ONCE ONE Stop: 05/03/17 10:01 Calcium Acetate (Phoslo) 667 mg GT TIDCC [facility] Last Admin: 05/01/17 17:27 Dose: 667 mg Heparin Sodium (Porcine) (Heparin) 5,000 units SC Q12 [facility] Last Admin: 05/01/17 22:28 Dose: 5,000 units Ceftriaxone Sodium 1 gm/ (Sodium Chloride) 100 mls @ 100 mls/hr IVPB DAILY [facility] Last Admin: 05/01/17 14:00 Dose: 100 mls/hr Sodium Chloride (Sodium Chloride 0.9%) 1,000 mls @ 15 mls/hr IV .Q24H [facility] Last Admin: 05/01/17 20:18 Dose: Not Given Insulin Human Regular (Novolin R) 0 unit SC Q6 [facility] PRN Reason: Protocol Last Admin: 05/02/17 09:21 Dose: Not Given Metoprolol Tartrate (Lopressor) 25 mg PO BID [facility] Last Admin: 05/01/17 17:27 Dose: 25 mg Pantoprazole Sodium (Protonix Inj) 40 mg IVP DAILY [facility] Last Admin: 05/01/17 17:26 Dose: 40 mg Sitagliptin Phosphate (Januvia) 25 mg PO DAILY [facility] Last Admin: 05/01/17 10:16 Dose: Not Given Zolpidem Tartrate (Ambien) 5 mg PO HS PRN PRN Reason: Insomnia Last Admin: 05/01/17 22:28 Dose: 5 mg - Labs Labs: 05/02/17 06:10 05/02/17 06:10 PT 13.0 SECONDS (9.7-12.2) H 04/28/17 15:20 INR 1.1 04/28/17 15:20 APTT 28 SECONDS (21-34) 04/28/17 15:20 - Constitutional Appears: No Acute Distress, Chronically Ill - Head Exam Head Exam: ATRAUMATIC, NORMAL INSPECTION - Eye Exam Eye Exam: EOMI, Normal appearance - Neck Exam Neck Exam: Normal Inspection. absent: Tenderness - Respiratory Exam Respiratory Exam: Clear to Ausculation Bilateral, NORMAL BREATHING PATTERN - Cardiovascular Exam Cardiovascular Exam: REGULAR RHYTHM, +S1 - GI/Abdominal Exam GI & Abdominal Exam: Soft. absent: Tenderness - Neurological Exam Neurological Exam: Alert, CN II-XII Intact - Skin Skin Exam: Dry, Warm Assessment and Plan (1) Type 1 diabetes mellitus with diabetic nephropathy Status: Acute (2) WILEY (acute kidney injury) Status: Acute (3) CHF (congestive heart failure) Status: Acute (4) Acute renal failure Status: Acute (5) ESRD (end stage renal disease) Status: Acute - Assessment and Plan (Free Text) Plan: Needs new cath- permcath recommended add phoslo check protein excretion rate discuss details about [employer] with family
--- NOTE | 2017-05-02 10:03 | RAD ---
Chest x-ray single frontal view History: Intubated. Comparison: 05/01/2017 Findings: Prominent diffuse increased interstitial lung markings suggestive for underlying edema and/or infiltrates. This is more pronounced the left randy thorax. Heart size within normal limits. Impression: Prominent diffuse increased interstitial lung markings suggestive for underlying edema and/or infiltrates. This is more pronounced the left randy thorax.
[2017-05-02] MEDS ORDERED: Insulin Human Regular 100 UNIT in Sodium Chloride 0.9% 99 ML IV SCH ×2 (10:15→14:02)
--- NOTE | 2017-05-02 11:10 | CP.PCM.CON ---
History of Present Illness - History of Present Illness History of Present Illness: Vasc Sx: dr Cardona Requested to see pt for dialysis access placement. Pt is NPO. Will place perma -cath this afternoon in OR. risks, benefits of procedure explained to pt d/w Dr Cardona Past Patient History - Infectious Disease Hx of Infectious Diseases: None - Past Medical History & Family History Past Medical History?: Yes - Past Social History Smoking Status: Never Smoked - CARDIAC Hx Atrial Fibrillation: Yes Hx Cardia Arrhythmia: Yes - PULMONARY Hx Asthma: Yes Hx Sleep Apnea: Yes (ON CPAP) - NEUROLOGICAL Hx Neurological Disorder: No - HEENT Hx HEENT Problems: No - RENAL Hx Chronic Kidney Disease: No - ENDOCRINE/METABOLIC Hx Endocrine Disorders: Yes Hx Diabetes Mellitus Type 1: Yes - HEMATOLOGICAL/ONCOLOGICAL Hx Blood Disorders: No - INTEGUMENTARY Hx Dermatological Problems: No - MUSCULOSKELETAL/RHEUMATOLOGICAL Hx Musculoskeletal Disorders: No Hx Falls: No - GASTROINTESTINAL Hx Gastrointestinal Disorders: No - GENITOURINARY/GYNECOLOGICAL Hx Genitourinary Disorders: No - PSYCHIATRIC Hx Substance Use: No - SURGICAL HISTORY Hx Surgeries: Yes Hx Cardiac Catheterization: Yes (2015) - ANESTHESIA Hx Anesthesia: Yes Hx Anesthesia Reactions: No Hx Malignant Hyperthermia: No Meds Allergies/Adverse Reactions: Allergies Allergy/AdvReac Type Severity Reaction Status Date / Time No Known Allergies Allergy Verified 04/27/17 21:17 - Medications Medications: Current Medications Albuterol/Ipratropium (Duoneb 3 Mg/0.5 Mg (3 Ml) Ud) 3 ml INH RQ6 PRN PRN Reason: Wheezing Last Admin: 05/01/17 07:47 Dose: 3 ml Alteplase, Recombinant (Cathflo 2 Mg Inj) 2 mg IV ONCE ONE Stop: 05/03/17 10:01 Calcium Acetate (Phoslo) 1,334 mg PO TIDCC [facility] Heparin Sodium (Porcine) (Heparin) 5,000 units SC Q12 [facility] Last Admin: 05/02/17 10:07 Dose: Not Given Ceftriaxone Sodium 1 gm/ (Sodium Chloride) 100 mls @ 100 mls/hr IVPB DAILY [facility] Last Admin: 05/01/17 14:00 Dose: 100 mls/hr Sodium Chloride (Sodium Chloride 0.9%) 1,000 mls @ 15 mls/hr IV .Q24H [facility] Last Admin: 09/13/17 20:18 Dose: Not Given Insulin Human Regular 100 unit (/ Sodium Chloride) 100 mls @ 2 mls/hr IV .Q24H [facility] Insulin Human Regular (Novolin R) 0 unit SC Q6 [facility] PRN Reason: Protocol Last Admin: 05/02/17 09:21 Dose: Not Given Metoprolol Tartrate (Lopressor) 25 mg PO BID [facility] Last Admin: 05/02/17 10:09 Dose: Not Given Pantoprazole Sodium (Protonix Inj) 40 mg IVP DAILY [facility] Last Admin: 05/01/17 17:26 Dose: 40 mg Sitagliptin Phosphate (Januvia) 25 mg PO DAILY [facility] Last Admin: 05/02/17 10:09 Dose: Not Given Zolpidem Tartrate (Ambien) 5 mg PO HS PRN PRN Reason: Insomnia Last Admin: 05/01/17 22:28 Dose: 5 mg Results - Vital Signs Recent Vital Signs: Last Vital Signs Temp 97.5 F L 05/02/17 08:00 Pulse 72 05/02/17 01:30 Resp 18 05/02/17 01:30 BP 125/65 05/02/17 00:54 Pulse Ox 92 L 05/02/17 01:30 - Labs Result Diagrams: 05/02/17 06:10 05/02/17 06:10 Labs: Laboratory Results - last 24 hr 04/30/17 05/01/17 05/01/17 07:12 08:16 11:42 WBC RBC Hgb Hct MCV MCH MCHC RDW Plt Count MPV Neut % (Auto) Lymph % (Auto) [place] % (Auto) Eos % (Auto) Baso % (Auto) Neut # Lymph # [place] # Eos # Baso # Neutrophils % (Manual) Band Neutrophils % Lymphocytes % (Manual) Monocytes % (Manual) Eosinophils % (Manual) Platelet Estimate Hypochromasia (manual) Poikilocytosis (manual Anisocytosis (manual) Tear Drop Cells Sodium Potassium Chloride Carbon Dioxide Anion Gap BUN Creatinine Est GFR ( Amer) Est GFR (Non-Af Amer) POC Glucose (mg/dL) 246 H Random Glucose Calcium Phosphorus Magnesium Total Bilirubin AST ALT Alkaline Phosphatase Total Protein Total Protein (PEP) 5.3 L Albumin Globulin Albumin/Globulin Ratio PTH Intact Whole Molec 252 H 05/01/17 05/01/17 05/01/17 15:25 20:07 21:35 WBC RBC Hgb Hct MCV MCH MCHC RDW Plt Count MPV Neut % (Auto) Lymph % (Auto) [place] % (Auto) Eos % (Auto) Baso % (Auto) Neut # Lymph # [place] # Eos # Baso # Neutrophils % (Manual) Band Neutrophils % Lymphocytes % (Manual) Monocytes % (Manual) Eosinophils % (Manual) Platelet Estimate Hypochromasia (manual) Poikilocytosis (manual Anisocytosis (manual) Tear Drop Cells Sodium Potassium Chloride Carbon Dioxide Anion Gap BUN Creatinine Est GFR ( Amer) Est GFR (Non-Af Amer) POC Glucose (mg/dL) 334 H 467 H* > 500 H* Random Glucose Calcium Phosphorus Magnesium Total Bilirubin AST ALT Alkaline Phosphatase Total Protein Total Protein (PEP) Albumin Globulin Albumin/Globulin Ratio PTH Intact Whole Molec 05/02/17 05/02/17 05/02/17 06:10 06:10 08:55 WBC 11.2 H RBC 4.00 L Hgb 10.7 L Hct 31.5 L MCV 78.8 L MCH 26.7 L MCHC 33.8 RDW 13.8 Plt Count 220 MPV 7.9 Neut % (Auto) 75.1 H Lymph % (Auto) 8.2 L [place] % (Auto) 13.6 H Eos % (Auto) 2.5 Baso % (Auto) 0.6 Neut # 8.5 H Lymph # 0.9 L [place] # 1.5 H Eos # 0.3 Baso # 0.1 Neutrophils % (Manual) 79 H Band Neutrophils % 2 Lymphocytes % (Manual) 6 L Monocytes % (Manual) 12 H Eosinophils % (Manual) 1 Platelet Estimate Normal Hypochromasia (manual) Slight Poikilocytosis (manual Slight Anisocytosis (manual) Slight Tear Drop Cells Slight Sodium 135 Potassium 4.1 Chloride 95 L Carbon Dioxide 19 L Anion Gap 25 H BUN 68 H Creatinine 6.6 H Est GFR ( Amer) 12 Est GFR (Non-Af Amer) 10 POC Glucose (mg/dL) 402 H* Random Glucose 520 H* D Calcium 8.2 L Phosphorus 8.1 H Magnesium 2.9 H Total Bilirubin 0.6 AST 54 ALT 66 Alkaline Phosphatase 175 H Total Protein 5.9 L Total Protein (PEP) Albumin 3.1 L Globulin 2.7 Albumin/Globulin Ratio 1.1 PTH Intact Whole Molec
--- NOTE | 2017-05-02 11:47 | CP.CCUPN ---
<GinoRahat londono Keith - Last Filed: 05/02/17 19:54> CCU Subjective - Physician Review Subjective (Free Text): Patient seen and examined at bedside. Patient was extubated yesterday and today is tolerating nasal cannula oxygenation. Per nursing staff, no acute events overnight. Patient denies any medical complaints at this time, denies headache, fevers, chest pain, palpitations, SOB, cough, N/V/D/C, or weakness. Case discussed with house-staff, medical records and chart reviewed and labs discussed. 05/01/17 07:26 CCU Objective - Vital Signs / Intake & Output Vital Signs (Last 4 hours): Vital Signs Temp Pulse Resp BP Pulse Ox 05/02/17 11:00 77 21 95 05/02/17 10:54 73 16 130/59 L 96 05/02/17 10:00 83 31 H 95 05/02/17 09:54 64 23 137/69 96 05/02/17 09:00 92 H 33 H 97 05/02/17 08:54 81 27 H 124/62 05/02/17 08:20 78 24 121/57 L 92 L 05/02/17 08:00 97.5 F L 78 28 H 99 Intake and Output (Last 8hrs): Intake & Output 05/01/17 05/02/17 05/02/17 22:59 06:59 14:59 Intake Total 360 720 540 Output Total 600 1300 600 Balance -240 -580 -60 Weight 209 lb 7.026 oz Intake: Oral 360 720 540 Output: Urine 600 1300 600 2-way Urethral 600 1300 600 Stool 0 Emesis 0 Other: # Bowel Movements 1 - Physical Exam Head: Negative for: Atraumatic, Normocephalic Pupils: Positive for: PERRL Extroacular Muscles: Positive for: EOMI Conjunctiva: Positive for: Normal Mouth: Positive for: Moist Mucous Membranes Nose (Internal): Positive for: Normal Inspection Neck: Positive for: Normal Range of Motion Respiratory/Chest: Positive for: Clear to Auscultation, Decreased Breath Sounds. Negative for: Rales, Rhonchi Cardiovascular: Positive for: Regular Rate and Rhythm Abdomen: Positive for: Normal Bowel Sounds. Negative for: Tenderness, Distention, Peritoneal Signs Upper Extremity: Positive for: Normal Inspection. Negative for: Cyanosis Lower Extremity: Positive for: Normal Inspection Neurological: Positive for: GCS=15 Skin: Positive for: Warm Psychiatric: Positive for: Alert, Oriented x 3 - Medications Active Medications: Active Medications Generic Name Dose Route Start Last Admin Trade Name Corinne PRN Reason Stop Dose Admin Albuterol/Ipratropium 3 ml 04/28/17 08:00 05/01/17 07:47 Duoneb 3 Mg/0.5 Mg (3 Ml) Ud INH 3 ml RQ6 PRN Administration Wheezing Alteplase, Recombinant 2 mg 05/03/17 10:00 Cathflo 2 Mg Inj IV 05/03/17 10:01 ONCE ONE Calcium Acetate 1,334 mg 05/02/17 09:58 Phoslo PO TIDCC CLAUDE Heparin Sodium (Porcine) 5,000 units 04/28/17 10:00 05/02/17 10:07 Heparin SC Not Given Q12 CLAUDE Ceftriaxone Sodium 1 gm/ 100 mls @ 100 mls/hr 04/29/17 10:00 05/01/17 14:00 Sodium Chloride IVPB 100 mls/hr DAILY CLAUDE Administration Sodium Chloride 1,000 mls @ 15 mls/hr 04/28/17 20:00 05/01/17 20:18 Sodium Chloride 0.9% IV Not Given .Q24H CLAUDE Insulin Human Regular 100 unit 100 mls @ 2 mls/hr 05/02/17 10:15 / Sodium Chloride IV .Q24H CLAUDE Insulin Human Regular 0 unit 05/02/17 08:15 05/02/17 09:21 Novolin R SC Not Given Q6 [facility] Protocol Metoprolol Tartrate 25 mg 04/29/17 19:30 05/02/17 10:09 Lopressor PO Not Given BID CLAUDE Pantoprazole Sodium 40 mg 04/29/17 10:00 05/01/17 17:26 Protonix Inj IVP 40 mg DAILY CLAUDE Administration Sitagliptin Phosphate 25 mg 04/30/17 10:00 05/02/17 10:09 Januvia PO Not Given DAILY CLAUDE Zolpidem Tartrate 5 mg 05/01/17 22:07 05/01/17 22:28 Ambien PO 5 mg HS PRN Administration Insomnia - Patient Studies Lab Studies: Microbiology Studies 04/27/17 23:51 Blood Culture - Preliminary Blood-Venous NO GROWTH AFTER 4 DAYS Lab Studies 05/02/17 05/02/17 05/02/17 Range/Units 08:55 06:10 06:10 WBC 11.2 H (4.8-10.8) K/uL RBC 4.00 L (4.40-5.90) Mil/uL Hgb 10.7 L (12.0-18.0) g/dL Hct 31.5 L (35.0-51.0) % MCV 78.8 L (80.0-94.0) fL MCH 26.7 L (27.0-31.0) pg MCHC 33.8 (33.0-37.0) g/dL RDW 13.8 (11.5-14.5) % Plt Count 220 (130-400) K/uL MPV 7.9 (7.2-11.7) fL Neut % (Auto) 75.1 H (50.0-75.0) % Lymph % (Auto) 8.2 L (20.0-40.0) % [place] % (Auto) 13.6 H (0.0-10.0) % Eos % (Auto) 2.5 (0.0-4.0) % Baso % (Auto) 0.6 (0.0-2.0) % Neut # 8.5 H (1.8-7.0) K/uL Lymph # 0.9 L (1.0-4.3) K/uL Dod[place]idge # 1.5 H (0.0-0.8) K/uL Eos # 0.3 (0.0-0.7) K/uL Baso # 0.1 (0.0-0.2) K/uL Neutrophils % (Manual) 79 H (50-75) % Band Neutrophils % 2 (0-2) % Lymphocytes % (Manual) 6 L (20-40) % Monocytes % (Manual) 12 H (0-10) % Eosinophils % (Manual) 1 (0-4) % Platelet Estimate Normal (NORMAL) Hypochromasia (manual) Slight Poikilocytosis (manual Slight Anisocytosis (manual) Slight Tear Drop Cells Slight Sodium 135 (132-148) mmol/L Potassium 4.1 (3.6-5.2) mmol/L Chloride 95 L (98-107) mmol/L Carbon Dioxide 19 L (22-30) mmol/L Anion Gap 25 H (10-20) BUN 68 H (9-20) mg/dL Creatinine 6.6 H (0.8-1.5) MG/DL Est GFR ( Amer) 12 Est GFR (Non-Af Amer) 10 POC Glucose (mg/dL) 402 H* (65-110) mg/dL Random Glucose 520 H* D (75-110) mg/dL Calcium 8.2 L (8.6-10.4) mg/dl Phosphorus 8.1 H (2.5-4.5) mg/dL Magnesium 2.9 H (1.6-2.3) mg/dL Total Bilirubin 0.6 (0.2-1.3) mg/dL AST 54 (17-59) U/L ALT 66 (21-72) U/L Alkaline Phosphatase 175 H (38-126) U/L Total Protein 5.9 L (6.3-8.3) g/dL Total Protein (PEP) (6.1-8.1) g/dL Albumin 3.1 L (3.5-5.0) g/dL Globulin 2.7 (2.2-3.9) gm/dL Albumin/Globulin Ratio 1.1 (1.0-2.1) PTH Intact Whole Molec (14-64) pg/mL 05/01/17 05/01/17 05/01/17 Range/Units 21:35 20:07 15:25 WBC (4.8-10.8) K/uL RBC (4.40-5.90) Mil/uL Hgb (12.0-18.0) g/dL Hct (35.0-51.0) % MCV (80.0-94.0) fL MCH (27.0-31.0) pg MCHC (33.0-37.0) g/dL RDW (11.5-14.5) % Plt Count (130-400) K/uL MPV (7.2-11.7) fL Neut % (Auto) (50.0-75.0) % Lymph % (Auto) (20.0-40.0) % Dod[place]idge % (Auto) (0.0-10.0) % Eos % (Auto) (0.0-4.0) % Baso % (Auto) (0.0-2.0) % Neut # (1.8-7.0) K/uL Lymph # (1.0-4.3) K/uL Doddridge # (0.0-0.8) K/uL Eos # (0.0-0.7) K/uL Baso # (0.0-0.2) K/uL Neutrophils % (Manual) (50-75) % Band Neutrophils % (0-2) % Lymphocytes % (Manual) (20-40) % Monocytes % (Manual) (0-10) % Eosinophils % (Manual) (0-4) % Platelet Estimate (NORMAL) Hypochromasia (manual) Poikilocytosis (manual Anisocytosis (manual) Tear Drop Cells Sodium (132-148) mmol/L Potassium (3.6-5.2) mmol/L Chloride (98-107) mmol/L Carbon Dioxide (22-30) mmol/L Anion Gap (10-20) BUN (9-20) mg/dL Creatinine (0.8-1.5) MG/DL Est GFR ( Amer) Est GFR (Non-Af Amer) POC Glucose (mg/dL) > 500 H* 467 H* 334 H (65-110) mg/dL Random Glucose (75-110) mg/dL Calcium (8.6-10.4) mg/dl Phosphorus (2.5-4.5) mg/dL Magnesium (1.6-2.3) mg/dL Total Bilirubin (0.2-1.3) mg/dL AST (17-59) U/L ALT (21-72) U/L Alkaline Phosphatase (38-126) U/L Total Protein (6.3-8.3) g/dL Total Protein (PEP) (6.1-8.1) g/dL Albumin (3.5-5.0) g/dL Globulin (2.2-3.9) gm/dL Albumin/Globulin Ratio (1.0-2.1) PTH Intact Whole Molec (14-64) pg/mL 05/01/17 05/01/17 04/30/17 Range/Units 11:42 08:16 07:12 WBC (4.8-10.8) K/uL RBC (4.40-5.90) Mil/uL Hgb (12.0-18.0) g/dL Hct (35.0-51.0) % MCV (80.0-94.0) fL MCH (27.0-31.0) pg MCHC (33.0-37.0) g/dL RDW (11.5-14.5) % Plt Count (130-400) K/uL MPV (7.2-11.7) fL Neut % (Auto) (50.0-75.0) % Lymph % (Auto) (20.0-40.0) % Dod[place]idge % (Auto) (0.0-10.0) % Eos % (Auto) (0.0-4.0) % Baso % (Auto) (0.0-2.0) % Neut # (1.8-7.0) K/uL Lymph # (1.0-4.3) K/uL Dod[place]idge # (0.0-0.8) K/uL Eos # (0.0-0.7) K/uL Baso # (0.0-0.2) K/uL Neutrophils % (Manual) (50-75) % Band Neutrophils % (0-2) % Lymphocytes % (Manual) (20-40) % Monocytes % (Manual) (0-10) % Eosinophils % (Manual) (0-4) % Platelet Estimate (NORMAL) Hypochromasia (manual) Poikilocytosis (manual Anisocytosis (manual) Tear Drop Cells Sodium (132-148) mmol/L Potassium (3.6-5.2) mmol/L Chloride (98-107) mmol/L Carbon Dioxide (22-30) mmol/L Anion Gap (10-20) BUN (9-20) mg/dL Creatinine (0.8-1.5) MG/DL Est GFR ( Amer) Est GFR (Non-Af Amer) POC Glucose (mg/dL) 246 H (65-110) mg/dL Random Glucose (75-110) mg/dL Calcium (8.6-10.4) mg/dl Phosphorus (2.5-4.5) mg/dL Magnesium (1.6-2.3) mg/dL Total Bilirubin (0.2-1.3) mg/dL AST (17-59) U/L ALT (21-72) U/L Alkaline Phosphatase (38-126) U/L Total Protein (6.3-8.3) g/dL Total Protein (PEP) 5.3 L (6.1-8.1) g/dL Albumin (3.5-5.0) g/dL Globulin (2.2-3.9) gm/dL Albumin/Globulin Ratio (1.0-2.1) PTH Intact Whole Molec 252 H (14-64) pg/mL Laboratory Results - last 24 hr 04/30/17 05/01/17 05/01/17 07:12 08:16 11:42 WBC RBC Hgb Hct MCV MCH MCHC RDW Plt Count MPV Neut % (Auto) Lymph % (Auto) Doddridge % (Auto) Eos % (Auto) Baso % (Auto) Neut # Lymph # Doddridge # Eos # Baso # Neutrophils % (Manual) Band Neutrophils % Lymphocytes % (Manual) Monocytes % (Manual) Eosinophils % (Manual) Platelet Estimate Hypochromasia (manual) Poikilocytosis (manual Anisocytosis (manual) Tear Drop Cells Sodium Potassium Chloride Carbon Dioxide Anion Gap BUN Creatinine Est GFR ( Amer) Est GFR (Non-Af Amer) POC Glucose (mg/dL) 246 H Random Glucose Calcium Phosphorus Magnesium Total Bilirubin AST ALT Alkaline Phosphatase Total Protein Total Protein (PEP) 5.3 L Albumin Globulin Albumin/Globulin Ratio PTH Intact Whole Molec 252 H 05/01/17 05/01/17 05/01/17 15:25 20:07 21:35 WBC RBC Hgb Hct MCV MCH MCHC RDW Plt Count MPV Neut % (Auto) Lymph % (Auto) Doddridge % (Auto) Eos % (Auto) Baso % (Auto) Neut # Lymph # Dod[place]idge # Eos # Baso # Neutrophils % (Manual) Band Neutrophils % Lymphocytes % (Manual) Monocytes % (Manual) Eosinophils % (Manual) Platelet Estimate Hypochromasia (manual) Poikilocytosis (manual Anisocytosis (manual) Tear Drop Cells Sodium Potassium Chloride Carbon Dioxide Anion Gap BUN Creatinine Est GFR ( Amer) Est GFR (Non-Af Amer) POC Glucose (mg/dL) 334 H 467 H* > 500 H* Random Glucose Calcium Phosphorus Magnesium Total Bilirubin AST ALT Alkaline Phosphatase Total Protein Total Protein (PEP) Albumin Globulin Albumin/Globulin Ratio PTH Intact Whole Molec 09/14/17 09/14/17 09/14/17 06:10 06:10 08:55 WBC 11.2 H RBC 4.00 L Hgb 10.7 L Hct 31.5 L MCV 78.8 L MCH 26.7 L MCHC 33.8 RDW 13.8 Plt Count 220 MPV 7.9 Neut % (Auto) 75.1 H Lymph % (Auto) 8.2 L Doddridge % (Auto) 13.6 H Eos % (Auto) 2.5 Baso % (Auto) 0.6 Neut # 8.5 H Lymph # 0.9 L Dod[place]idge # 1.5 H Eos # 0.3 Baso # 0.1 Neutrophils % (Manual) 79 H Band Neutrophils % 2 Lymphocytes % (Manual) 6 L Monocytes % (Manual) 12 H Eosinophils % (Manual) 1 Platelet Estimate Normal Hypochromasia (manual) Slight Poikilocytosis (manual Slight Anisocytosis (manual) Slight Tear Drop Cells Slight Sodium 135 Potassium 4.1 Chloride 95 L Carbon Dioxide 19 L Anion Gap 25 H BUN 68 H Creatinine 6.6 H Est GFR ( Amer) 12 Est GFR (Non-Af Amer) 10 POC Glucose (mg/dL) 402 H* Random Glucose 520 H* D Calcium 8.2 L Phosphorus 8.1 H Magnesium 2.9 H Total Bilirubin 0.6 AST 54 ALT 66 Alkaline Phosphatase 175 H Total Protein 5.9 L Total Protein (PEP) Albumin 3.1 L Globulin 2.7 Albumin/Globulin Ratio 1.1 PTH Intact Whole Molec Fingerstick Blood Sugar Results: 520 Review of Systems - Constitutional Constitutional: absent: Fever, Chills, Weakness - EENT Eyes: As Per HPI, UNREMARKABLE. absent: Blurred Vision Ears: UNREMARKABLE Nose/Mouth/Throat: UNREMARKABLE - Cardiovascular Cardiovascular: As Per HPI. absent: Chest Pain, Palpitations - Respiratory Respiratory: As Per HPI. absent: Cough, Dyspnea - Gastrointestinal Gastrointestinal: absent: Abdominal Pain, Constipation, Diarrhea, Nausea, Vomiting - Genitourinary Genitourinary: absent: Hematuria, Pyuria, Nocturia - Musculoskeletal Musculoskeletal: As Par HPI. absent: Arthralgias, Back Pain - Integumentary Integumentary: UNREMARKABLE - Neurological Neurological: As Per HPI. absent: Dizziness, Headaches Critical Care Progress Note - Nutrition Nutrition: Nutrition Category Date Time Status NPO Diet [DIET] Diets 05/02/17 Breakfast Active Assessment/Plan - Assessment and Plan (Free Text) Assessment: 36 year old male with PMHx DM, Sleep Apnea, AFib, HTN presenting with SOB, hemoptysis and WILEY Today 05/02/17 Patient will be getting permacath placement for HD access. Pulm: Pulmonary edema, SOB - Extubated on 05/01 - CXR 04/28: pulmonary edema - - Duoneb 3 ml INH RQ6 Nephro: renal insufficiency - Nephro consult, Dr Limon - completed hemodialysis 2x - Permacath placement today, general surgery on board - BUN/Cr elevated, downtrending - Presence of WILEY with worsening respiratory status, will f/u serology studies - U/S renal 04/28/17 w/ echogenic kidneys - consider renal biopsy when stable - Strict I/O control Cardio: AFib, HTN - Cardiology consult, Dr Clarke - Echo 04/29/17 EF 65-70%, LVSF normal, LVDF normal, trace mitral regurgitation, mild pulmonary hypertension - Lopressor 25 mg PO BID ID: elevated WBCs, elevated procalcitonin - Procalcitonin 17.95 - Ur Cx negative, Blood Cx negative - Hepatitis Bs Ag, Hep B Core IgM, Hep C ab : Negative - Ceftriaxone 1 gm IV daily Day 4 of 5 (started on 04/29) Endo: h/o DM - Elevated blood sugar, adjusted insulin protocol to high dose - Patient has a history of hypoglycemic episodes with home insulin - Continue accuchecks Q1 hr - Consult Dr. Arnold Bourne - High dose insulin protocol - Sitagliptin 25mg po daily Neuro: - UDS negative Prophylaxis: DVT: Heparin 5,000 U SC daily GI: Protonix 40 mg IV Q12 Fluids: NS 15 cc/hr daily <Antonio Henry - Last Filed: 05/04/17 11:07> CCU Objective - Vital Signs / Intake & Output Vital Signs (Last 4 hours): Vital Signs Temp Pulse Resp BP Pulse Ox 05/04/17 09:29 128/65 05/04/17 07:53 98.9 F 80 20 128/65 97 Intake and Output (Last 8hrs): Intake & Output 05/03/17 05/04/17 05/04/17 22:59 06:59 14:59 Intake Total 0 400 Output Total 350 Balance 0 50 Intake: Oral 0 400 Output: Urine 350 2-way Urethral 350 - Medications Active Medications: Active Medications Generic Name Dose Route Start Last Admin Trade Name Freq PRN Reason Stop Dose Admin Calcium Acetate 1,334 mg 05/02/17 09:58 05/04/17 08:14 Phoslo PO 1,334 mg TIDCC CLAUDE Administration Heparin Sodium (Porcine) 5,000 units 04/28/17 10:00 05/04/17 09:30 Heparin SC 5,000 units Q12 CLAUDE Administration Ceftriaxone Sodium 1 gm/ 100 mls @ 100 mls/hr 04/29/17 10:00 05/04/17 09:30 Sodium Chloride IVPB 100 mls/hr DAILY CLAUDE Administration Insulin Aspart 14 unit 05/02/17 16:30 05/04/17 08:15 Novolog SC 14 unit AC CLAUDE Administration Insulin Aspart 0 unit 05/02/17 16:30 05/04/17 08:15 Novolog SC Not Given ACHS [facility] Protocol Insulin Glargine 30 unit 05/02/17 22:00 05/03/17 22:00 Lantus SC 30 units HS CLAUDE Administration Metoprolol Tartrate 25 mg 04/29/17 19:30 05/04/17 09:29 Lopressor PO 25 mg BID CLAUDE Administration Zolpidem Tartrate 5 mg 05/01/17 22:07 05/01/17 22:28 Ambien PO 5 mg HS PRN Administration Insomnia - Patient Studies Lab Studies: Microbiology Studies 04/27/17 23:51 Blood Culture - Final Blood-Venous NO GROWTH AFTER 5 DAYS Gram Stain - Final TEST NOT PERFORMED Lab Studies 05/04/17 05/04/17 05/03/17 Range/Units 07:41 01:36 21:49 POC Glucose (mg/dL) 296 H 372 H 414 H* (65-110) mg/dL 05/03/17 05/03/17 Range/Units 16:15 12:04 POC Glucose (mg/dL) 216 H 163 H (65-110) mg/dL Laboratory Results - last 24 hr 05/03/17 05/03/17 05/03/17 12:04 16:15 21:49 POC Glucose (mg/dL) 163 H 216 H 414 H* 05/04/17 05/04/17 01:36 07:41 POC Glucose (mg/dL) 372 H 296 H Critical Care Progress Note - Nutrition Nutrition: Nutrition Category Date Time Status Consistent Carbohydrate [DIET] Diets 05/02/17 Dinner Active Attending/Attestation - Attestation I have personally seen and examined this patient.: Yes I have fully participated in the care of the patient.: Yes I have reviewed all pertinent clinical information: Yes Notes (Text): Today: , May 02, 2017 The Patient was seen and examined at the bedside, Medical records reviewed, and management issues were discussed and formulated with the house staff. Pain issues, skin care, head of the bed elevation, glycemic control were addressed. I have reviewed all the relevant clinical, laboratory, hemodynamic, radiographic data and medications S/p Trach and underwent PEG placement today I concur with resident's History & Physical exam, assessment and plan of care as transcribed in Dr. Christian note.
--- NOTE | 2017-05-02 13:31 | CARD ---
APPROVED REPORT EKG Measurement Heart [id number] <Conclusion> Normal sinus rhythm Normal ECG
[2017-05-02] MEDS ORDERED: Iodixanol 320 MG/ML 200 ML BOTTLE IV ONE (14:06)
[2017-05-02] MEDS ORDERED: HEPARIN-NS 5,000 UNITS/500 ML 5,000 UNIT/500 ML BAG IV ONE (14:06)
[2017-05-02] MEDS ORDERED: Ketamine 50 mg/ml Inj (10 ml) ONE (14:11)
[2017-05-02] MEDS ORDERED: Midazolam 2 MG/2 ML VIAL ONE ×2 (14:20→14:52)
[2017-05-02] MEDS ORDERED: Sodium Chloride 0.9% 1,000 ML IV ONE (14:20)
[2017-05-02] MEDS ORDERED: Propofol 10 mg/ml Inj (20 ML) ONE (14:41)
[2017-05-02] MEDS: Lidocaine 1% Inj (20ml) ONE ×2 (15:09→15:11)
--- NOTE | 2017-05-02 15:25 | PCM.SURG1 ---
Surgeon's Initial Post Op Note - Surgeon's Notes Surgeon: Dr Cardona Drill Press Hand: Dr Jesus PGY3, Pacheco MS3 Type of Anesthesia: General IV Pre-Operative Diagnosis: renal failure Operative Findings: see report Post-Operative Diagnosis: as above Operation Performed: Right internal permacath placement with ultrasound guidance Specimen/Specimens Removed: none Estimated Blood Loss: EBL {In ML}: 1 Blood Products Given: N/A Drains Used: No Drains Post-Op Condition: Good Date of Surgery/Procedure: 05/02/17 Time of Surgery/Procedure: 15:25
--- NOTE | 2017-05-02 15:40 | RAD ---
PROCEDURE: Intraoperative Fluoroscopy. HISTORY: PERMA CATH INSERTION FINDINGS: Fluoroscopic assistance was provided for right-sided PermCath insertion. Please refer to the operative report from Dr. Lex Cardona.
--- NOTE | 2017-05-02 15:54 | RAD ---
HISTORY: s/p LIJ placement COMPARISON: 05/02/2017 study performed 07:26. FINDINGS: LUNGS: Stable multifocal infiltrates left greater than right. PLEURA: No significant pleural effusion identified, no pneumothorax apparent. CARDIOVASCULAR: No radiographic findings to suggest acute or significant cardiovascular disease. Satisfactory position of recently placed venous access catheter. No pneumothorax. OSSEOUS STRUCTURES: No significant abnormalities. VISUALIZED UPPER ABDOMEN: Normal. OTHER FINDINGS: None. IMPRESSION: No adverse findings following IJ catheter placement. No interval change
[2017-05-02] MEDS: (Novolog) Insulin Aspart, Recombinant 100 u/ml 10 ml vial SC SCH ×3 (17:16→21:57)
[2017-05-02] MEDS ORDERED: (Novolog) Insulin Aspart, Recombinant 100 u/ml 10 ml vial SC ONE (18:00)
[2017-05-02] MEDS: (Lantus) Insulin Glargine, Recombinant SC SCH (21:56)
--- NOTE | 2017-05-02 22:51 | CP.PCM.PN ---
Subjective - Date & Time of Evaluation Date of Evaluation: 05/02/17 Time of Evaluation: 10:00 - Subjective Subjective: Patient seen and examined at bedside. Patient was extubated yesterday and today is tolerating nasal cannula oxygenation. Per nursing staff, no acute events overnight. Patient denies any medical complaints at this time, denies headache, fevers, chest pain, palpitations, SOB, cough, N/V/D/C, or weakness. Objective - Vital Signs/Intake and Output Vital Signs (last 24 hours): Temp Pulse Resp BP Pulse Ox 98.6 F 85 29 H 131/65 89 L 05/02/17 12:00 05/02/17 19:00 05/02/17 19:00 05/02/17 19:00 05/02/17 19:00 Intake and Output: 05/02/17 05/03/17 18:59 06:59 Intake Total 540 Output Total 1200 100 Balance -660 -100 - Medications Medications: Current Medications Albuterol/Ipratropium (Duoneb 3 Mg/0.5 Mg (3 Ml) Ud) 3 ml INH RQ6 PRN PRN Reason: Wheezing Last Admin: 05/01/17 07:47 Dose: 3 ml Alteplase, Recombinant (Cathflo 2 Mg Inj) 2 mg IV ONCE ONE Stop: 05/03/17 10:01 Calcium Acetate (Phoslo) 1,334 mg PO TIDCC [facility] Last Admin: 05/02/17 17:02 Dose: Not Given Heparin Sodium (Porcine) (Heparin) 5,000 units SC Q12 [facility] Last Admin: 05/02/17 21:57 Dose: 5,000 units Ceftriaxone Sodium 1 gm/ (Sodium Chloride) 100 mls @ 100 mls/hr IVPB DAILY [facility] Last Admin: 05/02/17 10:30 Dose: 100 mls/hr Sodium Chloride (Sodium Chloride 0.9%) 1,000 mls @ 15 mls/hr IV .Q24H [facility] Last Admin: 05/01/17 20:18 Dose: Not Given Insulin Aspart (Novolog) 14 unit SC AC [facility] Last Admin: 05/02/17 17:16 Dose: Not Given Insulin Aspart (Novolog) 0 unit SC ACHS [facility] PRN Reason: Protocol Last Admin: 05/02/17 21:57 Dose: 10 unit Insulin Glargine (Lantus) 30 unit SC HS [facility] Last Admin: 05/02/17 21:56 Dose: 30 units Metoprolol Tartrate (Lopressor) 25 mg PO BID [facility] Last Admin: 05/02/17 17:05 Dose: Not Given Pantoprazole Sodium (Protonix Inj) 40 mg IVP DAILY [facility] Last Admin: 05/02/17 10:30 Dose: 40 mg Zolpidem Tartrate (Ambien) 5 mg PO HS PRN PRN Reason: Insomnia Last Admin: 05/01/17 22:28 Dose: 5 mg - Labs Labs: 05/02/17 06:10 05/02/17 06:10 PT 13.0 SECONDS (9.7-12.2) H 04/28/17 15:20 INR 1.1 04/28/17 15:20 APTT 28 SECONDS (21-34) 04/28/17 15:20 - Head Exam Head Exam: ATRAUMATIC - Eye Exam Eye Exam: EOMI, PERRL - ENT Exam ENT Exam: Mucous Membranes Moist - Neck Exam Neck Exam: Full ROM, Normal Inspection - Respiratory Exam Respiratory Exam: Clear to Ausculation Bilateral, NORMAL BREATHING PATTERN - Cardiovascular Exam Cardiovascular Exam: REGULAR RHYTHM, +S1, +S2 - GI/Abdominal Exam GI & Abdominal Exam: Soft, Normal Bowel Sounds - Extremities Exam Extremities Exam: Full ROM - Back Exam Back Exam: NORMAL INSPECTION - Neurological Exam Neurological Exam: Alert, Awake - Psychiatric Exam Psychiatric exam: Normal Mood - Skin Skin Exam: Warm Assessment and Plan - Assessment and Plan (Free Text) Assessment: Assessment/Plan - Assessment and Plan (Free Text) Assessment: 36 year old male with PMHx DM, Sleep Apnea, AFib, HTN presenting with SOB, hemoptysis and WILEY Today 05/02/17 Patient will be getting permacath placement for HD access. Pulm: Pulmonary edema, SOB - Extubated on 05/01 - CXR 04/28: pulmonary edema - - Duoneb 3 ml INH RQ6 Nephro: renal insufficiency - Nephro consult, Dr Limon - completed hemodialysis 2x - Permacath placement today, general surgery on board - BUN/Cr elevated, downtrending - Presence of WILEY with worsening respiratory status, will f/u serology studies - U/S renal 04/28/17 w/ echogenic kidneys - consider renal biopsy when stable - Strict I/O control Cardio: AFib, HTN - Echo 04/29/17 EF 65-70%, LVSF normal, LVDF normal, trace mitral regurgitation, mild pulmonary hypertension - Lopressor 25 mg PO BID ID: elevated WBCs, elevated procalcitonin - Procalcitonin 17.95 - Ur Cx negative, Blood Cx negative - Hepatitis Bs Ag, Hep B Core IgM, Hep C ab : Negative - Ceftriaxone 1 gm IV daily Day 4 of 5 (started on 04/29) Endo: h/o DM - Elevated blood sugar, adjusted insulin protocol to high dose - Patient has a history of hypoglycemic episodes with home insulin - Continue accuchecks Q1 hr - Consult Dr. Arnold Bourne - High dose insulin protocol - Sitagliptin 25mg po daily Neuro: - UDS negative Prophylaxis: DVT: Heparin 5,000 U SC daily GI: Protonix 40 mg IV Q12 Fluids: NS 15 cc/hr daily
--- NOTE | 2017-05-03 00:37 | OP ---
PROCEDURE DATE: 05/02/2017 PREOPERATIVE DIAGNOSIS: Renal failure. POSTOPERATIVE DIAGNOSIS: Renal failure. PROCEDURE CARRIED OUT: Placement of right jugular Perm-A-Cath with C-arm fluoroscopy, ultrasound-guided puncture and micropuncture technique. SURGEON: Dr. Cardona. MOLD REPAIR TECHNICIAN: Dr. Jesus, resident. ANESTHESIOLOGIST: Mr. Johnson. INDICATIONS: The patient is a young man with renal insufficiency, presently having some catheter in the groin which is not working adequately. OPERATIVE FINDINGS: Catheter was inserted uneventfully via the jugular vein. DESCRIPTION OF PROCEDURE: The patient was given local anesthesia as well as intravenous sedation. Previously had been placed on antibiotics. Using micropuncture technique, the jugular vein was cannulated. Under fluoroscopic control, a guidewire was advanced centrally. Sheath and dilator were exchanged for this and subsequently, we exchanged for 0.035 wire. Appropriate dilator catheter set was passed over this and the catheter was then passed, tunneled on the chest wall with a cuff and brought out on the chest wall. It was flushed with heparinized saline with good return and secured to the skin. Ultrasound of his neck showed the vein was 14 mm in diameter with normal compressibility and no evidence of intraluminal thrombosis. Lex Cardona Jr., MD
--- NOTE | 2017-05-03 03:27 | CON ---
ENDOCRINOLOGY CONSULT LOCATION: ICU, room 4. HISTORY OF PRESENT ILLNESS: This is a 36-year-old male with type 1 insulin-dependent diabetes, presenting here with diffuse abdominal pain with supervening vomiting and generalized body weakness and was evaluated to be in acute renal failure on the background of chronic kidney disease and is now being referred for endocrine evaluation and management. He also has recent extremes of glycemic fluctuations from hypoglycemia to hyperglycemic accelerations as noted. PAST MEDICAL HISTORY: As mentioned above, history of type 1 insulin-dependent diabetes, currently on a combination of Lantus given as 30 units daily and Humalog given as 5 units t.i.d. as noted; history of hypertension, cardiovascular disease; dyslipidemia; history of obstructive sleep apnea, has been on a CPAP device at home; history of chronic bronchial asthma with previous exacerbations of the same; also history of chronic atrial fibrillation, previously on anticoagulation therapy, but currently is not the aforementioned at this time. FAMILY HISTORY: Positive for diabetes and hypertension. SOCIAL HISTORY: The patient has supportive family. No known substance use. REVIEW OF SYSTEMS: As mentioned above, admits to generalized body weakness with progressive bouts of dizziness and lightheadedness, worse on the day of admission. Also, admits to suboptimal energy level with easy fatigability and tiredness and hypersomnolence and lethargy as noted. No chest pains or palpitations, but admits to progressive shortness of breath, initially on exertion and then at rest with paroxysmal nocturnal dyspnea. His oral intake is extremely poor and variable with nausea, dyspepsia, and diffuse upper abdominal pain. No recent alterations of bowel and urinary patterns. PHYSICAL EXAMINATION: GENERAL: This is an overweight male, in no apparent distress. VITAL SIGNS: Blood pressure of 150/90, pulse of 100 beats per minute and regular, temperature 99, and respirations 20. Height is 5 feet 6 inches, weight is 209 pounds. HEENT: Head normocephalic. Eyes are anicteric with pink conjunctivae. Funduscopy not possible at this time. Ears, nose and throat otherwise normal. NECK: Supple. Thyroid gland is normal size. No carotid bruits or any cervical adenopathy. CARDIOPULMONARY: Adynamic precordium. S1 and S2 is rapid and regular. LUNGS: Showed bibasilar rales and scattered rhonchi. ABDOMEN: Flat and soft with positive bowel sounds. EXTREMITIES: There is +1 bipedal edema. Pulses are +2 bilaterally. LABORATORY DATA: Hemoglobin is 10.7, hematocrit of 31, MCV 78 and WBC 11.2. Chemistry showed the BUN of 68, sodium 135, potassium 4.1, chloride 95, CO2 of 19, glucose 520 and creatinine is 6.6. His glucose values today have ranged from 302 mg/dL to 351 mg/dL. ASSESSMENT: This is a 36-year-old male with uncontrolled decompensated type 1 insulin-dependent diabetes, presenting here with acute renal failure on the background of chronic kidney disease and is now being referred for endocrine evaluation and management. He also has diabetic microvascular complications of retinopathy, polyneuropathy and nephropathy with end-stage renal disease and dialysis dependent at this time as mentioned. PLAN: Plan of management as discussed with the patient and the staff. We will modify his current basal and bolus insulin regimen and switch him over to a more physiologic basal and bolus combination as ordered. We will start him with NovoLog given as 14 units subcu t.i.d. before meals to start today as ordered. We will also modify the coverage scale to a very low dose algorithm to await hypoglycemia and detailed orders have been given. We will also start him on Lantus as basal insulin given as 30 units subcu at bedtime daily to start tonight. We will obtain serial chemistries and supplement accordingly as needed. We will also obtain hemoglobin A1c to confirm his prior glycemic control and baseline thyroid function studies will be ordered. We will follow and advise accordingly. Karina Barrett MD
[2017-05-03 06:36] LABS: POTASSIUM 3.9 mmol/L (3.6-5.2)
[2017-05-03 06:38] LABS: BILIRUBIN,TOTAL 0.6 mg/dL (0.2-1.3); TOTAL PROTEIN 6.7 g/dL (6.3-8.3)
[2017-05-03 06:39] LABS: CALCIUM 8.5 mg/dl (8.6-10.4); MAGNESIUM 2.7 mg/dL (1.6-2.3)
[2017-05-03 06:56] LABS: BASO # 0.1 K/uL (0.0-0.2); BASO % 0.5 % (0.0-2.0); EOS # 0.3 K/uL (0.0-0.7); EOS % 2.8 % (0.0-4.0); HEMATOCRIT 29.9 % (35.0-51.0); LYMPH # 1.4 K/uL (1.0-4.3); LYMPH % 10.9 % (20.0-40.0); MEAN CELL VOLUME 77.8 fL (80.0-94.0); MEAN CORPUSCULAR HEMOGLOBIN 26.4 pg (27.0-31.0); MEAN PLATELET VOLUME 8.5 fL (7.2-11.7); MONO # 1.9 K/uL (0.0-0.8); MONO % 15.3 % (0.0-10.0); NRBC % 0.1 % (0.0-2.0); RED CELL DISTRIBUTION WIDTH 13.6 % (11.5-14.5); WHITE BLOOD COUNT 12.6 K/uL (4.8-10.8)
[2017-05-03 07:09] LABS: THYROID STIMULATING HORMONE 0.51 mIU/L (0.46-4.68)
--- NOTE | 2017-05-03 07:18 | CP.PCM.PN ---
Subjective - Date & Time of Evaluation Date of Evaluation: 05/03/17 Time of Evaluation: 07:15 - Subjective Subjective: Patient was seen and examined at bedside in no acute distress. Patient has no complaints, except for feeling very hungry. 12 point review of systems otherwise negative. Objective - Vital Signs/Intake and Output Vital Signs (last 24 hours): Temp Pulse Resp BP Pulse Ox 98.6 F 85 29 H 131/65 89 L 05/02/17 12:00 05/02/17 19:00 05/02/17 19:00 05/02/17 19:00 05/02/17 19:00 Intake and Output: 05/03/17 05/03/17 06:59 18:59 Output Total 100 Balance -100 - Medications Medications: Current Medications Albuterol/Ipratropium (Duoneb 3 Mg/0.5 Mg (3 Ml) Ud) 3 ml INH RQ6 PRN PRN Reason: Wheezing Last Admin: 05/01/17 07:47 Dose: 3 ml Alteplase, Recombinant (Cathflo 2 Mg Inj) 2 mg IV ONCE ONE Stop: 05/03/17 10:01 Calcium Acetate (Phoslo) 1,334 mg PO TIDCC [facility] Last Admin: 05/02/17 17:02 Dose: Not Given Heparin Sodium (Porcine) (Heparin) 5,000 units SC Q12 [facility] Last Admin: 05/02/17 21:57 Dose: 5,000 units Ceftriaxone Sodium 1 gm/ (Sodium Chloride) 100 mls @ 100 mls/hr IVPB DAILY [facility] Last Admin: 05/02/17 10:30 Dose: 100 mls/hr Sodium Chloride (Sodium Chloride 0.9%) 1,000 mls @ 15 mls/hr IV .Q24H [facility] Last Admin: 05/01/17 20:18 Dose: Not Given Insulin Aspart (Novolog) 14 unit SC AC [facility] Last Admin: 05/02/17 17:16 Dose: Not Given Insulin Aspart (Novolog) 0 unit SC ACHS [facility] PRN Reason: Protocol Last Admin: 05/02/17 21:57 Dose: 10 unit Insulin Glargine (Lantus) 30 unit SC HS [facility] Last Admin: 05/02/17 21:56 Dose: 30 units Metoprolol Tartrate (Lopressor) 25 mg PO BID [facility] Last Admin: 05/02/17 17:05 Dose: Not Given Pantoprazole Sodium (Protonix Inj) 40 mg IVP DAILY [facility] Last Admin: 05/02/17 10:30 Dose: 40 mg Zolpidem Tartrate (Ambien) 5 mg PO HS PRN PRN Reason: Insomnia Last Admin: 05/01/17 22:28 Dose: 5 mg - Labs Labs: 05/03/17 06:18 05/03/17 06:16 PT 13.0 SECONDS (9.7-12.2) H 04/28/17 15:20 INR 1.1 04/28/17 15:20 APTT 28 SECONDS (21-34) 04/28/17 15:20 - Head Exam Head Exam: ATRAUMATIC, NORMAL INSPECTION - Eye Exam Eye Exam: EOMI, Normal appearance - ENT Exam ENT Exam: Mucous Membranes Moist - Respiratory Exam Respiratory Exam: Clear to Ausculation Bilateral, NORMAL BREATHING PATTERN. absent: Rhonchi, Wheezes, Respiratory Distress - Cardiovascular Exam Cardiovascular Exam: Irregular Rhythm, +S1, +S2. absent: REGULAR RHYTHM - GI/Abdominal Exam GI & Abdominal Exam: Soft, Normal Bowel Sounds. absent: Tenderness - Extremities Exam Extremities Exam: absent: Calf Tenderness, Pedal Edema, Tenderness - Neurological Exam Neurological Exam: Alert, Awake, Oriented x3 - Psychiatric Exam Psychiatric exam: Normal Affect, Normal Mood - Skin Skin Exam: Dry, Intact, Normal Color, Warm Assessment and Plan - Assessment and Plan (Free Text) Assessment: 36 year old male s/p Perm-a-cath placement, POD# 1. - No surgical intervention at this time. - Continue medical management as per ICU team.
[2017-05-03] MEDS: Sodium Chloride 0.9% 1,000 ML IV SCH (08:08)
[2017-05-03] MEDS: (Novolog) Insulin Aspart, Recombinant 100 u/ml 10 ml vial SC SCH ×7 (08:41→22:01)
[2017-05-03] MEDS ORDERED: (Lantus) Insulin Glargine, Recombinant SC SCH (10:00)
--- NOTE | 2017-05-03 10:16 | RAD ---
HISTORY: intubated COMPARISON: 05/02/2017 FINDINGS: LUNGS: Patchy opacity at right base. No other abnormal opacity elsewhere. Left upper lobe opacity on prior examination has resolved. PLEURA: No significant pleural effusion identified, no pneumothorax apparent. CARDIOVASCULAR: Normal heart size. Tunneled right central venous dialysis catheter. OSSEOUS STRUCTURES: No significant abnormalities. VISUALIZED UPPER ABDOMEN: Normal. OTHER FINDINGS: None. IMPRESSION: New right basilar opacity. Resolved left upper lobe opacity.
--- NOTE | 2017-05-03 13:36 | CP.PCM.PN ---
Subjective - Date & Time of Evaluation Date of Evaluation: 05/03/17 Time of Evaluation: 13:34 - Subjective Subjective: s/p dialysis now- UF 1800ml Permcath placed- working well Still very weak, more alert, less dyspneic Objective - Vital Signs/Intake and Output Vital Signs (last 24 hours): Temp Pulse Resp BP Pulse Ox 99.6 F 57 L 15 130/62 96 05/03/17 10:00 05/03/17 10:00 05/03/17 10:00 05/03/17 10:00 05/03/17 10:00 Intake and Output: 05/03/17 05/03/17 06:59 18:59 Intake Total 720 0 Output Total 2725 0 -2004 0 - Medications Medications: Current Medications Calcium Acetate (Phoslo) 1,334 mg PO TIDCC [facility] Last Admin: 05/03/17 08:42 Dose: 1,334 mg Heparin Sodium (Porcine) (Heparin) 5,000 units SC Q12 [facility] Last Admin: 05/02/17 21:57 Dose: 5,000 units Ceftriaxone Sodium 1 gm/ (Sodium Chloride) 100 mls @ 100 mls/hr IVPB DAILY [facility] Last Admin: 05/02/17 10:30 Dose: 100 mls/hr Insulin Aspart (Novolog) 14 unit SC AC [facility] Last Admin: 05/03/17 08:41 Dose: 14 unit Insulin Aspart (Novolog) 0 unit SC ACHS [facility] PRN Reason: Protocol Last Admin: 05/03/17 08:42 Dose: Not Given Insulin Glargine (Lantus) 30 unit SC HS [facility] Last Admin: 05/02/17 21:56 Dose: 30 units Metoprolol Tartrate (Lopressor) 25 mg PO BID [facility] Last Admin: 05/02/17 17:05 Dose: Not Given Zolpidem Tartrate (Ambien) 5 mg PO HS PRN PRN Reason: Insomnia Last Admin: 05/01/17 22:28 Dose: 5 mg - Labs Labs: 05/03/17 06:18 05/03/17 06:16 PT 13.0 SECONDS (9.7-12.2) H 04/28/17 15:20 INR 1.1 04/28/17 15:20 APTT 28 SECONDS (21-34) 04/28/17 15:20 - Constitutional Appears: No Acute Distress, Chronically Ill - Head Exam Head Exam: ATRAUMATIC, NORMAL INSPECTION - Eye Exam Eye Exam: EOMI, Normal appearance - Neck Exam Neck Exam: Normal Inspection. absent: Tenderness - Respiratory Exam Respiratory Exam: Clear to Ausculation Bilateral, NORMAL BREATHING PATTERN - Cardiovascular Exam Cardiovascular Exam: REGULAR RHYTHM, +S1 - GI/Abdominal Exam GI & Abdominal Exam: Soft. absent: Tenderness - Extremities Exam Extremities Exam: Tenderness. absent: Normal Inspection - Neurological Exam Neurological Exam: Awake, CN II-XII Intact - Skin Skin Exam: Dry, Warm Assessment and Plan (1) Type 1 diabetes mellitus with diabetic nephropathy Status: Acute (2) WILEY (acute kidney injury) Status: Acute (3) CHF (congestive heart failure) Status: Acute (4) Acute renal failure Status: Acute (5) ESRD (end stage renal disease) Status: Acute - Assessment and Plan (Free Text) Plan: Continue dialysis MWF Will need AV access soon Same meds
[2017-05-03] MEDS: (Lantus) Insulin Glargine, Recombinant SC SCH (22:00)
--- NOTE | 2017-05-04 00:25 | PN ---
ENDOCRINOLOGY FOLLOWUP NOTE SUBJECTIVE: This is a 36-year-old male with recent uncontrolled type 1 insulin-dependent diabetes, presenting here with diffuse abdominal pain and supervening marked hyperglycemic accelerations and is now being followed closely for metabolic management. His glycemic levels are fluctuating, but much improved at this time and the latest glucose levels today have ranged from 163 mg/dL to 216 mg/dL and 286 mg/dL. LABORATORY DATA: His latest chemistries include the BUN of 78, sodium 139, potassium 3.9, chloride 101, CO2 of 23, glucose 267 and creatinine 5.4. His hemoglobin A1c is 7.9%. The bedtime glucose was 336 mg/dL. ASSESSMENT: This is a 36-year-old male with uncontrolled and decompensated type 1 insulin-dependent diabetes, presenting here with acute renal failure on the background of chronic kidney disease with also known history of diabetic retinopathy and polyneuropathy as noted. There is also clinical and biochemical evidence of dehydration and prerenal azotemia as mentioned above. PLAN OF MANAGEMENT: We will continue the vigorous IV hydration as given and obtain serial chemistries and supplement accordingly as needed. We will also modify his basal and bolus insulin regimens and increase the NovoLog to 14 units subQ t.i.d. before meals, to start today as ordered. We will continue the low-dose correctional scale using Novolin insulin as given. We will continue the long-acting basal insulin as a higher dose of Lantus at 30 units subQ at bedtime daily, to start tonight. We will modify the coverage scale using NovoLog insulin to await hypoglycemia and detailed orders have been given. We will follow and advise accordingly. Karina Barrett MD
[2017-05-04] MEDS: (Novolog) Insulin Aspart, Recombinant 100 u/ml 10 ml vial SC SCH ×7 (08:15→22:18)
--- NOTE | 2017-05-04 09:01 | CP.PCM.PN ---
Subjective - Date & Time of Evaluation Date of Evaluation: 05/03/17 Time of Evaluation: 07:15 - Subjective Subjective: Patient seen and evaluated Comfortable Denies chest pain and dyspnea Objective - Vital Signs/Intake and Output Vital Signs (last 24 hours): Temp Pulse Resp BP Pulse Ox 98.9 F 80 20 128/65 97 05/04/17 07:53 05/04/17 07:53 05/04/17 07:53 05/04/17 07:53 05/04/17 07:53 Intake and Output: 05/04/17 05/04/17 06:59 18:59 Intake Total 400 Output Total 350 Balance 50 - Medications Medications: Current Medications Calcium Acetate (Phoslo) 1,334 mg PO TIDCC [facility] Last Admin: 05/04/17 08:14 Dose: 1,334 mg Heparin Sodium (Porcine) (Heparin) 5,000 units SC Q12 [facility] Last Admin: 05/03/17 21:59 Dose: 5,000 units Ceftriaxone Sodium 1 gm/ (Sodium Chloride) 100 mls @ 100 mls/hr IVPB DAILY [facility] Last Admin: 05/03/17 13:54 Dose: 100 mls/hr Insulin Aspart (Novolog) 14 unit SC AC [facility] Last Admin: 05/04/17 08:15 Dose: 14 unit Insulin Aspart (Novolog) 0 unit SC ACHS [facility] PRN Reason: Protocol Last Admin: 05/04/17 08:15 Dose: Not Given Insulin Glargine (Lantus) 30 unit SC HS [facility] Last Admin: 05/03/17 22:00 Dose: 30 units Metoprolol Tartrate (Lopressor) 25 mg PO BID [facility] Last Admin: 05/03/17 18:02 Dose: 25 mg Zolpidem Tartrate (Ambien) 5 mg PO HS PRN PRN Reason: Insomnia Last Admin: 05/01/17 22:28 Dose: 5 mg - Labs Labs: 05/03/17 06:18 05/03/17 06:16 PT 13.0 SECONDS (9.7-12.2) H 04/28/17 15:20 INR 1.1 04/28/17 15:20 APTT 28 SECONDS (21-34) 04/28/17 15:20 - Head Exam Head Exam: ATRAUMATIC, NORMAL INSPECTION - Eye Exam Eye Exam: EOMI, PERRL Pupil Exam: NORMAL ACCOMODATION - ENT Exam ENT Exam: Mucous Membranes Moist - Neck Exam Neck Exam: Full ROM - Respiratory Exam Respiratory Exam: Clear to Ausculation Bilateral, NORMAL BREATHING PATTERN - Cardiovascular Exam Cardiovascular Exam: REGULAR RHYTHM, +S1, +S2 - GI/Abdominal Exam GI & Abdominal Exam: Soft, Normal Bowel Sounds - Extremities Exam Extremities Exam: Full ROM, Normal Capillary Refill - Neurological Exam Neurological Exam: Alert, CN II-XII Intact, Oriented x3 - Skin Skin Exam: Dry, Warm Assessment and Plan - Assessment and Plan (Free Text) Assessment: 1. DM Type 1 2. HTN 2. Acute Kidney Failure Normal LV function Further mgt as per PMD and Nephrology
--- NOTE | 2017-05-04 09:24 | CP.PCM.PN ---
<Veronika Simpson - Last Filed: 05/04/17 09:20> Subjective - Date & Time of Evaluation Date of Evaluation: 05/04/17 Time of Evaluation: 07:00 - Subjective Subjective: PGY1- Medicine Note- Dr. Thomason's Service Patient seen and examined at bedside and in no acute distress. Patient says he is feeling much better. Patient denies chest pain, shortness of breath, abdominal pain, nausea, vomiting, constipation, diarrhea. Objective - Vital Signs/Intake and Output Vital Signs (last 24 hours): Temp Pulse Resp BP Pulse Ox 98.9 F 80 20 128/65 97 05/04/17 07:53 05/04/17 07:53 05/04/17 07:53 05/04/17 07:53 05/04/17 07:53 Intake and Output: 05/04/17 05/04/17 06:59 18:59 Intake Total 400 Output Total 350 Balance 50 - Medications Medications: Current Medications Calcium Acetate (Phoslo) 1,334 mg PO TIDCC [facility] Last Admin: 05/04/17 08:14 Dose: 1,334 mg Heparin Sodium (Porcine) (Heparin) 5,000 units SC Q12 [facility] Last Admin: 05/03/17 21:59 Dose: 5,000 units Ceftriaxone Sodium 1 gm/ (Sodium Chloride) 100 mls @ 100 mls/hr IVPB DAILY [facility] Last Admin: 05/03/17 13:54 Dose: 100 mls/hr Insulin Aspart (Novolog) 14 unit SC AC [facility] Last Admin: 05/04/17 08:15 Dose: 14 unit Insulin Aspart (Novolog) 0 unit SC ACHS [facility] PRN Reason: Protocol Last Admin: 05/04/17 08:15 Dose: Not Given Insulin Glargine (Lantus) 30 unit SC HS [facility] Last Admin: 05/03/17 22:00 Dose: 30 units Metoprolol Tartrate (Lopressor) 25 mg PO BID [facility] Last Admin: 05/03/17 18:02 Dose: 25 mg Zolpidem Tartrate (Ambien) 5 mg PO HS PRN PRN Reason: Insomnia Last Admin: 05/01/17 22:28 Dose: 5 mg - Labs Labs: 05/03/17 06:18 05/03/17 06:16 PT 13.0 SECONDS (9.7-12.2) H 04/28/17 15:20 INR 1.1 04/28/17 15:20 APTT 28 SECONDS (21-34) 04/28/17 15:20 - Constitutional Appears: Non-toxic, No Acute Distress - Head Exam Head Exam: ATRAUMATIC, NORMAL INSPECTION, NORMOCEPHALIC - Eye Exam Eye Exam: EOMI, Normal appearance - ENT Exam ENT Exam: Mucous Membranes Moist - Neck Exam Neck Exam: Full ROM. absent: Tenderness - Respiratory Exam Respiratory Exam: Clear to Ausculation Bilateral, NORMAL BREATHING PATTERN. absent: Rales, Rhonchi, Wheezes, Respiratory Distress, Stridor - Cardiovascular Exam Cardiovascular Exam: REGULAR RHYTHM, RRR - GI/Abdominal Exam GI & Abdominal Exam: Soft, Normal Bowel Sounds - Extremities Exam Extremities Exam: Full ROM, Normal Inspection. absent: Pedal Edema - Neurological Exam Neurological Exam: Alert, Awake, Oriented x3 - Psychiatric Exam Psychiatric exam: Normal Affect, Normal Mood - Skin Skin Exam: Intact, Normal Color, Warm Additional comments: right permacath- clean, dry, intact Assessment and Plan - Assessment and Plan (Free Text) Assessment: WILEY - Nephro consult, Dr Limon - Permacath placed on 05/02 - Hemodialysis MWF - BUN/Cr elevated, downtrending - Presence of WILEY with worsening respiratory status, will f/u serology studies - U/S renal 04/28/17 w/ echogenic kidneys - consider renal biopsy when stable - Strict I/O control Pulmonary edema - Extubated on 05/01 - CXR 04/28: pulmonary edema - Duoneb 3 ml INH RQ6 AFib - Cardiology consult, Dr Clarke - Echo 04/29/17 EF 65-70%, LVSF normal, LVDF normal, trace mitral regurgitation, mild pulmonary hypertension HTN - Lopressor 25 mg PO BID Leukocytosis - Procalcitonin 17.95 - Ur Cx negative, Blood Cx negative - Hepatitis Bs Ag, Hep B Core IgM, Hep C ab : Negative - Ceftriaxone 1 gm IV daily Day 4 of 5 (started on 04/29) Diabetes Mellitus - Elevated blood sugar, adjusted insulin protocol to high dose - Patient has a history of hypoglycemic episodes with home insulin - accuchecks ACHS - Consult Dr. Arnold Bourne - High dose insulin protocol - Sitagliptin 25mg po daily Prophylaxis: DVT: Heparin 5,000 U SC daily GI: Protonix 40 mg IV Q12 Fluids: NS 15 cc/hr daily <Marc Thomason Jr. - Last Filed: 05/06/17 10:17> Objective - Vital Signs/Intake and Output Vital Signs (last 24 hours): Temp Pulse Resp BP Pulse Ox 97.6 F 80 18 127/77 99 05/06/17 09:20 05/06/17 09:20 05/06/17 09:15 05/06/17 10:05 05/06/17 08:08 Intake and Output: 05/06/17 05/06/17 06:59 18:59 Intake Total 400 Balance 400 - Medications Medications: Current Medications Calcium Acetate (Phoslo) 1,334 mg PO TIDCC [facility] Last Admin: 05/06/17 08:05 Dose: 1,334 mg Heparin Sodium (Porcine) (Heparin) 5,000 units SC Q12 [facility] Last Admin: 05/05/17 21:56 Dose: 5,000 units Ceftriaxone Sodium 1 gm/ (Sodium Chloride) 100 mls @ 100 mls/hr IVPB DAILY [facility] Last Admin: 05/05/17 10:48 Dose: 100 mls/hr Insulin Aspart (Novolog) 0 unit SC ACHS [facility] PRN Reason: Protocol Last Admin: 05/06/17 08:05 Dose: Not Given Insulin Aspart (Novolog) 20 unit SC AC [facility] Last Admin: 05/06/17 08:04 Dose: 20 unit Insulin Glargine (Lantus) 40 unit SC HS [facility] Last Admin: 05/05/17 21:56 Dose: 40 units Metoprolol Tartrate (Lopressor) 25 mg PO BID [facility] Last Admin: 05/05/17 17:39 Dose: 25 mg Potassium Chloride (K-Dur 20 Meq Er Tab) 40 meq PO DAILY [facility] Zolpidem Tartrate (Ambien) 5 mg PO HS PRN PRN Reason: Insomnia Last Admin: 05/01/17 22:28 Dose: 5 mg - Labs Labs: 05/06/17 07:40 05/06/17 07:40 PT 13.0 SECONDS (9.7-12.2) H 04/28/17 15:20 INR 1.1 04/28/17 15:20 APTT 28 SECONDS (21-34) 04/28/17 15:20 Attending/Attestation - Attestation I have personally seen and examined this patient.: Yes I have fully participated in the care of the patient.: Yes I have reviewed all pertinent clinical information, including history, physical exam and plan: Yes Notes (Text): 05/06/17 10:17 Agree with resident note and plan of care
--- NOTE | 2017-05-04 11:12 | CP.PCM.PN ---
Subjective - Date & Time of Evaluation Date of Evaluation: 05/04/17 Time of Evaluation: 11:10 - Subjective Subjective: pt seen and examined no SOB on floors now had HD yesterday complaints of discomfort with groin shiley ROS- as per HPI, other than that 10 point ROS negative Objective - Vital Signs/Intake and Output Vital Signs (last 24 hours): Temp Pulse Resp BP Pulse Ox 98.9 F 80 20 128/65 97 05/04/17 07:53 05/04/17 07:53 05/04/17 07:53 05/04/17 09:29 05/04/17 07:53 Intake and Output: 05/04/17 05/04/17 06:59 18:59 Intake Total 400 Output Total 350 Balance 50 - Medications Medications: Current Medications Calcium Acetate (Phoslo) 1,334 mg PO TIDCC [facility] Last Admin: 05/04/17 08:14 Dose: 1,334 mg Heparin Sodium (Porcine) (Heparin) 5,000 units SC Q12 [facility] Last Admin: 05/04/17 09:30 Dose: 5,000 units Ceftriaxone Sodium 1 gm/ (Sodium Chloride) 100 mls @ 100 mls/hr IVPB DAILY [facility] Last Admin: 05/04/17 09:30 Dose: 100 mls/hr Insulin Aspart (Novolog) 14 unit SC AC [facility] Last Admin: 05/04/17 08:15 Dose: 14 unit Insulin Aspart (Novolog) 0 unit SC ACHS [facility] PRN Reason: Protocol Last Admin: 05/04/17 08:15 Dose: Not Given Insulin Glargine (Lantus) 30 unit SC HS [facility] Last Admin: 05/03/17 22:00 Dose: 30 units Metoprolol Tartrate (Lopressor) 25 mg PO BID [facility] Last Admin: 05/04/17 09:29 Dose: 25 mg Zolpidem Tartrate (Ambien) 5 mg PO HS PRN PRN Reason: Insomnia Last Admin: 05/01/17 22:28 Dose: 5 mg - Labs Labs: 05/03/17 06:18 05/03/17 06:16 PT 13.0 SECONDS (9.7-12.2) H 04/28/17 15:20 INR 1.1 04/28/17 15:20 APTT 28 SECONDS (21-34) 04/28/17 15:20 - Constitutional Appears: Well, Non-toxic - Head Exam Head Exam: ATRAUMATIC, NORMOCEPHALIC - Eye Exam Eye Exam: EOMI, PERRL - ENT Exam ENT Exam: Mucous Membranes Moist - Neck Exam Neck Exam: Full ROM - Respiratory Exam Respiratory Exam: Clear to Ausculation Bilateral. absent: Rhonchi, Wheezes - Cardiovascular Exam Cardiovascular Exam: REGULAR RHYTHM, +S1, +S2 - GI/Abdominal Exam GI & Abdominal Exam: Soft. absent: Tenderness - Extremities Exam Extremities Exam: Full ROM. absent: Pedal Edema - Neurological Exam Neurological Exam: Alert, Awake, Oriented x3 - Psychiatric Exam Psychiatric exam: Normal Affect, Normal Mood - Skin Skin Exam: Normal Color, Warm Assessment and Plan (1) CHF (congestive heart failure) Status: Acute (2) ESRD (end stage renal disease) Status: Acute (3) Type 1 diabetes mellitus with diabetic nephropathy Status: Acute (4) Sepsis Status: Acute - Assessment and Plan (Free Text) Assessment: dialysis saturday remove groin catheter
[2017-05-04 12:24] LABS: BASO # 0.1 K/uL (0.0-0.2); BASO % 0.6 % (0.0-2.0); EOS # 0.3 K/uL (0.0-0.7); EOS % 3.5 % (0.0-4.0); HEMATOCRIT 30.8 % (35.0-51.0); LYMPH # 1.5 K/uL (1.0-4.3); LYMPH % 16.3 % (20.0-40.0); MEAN CELL VOLUME 77.8 fL (80.0-94.0); MEAN CORPUSCULAR HEMOGLOBIN 27.3 pg (27.0-31.0); MEAN PLATELET VOLUME 8.4 fL (7.2-11.7); MONO # 1.5 K/uL (0.0-0.8); MONO % 16.4 % (0.0-10.0); RED CELL DISTRIBUTION WIDTH 13.2 % (11.5-14.5); WHITE BLOOD COUNT 9.1 K/uL (4.8-10.8)
[2017-05-04 12:51] LABS: POTASSIUM 3.2 mmol/L (3.6-5.2)
[2017-05-04 12:53] LABS: BILIRUBIN,TOTAL 0.5 mg/dL (0.2-1.3); CALCIUM 8.7 mg/dl (8.6-10.4); PHOSPHOROUS 3.5 mg/dL (2.5-4.5); TOTAL PROTEIN 6.7 g/dL (6.3-8.3)
--- NOTE | 2017-05-04 19:11 | PN ---
ENDOCRINOLOGY FOLLOWUP NOTE ROOM: 357. SUBJECTIVE: This is a 36-year-old male with recent uncontrolled type 1 insulin-dependent diabetes, presenting here with acute renal failure with underlying chronic kidney disease and is now being followed closely for metabolic management. His oral intake is quite variable and suboptimal as per the nursing staff. His latest glucose levels are fluctuating, ranging from 198 to 296 and 311 mg/dL. His latest chemistry showed the BUN of 55, sodium 136, potassium 3.2, chloride 97, CO2 of 26, glucose 243, and creatinine 3.0. So at this time, we will modify once again his basal and bolus insulin regimen and increase the NovoLog to 20 units subcu t.i.d. before meals, to start at dinner time today as ordered. We will also increase the Lantus given as basal insulin to 40 units subcu at bedtime daily as given. We will titrate incrementally as indicated to optimize the metabolic control. We will follow and advise accordingly. Karina Barrett MD
[2017-05-04] MEDS: (Lantus) Insulin Glargine, Recombinant SC SCH (22:17)
--- NOTE | 2017-05-04 23:37 | CP.PCM.PN ---
Subjective - Date & Time of Evaluation Date of Evaluation: 05/04/17 Time of Evaluation: 13:00 - Subjective Subjective: Patient seen and evaluated Denies chest pain and dyspnea Objective - Vital Signs/Intake and Output Vital Signs (last 24 hours): Temp Pulse Resp BP Pulse Ox 98.3 F 77 20 122/74 96 05/04/17 15:06 05/04/17 15:06 05/04/17 15:06 05/04/17 18:15 05/04/17 15:06 - Medications Medications: Current Medications Calcium Acetate (Phoslo) 1,334 mg PO TIDCC [facility] Last Admin: 05/04/17 16:00 Dose: 1,334 mg Heparin Sodium (Porcine) (Heparin) 5,000 units SC Q12 [facility] Last Admin: 05/04/17 22:00 Dose: 5,000 units Ceftriaxone Sodium 1 gm/ (Sodium Chloride) 100 mls @ 100 mls/hr IVPB DAILY [facility] Last Admin: 05/04/17 09:30 Dose: 100 mls/hr Insulin Aspart (Novolog) 0 unit SC ACHS [facility] PRN Reason: Protocol Last Admin: 05/04/17 22:18 Dose: Not Given Insulin Aspart (Novolog) 20 unit SC AC [facility] Last Admin: 05/04/17 16:30 Dose: 20 unit Insulin Glargine (Lantus) 40 unit SC HS [facility] Last Admin: 05/04/17 22:17 Dose: Not Given Metoprolol Tartrate (Lopressor) 25 mg PO BID [facility] Last Admin: 05/04/17 18:15 Dose: 25 mg Zolpidem Tartrate (Ambien) 5 mg PO HS PRN PRN Reason: Insomnia Last Admin: 05/01/17 22:28 Dose: 5 mg - Labs Labs: 05/04/17 12:19 05/04/17 12:19 PT 13.0 SECONDS (9.7-12.2) H 04/28/17 15:20 INR 1.1 04/28/17 15:20 APTT 28 SECONDS (21-34) 04/28/17 15:20
[2017-05-05] MEDS: (Novolog) Insulin Aspart, Recombinant 100 u/ml 10 ml vial SC SCH ×7 (08:00→21:55)
[2017-05-05 09:02] LABS: BASO # 0.1 K/uL (0.0-0.2); BASO % 0.9 % (0.0-2.0); EOS # 0.4 K/uL (0.0-0.7); EOS % 3.7 % (0.0-4.0); HEMATOCRIT 33.4 % (35.0-51.0); LYMPH # 1.8 K/uL (1.0-4.3); LYMPH % 17.2 % (20.0-40.0); MEAN CELL VOLUME 79.4 fL (80.0-94.0); MEAN CORPUSCULAR HEMOGLOBIN 26.9 pg (27.0-31.0); MEAN CORPUSCULAR HGB CONC 33.9 g/dL (33.0-37.0); MEAN PLATELET VOLUME 8.7 fL (7.2-11.7); MONO # 1.3 K/uL (0.0-0.8); MONO % 11.9 % (0.0-10.0); NRBC % 0.1 % (0.0-2.0); RED CELL DISTRIBUTION WIDTH 13.1 % (11.5-14.5); WHITE BLOOD COUNT 10.5 K/uL (4.8-10.8)
[2017-05-05 09:21] LABS: POTASSIUM 4.4 mmol/L (3.6-5.2)
[2017-05-05 09:23] LABS: BILIRUBIN,TOTAL 0.7 mg/dL (0.2-1.3)
[2017-05-05 09:24] LABS: CALCIUM 8.8 mg/dl (8.6-10.4); PHOSPHOROUS 4.3 mg/dL (2.5-4.5); TOTAL PROTEIN 6.8 g/dL (6.3-8.3)
[2017-05-05 09:25] LABS: MAGNESIUM 1.6 mg/dL (1.6-2.3)
--- NOTE | 2017-05-05 11:24 | PN ---
DATE: ENDO FOLLOWUP NOTE LOCATION: He is in room #357. SUBJECTIVE: This is a 36-year-old male with recent uncontrolled type 1 insulin-dependent diabetes, now being followed closely for metabolic management. His glycemic levels are extremely elevated this morning because his basal insulin was withheld last night as a most likely etiology. His glucose levels were 97 to 198, which were actually normal and the nursing staff should not have held the insulin regimen without consulting the medical staff for dose adjustments as indicated. His glucose level this morning was 454 as noted and expected with withholding of the insulin regimen overnight. The latest chemistry showed a BUN of 56, sodium 134, potassium 4.4, chloride 97, CO2 18, glucose 478, and creatinine 2.9. So at this time, we will hold off dose adjustments as we cannot be treating rebound hyperglycemia from withholding of the insulin regimen. We will continue the same dose regimen to allow for dose equilibration and we will instruct the nursing staff to consult the medical staff before they hold the insulin regimen. We will continue Lantus given as 40 units subcu at bedtime daily as ordered. We will also continue NovoLog given as 20 units subcu t.i.d. before meals as ordered. We will continue the low-dose correction scale using NovoLog insulin as given. We will titrate incremental as indicated to optimize metabolic control. We will follow. Karina Barrett MD
--- NOTE | 2017-05-05 20:08 | CP.PCM.PN ---
<Veronika Simpson - Last Filed: 05/05/17 20:07> Subjective - Date & Time of Evaluation Date of Evaluation: 05/05/17 Time of Evaluation: 07:00 - Subjective Subjective: PGY1- Medicine Note- Dr. Thomason's Service Patient seen and examined at bedside and in no acute distress. Patient says he is feeling much better. Patient denies chest pain, shortness of breath, abdominal pain, nausea, vomiting, constipation, diarrhea. Objective - Vital Signs/Intake and Output Vital Signs (last 24 hours): Temp Pulse Resp BP Pulse Ox 98.2 F 87 20 131/74 99 05/05/17 16:39 05/05/17 16:39 05/05/17 16:39 05/05/17 17:39 05/05/17 16:39 Intake and Output: 05/05/17 05/06/17 18:59 06:59 Intake Total 580 Balance 580 - Medications Medications: Current Medications Calcium Acetate (Phoslo) 1,334 mg PO TIDCC [facility] Last Admin: 05/05/17 17:00 Dose: 1,334 mg Heparin Sodium (Porcine) (Heparin) 5,000 units SC Q12 [facility] Last Admin: 05/05/17 10:47 Dose: 5,000 units Ceftriaxone Sodium 1 gm/ (Sodium Chloride) 100 mls @ 100 mls/hr IVPB DAILY [facility] Last Admin: 05/05/17 10:48 Dose: 100 mls/hr Insulin Aspart (Novolog) 0 unit SC ACHS [facility] PRN Reason: Protocol Last Admin: 05/05/17 16:30 Dose: Not Given Insulin Aspart (Novolog) 20 unit SC AC [facility] Last Admin: 05/05/17 16:30 Dose: 20 unit Insulin Glargine (Lantus) 40 unit SC HS [facility] Last Admin: 05/04/17 22:17 Dose: Not Given Metoprolol Tartrate (Lopressor) 25 mg PO BID [facility] Last Admin: 05/05/17 17:39 Dose: 25 mg Zolpidem Tartrate (Ambien) 5 mg PO HS PRN PRN Reason: Insomnia Last Admin: 05/01/17 22:28 Dose: 5 mg - Labs Labs: 05/05/17 08:36 05/05/17 08:36 PT 13.0 SECONDS (9.7-12.2) H 04/28/17 15:20 INR 1.1 04/28/17 15:20 APTT 28 SECONDS (21-34) 04/28/17 15:20 - Constitutional Appears: Non-toxic, No Acute Distress - Head Exam Head Exam: ATRAUMATIC, NORMAL INSPECTION, NORMOCEPHALIC - Eye Exam Eye Exam: EOMI, Normal appearance - ENT Exam ENT Exam: Mucous Membranes Moist - Neck Exam Neck Exam: Full ROM. absent: Tenderness - Respiratory Exam Respiratory Exam: Clear to Ausculation Bilateral, NORMAL BREATHING PATTERN - Cardiovascular Exam Cardiovascular Exam: REGULAR RHYTHM, RRR - GI/Abdominal Exam GI & Abdominal Exam: Soft, Normal Bowel Sounds - Extremities Exam Extremities Exam: Full ROM, Normal Inspection. absent: Pedal Edema - Neurological Exam Neurological Exam: Alert, Awake, Oriented x3 - Psychiatric Exam Psychiatric exam: Normal Affect, Normal Mood - Skin Skin Exam: Intact, Normal Color, Warm Additional comments: portacath in place on right side of chest Assessment and Plan - Assessment and Plan (Free Text) Assessment: WILEY - Nephro consult, Dr Limon - Permacath placed on 05/02 - Hemodialysis MWF - BUN/Cr elevated, downtrending - Presence of WILEY with worsening respiratory status, will f/u serology studies - U/S renal 04/28/17 w/ echogenic kidneys - consider renal biopsy when stable - Strict I/O control Pulmonary edema - Extubated on 05/01 - CXR 04/28: pulmonary edema - Duoneb 3 ml INH RQ6 AFib - Cardiology consult, Dr Clarke - Echo 04/29/17 EF 65-70%, LVSF normal, LVDF normal, trace mitral regurgitation, mild pulmonary hypertension HTN - Lopressor 25 mg PO BID Leukocytosis - Procalcitonin 17.95 - Ur Cx negative, Blood Cx negative - Hepatitis Bs Ag, Hep B Core IgM, Hep C ab : Negative - Ceftriaxone 1 gm IV daily Day 4 of 5 (started on 04/29) Diabetes Mellitus - Elevated blood sugar, adjusted insulin protocol to high dose - Patient has a history of hypoglycemic episodes with home insulin - accuchecks ACHS - Consult Dr. Arnold Bourne - High dose insulin protocol - Sitagliptin 25mg po daily Prophylaxis: DVT: Heparin 5,000 U SC daily GI: Protonix 40 mg IV Q12 Fluids: NS 15 cc/hr daily <Marc Thomason Jr. - Last Filed: 05/06/17 10:21> Objective - Vital Signs/Intake and Output Vital Signs (last 24 hours): Temp Pulse Resp BP Pulse Ox 97.6 F 80 18 127/77 99 05/06/17 09:20 05/06/17 09:20 05/06/17 09:15 05/06/17 10:05 05/06/17 08:08 Intake and Output: 05/06/17 05/06/17 06:59 18:59 Intake Total 400 Balance 400 - Medications Medications: Current Medications Calcium Acetate (Phoslo) 1,334 mg PO TIDCC [facility] Last Admin: 05/06/17 08:05 Dose: 1,334 mg Heparin Sodium (Porcine) (Heparin) 5,000 units SC Q12 [facility] Last Admin: 05/05/17 21:56 Dose: 5,000 units Ceftriaxone Sodium 1 gm/ (Sodium Chloride) 100 mls @ 100 mls/hr IVPB DAILY [facility] Last Admin: 05/05/17 10:48 Dose: 100 mls/hr Insulin Aspart (Novolog) 0 unit SC ACHS [facility] PRN Reason: Protocol Last Admin: 05/06/17 08:05 Dose: Not Given Insulin Aspart (Novolog) 20 unit SC AC [facility] Last Admin: 05/06/17 08:04 Dose: 20 unit Insulin Glargine (Lantus) 40 unit SC HS [facility] Last Admin: 05/05/17 21:56 Dose: 40 units Metoprolol Tartrate (Lopressor) 25 mg PO BID [facility] Last Admin: 05/05/17 17:39 Dose: 25 mg Potassium Chloride (K-Dur 20 Meq Er Tab) 40 meq PO DAILY [facility] Zolpidem Tartrate (Ambien) 5 mg PO HS PRN PRN Reason: Insomnia Last Admin: 05/01/17 22:28 Dose: 5 mg - Labs Labs: 05/06/17 07:40 05/06/17 07:40 PT 13.0 SECONDS (9.7-12.2) H 04/28/17 15:20 INR 1.1 04/28/17 15:20 APTT 28 SECONDS (21-34) 04/28/17 15:20 Attending/Attestation - Attestation I have personally seen and examined this patient.: Yes I have fully participated in the care of the patient.: Yes I have reviewed all pertinent clinical information, including history, physical exam and plan: Yes Notes (Text): 05/06/17 10:21 Agree with resident note and plan of care
[2017-05-05] MEDS: (Lantus) Insulin Glargine, Recombinant SC SCH (21:56)
--- NOTE | 2017-05-05 22:38 | CP.PCM.PN ---
Subjective - Date & Time of Evaluation Date of Evaluation: 05/05/17 Time of Evaluation: 11:25 - Subjective Subjective: Patient Comfortable Denies chest pain and dyspnea Improving Creatinine Objective - Vital Signs/Intake and Output Vital Signs (last 24 hours): Temp Pulse Resp BP Pulse Ox 98.2 F 87 20 131/74 99 05/05/17 16:39 05/05/17 16:39 05/05/17 16:39 05/05/17 17:39 05/05/17 16:39 Intake and Output: 05/05/17 05/06/17 18:59 06:59 Intake Total 580 Balance 580 - Medications Medications: Current Medications Calcium Acetate (Phoslo) 1,334 mg PO TIDCC [facility] Last Admin: 05/05/17 17:00 Dose: 1,334 mg Heparin Sodium (Porcine) (Heparin) 5,000 units SC Q12 [facility] Last Admin: 05/05/17 21:56 Dose: 5,000 units Ceftriaxone Sodium 1 gm/ (Sodium Chloride) 100 mls @ 100 mls/hr IVPB DAILY [facility] Last Admin: 05/05/17 10:48 Dose: 100 mls/hr Insulin Aspart (Novolog) 0 unit SC ACHS [facility] PRN Reason: Protocol Last Admin: 05/05/17 21:55 Dose: Not Given Insulin Aspart (Novolog) 20 unit SC AC [facility] Last Admin: 05/05/17 16:30 Dose: 20 unit Insulin Glargine (Lantus) 40 unit SC HS [facility] Last Admin: 05/05/17 21:56 Dose: 40 units Metoprolol Tartrate (Lopressor) 25 mg PO BID [facility] Last Admin: 05/05/17 17:39 Dose: 25 mg Zolpidem Tartrate (Ambien) 5 mg PO HS PRN PRN Reason: Insomnia Last Admin: 05/01/17 22:28 Dose: 5 mg - Labs Labs: 05/05/17 08:36 05/05/17 08:36 PT 13.0 SECONDS (9.7-12.2) H 04/28/17 15:20 INR 1.1 04/28/17 15:20 APTT 28 SECONDS (21-34) 04/28/17 15:20
[2017-05-06 06:47] LABS: BETA 1 GLOBULIN 0.4 g/dL (0.4-0.6); BETA 2 GLOBULIN 0.4 g/dL (0.2-0.5); GAMMA GLOBULIN 0.7 g/dL (0.8-1.7)
[2017-05-06 07:45] LABS: BASO # 0.1 K/uL (0.0-0.2); BASO % 0.8 % (0.0-2.0); EOS # 0.5 K/uL (0.0-0.7); EOS % 5.2 % (0.0-4.0); HEMATOCRIT 31.1 % (35.0-51.0); LYMPH # 1.7 K/uL (1.0-4.3); LYMPH % 18.6 % (20.0-40.0); MEAN CELL VOLUME 78.7 fL (80.0-94.0); MEAN CORPUSCULAR HEMOGLOBIN 27.1 pg (27.0-31.0); MEAN CORPUSCULAR HGB CONC 34.4 g/dL (33.0-37.0); MONO % 11.5 % (0.0-10.0); NRBC % 0.1 % (0.0-2.0); RED CELL DISTRIBUTION WIDTH 13.2 % (11.5-14.5); WHITE BLOOD COUNT 8.9 K/uL (4.8-10.8)
[2017-05-06] MEDS: (Novolog) Insulin Aspart, Recombinant 100 u/ml 10 ml vial SC SCH ×7 (08:04→21:31)
[2017-05-06 08:46] LABS: ALB/GLOB RATIO 0.9 (1.0-2.1); BILIRUBIN,TOTAL 0.4 mg/dL (0.2-1.3); MAGNESIUM 1.6 mg/dL (1.6-2.3); PHOSPHOROUS 4.3 mg/dL (2.5-4.5); POTASSIUM 3.3 mmol/L (3.6-5.2); TOTAL PROTEIN 6.6 g/dL (6.3-8.3)
[2017-05-06] MEDS: Potassium Chloride 20 mEq ER Tab PO SCH (10:55)
--- NOTE | 2017-05-06 13:22 | CP.PCM.PN ---
Subjective - Date & Time of Evaluation Date of Evaluation: 05/06/17 Time of Evaluation: 13:20 - Subjective Subjective: Seen at dialysis Tolerating rx well creat decraesed to 2.4 UF 2000ml with HD not dyspneic now Objective - Vital Signs/Intake and Output Vital Signs (last 24 hours): Temp Pulse Resp BP Pulse Ox 97.6 F 80 18 121/73 99 05/06/17 09:20 05/06/17 09:20 05/06/17 09:15 05/06/17 12:50 05/06/17 08:08 Intake and Output: 05/06/17 05/06/17 06:59 18:59 Intake Total 400 Balance 400 - Medications Medications: Current Medications Calcium Acetate (Phoslo) 1,334 mg PO TIDCC [facility] Last Admin: 05/06/17 08:05 Dose: 1,334 mg Gabapentin (Neurontin) 100 mg PO HS [facility] Heparin Sodium (Porcine) (Heparin) 5,000 units SC Q12 [facility] Last Admin: 05/06/17 11:20 Dose: 5,000 units Heparin Sodium (Porcine) (Heparin) 3,700 units IVP MWF [facility] Ceftriaxone Sodium 1 gm/ (Sodium Chloride) 100 mls @ 100 mls/hr IVPB DAILY [facility] Last Admin: 05/06/17 11:17 Dose: 100 mls/hr Insulin Aspart (Novolog) 0 unit SC ACHS [facility] PRN Reason: Protocol Last Admin: 05/06/17 08:05 Dose: Not Given Insulin Aspart (Novolog) 20 unit SC AC [facility] Last Admin: 05/06/17 08:04 Dose: 20 unit Insulin Glargine (Lantus) 40 unit SC HS [facility] Last Admin: 05/05/17 21:56 Dose: 40 units Metoprolol Tartrate (Lopressor) 25 mg PO BID [facility] Last Admin: 05/06/17 11:15 Dose: Not Given Potassium Chloride (K-Dur 20 Meq Er Tab) 40 meq PO DAILY [facility] Last Admin: 05/06/17 10:55 Dose: 40 meq Zolpidem Tartrate (Ambien) 5 mg PO HS PRN PRN Reason: Insomnia Last Admin: 05/01/17 22:28 Dose: 5 mg - Labs Labs: 05/06/17 07:40 05/06/17 07:40 PT 13.0 SECONDS (9.7-12.2) H 04/28/17 15:20 INR 1.1 04/28/17 15:20 APTT 28 SECONDS (21-34) 04/28/17 15:20 - Constitutional Appears: No Acute Distress, Chronically Ill - Head Exam Head Exam: ATRAUMATIC, NORMAL INSPECTION - Eye Exam Eye Exam: EOMI, Normal appearance - Neck Exam Neck Exam: Normal Inspection. absent: Tenderness - Respiratory Exam Respiratory Exam: Clear to Ausculation Bilateral, NORMAL BREATHING PATTERN - Cardiovascular Exam Cardiovascular Exam: REGULAR RHYTHM, +S1 - GI/Abdominal Exam GI & Abdominal Exam: Soft. absent: Tenderness - Extremities Exam Extremities Exam: Normal Inspection. absent: Tenderness - Neurological Exam Neurological Exam: Awake, CN II-XII Intact - Skin Skin Exam: Dry, Warm Assessment and Plan (1) Type 1 diabetes mellitus with diabetic nephropathy Status: Acute (2) WILEY (acute kidney injury) Status: Acute (3) CHF (congestive heart failure) Status: Acute (4) Acute renal failure Status: Acute (5) ESRD (end stage renal disease) Status: Acute - Assessment and Plan (Free Text) Plan: Monitor for renal recovery check creat clearance meanwhile dialysis [facility]
--- NOTE | 2017-05-06 13:53 | CP.PCM.PN ---
Subjective - Date & Time of Evaluation Date of Evaluation: 05/06/17 Time of Evaluation: 07:00 - Subjective Subjective: PGY1-Medicine Note- Dr. Thomason's Service Patient seen and examined at bedside and in no acute distress. Patient had dialysis today which he tolerated well. Patient having some cramping in his legs and feet due to dialysis. Patient denies any shortness of breath, chest pain, abdominal pain, nausea, vomiting, constipation, diarrhea. Objective - Vital Signs/Intake and Output Vital Signs (last 24 hours): Temp Pulse Resp BP Pulse Ox 98 F 78 18 114/76 99 05/06/17 13:00 05/06/17 13:00 05/06/17 13:00 05/06/17 13:00 05/06/17 13:00 Intake and Output: 05/06/17 05/06/17 06:59 18:59 Intake Total 400 Balance 400 - Medications Medications: Current Medications Calcium Acetate (Phoslo) 1,334 mg PO TIDCC [facility] Last Admin: 05/06/17 13:30 Dose: 1,334 mg Gabapentin (Neurontin) 100 mg PO HS [facility] Heparin Sodium (Porcine) (Heparin) 5,000 units SC Q12 [facility] Last Admin: 05/06/17 11:20 Dose: 5,000 units Heparin Sodium (Porcine) (Heparin) 3,700 units IVP MWF [facility] Ceftriaxone Sodium 1 gm/ (Sodium Chloride) 100 mls @ 100 mls/hr IVPB DAILY [facility] Last Admin: 05/06/17 11:17 Dose: 100 mls/hr Insulin Aspart (Novolog) 0 unit SC ACHS [facility] PRN Reason: Protocol Last Admin: 05/06/17 11:30 Dose: Not Given Insulin Aspart (Novolog) 20 unit SC AC [facility] Last Admin: 05/06/17 13:27 Dose: Not Given Insulin Glargine (Lantus) 40 unit SC HS [facility] Last Admin: 05/05/17 21:56 Dose: 40 units Metoprolol Tartrate (Lopressor) 25 mg PO BID [facility] Last Admin: 05/06/17 11:15 Dose: Not Given Potassium Chloride (K-Dur 20 Meq Er Tab) 40 meq PO DAILY [facility] Last Admin: 05/06/17 10:55 Dose: 40 meq Zolpidem Tartrate (Ambien) 5 mg PO HS PRN PRN Reason: Insomnia Last Admin: 05/01/17 22:28 Dose: 5 mg - Labs Labs: 05/06/17 07:40 05/06/17 07:40 PT 13.0 SECONDS (9.7-12.2) H 04/28/17 15:20 INR 1.1 04/28/17 15:20 APTT 28 SECONDS (21-34) 04/28/17 15:20 - Constitutional Appears: Non-toxic, No Acute Distress - Head Exam Head Exam: ATRAUMATIC, NORMAL INSPECTION, NORMOCEPHALIC - Eye Exam Eye Exam: EOMI, Normal appearance - ENT Exam ENT Exam: Mucous Membranes Moist - Neck Exam Neck Exam: Full ROM. absent: Tenderness - Respiratory Exam Respiratory Exam: Clear to Ausculation Bilateral, NORMAL BREATHING PATTERN - Cardiovascular Exam Cardiovascular Exam: REGULAR RHYTHM, RRR. absent: Gallop, Rubs, Murmur - GI/Abdominal Exam GI & Abdominal Exam: Soft, Normal Bowel Sounds - Extremities Exam Extremities Exam: Full ROM, Normal Inspection - Neurological Exam Neurological Exam: Alert, Awake, Oriented x3 - Psychiatric Exam Psychiatric exam: Normal Affect, Normal Mood - Skin Skin Exam: Intact, Normal Color, Warm Additional comments: right portacath in place Assessment and Plan - Assessment and Plan (Free Text) Assessment: WILEY - Nephro consult, Dr Limon - Permacath placed on 05/02 - Hemodialysis MWF - BUN/Cr elevated, downtrending - Presence of WILEY with worsening respiratory status, will f/u serology studies - U/S renal 04/28/17 w/ echogenic kidneys - consider renal biopsy when stable - Strict I/O control Pulmonary edema - Extubated on 05/01 - CXR 04/28: pulmonary edema - Duoneb 3 ml INH RQ6 AFib - Cardiology consult, Dr Clarke - Echo 04/29/17 EF 65-70%, LVSF normal, LVDF normal, trace mitral regurgitation, mild pulmonary hypertension HTN - Lopressor 25 mg PO BID Leukocytosis - resolved -05/06 WBC: 8.9 - Procalcitonin 17.95 - Ur Cx negative, Blood Cx negative - Hepatitis Bs Ag, Hep B Core IgM, Hep C ab : Negative - Ceftriaxone 1 gm IV daily Day 4 of 5 (started on 04/29) Diabetes Mellitus - Elevated blood sugar, adjusted insulin protocol to high dose - Patient has a history of hypoglycemic episodes with home insulin - accuchecks ACHS - Consult Dr. Arnold Bourne - High dose insulin protocol - Sitagliptin 25mg po daily Feet Cramping secondary to dialysis monitor electrolytes started on Gabapentin 100 mg HS Prophylaxis: DVT: Heparin 5,000 U SC daily GI: Protonix 40 mg IV Q12 Fluids: NS 15 cc/hr daily
[2017-05-06 17:40] VITALS: RESP 20
[2017-05-06] MEDS: (Lantus) Insulin Glargine, Recombinant SC SCH (21:00)
--- NOTE | 2017-05-06 21:08 | PN ---
ENDO FOLLOWUP NOTE LOCATION: In room 357. SUBJECTIVE: This is a 36-year-old male with recent uncontrolled type 1 insulin-dependent diabetes, now being followed closely for metabolic management. His glycemic levels are fluctuating but much improved at this time and the latest glucose levels have been near optimal ranging from 104 to 182 mg/dL. Her latest chemistry showed a BUN of 52, sodium 137, potassium 3.3, chloride 98, CO2 of 26, glucose 170, and creatinine 2.4. So at this time, we will modify his prandial insulin and lower the Novolog to 16 units t.i.d. before meals as ordered. We will also continue the same basal insulin given as Lantus at 40 units subcu at bedtime daily as given. We will titrate incrementally as indicated to optimize metabolic control. We will also continue the low-dose correction scale using Novolog insulin as given. We will follow with you. Karina Barrett MD
--- NOTE | 2017-05-06 22:21 | CP.PCM.PN ---
Subjective - Date & Time of Evaluation Date of Evaluation: 05/06/17 Time of Evaluation: 09:40 - Subjective Subjective: Denies chest pain and dyspnea Patient without cardiac events Objective - Vital Signs/Intake and Output Vital Signs (last 24 hours): Temp Pulse Resp BP Pulse Ox 98.6 F 83 20 128/75 98 05/06/17 15:45 05/06/17 15:45 05/06/17 15:45 05/06/17 17:55 05/06/17 15:45 Intake and Output: 05/06/17 05/07/17 18:59 06:59 Intake Total 600 Balance 600 - Medications Medications: Current Medications Calcium Acetate (Phoslo) 1,334 mg PO TIDCC [facility] Last Admin: 05/06/17 16:57 Dose: 1,334 mg Gabapentin (Neurontin) 100 mg PO HS [facility] Last Admin: 05/06/17 21:02 Dose: 100 mg Heparin Sodium (Porcine) (Heparin) 5,000 units SC Q12 [facility] Last Admin: 05/06/17 20:56 Dose: 5,000 units Heparin Sodium (Porcine) (Heparin) 3,700 units IVP MWF [facility] Last Admin: 05/06/17 16:51 Dose: Not Given Ceftriaxone Sodium 1 gm/ (Sodium Chloride) 100 mls @ 100 mls/hr IVPB DAILY [facility] Last Admin: 05/06/17 11:17 Dose: 100 mls/hr Insulin Aspart (Novolog) 0 unit SC ACHS [facility] PRN Reason: Protocol Last Admin: 05/06/17 21:31 Dose: Not Given Insulin Aspart (Novolog) 16 unit SC AC [facility] Last Admin: 05/06/17 16:58 Dose: 16 unit Insulin Glargine (Lantus) 40 unit SC HS [facility] Last Admin: 05/06/17 21:00 Dose: 40 units Metoprolol Tartrate (Lopressor) 25 mg PO BID [facility] Last Admin: 05/06/17 17:55 Dose: 25 mg Potassium Chloride (K-Dur 20 Meq Er Tab) 40 meq PO DAILY [facility] Last Admin: 05/06/17 10:55 Dose: 40 meq Zolpidem Tartrate (Ambien) 5 mg PO HS PRN PRN Reason: Insomnia Last Admin: 05/01/17 22:28 Dose: 5 mg - Labs Labs: 05/06/17 07:40 05/06/17 07:40 PT 13.0 SECONDS (9.7-12.2) H 04/28/17 15:20 INR 1.1 04/28/17 15:20 APTT 28 SECONDS (21-34) 04/28/17 15:20
[2017-05-07 07:18] LABS: BASO # 0.1 K/uL (0.0-0.2); EOS # 0.3 K/uL (0.0-0.7); EOS % 4.5 % (0.0-4.0); HEMATOCRIT 31.6 % (35.0-51.0); LYMPH % 26.7 % (20.0-40.0); MEAN CELL VOLUME 78.8 fL (80.0-94.0); MEAN CORPUSCULAR HEMOGLOBIN 26.8 pg (27.0-31.0); MEAN PLATELET VOLUME 8.2 fL (7.2-11.7); MONO # 0.9 K/uL (0.0-0.8); MONO % 12.3 % (0.0-10.0); RED CELL DISTRIBUTION WIDTH 13.4 % (11.5-14.5); WHITE BLOOD COUNT 7.3 K/uL (4.8-10.8)
[2017-05-07 07:56] LABS: POTASSIUM 3.5 mmol/L (3.6-5.2)
[2017-05-07 07:58] LABS: BILIRUBIN,TOTAL 0.5 mg/dL (0.2-1.3); TOTAL PROTEIN 6.8 g/dL (6.3-8.3)
[2017-05-07 07:59] LABS: CALCIUM 8.9 mg/dl (8.6-10.4); MAGNESIUM 1.6 mg/dL (1.6-2.3); PHOSPHOROUS 4.2 mg/dL (2.5-4.5)
[2017-05-07] MEDS: (Novolog) Insulin Aspart, Recombinant 100 u/ml 10 ml vial SC SCH ×7 (08:18→21:34)
[2017-05-07] MEDS: Potassium Chloride 20 mEq ER Tab PO SCH (09:49)
--- NOTE | 2017-05-07 10:01 | CP.PCM.PN ---
Subjective - Date & Time of Evaluation Date of Evaluation: 05/07/17 Time of Evaluation: 10:01 - Subjective Subjective: seen and examined c/o leg cramps good uop, 24 hour collection in progress Objective - Vital Signs/Intake and Output Vital Signs (last 24 hours): Temp Pulse Resp BP Pulse Ox 98.1 F 92 H 20 121/77 96 05/07/17 08:02 05/07/17 08:02 05/07/17 08:02 05/07/17 09:51 05/07/17 08:02 Intake and Output: 05/07/17 05/07/17 06:59 18:59 Intake Total 240 Balance 240 - Medications Medications: Current Medications Calcium Acetate (Phoslo) 1,334 mg PO TIDCC [facility] Last Admin: 05/07/17 08:00 Dose: 1,334 mg Gabapentin (Neurontin) 100 mg PO HS [facility] Last Admin: 05/06/17 21:02 Dose: 100 mg Heparin Sodium (Porcine) (Heparin) 3,700 units IVP MWF [facility] Last Admin: 05/06/17 16:51 Dose: Not Given Ceftriaxone Sodium 1 gm/ (Sodium Chloride) 100 mls @ 100 mls/hr IVPB DAILY [facility] Last Admin: 05/07/17 09:49 Dose: 100 mls/hr Insulin Aspart (Novolog) 0 unit SC ACHS [facility] PRN Reason: Protocol Last Admin: 05/07/17 08:22 Dose: Not Given Insulin Aspart (Novolog) 16 unit SC AC [facility] Last Admin: 05/07/17 08:18 Dose: 16 unit Insulin Glargine (Lantus) 40 unit SC HS [facility] Last Admin: 05/06/17 21:00 Dose: 40 units Metoprolol Tartrate (Lopressor) 25 mg PO BID [facility] Last Admin: 05/07/17 09:51 Dose: 25 mg Potassium Chloride (K-Dur 20 Meq Er Tab) 40 meq PO DAILY [facility] Last Admin: 05/07/17 09:49 Dose: 40 meq Zolpidem Tartrate (Ambien) 5 mg PO HS PRN PRN Reason: Insomnia Last Admin: 05/01/17 22:28 Dose: 5 mg - Labs Labs: 05/07/17 07:05 05/07/17 07:05 PT 13.0 SECONDS (9.7-12.2) H 04/28/17 15:20 INR 1.1 04/28/17 15:20 APTT 28 SECONDS (21-34) 04/28/17 15:20 - Constitutional Appears: Non-toxic, No Acute Distress - Head Exam Head Exam: NORMAL INSPECTION - Eye Exam Eye Exam: Normal appearance - ENT Exam ENT Exam: Mucous Membranes Moist, Normal Exam - Neck Exam Neck Exam: Normal Inspection - Respiratory Exam Respiratory Exam: Clear to Ausculation Bilateral, NORMAL BREATHING PATTERN - Cardiovascular Exam Cardiovascular Exam: REGULAR RHYTHM - GI/Abdominal Exam GI & Abdominal Exam: Soft, Normal Bowel Sounds - Extremities Exam Extremities Exam: Normal Inspection Assessment and Plan (1) WILEY (acute kidney injury) Status: Acute (2) CHF (congestive heart failure) Status: Acute (3) Type 1 diabetes mellitus with diabetic nephropathy Status: Acute (4) Diabetes Status: Chronic - Assessment and Plan (Free Text) Assessment: renal function appears to be recovering, daily chems. hold off hd for now follow creatinine clearance
--- NOTE | 2017-05-07 10:45 | CP.PCM.PN ---
<Veronika Simpson - Last Filed: 05/07/17 10:47> Subjective - Date & Time of Evaluation Date of Evaluation: 05/07/17 Time of Evaluation: 07:00 - Subjective Subjective: PGY1- medicine note- Dr. Thomason's Service Patient seen and examined at bedside and in no acute distress. Patient says that he "feels better" after dialysis yesterday but is still having cramping in his legs and feet that hasn't improved. Patient denies nausea, vomiting, fever, chills, headache, SOB, chest pain, palpitations, abdominal pain, diarrhea, and constipation. Objective - Vital Signs/Intake and Output Vital Signs (last 24 hours): Temp Pulse Resp BP Pulse Ox 98.1 F 92 H 20 121/77 96 05/07/17 08:02 05/07/17 08:02 05/07/17 08:02 05/07/17 09:51 05/07/17 08:02 Intake and Output: 05/07/17 05/07/17 06:59 18:59 Intake Total 240 Balance 240 - Medications Medications: Current Medications Calcium Acetate (Phoslo) 1,334 mg PO TIDCC [facility] Last Admin: 05/07/17 08:00 Dose: 1,334 mg Gabapentin (Neurontin) 100 mg PO HS [facility] Last Admin: 05/06/17 21:02 Dose: 100 mg Heparin Sodium (Porcine) (Heparin) 3,700 units IVP MWF [facility] Last Admin: 05/06/17 16:51 Dose: Not Given Ceftriaxone Sodium 1 gm/ (Sodium Chloride) 100 mls @ 100 mls/hr IVPB DAILY [facility] Last Admin: 05/07/17 09:49 Dose: 100 mls/hr Insulin Aspart (Novolog) 0 unit SC ACHS [facility] PRN Reason: Protocol Last Admin: 05/07/17 08:22 Dose: Not Given Insulin Aspart (Novolog) 16 unit SC AC [facility] Last Admin: 05/07/17 08:18 Dose: 16 unit Insulin Glargine (Lantus) 40 unit SC HS [facility] Last Admin: 05/06/17 21:00 Dose: 40 units Metoprolol Tartrate (Lopressor) 25 mg PO BID [facility] Last Admin: 05/07/17 09:51 Dose: 25 mg Potassium Chloride (K-Dur 20 Meq Er Tab) 40 meq PO DAILY [facility] Last Admin: 05/07/17 09:49 Dose: 40 meq Zolpidem Tartrate (Ambien) 5 mg PO HS PRN PRN Reason: Insomnia Last Admin: 05/01/17 22:28 Dose: 5 mg - Labs Labs: 05/07/17 07:05 05/07/17 07:05 PT 13.0 SECONDS (9.7-12.2) H 04/28/17 15:20 INR 1.1 04/28/17 15:20 APTT 28 SECONDS (21-34) 04/28/17 15:20 - Constitutional Appears: Non-toxic, No Acute Distress - Head Exam Head Exam: ATRAUMATIC, NORMAL INSPECTION, NORMOCEPHALIC - Eye Exam Eye Exam: EOMI, Normal appearance - ENT Exam ENT Exam: Mucous Membranes Moist - Neck Exam Neck Exam: Full ROM. absent: Tenderness - Respiratory Exam Respiratory Exam: Clear to Ausculation Bilateral, NORMAL BREATHING PATTERN - Cardiovascular Exam Cardiovascular Exam: REGULAR RHYTHM, RRR. absent: Gallop, Rubs, Murmur - GI/Abdominal Exam GI & Abdominal Exam: Soft, Normal Bowel Sounds - Extremities Exam Extremities Exam: Full ROM, Normal Inspection. absent: Pedal Edema - Neurological Exam Neurological Exam: Alert, Awake, Oriented x3 - Psychiatric Exam Psychiatric exam: Normal Affect, Normal Mood - Skin Skin Exam: Intact, Normal Color, Warm Additional comments: right chest permacath in place Assessment and Plan - Assessment and Plan (Free Text) Assessment: WILEY - Nephro consult, Dr Limon - Permacath placed on 05/02 - Hemodialysis MWF - BUN/Cr elevated, downtrending - Presence of WILEY with worsening respiratory status, will f/u serology studies - U/S renal 04/28/17 w/ echogenic kidneys - consider renal biopsy when stable - Strict I/O control -f/u creatinine clearance -as per Dr. Medina, hold off on hemodialysis as creatinine is trending down BUN/Cr on 05/07: 32/2.0 Pulmonary edema - Extubated on 05/01 - CXR 04/28: pulmonary edema - Duoneb 3 ml INH RQ6 AFib - Cardiology consult, Dr Clarke - Echo 04/29/17 EF 65-70%, LVSF normal, LVDF normal, trace mitral regurgitation, mild pulmonary hypertension HTN - Lopressor 25 mg PO BID Leukocytosis - resolved -05/06 WBC: 8.9 - Procalcitonin 17.95 - Ur Cx negative, Blood Cx negative - Hepatitis Bs Ag, Hep B Core IgM, Hep C ab : Negative - Ceftriaxone 1 gm IV daily Day 4 of 5 (started on 04/29) Diabetes Mellitus - Elevated blood sugar, adjusted insulin protocol to high dose - Patient has a history of hypoglycemic episodes [facility] Dr. Arnold Bourne - High dose insulin protocol - Sitagliptin 25mg po daily Feet Cramping secondary to dialysis monitor electrolytes continue Gabapentin 100 mg HS Prophylaxis: DVT: Heparin 5,000 U SC daily GI: Protonix 40 mg IV Q12 Fluids: NS 15 cc/hr daily <Marc Thomason Jr. - Last Filed: 05/08/17 15:25> Objective - Vital Signs/Intake and Output Vital Signs (last 24 hours): Temp Pulse Resp BP Pulse Ox 97.8 F 83 20 128/78 100 05/08/17 08:00 05/08/17 08:00 05/08/17 08:00 05/08/17 11:50 05/08/17 08:00 Intake and Output: 05/08/17 05/08/17 06:59 18:59 Intake Total 660 Balance 660 - Medications Medications: Current Medications Calcium Acetate (Phoslo) 1,334 mg PO TIDCC [facility] Last Admin: 05/08/17 11:51 Dose: 1,334 mg Gabapentin (Neurontin) 100 mg PO HS [facility] Last Admin: 05/07/17 21:33 Dose: 100 mg Heparin Sodium (Porcine) (Heparin) 3,700 units IVP MWF [facility] Last Admin: 05/06/17 16:51 Dose: Not Given Ceftriaxone Sodium 1 gm/ (Sodium Chloride) 100 mls @ 100 mls/hr IVPB DAILY [facility] Last Admin: 05/08/17 11:38 Dose: 100 mls/hr Insulin Aspart (Novolog) 0 unit SC [facility] PRN Reason: Protocol Last Admin: 05/08/17 12:00 Dose: Not Given Insulin Aspart (Novolog) 8 unit SC AC [facility] Insulin Glargine (Lantus) 30 unit SC HS [facility] Metoprolol Tartrate (Lopressor) 25 mg PO BID [facility] Last Admin: 05/08/17 11:50 Dose: 25 mg Zolpidem Tartrate (Ambien) 5 mg PO HS PRN PRN Reason: Insomnia Last Admin: 05/01/17 22:28 Dose: 5 mg - Labs Labs: 05/08/17 07:20 05/08/17 07:20 PT 13.0 SECONDS (9.7-12.2) H 04/28/17 15:20 INR 1.1 04/28/17 15:20 APTT 28 SECONDS (21-34) 04/28/17 15:20 Attending/Attestation - Attestation I have personally seen and examined this patient.: Yes I have fully participated in the care of the patient.: Yes I have reviewed all pertinent clinical information, including history, physical exam and plan: Yes Notes (Text): 05/08/17 15:24 Agree with resident note and plan of care
[2017-05-07] MEDS: (Lantus) Insulin Glargine, Recombinant SC SCH (21:33)
[2017-05-07] MEDS ORDERED: (Lantus) Insulin Glargine, Recombinant SC ONE (22:30)
--- NOTE | 2017-05-07 23:38 | CP.PCM.PN ---
Subjective - Date & Time of Evaluation Date of Evaluation: 05/07/17 Time of Evaluation: 09:40 - Subjective Subjective: Patient seen and evaluated No cardiac symptoms Improving renal function Objective - Vital Signs/Intake and Output Vital Signs (last 24 hours): Temp Pulse Resp BP Pulse Ox 98.2 F 80 20 124/78 99 05/07/17 16:00 05/07/17 16:00 05/07/17 16:00 05/07/17 17:41 05/07/17 16:00 Intake and Output: 05/07/17 05/08/17 18:59 06:59 Intake Total 780 300 Balance 780 300 - Medications Medications: Current Medications Calcium Acetate (Phoslo) 1,334 mg PO TIDCC [facility] Last Admin: 05/07/17 16:39 Dose: 1,334 mg Gabapentin (Neurontin) 100 mg PO HS [facility] Last Admin: 05/07/17 21:33 Dose: 100 mg Heparin Sodium (Porcine) (Heparin) 3,700 units IVP MWF [facility] Last Admin: 05/06/17 16:51 Dose: Not Given Ceftriaxone Sodium 1 gm/ (Sodium Chloride) 100 mls @ 100 mls/hr IVPB DAILY [facility] Last Admin: 05/07/17 09:49 Dose: 100 mls/hr Insulin Aspart (Novolog) 0 unit SC ACHS [facility] PRN Reason: Protocol Last Admin: 05/07/17 21:34 Dose: Not Given Insulin Aspart (Novolog) 16 unit SC AC [facility] Last Admin: 05/07/17 16:45 Dose: 16 unit Insulin Glargine (Lantus) 40 unit SC HS [facility] Last Admin: 05/07/17 21:33 Dose: Not Given Metoprolol Tartrate (Lopressor) 25 mg PO BID [facility] Last Admin: 05/07/17 17:41 Dose: 25 mg Zolpidem Tartrate (Ambien) 5 mg PO HS PRN PRN Reason: Insomnia Last Admin: 05/01/17 22:28 Dose: 5 mg - Labs Labs: 05/07/17 07:05 05/07/17 16:36 PT 13.0 SECONDS (9.7-12.2) H 04/28/17 15:20 INR 1.1 04/28/17 15:20 APTT 28 SECONDS (21-34) 04/28/17 15:20
[2017-05-08 07:41] LABS: BASO # 0.1 K/uL (0.0-0.2); BASO % 1.2 % (0.0-2.0); EOS # 0.2 K/uL (0.0-0.7); EOS % 2.6 % (0.0-4.0); HEMATOCRIT 30.2 % (35.0-51.0); LYMPH # 1.7 K/uL (1.0-4.3); LYMPH % 21.6 % (20.0-40.0); MEAN CELL VOLUME 79.8 fL (80.0-94.0); MEAN CORPUSCULAR HEMOGLOBIN 27.3 pg (27.0-31.0); MEAN CORPUSCULAR HGB CONC 34.2 g/dL (33.0-37.0); MEAN PLATELET VOLUME 8.6 fL (7.2-11.7); MONO # 0.9 K/uL (0.0-0.8); MONO % 11.4 % (0.0-10.0); RED CELL DISTRIBUTION WIDTH 13.5 % (11.5-14.5)
[2017-05-08 08:10] LABS: POTASSIUM 3.9 mmol/L (3.6-5.2)
[2017-05-08 08:12] LABS: BILIRUBIN,TOTAL 0.5 mg/dL (0.2-1.3); PHOSPHOROUS 3.8 mg/dL (2.5-4.5); TOTAL PROTEIN 6.6 g/dL (6.3-8.3)
[2017-05-08 08:13] LABS: CALCIUM 8.8 mg/dl (8.6-10.4); MAGNESIUM 1.4 mg/dL (1.6-2.3)
[2017-05-08] MEDS: (Novolog) Insulin Aspart, Recombinant 100 u/ml 10 ml vial SC SCH ×6 (08:33→17:11)
--- NOTE | 2017-05-08 10:53 | CP.PCM.PN ---
Subjective - Date & Time of Evaluation Date of Evaluation: 05/08/17 Time of Evaluation: 07:00 - Subjective Subjective: PGY1-Medicine Note- Dr. Thomason's Service Patient seen and examined at bedside and in no acute distress. Patient having some cramping in his legs and feet still. Patient denies any shortness of breath , chest pain, abdominal pain, nausea, vomiting, constipation, diarrhea. Objective - Vital Signs/Intake and Output Vital Signs (last 24 hours): Temp Pulse Resp BP Pulse Ox 97.8 F 83 20 128/78 100 05/08/17 08:00 05/08/17 08:00 05/08/17 08:00 05/08/17 08:00 05/08/17 08:00 Intake and Output: 05/08/17 05/08/17 06:59 18:59 Intake Total 660 Balance 660 - Medications Medications: Current Medications Calcium Acetate (Phoslo) 1,334 mg PO TIDCC [facility] Last Admin: 05/08/17 08:35 Dose: 1,334 mg Gabapentin (Neurontin) 100 mg PO HS [facility] Last Admin: 05/07/17 21:33 Dose: 100 mg Heparin Sodium (Porcine) (Heparin) 3,700 units IVP MWF [facility] Last Admin: 05/06/17 16:51 Dose: Not Given Ceftriaxone Sodium 1 gm/ (Sodium Chloride) 100 mls @ 100 mls/hr IVPB DAILY [facility] Last Admin: 05/07/17 09:49 Dose: 100 mls/hr Insulin Aspart (Novolog) 0 unit SC ACHS [facility] PRN Reason: Protocol Last Admin: 05/08/17 08:33 Dose: 4 unit Insulin Aspart (Novolog) 16 unit SC AC [facility] Last Admin: 05/08/17 08:34 Dose: 16 unit Insulin Glargine (Lantus) 40 unit SC HS [facility] Last Admin: 05/07/17 21:33 Dose: Not Given Metoprolol Tartrate (Lopressor) 25 mg PO BID [facility] Last Admin: 05/07/17 17:41 Dose: 25 mg Zolpidem Tartrate (Ambien) 5 mg PO HS PRN PRN Reason: Insomnia Last Admin: 05/01/17 22:28 Dose: 5 mg - Labs Labs: 05/08/17 07:20 05/08/17 07:20 PT 13.0 SECONDS (9.7-12.2) H 04/28/17 15:20 INR 1.1 04/28/17 15:20 APTT 28 SECONDS (21-34) 04/28/17 15:20 - Constitutional Appears: Non-toxic, No Acute Distress - Head Exam Head Exam: ATRAUMATIC, NORMAL INSPECTION, NORMOCEPHALIC - Eye Exam Eye Exam: EOMI, Normal appearance - ENT Exam ENT Exam: Mucous Membranes Moist - Neck Exam Neck Exam: Full ROM. absent: Tenderness - Respiratory Exam Respiratory Exam: Clear to Ausculation Bilateral, NORMAL BREATHING PATTERN - Cardiovascular Exam Cardiovascular Exam: REGULAR RHYTHM, RRR. absent: Gallop, Rubs, Murmur - GI/Abdominal Exam GI & Abdominal Exam: Soft, Normal Bowel Sounds - Extremities Exam Extremities Exam: Full ROM, Normal Inspection - Back Exam Back Exam: NORMAL INSPECTION - Neurological Exam Neurological Exam: Alert, Awake, Oriented x3 - Psychiatric Exam Psychiatric exam: Normal Affect, Normal Mood - Skin Skin Exam: Intact, Normal Color, Warm Additional comments: right chest permacath in place Assessment and Plan - Assessment and Plan (Free Text) Assessment: WILEY - Nephro consult, Dr Limon - Permacath placed on 05/02 - Hemodialysis MWF - BUN/Cr elevated, downtrending - 05/08: 32/1.8 - Presence of WILEY with worsening respiratory status, will f/u serology studies - U/S renal 04/28/17 w/ echogenic kidneys - consider renal biopsy when stable - Strict I/O control -creatinine clearance: 76 ur protein 24 hr: [address] Limon, if creatinine continues to trend down, permacath may be removed Pulmonary edema - Extubated on 05/01 - CXR 04/28: pulmonary edema - Duoneb 3 ml INH RQ6 AFib - Cardiology consult, Dr Clarke - Echo 04/29/17 EF 65-70%, LVSF normal, LVDF normal, trace mitral regurgitation, mild pulmonary hypertension HTN - Lopressor 25 mg PO BID Leukocytosis - resolved -05/06 WBC: 8.9 - Procalcitonin 17.95 - Ur Cx negative, Blood Cx negative - Hepatitis Bs Ag, Hep B Core IgM, Hep C ab : Negative - Ceftriaxone 1 gm IV daily Day 4 of 5 (started on 04/29) Diabetes Mellitus - Elevated blood sugar, adjusted insulin protocol to high dose - Patient has a history of hypoglycemic episodes with home insulin - [facility] - Consult Dr. Arnold Bourne - High dose insulin protocol - Sitagliptin 25mg po daily Feet Cramping secondary to dialysis monitor electrolytes started on Gabapentin 100 mg HS Prophylaxis: DVT: Heparin 5,000 U SC daily GI: Protonix 40 mg IV Q12
--- NOTE | 2017-05-08 14:37 | CP.PCM.PN ---
Subjective - Date & Time of Evaluation Date of Evaluation: 05/08/17 Time of Evaluation: 14:35 - Subjective Subjective: Off dialysis now Creat decreased to 1.8 creat clearance=76 ml qh feels well no new complaints Objective - Vital Signs/Intake and Output Vital Signs (last 24 hours): Temp Pulse Resp BP Pulse Ox 97.8 F 83 20 128/78 100 05/08/17 08:00 05/08/17 08:00 05/08/17 08:00 05/08/17 11:50 05/08/17 08:00 Intake and Output: 05/08/17 05/08/17 06:59 18:59 Intake Total 660 Balance 660 - Medications Medications: Current Medications Calcium Acetate (Phoslo) 1,334 mg PO TIDCC [facility] Last Admin: 05/08/17 11:51 Dose: 1,334 mg Gabapentin (Neurontin) 100 mg PO HS [facility] Last Admin: 05/07/17 21:33 Dose: 100 mg Heparin Sodium (Porcine) (Heparin) 3,700 units IVP MWF [facility] Last Admin: 05/06/17 16:51 Dose: Not Given Ceftriaxone Sodium 1 gm/ (Sodium Chloride) 100 mls @ 100 mls/hr IVPB DAILY [facility] Last Admin: 05/08/17 11:38 Dose: 100 mls/hr Insulin Aspart (Novolog) 0 unit SC ACHS [facility] PRN Reason: Protocol Last Admin: 05/08/17 12:00 Dose: Not Given Insulin Aspart (Novolog) 16 unit SC AC [facility] Last Admin: 05/08/17 11:59 Dose: 16 unit Insulin Glargine (Lantus) 40 unit SC HS [facility] Last Admin: 05/07/17 21:33 Dose: Not Given Metoprolol Tartrate (Lopressor) 25 mg PO BID [facility] Last Admin: 05/08/17 11:50 Dose: 25 mg Zolpidem Tartrate (Ambien) 5 mg PO HS PRN PRN Reason: Insomnia Last Admin: 05/01/17 22:28 Dose: 5 mg - Labs Labs: 05/08/17 07:20 05/08/17 07:20 PT 13.0 SECONDS (9.7-12.2) H 04/28/17 15:20 INR 1.1 04/28/17 15:20 APTT 28 SECONDS (21-34) 04/28/17 15:20 - Constitutional Appears: No Acute Distress, Chronically Ill - Head Exam Head Exam: ATRAUMATIC, NORMAL INSPECTION - Eye Exam Eye Exam: EOMI, Normal appearance - Neck Exam Neck Exam: Normal Inspection. absent: Tenderness - Respiratory Exam Respiratory Exam: Clear to Ausculation Bilateral, NORMAL BREATHING PATTERN - Cardiovascular Exam Cardiovascular Exam: REGULAR RHYTHM, +S1 - GI/Abdominal Exam GI & Abdominal Exam: Soft. absent: Tenderness - Extremities Exam Extremities Exam: Normal Inspection. absent: Tenderness - Neurological Exam Neurological Exam: Alert, CN II-XII Intact - Skin Skin Exam: Dry, Warm Assessment and Plan (1) Type 1 diabetes mellitus with diabetic nephropathy Status: Acute (2) WILEY (acute kidney injury) Status: Resolved (3) CHF (congestive heart failure) Status: Resolved - Assessment and Plan (Free Text) Plan: Continue to monitor chemistries WILEY resolving Dailysis has been suspended
--- NOTE | 2017-05-08 19:16 | PN ---
ENDOCRINOLOGY FOLLOWUP NOTE LOCATION: Room #357. SUMMARY: This is a 36-year-old male with recent uncontrolled type 1 insulin-dependent diabetes, now being followed closely for metabolic management. His glycemic levels are fluctuating, but improved, and the latest glucose levels have ranged from 83 to 129 mg/dL. It was 260 to 317 today as noted. The basal dose was given only half the dose last night as the patient has also been refusing the bedtime insulin as noted. His latest chemistry showed the BUN of 32, sodium 139, potassium 3.9, chloride 105, CO2 23, glucose 241, and creatinine 1.8. So at this time, we will modify once again his basal and bolus insulin regimen and increase the Lantus to the original dosing of 40 units subcu at bedtime daily as ordered with Novolog given at 16 units t.i.d. before meals as stated. We will titrate incrementally as indicated to optimize metabolic control. We will follow with you. Karina Barrett MD
[2017-05-08] MEDS ORDERED: (Lantus) Insulin Glargine, Recombinant SC ONE (22:00)
[2017-05-08] MEDS ORDERED: (Lantus) Insulin Glargine, Recombinant SC SCH (22:00)
--- NOTE | 2017-05-08 22:29 | CP.PCM.PN ---
Subjective - Date & Time of Evaluation Date of Evaluation: 05/08/17 Time of Evaluation: 11:55 - Subjective Subjective: Patient seen and evaluated Comfortable Improving renal functio Objective - Vital Signs/Intake and Output Vital Signs (last 24 hours): Temp Pulse Resp BP Pulse Ox 98.2 F 83 20 128/78 98 05/08/17 15:00 05/08/17 15:00 05/08/17 15:00 05/08/17 17:42 05/08/17 15:00 Intake and Output: 05/08/17 05/09/17 18:59 06:59 Intake Total 580 Balance 580 - Medications Medications: Current Medications Calcium Acetate (Phoslo) 1,334 mg PO TIDCC [facility] Last Admin: 05/08/17 17:10 Dose: 1,334 mg Gabapentin (Neurontin) 100 mg PO HS [facility] Last Admin: 05/08/17 21:35 Dose: 100 mg Heparin Sodium (Porcine) (Heparin) 3,700 units IVP MWF [facility] Last Admin: 05/06/17 16:51 Dose: Not Given Ceftriaxone Sodium 1 gm/ (Sodium Chloride) 100 mls @ 100 mls/hr IVPB DAILY [facility] Last Admin: 05/08/17 11:38 Dose: 100 mls/hr Insulin Aspart (Novolog) 0 unit SC ACHS [facility] PRN Reason: Protocol Last Admin: 05/08/17 17:11 Dose: Not Given Insulin Aspart (Novolog) 8 unit SC AC [facility] Last Admin: 05/08/17 17:11 Dose: 8 unit Insulin Glargine (Lantus) 30 unit SC HS [facility] Insulin Glargine (Lantus) 30 unit SC HS [facility] Metoprolol Tartrate (Lopressor) 25 mg PO BID [facility] Last Admin: 05/08/17 17:42 Dose: 25 mg Zolpidem Tartrate (Ambien) 5 mg PO HS PRN PRN Reason: Insomnia Last Admin: 05/01/17 22:28 Dose: 5 mg - Labs Labs: 05/08/17 07:20 05/08/17 07:20 PT 13.0 SECONDS (9.7-12.2) H 04/28/17 15:20 INR 1.1 04/28/17 15:20 APTT 28 SECONDS (21-34) 04/28/17 15:20
[2017-05-09 07:31] VITALS: BP 135/84; PULSE 88; TEMP 98.4; O2SAT 98
[2017-05-09] MEDS: (Novolog) Insulin Aspart, Recombinant 100 u/ml 10 ml vial SC SCH ×7 (08:15→17:41)
[2017-05-09 08:59] LABS: BASO # 0.1 K/uL (0.0-0.2); EOS # 0.2 K/uL (0.0-0.7); EOS % 1.9 % (0.0-4.0); HEMATOCRIT 33.9 % (35.0-51.0); LYMPH # 2.1 K/uL (1.0-4.3); LYMPH % 25.4 % (20.0-40.0); MEAN CELL VOLUME 80.4 fL (80.0-94.0); MEAN CORPUSCULAR HGB CONC 33.6 g/dL (33.0-37.0); MEAN PLATELET VOLUME 8.5 fL (7.2-11.7); MONO # 0.8 K/uL (0.0-0.8); MONO % 9.4 % (0.0-10.0); RED CELL DISTRIBUTION WIDTH 13.7 % (11.5-14.5); WHITE BLOOD COUNT 8.4 K/uL (4.8-10.8)
[2017-05-09 09:17] LABS: POTASSIUM 4.1 mmol/L (3.6-5.2)
[2017-05-09 09:20] LABS: BILIRUBIN,TOTAL 0.6 mg/dL (0.2-1.3); CALCIUM 9.4 mg/dl (8.6-10.4); PHOSPHOROUS 3.3 mg/dL (2.5-4.5); TOTAL PROTEIN 7.4 g/dL (6.3-8.3)
--- NOTE | 2017-05-09 10:19 | CP.PCM.PN ---
Subjective - Date & Time of Evaluation Date of Evaluation: 05/09/17 Time of Evaluation: 10:19 - Subjective Subjective: seen and examined labs noted feels well, itching around rt [facility] site Objective - Vital Signs/Intake and Output Vital Signs (last 24 hours): Temp Pulse Resp BP Pulse Ox 98.4 F 88 20 135/84 98 05/09/17 07:29 05/09/17 07:29 05/09/17 07:29 05/09/17 07:29 05/09/17 07:29 Intake and Output: 05/09/17 05/09/17 06:59 18:59 Intake Total 300 Balance 300 - Medications Medications: Current Medications Calcium Acetate (Phoslo) 1,334 mg PO TIDCC [facility] Last Admin: 05/09/17 08:17 Dose: 1,334 mg Gabapentin (Neurontin) 100 mg PO HS [facility] Last Admin: 05/08/17 21:35 Dose: 100 mg Heparin Sodium (Porcine) (Heparin) 3,700 units IVP MWF [facility] Last Admin: 05/06/17 16:51 Dose: Not Given Ceftriaxone Sodium 1 gm/ (Sodium Chloride) 100 mls @ 100 mls/hr IVPB DAILY [facility] Last Admin: 05/08/17 11:38 Dose: 100 mls/hr Insulin Aspart (Novolog) 0 unit SC ACHS [facility] PRN Reason: Protocol Last Admin: 05/09/17 08:15 Dose: 4 unit Insulin Aspart (Novolog) 8 unit SC AC [facility] Last Admin: 05/09/17 08:16 Dose: 8 unit Insulin Glargine (Lantus) 30 unit SC HS [facility] Insulin Glargine (Lantus) 30 unit SC HS [facility] Metoprolol Tartrate (Lopressor) 25 mg PO BID [facility] Last Admin: 05/08/17 17:42 Dose: 25 mg Zolpidem Tartrate (Ambien) 5 mg PO HS PRN PRN Reason: Insomnia Last Admin: 05/01/17 22:28 Dose: 5 mg - Labs Labs: 05/09/17 08:47 05/09/17 08:47 PT 13.0 SECONDS (9.7-12.2) H 04/28/17 15:20 INR 1.1 04/28/17 15:20 APTT 28 SECONDS (21-34) 04/28/17 15:20 - Constitutional Appears: Non-toxic, No Acute Distress - Head Exam Head Exam: NORMAL INSPECTION - Eye Exam Eye Exam: Normal appearance - ENT Exam ENT Exam: Mucous Membranes Moist, Normal Exam - Neck Exam Neck Exam: Normal Inspection - Respiratory Exam Respiratory Exam: Clear to Ausculation Bilateral, NORMAL BREATHING PATTERN - Cardiovascular Exam Cardiovascular Exam: REGULAR RHYTHM, RRR - GI/Abdominal Exam GI & Abdominal Exam: Distended, Soft, Normal Bowel Sounds - Extremities Exam Extremities Exam: Normal Inspection Assessment and Plan (1) WILEY (acute kidney injury) Status: Resolved (2) CHF (congestive heart failure) Status: Resolved (3) Type 1 diabetes mellitus with diabetic nephropathy Status: Acute (4) Diabetes Status: Chronic - Assessment and Plan (Free Text) Assessment: no need for further hd dc catheter prior to discharge will sign off follow up in office after discharge
--- NOTE | 2017-05-09 11:37 | CP.PCM.DIS ---
Provider - Provider Date of Admission: 04/27/17 23:34 Attending physician: Marc Thomason Jr, MD Consults: Dr. Clarke (cardiology) Dr. Galvan (critical care) Dr. Barrett (endo) Dr. Cardona (surgery) Dr. Limon (nephro) Time Spent in preparation of Discharge (in minutes): 45 Diagnosis - Discharge Diagnosis (1) WILEY (acute kidney injury) Status: Resolved (2) Pulmonary edema Status: Resolved (3) A-fib Status: Suspected (4) HTN (hypertension) Status: Chronic (5) Leukocytosis Status: Resolved (6) Diabetes Status: Chronic Hospital Course - Lab Results Lab Results: Micro Results 04/27/17 23:51 Blood-Venous Blood Culture - Final NO GROWTH AFTER 5 DAYS 04/27/17 23:51 Blood-Venous Gram Stain - Final TEST NOT PERFORMED 04/27/17 21:39 Blood-Venous Blood Culture - Final NO GROWTH AFTER 5 DAYS 04/27/17 21:39 Blood-Venous Gram Stain - Final TEST NOT PERFORMED 04/28/17 14:00 Urine Urine Culture - Final No Growth (<1,000 CFU/ML) Most Recent Lab Values WBC 8.4 K/uL (4.8-10.8) 05/09/17 08:47 RBC 4.21 Mil/uL (4.40-5.90) L 05/09/17 08:47 Hgb 11.4 g/dL (12.0-18.0) L 05/09/17 08:47 Hct 33.9 % (35.0-51.0) L 05/09/17 08:47 MCV 80.4 fL (80.0-94.0) 05/09/17 08:47 MCH 27.0 pg (27.0-31.0) 05/09/17 08:47 MCHC 33.6 g/dL (33.0-37.0) 05/09/17 08:47 RDW 13.7 % (11.5-14.5) 05/09/17 08:47 Plt Count 416 K/uL (130-400) H 05/09/17 08:47 MPV 8.5 fL (7.2-11.7) 05/09/17 08:47 Neut % (Auto) 62.3 % (50.0-75.0) 05/09/17 08:47 Lymph % (Auto) 25.4 % (20.0-40.0) 05/09/17 08:47 [place] % (Auto) 9.4 % (0.0-10.0) 05/09/17 08:47 Eos % (Auto) 1.9 % (0.0-4.0) 05/09/17 08:47 Baso % (Auto) 1.0 % (0.0-2.0) 05/09/17 08:47 Neut # 5.2 K/uL (1.8-7.0) 05/09/17 08:47 Lymph # 2.1 K/uL (1.0-4.3) 05/09/17 08:47 [place] # 0.8 K/uL (0.0-0.8) 05/09/17 08:47 Eos # 0.2 K/uL (0.0-0.7) 05/09/17 08:47 Baso # 0.1 K/uL (0.0-0.2) 05/09/17 08:47 Neutrophils % (Manual) 79 % (50-75) H 05/02/17 06:10 Band Neutrophils % 2 % (0-2) 05/02/17 06:10 Lymphocytes % (Manual) 6 % (20-40) L 05/02/17 06:10 Monocytes % (Manual) 12 % (0-10) H 05/02/17 06:10 Eosinophils % (Manual) 1 % (0-4) 05/02/17 06:10 Toxic Granulation Present 04/28/17 07:26 Platelet Estimate Normal (NORMAL) 05/02/17 06:10 Large Platelets Present 04/28/17 07:26 Hypochromasia (manual) Slight 05/02/17 06:10 Poikilocytosis (manual Slight 05/02/17 06:10 Anisocytosis (manual) Slight 05/02/17 06:10 Microcytosis (manual) Slight 04/28/17 15:20 Tear Drop Cells Slight 05/02/17 06:10 [place] Cells Slight 04/28/17 07:26 PT 13.0 SECONDS (9.7-12.2) H 04/28/17 15:20 INR 1.1 04/28/17 15:20 APTT 28 SECONDS (21-34) 04/28/17 15:20 D-Dimer, Quantitative 461 ng/mlDDU (0-243) H 04/28/17 15:20 Puncture Site Rr 05/01/17 04:45 pCO2 38 mm/Hg (35-45) 05/01/17 04:45 pO2 81 mm/Hg (80-100) 05/01/17 04:45 HCO3 25.7 mmol/L (21-28) 05/01/17 04:45 ABG pH 7.43 (7.35-7.45) 05/01/17 04:45 ABG Total CO2 26.4 mmol/L (22-28) 05/01/17 04:45 ABG O2 Saturation 98.6 % (95-98) H 05/01/17 04:45 ABG Base Excess 1.0 mmol/L (-2.0-3.0) 05/01/17 04:45 ABG Hemoglobin 14.4 g/dL (11.7-17.4) 05/01/17 04:45 ABG Carboxyhemoglobin 1.6 % (0.5-1.5) H 05/01/17 04:45 POC ABG HHb (Measured) 1.4 % (0.0-5.0) 05/01/17 04:45 ABG Methemoglobin 1.4 % (0.0-3.0) 05/01/17 04:45 Goran Test Pos 05/01/17 04:45 ABG Potassium 5.2 mmol/L (3.6-5.2) 04/28/17 19:30 A-a O2 Difference 228.0 mm/Hg 05/01/17 04:45 Respiratory Index 2.8 05/01/17 04:45 Hgb O2 Saturation 95.6 % (95.0-98.0) 05/01/17 04:45 Sodium 119.0 mmol/l (132-148) L* 04/28/17 19:30 Chloride 89.0 mmol/L (98-107) L 04/28/17 19:30 Glucose 411 mg/dl (75-110) H* D 04/28/17 19:30 Lactate 1.5 mmol/L (0.7-2.1) 04/28/17 19:30 Vent Mode Prvc 05/01/17 04:45 Mechanical Rate 24 05/01/17 04:45 FiO2 50.0 % 05/01/17 04:45 Tidal Volume 500 05/01/17 04:45 PEEP 5 05/01/17 04:45 Crit Value Called To Dr curiel 04/29/17 08:25 Crit Value Called By Polo pettit crt 04/29/17 08:25 Crit Value Read Back Y 04/29/17 08:25 Blood Gas Notified Time 835 04/29/17 08:25 Sodium 138 mmol/L (132-148) 05/09/17 08:47 Potassium 4.1 mmol/L (3.6-5.2) 05/09/17 08:47 Chloride 101 mmol/L (98-107) 05/09/17 08:47 Carbon Dioxide 23 mmol/L (22-30) 05/09/17 08:47 Anion Gap 18 (10-20) 05/09/17 08:47 BUN 28 mg/dL (9-20) H 05/09/17 08:47 Creatinine 1.6 MG/DL (0.8-1.5) H 05/09/17 08:47 Est GFR ( Amer) 59 05/09/17 08:47 Est GFR (Non-Af Amer) 49 05/09/17 08:47 POC Glucose (mg/dL) 367 mg/dL (65-110) H 05/09/17 11:06 Random Glucose 345 mg/dL (75-110) H 05/09/17 08:47 Hemoglobin A1c 7.9 % (4.2-6.5) H 05/03/17 06:18 Lactic Acid 2.7 mmol/L (0.7-2.1) H 04/28/17 17:23 Uric Acid 5.0 mg/dL (3.5-8.5) 05/08/17 17:01 Calcium 9.4 mg/dl (8.6-10.4) 05/09/17 08:47 Phosphorus 3.3 mg/dL (2.5-4.5) 05/09/17 08:47 Magnesium 1.4 mg/dL (1.6-2.3) L 05/08/17 07:20 % Saturation 9 (20-55) L 04/30/17 06:14 Ferritin 140.0 ng/mL 04/30/17 06:14 Total Bilirubin 0.6 mg/dL (0.2-1.3) 05/09/17 08:47 AST 31 U/L (17-59) 05/09/17 08:47 ALT 60 U/L (21-72) 05/09/17 08:47 Alkaline Phosphatase 130 U/L (38-126) H D 05/09/17 08:47 Total Creatine Kinase 322 U/L (55-170) H 04/28/17 17:19 CK-MB (Mass) 4.61 ng/mL (0.0-3.38) H 04/28/17 15:20 Troponin I, Quant 0.0560 ng/mL (0.00-0.120) 04/28/17 15:20 Total Protein 7.4 g/dL (6.3-8.3) 05/09/17 08:47 Total Protein (PEP) 5.3 g/dL (6.1-8.1) L 05/01/17 08:16 Albumin 3.7 g/dL (3.5-5.0) 05/09/17 08:47 Albumin (PEP) 2.3 g/dL (3.8-4.8) L 05/01/17 08:16 Globulin 3.7 gm/dL (2.2-3.9) 05/09/17 08:47 Albumin/Globulin Ratio 1.0 (1.0-2.1) 05/09/17 08:47 Qeprt-0-Lrcwwwtgs 0.5 g/dL (0.2-0.3) H 05/01/17 08:16 Gutuj-5-Dmfwintou 1.1 g/dL (0.5-0.9) H 05/01/17 08:16 Ciny-0-Ileghexw 0.4 g/dL (0.4-0.6) 05/01/17 08:16 Xssw-6-Ckzujdpc 0.4 g/dL (0.2-0.5) 05/01/17 08:16 Gamma Globulins 0.7 g/dL (0.8-1.7) L 05/01/17 08:16 Abnorm Protein Band 1 TEST NOT PERFORMED 05/01/17 08:16 Abnorm Protein Band 2 TEST NOT PERFORMED 05/01/17 08:16 Abnorm Protein Band 3 TEST NOT PERFORMED 05/01/17 08:16 Triglycerides 280 mg/dL (0-149) H 05/03/17 06:16 Cholesterol 213 mg/dL (0-199) H 05/03/17 06:16 LDL Cholesterol Direct 131 mg/dL (0-129) H 05/03/17 06:16 HDL Cholesterol 27 mg/dL (30-70) L 05/03/17 06:16 Lipase 83 U/L (23-300) 04/27/17 21:50 Procalcitonin 17.95 NG/ML (0.19-0.49) H 04/30/17 10:01 TSH 3rd Generation 0.51 mIU/L (0.46-4.68) 05/03/17 06:16 PTH Intact Whole Molec 80 pg/mL (14-64) H 05/03/17 08:08 Arterial Blood Potassium 5.2 mmol/L (3.6-5.2) 04/28/17 19:30 Urine Color Yellow (YELLOW) 04/28/17 17:37 Urine Clarity Hazy (Clear) 04/28/17 17:37 Urine pH 5.0 (5.0-8.0) 04/28/17 17:37 Ur Specific [place] 1.011 (1.003-1.030) 04/28/17 17:37 Urine Protein 2+ mg/dL (NEGATIVE) H 04/28/17 17:37 Urine Glucose (UA) 3+ mg/dL (Normal) H 04/28/17 17:37 Urine Ketones Negative mg/dL (NEGATIVE) 04/28/17 17:37 Urine Blood Negative (NEGATIVE) 04/28/17 17:37 Urine Nitrate Negative (NEGATIVE) 04/28/17 17:37 Urine Bilirubin Negative (NEGATIVE) 04/28/17 17:37 Urine Urobilinogen Normal mg/dL (0.2-1.0) 04/28/17 17:37 Ur Leukocyte Esterase Neg Nas/uL (Negative) 04/28/17 17:37 Urine WBC (Auto) 34 /hpf (0-5) H 04/28/17 17:37 Urine RBC (Auto) 2 /hpf (0-3) 04/28/17 17:37 Urine WBC Clumps (Auto) Mod /hpf (NONE) H 04/28/17 17:37 Ur Squamous Epith Cells 1 /hpf (0-5) 04/28/17 17:37 Ur Transition Epith Cell 1 /hpf (0-3) 04/28/17 17:37 Urine Bacteria Occ (<OCC) H 04/28/17 17:37 Urine Eosinophils Positive (NEGATIVE) H 04/30/17 13:07 Ur Random Creatinine 118.7 mg/dL 04/30/17 13:07 U Random Total Protein 100.0 mg/dL (0.0-12.0) H 04/30/17 13:07 Urine Collection Time 24 HRS 05/07/17 16:36 Urine Total Volume 3650 mL 05/07/17 16:36 Creatinine Clearance 76.0 mL/min (107-139) L 05/07/17 16:36 Ur Protein 24 Hr Calc 1620.0 mg/24hr (42-225) H 05/04/17 16:56 Urine Opiates Screen Negative (NEGATIVE) 04/28/17 17:41 Urine Methadone Screen Negative (NEGATIVE) 04/28/17 17:41 Ur Barbiturates Screen Negative (NEGATIVE) 04/28/17 17:41 Ur Phencyclidine Scrn Negative (NEGATIVE) 04/28/17 17:41 Ur Amphetamines Screen Negative (NEGATIVE) 04/28/17 17:41 U Benzodiazepines Scrn Negative (NEGATIVE) 04/28/17 17:41 U Oth Cocaine Metabols Negative (NEGATIVE) 04/28/17 17:41 U Cannabinoids Screen Negative (NEGATIVE) 04/28/17 17:41 SHERMAN & SPEP Interp See note 05/01/17 08:16 Proteinase 3 (PR3) <1.0 AI (<1.0) 04/28/17 17:19 Myeloperoxidase Ab <1.0 AI (<1.0) 04/28/17 17:19 Glomerular Base Mem IgG <1.0 AI (<1.0) 04/28/17 17:19 Hep Bs Antigen Negative (NEGATIVE) 04/29/17 00:28 Hep B Core IgM Ab Negative (NEGATIVE) 04/29/17 00:28 Hepatitis C Antibody Negative (NEGATIVE) 04/29/17 00:28 HIV 1&2 Antibody Screen Negative (NEGATIVE) 05/01/17 06:36 - Hospital Course Hospital Course: "HPI: Patient is a 36M with PMH, DM, Sleep apnea, asthma, Afib, HTN,who presents to the ED for abdominal pain and vomiting. Patient says this started yesterday and gradually worsened. Patient says his abdominal pain is diffuse and 10/10 in intensity. Patient said he vomited all day yesterday but does not know how many times stating it was a lot. Patient says he checked his blood sugar and the readings were repeatedly very low, in the 20s. Patient says he tried drinking juices but kept vomiting so his blood sugar remained low. Patient says he did not take anything for his pain at home but says he feels better when he is reasting and worse when moving around. Patient admits to associated feeling of fever with chills, weakness, 10 pount weight loss in 1 week, MONIQUE, dizziness, sore throat, body aches, joint pain, CP/SOB when he starts vomiting, watery diarrhea, flank pain, pain in his scrotum, and cramping of his hands. Patient denies cough, wheezing, dysuria, frequency, incontinence, hematuria, rash, or numbness/tingling in hands or feet." Patient admitted to hospital on 04/28 with acute kidney injury. Patient's initial BUN/Creatinine was checked: 26/5.1. Nephrology ([place]) was consulted. Renal ultrasound was performed 04/28 which showed echogenic kidneys, normal aorta , bladder not well distended. Patient was placed on strict I/O control. BUN/Cr bradley to 53/7.4 on 05/01. Permacath was placed on 05/[address] Cardona. Patient went for dialysis Saturday and Saturday. Creatinine clearance on 05/07 was 76. 05/07 dialysis was suspended as creatinine was trending down ([place]). Bun/Cr on 05/07 : 32/2.0. 05/09: BUN/Cr: 28/1.6. Patient had permacath removed and will follow up outpatient with Dr. Limon. Pulmonary edema: 04/28 CXR showed pulmonary edema. Patient was intubated 04/28 due to hypoxia and sedated on propofol 1,000mg and paralyzed on Cistracurium 100mg and was given as tolerated. Placement was confirmed by chest x-ray. Patient admitted to ICU. Patient was extubated on 05/01 and placed on ventilation mask. Patient then transitioned to nasal cannula. Patient was treated with Duoneb 3ml INH RQ6. Patient tolerating room air by 05/04 with O2 saturation of 94 and higher. Abdominal pain/vomiting: Patient was treated with normal saline 250 bolus, zofran 4 mg PRN. Leukocytosis 22.2. Initial CT scan a/p showed no abnormal findings. Patient was placed on liquid diet and advanced as tolerated. Feet cramping secondary to dialysis: Electrolytes were monitored and patient was started on Gabapentin 100mg HS. Hypertension: Patient was treated with Lopressor 25mg PO BID. Leukocytosis: 04/29 labs showed Procalcitonin 17.95. Urine and blood cultures were negative. Hepatitis Bs Ag, Hep B Core IgM, Hep C ab:negative. Patient was started on Ceftriaxone 1gm IV daily. 05/06 Leukocytosis resolved: WBC 8.9. Hx DM: Patients Home insulin 2/2 was held due to low initial blood glucose. Patient has history of hypoglycemic episodes with home insulin. Accuchecks ACHS were ordered. Patient had elevated blood sugar and insulin protocol was adjusted to high dose. Patient was treated with Sitagliptin 25mg PO daily. Hx Asthma: Patient was treated with Duonebs as needed. Hx Afib: Initial ED ECG showed Afib was controlled: Normal sinus rhythm. Cardiology ([place]) was consulted 04/29. Echo was performed whichshowed EF 65-70%, LVSF normal, LVDF normal, tract MR, and mildpulmonary hypertension. Patient in NSR upon discharge. Prophylactic treatment: Patient treated with Heparin 5000 Q12 (DVT),Protonix 40mg QD (GI), SCDs. Discharge Exam - Head Exam Head Exam: NORMAL INSPECTION Discharge Plan - Follow Up Plan Condition: FAIR Disposition: HOME/ ROUTINE Referrals: Shaggy Limon MD [Staff Provider] -
[2017-05-09] MEDS ORDERED: (Novolog) Insulin Aspart, Recombinant 100 u/ml 10 ml vial SC SCH (16:30)
--- NOTE | 2017-05-09 19:19 | PN ---
LOCATION: Room #357. SUBJECTIVE: This is a 36-year-old male with recent uncontrolled type 1 insulin-dependent diabetes, presenting here with diffuse abdominal pain supervening renal failure and is now, being followed closely for metabolic management. He also continues to have variable oral intake at this time with extremes of glycemic fluctuations as noted thereof. His glucose levels today have ranged from 329 to 367 mg/dL. His latest chemistry shows a BUN of 28, sodium 138, potassium 4.1, chloride 101, CO2 of 23, glucose 345 and creatinine 1.6. PLAN: So at this time, we will modify once again his basal and bolus insulin regimen as ordered. We will increase his Novolog to 12 units subcu t.i.d. before meals to start today. We will also increase his Lantus to 30 units subcu at bedtime daily to start tonight. We will titrate incrementally as indicated to optimize metabolic control. We will follow with you. Karina Barrett MD
[2017-05-09] MEDS ORDERED: (Lantus) Insulin Glargine, Recombinant SC SCH ×2 (22:00)
== END 2017-05-09 19:00 | disposition home or self-care (01) | DRG 569 ==
LOC: C.ER 20:54 → C.9E 23:34 → C.6T 23:34 → C.9I 04-28 16:31 → C.3T 05-03 16:44
PROVIDERS: ADMIT Internal Medicine; ATTEND Internal Medicine
PROC: 5A1D60Z (ICD-10-PCS; 2017-04-28)
PROC: 5A1945Z Respiratory Ventilation, 24-96 Consecutive Hours (ICD-10-PCS; 2017-04-28)
PROC: 0BH17EZ Insertion of Endotracheal Airway into Trachea, Via Natural or Artificial Opening (ICD-10-PCS; 2017-04-28)
PROC: 02HV33Z Insertion of Infusion Device into Superior Vena Cava, Percutaneous Approach (ICD-10-PCS; principal; 2017-05-02 14:15)
DX: E10.21 Type 1 diabetes mellitus with diabetic nephropathy (principal); J96.01 Acute respiratory failure with hypoxia; N17.9 Acute kidney failure, unspecified; I13.2 Hypertensive heart and chronic kidney disease with heart failure and with stage 5 chronic kidney disease, or end stage renal disease; I48.2 Chronic atrial fibrillation; N18.6 End stage renal disease; E86.0 Dehydration; E78.5 Hyperlipidemia, unspecified; I50.9 Heart failure, unspecified; G47.33 Obstructive sleep apnea (adult) (pediatric); E10.22 Type 1 diabetes mellitus with diabetic chronic kidney disease; J45.909 Unspecified asthma, uncomplicated; Z91.19 Patient's noncompliance with other medical treatment and regimen; Z99.2 Dependence on renal dialysis; Z79.4 Long term (current) use of insulin